=== PATIENT | male | born 1970 | race Caucasian/White ===

== ENCOUNTER 2019-12-15 16:52 | Emergency (ER) | payer OTHER, SELFPAY ==
[2019-12-15 17:01] VITALS: BP 178/90; PULSE 71; RESP 24; TEMP 37.2; O2SAT 98; BMI 37.7
--- NOTE | 2019-12-15 17:21 | ECG_ITS ---
Test Reason : CP Blood Pressure : / mmHG Vent. Rate : 069 BPM Atrial Rate : 069 BPM P-R Int : 162 ms QRS Dur : 088 ms QT Int : 430 ms P-R-T Axes : 040 -05 024 degrees QTc Int : 460 ms Normal sinus rhythm Nonspecific T wave abnormality Borderline ECG No previous ECGs available Referred By: Reyna Villa Electronically Signed By:ELSA ARCHER MD
--- NOTE | 2019-12-15 17:21 | XR_ITS ---
EXAMINATION: XR CHEST CLINICAL INFORMATION: Chest pain COMPARISON: None TECHNIQUE: Frontal portable view of the chest was obtained. 5:27 PM FINDINGS: Inspiratory effort is low. This causes crowding of the bronchovascular markings. Allowing for low inspiratory effort there is no significant pulmonary vascular congestion. There is no infiltrate or overt pulmonary edema. There is no pleural effusion. Heart size is normal. Cardiac and mediastinal contours are normal. IMPRESSION: Low inspiratory effort. No acute abnormality of the chest.
--- NOTE | 2019-12-15 17:22 | ED.CHESTPAIN ---
HPI - Chest Pain General Chief Complaint: Chest Pain Stated Complaint: CHEST PAIN Time Seen by Provider: 12/15/19 17:21 Source: patient Mode of arrival: ambulatory Limitations: no limitations History of Present Illness HPI narrative: 49-year-old male presents emergency department with several days of left-sided chest pain radiating to the left arm. Pain is random, started when he was resting, does not report any physical exertion or strenuous physical labor, does not describe diaphoresis or palpitations with this chest pain. He does have a history of bilateral lower extremity edema and peripheral vascular disease. Pain does not increase with inspiration, and does not change with physical exertion. He denies palpitations, shortness of breath, abdominal pain, abdominal distention, dysuria, hematuria, fevers and chills. He denies lightheadedness, dizziness, weakness, changes in vision, and headaches. He has had a resection for colorectal cancer, has a colostomy bag in place, and does have a history of DVT. MD complaint: chest pain Onset (ago): day(s) (Several days ago) Timing of current episode: episodic Prior episodes: Yes Onset: during rest and awoke with symptoms Pain location: left chest Pain radiation: left arm Severity: moderate Quality: tightness, aching and heaviness Relieving factors: nothing Exacerbating factors: nothing Context: history of DVT/PE Risk Factors Coronary artery disease risk factors: hypertension Thoracic aortic dissection risk factors: none Pulmonary embolism risk factors: history of deep vein thrombosis and malignancy Related Data Allergies Allergy/AdvReac Type Severity Reaction Status Date / Time No Known Allergies Allergy Verified 12/15/19 17:01 Review of Systems Review of Systems: Constitutional: No Weight loss, No Fever, No Chills, No Night Sweats, No Fatigue, No Malaise ENT/Mouth: No Hearing loss, No Ear Pain, No Nasal Congestion, No Sinus Pain, No Hoarseness, No sore throat, No Rhinorrhea, No Swallowing Difficulty Eyes: No Eye Pain, No Swelling, No Redness, No Foreign Body, No Discharge, No Vision Changes Cardiovascular: pos Chest Pain, bilateral lower extremity edema, no SOB, no Dyspnea on Exertion, No Orthopnea, No Palpitations Respiratory: No Cough, No Sputum, No Wheezing, No Smoke Exposure, No Dyspnea Gastrointestinal: Colostomy bag in place, no changes in bowel habits, No Nausea, No Vomiting, No Diarrhea, No abdominal Pain, No Hematochezia, No Melena Genitourinary: No irregular bleeding, No Dysuria, No Urinary Frequency, No Hematuria, No Urinary Incontinence, No Urgency, No Flank Pain, No Urinary Flow Changes, No Hesitancy Musculoskeletal: No joint pain, No Myalgias, No Joint Swelling Skin: No Skin Lesions, No rash Neuro: No Weakness, No Numbness, No Paresthesias, No Loss of Consciousness, No Dizziness, No Headache Psych: No Anxiety/Panic, No Depression, No SI/HI/AH/VH Heme/Lymph: No Bruising, No Bleeding,No Lymphadenopathy Endocrine: No Polyuria, No Polydipsia, No Temperature Intolerance [facility] Past Medical History Attestation statement: The following information was validated with the patient. Medical History Hypertension Rectal adenocarcinoma Rectal adenoma Social History Social History Alcohol intake: current Alcohol intake frequency: holidays/special occasions only Smoked in Last 30 Days: No Use of substances other than those prescribed or required for medical reasons: No Advance Directives: No Advance Directives Information Provided: Yes Physical Exam Vital Signs and I&O and Narrative: Vital Signs and I&O: Vital Signs Temp 98.7 F 12/15/19 21:04 Pulse 63 12/15/19 21:04 Resp 16 12/15/19 21:04 BP 163/100 H 12/15/19 21:04 Pulse Ox 99 12/15/19 21:04 Intake & Output 12/15/19 12/15/19 12/16/19 06:59 18:59 06:59 Weight 122.582 kg Body Mass Index 37.7 Appearance: Alert. Oriented X3. No acute distress. Eyes: Pupils equal, round and reactive to light. ENT: Pharynx normal. Neck: Normal inspection. Neck supple. CVS: Normal heart rate and rhythm. Pulses normal. No chest wall tenderness to palpation, no crepitus noted. Respiratory: No respiratory distress. Breath sounds normal. Abdomen: Soft and nontender. Colostomy and placed to the right lower quadrant Skin: Skin warm and dry. Normal skin color. Normal skin turgor. Extremities: Bilateral lower extremity edema to the midthigh. Neuro: Oriented X 3. No motor deficit. No sensory deficit. Course Course Course Narrative: 49-year-old male presents with chest pain. Does have a history of colon cancer with colon resection, and DVT. We will rule out ACS, and order D-dimer. Reevaluation(s) Reevaluation #1: EKG is normal sinus rhythm, troponin is 10.4, we'll repeat this in 2 hours. D-dimer is 207 age adjusted is considered negative. Second troponin is 10.4, no change, highly unlikely that this is ACS, or PE. BUN is elevated at 24, which is a marked improvement from 10/21/2019 at 34. Patient was advised to follow-up with his primary care physician for further workup, as he may need a stress test. This concern was discussed with him prior to his discharge. Patient verbalized understanding of and agrees to plan of care to discharge home. Time: 21:12 MDM - Chest Pain Differential Diagnosis Differential diagnosis: Likely fracture of rib, pneumothorax, stable angina, atypical chest pain, st elevation myocardial infarction, costochondritis, chest pain and biliary colic Medical Records Data Attestation: I reviewed the patient's medical records. Lab Data Attestation: I reviewed the patient's lab results. Result diagrams: 12/15/19 18:05 12/15/19 18:05 Labs: Lab Results 12/15/19 12/15/19 12/15/19 Range/Units 18:05 18:05 18:05 WBC (4.8-10.8) X10*3/uL RBC (4.60-5.80) X10*6/uL Hgb (14.0-18.0) g/dl Hct (42-52) % MCV (80-98) fL MCH (27.0-33.0) pg MCHC (31.0-36.0) g/dl RDW (11.0-16.0) % Plt Count (160-400) X10*3/uL MPV (9.4-12.4) fL Immature Gran % (Auto) (0.0-0.4) % Neut % (Auto) (45-73) % Lymph % (Auto) (20-40) % [place] % (Auto) (2-11) % Eos % (Auto) (0-4) % Baso % (Auto) (0-2) % Lymph # (Auto) (1.2-4.9) X10*3/uL [place] # (Auto) (0.1-1.2) X10*3/uL Eos # (Auto) (0.0-0.4) X10*3/uL Baso # (Auto) (0.0-0.2) X10*3/uL Abs Immat Gran (auto) (0.00-0.03) X10*3/uL Absolute Neuts (auto) (2.0-8.3) X10*3/uL Absolute Nucleated RBC (0.0-0.012) X10*3/uL Nucleated RBC % (auto) (0.0-0.2) /100WBC PT 12.5 (10.8-13.0) SEC INR 1.1 (0.9-1.1) APTT 32.0 (24.1-38.0) SEC D-Dimer NG/ML Sodium (135-145) mmol/L Potassium (3.3-5.1) mmol/l Chloride (96-108) mmol/L Carbon Dioxide (22-29) mmol/L Anion Gap (12-20) BUN (9-16) mg/dL Creatinine (0.5-1.4) mg/dL Estim Creat Clear Calc Estimated GFR Random Glucose (60-115) mg/dL Calcium (8.4-10.2) mg/dL Magnesium 2.2 (1.6-2.6) mg/dL Total Bilirubin 0.5 (0.0-1.0) mg/dL Direct Bilirubin 0.2 (0.0-0.5) mg/dL AST 18 (5-37) U/L ALT 22 (0-40) U/L Alkaline Phosphatase 77 (39-117) U/L Troponin I High Sens (<3.5-35.0) ng/L B-Natriuretic Peptide 51 (<100) pg/mL Total Protein 7.4 (6.5-8.0) g/dL Albumin 4.3 (3.5-5.0) g/dL Lipase 30 (8-78) U/L 12/15/19 12/15/19 12/15/19 Range/Units 18:05 18:05 18:05 WBC 7.2 (4.8-10.8) X10*3/uL RBC 5.12 (4.60-5.80) X10*6/uL Hgb 14.3 (14.0-18.0) g/dl Hct 42.3 (42-52) % MCV 82.6 (80-98) fL MCH 27.9 (27.0-33.0) pg MCHC 33.8 (31.0-36.0) g/dl RDW 12.9 (11.0-16.0) % Plt Count 207 (160-400) X10*3/uL MPV 9.6 (9.4-12.4) fL Immature Gran % (Auto) 0.8 H (0.0-0.4) % Neut % (Auto) 59.8 (45-73) % Lymph % (Auto) 24.9 (20-40) % [place] % (Auto) 8.3 (2-11) % Eos % (Auto) 5.8 H (0-4) % Baso % (Auto) 0.4 (0-2) % Lymph # (Auto) 1.8 (1.2-4.9) X10*3/uL [place] # (Auto) 0.6 (0.1-1.2) X10*3/uL Eos # (Auto) 0.4 (0.0-0.4) X10*3/uL Baso # (Auto) 0.0 (0.0-0.2) X10*3/uL Abs Immat Gran (auto) 0.06 H (0.00-0.03) X10*3/uL Absolute Neuts (auto) 4.3 (2.0-8.3) X10*3/uL Absolute Nucleated RBC 0.000 (0.0-0.012) X10*3/uL Nucleated RBC % (auto) 0.0 (0.0-0.2) /100WBC PT (10.8-13.0) SEC INR (0.9-1.1) APTT (24.1-38.0) SEC D-Dimer NG/ML Sodium 139 (135-145) mmol/L Potassium 3.3 (3.3-5.1) mmol/l Chloride 102 (96-108) mmol/L Carbon Dioxide 27 (22-29) mmol/L Anion Gap 13 (12-20) BUN 24 H (9-16) mg/dL Creatinine 0.90 (0.5-1.4) mg/dL Estim Creat Clear Calc 130.8 Estimated GFR > 60 Random Glucose 76 (60-115) mg/dL Calcium 9.1 (8.4-10.2) mg/dL Magnesium (1.6-2.6) mg/dL Total Bilirubin (0.0-1.0) mg/dL Direct Bilirubin (0.0-0.5) mg/dL AST (5-37) U/L ALT (0-40) U/L Alkaline Phosphatase (39-117) U/L Troponin I High Sens 10.4 (<3.5-35.0) ng/L B-Natriuretic Peptide (<100) pg/mL Total Protein (6.5-8.0) g/dL Albumin (3.5-5.0) g/dL Lipase (8-78) U/L 12/15/19 12/15/19 Range/Units 18:05 20:07 WBC (4.8-10.8) X10*3/uL RBC (4.60-5.80) X10*6/uL Hgb (14.0-18.0) g/dl Hct (42-52) % MCV (80-98) fL MCH (27.0-33.0) pg MCHC (31.0-36.0) g/dl RDW (11.0-16.0) % Plt Count (160-400) X10*3/uL MPV (9.4-12.4) fL Immature Gran % (Auto) (0.0-0.4) % Neut % (Auto) (45-73) % Lymph % (Auto) (20-40) % [place] % (Auto) (2-11) % Eos % (Auto) (0-4) % Baso % (Auto) (0-2) % Lymph # (Auto) (1.2-4.9) X10*3/uL [place] # (Auto) (0.1-1.2) X10*3/uL Eos # (Auto) (0.0-0.4) X10*3/uL Baso # (Auto) (0.0-0.2) X10*3/uL Abs Immat Gran (auto) (0.00-0.03) X10*3/uL Absolute Neuts (auto) (2.0-8.3) X10*3/uL Absolute Nucleated RBC (0.0-0.012) X10*3/uL Nucleated RBC % (auto) (0.0-0.2) /100WBC PT (10.8-13.0) SEC INR (0.9-1.1) APTT (24.1-38.0) SEC D-Dimer 207 NG/ML Sodium (135-145) mmol/L Potassium (3.3-5.1) mmol/l Chloride (96-108) mmol/L Carbon Dioxide (22-29) mmol/L Anion Gap (12-20) BUN (9-16) mg/dL Creatinine (0.5-1.4) mg/dL Estim Creat Clear Calc Estimated GFR Random Glucose (60-115) mg/dL Calcium (8.4-10.2) mg/dL Magnesium (1.6-2.6) mg/dL Total Bilirubin (0.0-1.0) mg/dL Direct Bilirubin (0.0-0.5) mg/dL AST (5-37) U/L ALT (0-40) U/L Alkaline Phosphatase (39-117) U/L Troponin I High Sens 10.4 (<3.5-35.0) ng/L B-Natriuretic Peptide (<100) pg/mL Total Protein (6.5-8.0) g/dL Albumin (3.5-5.0) g/dL Lipase (8-78) U/L Imaging Data Chest x-ray: Attestation: I personally reviewed and interpreted this imaging study as follows: Radiologist's impression: FINDINGS: Inspiratory effort is low. This causes crowding of the bronchovascular markings. Allowing for low inspiratory effort there is no significant pulmonary vascular congestion. There is no infiltrate or overt pulmonary edema. There is no pleural effusion. Heart size is normal. Cardiac and mediastinal contours are normal. IMPRESSION: Low inspiratory effort. No acute abnormality of the chest. ECG Data ECG #1: Attestation: I personally reviewed and interpreted this ECG as follows: ECG interpretation date: 12/15/19 ECG interpretation time: 16:54 Interpretation: EKGRate: 69 Rhythm: Normal sinus [place]: Normal Normal P waves. Normal EVA. Normal QRS complex. ST T wave : No indication of ST elevation or depression, no indication of ischemia qTC: 460 No prior EKG for comparison Discharge Plan Discharge Clinical Impression: Atypical chest pain, Chest pain Patient Disposition: Home, Self-Care Instructions: Chest Pain (ED) Additional Instructions: please follow-up with primary care physician in 3-5 days for chest pain follow-up. Your EKG was normal sinus rhythm with no indication of ST elevation or depression, your troponin was within normal limits. Your BUN was slightly elevated at 24, which is an improvement from October. Please continue to take all medications as prescribed previously. Thank you for choosing this emergency department for evaluation. Please follow-up with primary care physician as needed. Return to the emergency department for any new, concerning, or worsening symptoms. Interventions: ED Discharge Assessment Last Done: 12/15/19 21:59 Discharge Date/Time: 12/15/19 22:02
[2019-12-15 18:11] LABS: MANUAL DIFF FLAG NO
[2019-12-15 18:15] LABS: Basophils Percent Auto 0.4 % (0-2); Eosinophils Absolute Auto 0.4 X10*3/uL (0.0-0.4); Eosinophils Percent Auto 5.8 % (0-4); Hematocrit 42.3 % (42-52); Hemoglobin 14.3 g/dl (14.0-18.0); Imm Gran Abs Auto 0.06 X10*3/uL (0.00-0.03); Imm Gran Pct Auto 0.8 % (0.0-0.4); Lymphocytes Absolute Auto 1.8 X10*3/uL (1.2-4.9); Lymphocytes Percent Auto 24.9 % (20-40); Mean Corpuscular HGB Conc 33.8 g/dl (31.0-36.0); Mean Corpuscular Hemoglobin 27.9 pg (27.0-33.0); Mean Corpuscular Volume 82.6 fL (80-98); Mean Platelet Volume 9.6 fL (9.4-12.4); Monocytes Absolute Auto 0.6 X10*3/uL (0.1-1.2); Monocytes Percent Auto 8.3 % (2-11); Neutrophils Absolute Auto 4.3 X10*3/uL (2.0-8.3); Neutrophils Percent Auto 59.8 % (45-73); Platelet Count 207 X10*3/uL (160-400); Red Blood Count 5.12 X10*6/uL (4.60-5.80); Red Cell Distribution Width 12.9 % (11.0-16.0); White Blood Count 7.2 X10*3/uL (4.8-10.8)
[2019-12-15 18:31] LABS: INTERNATIONAL NORM RATIO 1.1 (0.9-1.1); Prothrombin Time 12.5 SEC (10.8-13.0)
[2019-12-15 18:49] LABS: Troponin-I High Sensitivity 10.4 ng/L (<3.5-35.0)
[2019-12-15 18:53] LABS: Albumin Level 4.3 g/dL (3.5-5.0); Bilirubin Direct 0.2 mg/dL (0.0-0.5); Bilirubin Total 0.5 mg/dL (0.0-1.0); Magnesium 2.2 mg/dL (1.6-2.6)
[2019-12-15 20:11] LABS: D Dimer 207 NG/ML
[2019-12-15 20:44] LABS: Anion Gap 13 (12-20); Blood Urea Nitrogen 24 mg/dL (9-16); Calcium 9.1 mg/dL (8.4-10.2); Carbon Dioxide 27 mmol/L (22-29); Chloride 102 mmol/L (96-108); Creatinine Clr Calc Pharmacy 130.8; Estimated Glomerular Filt Rate > 60; Glucose Random 76 mg/dL (60-115); Potassium 3.3 mmol/l (3.3-5.1); Sodium 139 mmol/L (135-145)
[2019-12-15 20:45] LABS: Alanine Aminotransferase 22 U/L (0-40); Alkaline Phosphatase 77 U/L (39-117)
[2019-12-15 20:51] LABS: Troponin-I High Sensitivity 10.4 ng/L (<3.5-35.0)
[2019-12-15 21:01] LABS: Aspartate Amino Transferase 18 U/L (5-37); Lipase 30 U/L (8-78); Total Protein 7.4 g/dL (6.5-8.0)
[2019-12-15 21:03] LABS: B Type Natriuretic Peptide 51 pg/mL (<100)
[2019-12-15 21:04] VITALS: BP 163/100; PULSE 63; RESP 16; TEMP 37.1; O2SAT 99
== END 2019-12-15 22:02 | disposition home or self-care (01) ==
PROVIDERS: Nurse Practitioner Family; Emergency Provider Emergency Medicine; PCP Internal Medicine
DX: R07.89 Other chest pain (principal); Z79.899 Other long term (current) drug therapy
CPT/HCPCS: 36415; 71045; 80048; 80076; 83690; 83735; 83880; 84484; 85025; 85379; 85610; 85730; 93005; 96374; 96375; 99285

== ENCOUNTER 2020-02-10 10:06 | Emergency (ER) | payer OTHER, SELFPAY ==
[2020-02-10 10:39] VITALS: BP 165/86; PULSE 70; RESP 16; TEMP 37.2; O2SAT 97; BMI 37.6
--- NOTE | 2020-02-10 12:14 | US_ITS ---
EXAMINATION: US VENOUS ULTRASOUND WITH DOPPLER LOWER EXTREMITY, BILATERAL CLINICAL INFORMATION: Bilateral lower extremity swelling. COMPARISON: Right lower extremity DVT study done on 02/07/2018. TECHNIQUE: Ultrasound of the deep veins is performed from the hip to the calf with compression sonography and color and pulse Doppler assessment. Spectral analysis with color-flow imaging is performed. FINDINGS: RIGHT: There is normal venous compression and respiratory variation and augmented flow. The visualized common femoral vein, superficial femoral vein, profunda femoral vein, popliteal vein, and the trifurcation region shows no evidence of deep venous thrombosis. There is no significant popliteal fossa cyst. Incidental note is made of right-sided varicose vein at mid calf seen arising from the perforators LEFT: There is normal venous compression and respiratory variation and augmented flow. The visualized common femoral vein, superficial femoral vein, profunda femoral vein, popliteal vein, and the trifurcation region shows no evidence of deep venous thrombosis. There is no significant popliteal fossa cyst. Incidental note is made of left mid thigh varicose vein containing thrombus. US/US venous duplex LE BI IMPRESSION: 1. No DVT demonstrated in the bilateral lower extremity. 2. Note is made of presence of right mid calf varicose vein without any thrombus. 3. Note is also made of left mid thigh varicose vein containing thrombus.
--- NOTE | 2020-02-10 12:17 | ED_ITS ---
HPI - General Adult General Chief complaint: General Medical Stated complaint: ?BLOOD CLOT Time Seen by Provider: 02/10/20 12:00 Source: patient History of Present Illness HPI narrative: 50-year-old male with a history of rectal CA status post surgery/chemotherapy 7 years prior, complicated by superficial thrombophlebitis who presents emergency department for evaluation of bilateral lower extremity swelling and pain. The patient has a history of lower extremity swelling and wears compression stockings. He states that this morning he noticed that both his legs were more swollen than usual. He also notes redness and pain on his left inner thigh which she states was similar to when he had superficial thrombophlebitis in the past. He denied fever, chills, chest pain, shortness of breath, dyspnea on exertion. He does have an ostomy states that there has been good output into the ostomy. The patient was concerned that he may have blood clots in his lower extremities therefore he came to the emergency department for evaluation. Related Data Allergies Allergy/AdvReac Type Severity Reaction Status Date / Time No Known Allergies Allergy Verified 12/15/19 17:01 Review of Systems Review of Systems: Yes all other systems are reviewed and are negative Constitutional: Constitutional: Reports as per HPI Eyes: Eyes: Reports as per HPI ENT: Reports as per HPI Cardiovascular: Cardiovascular: Reports as per HPI Respiratory: Respiratory: Reports as per HPI Gastrointestinal: Gastrointestinal: Reports as per HPI Genitourinary: Genitourinary: Reports as per HPI Musculoskeletal: Musculoskeletal: Reports as per HPI Integumentary/Breasts: Skin/Breast: Reports as per HPI Neurologic: Reports as per HPI and Reports Abnormal speech present Psychiatric: Psychiatric: Reports as per HPI Allergic/Immunologic: Allergic/Immunologic: Reports as per HPI PMFSH Past Medical History Medical History Hypertension Hypothyroid Rectal adenocarcinoma Rectal adenoma Surgical History History of creation of ostomy Social History Social History Alcohol intake: current Alcohol intake frequency: holidays/special occasions only Advance Directives: No Advance Directives Information Provided: No Physical Exam Vital Signs: Vital Signs: Last Vital Signs Temp 99.1 F 02/10/20 14:06 Pulse 73 02/10/20 14:06 Resp 16 02/10/20 14:06 BP 156/98 H 02/10/20 14:10 Pulse Ox 96 02/10/20 14:06 Body Mass Index 37.6 Const: General: cooperative, no acute distress, alert and awake Orientation/consciousness: oriented to person and oriented to place Limitations: no limitations HENMT: Head: Yes normal to inspection, Yes normocephalic and Yes atraumatic Ears: external ears normal General nose exam: Normal external nose present Face and sinus: Yes normal facial exam Mouth: Normal oral and palatal mucosa present Teeth and gingiva: dentition normal Throat: Yes posterior oropharynx normal Eyes: General: appearance normal, both eyes and all related structures P eriorbital: periorbital findings normal Eyelids: Yes eyelids normal Conjunctivae: conjunctivae normal Sclerae: sclerae normal Corneas: corneas normal Pupils: Equal, round and reactive pupils present Direct Ophthalm oscopy: normal light reflex Neck: Neck: Yes normal visual inspection and Yes supple Lymphatic: no lymphadenopathy noted Chest: Chest palpation & inspection: normal inspection of the chest and normal palpation of entire chest wall Resp: Effort & Inspection: normal respiratory effort, abnormal respiratory pattern, no audible wheezes and no respiratory distress Auscultation: clear to auscultation bilaterally, no crackles, no rales, no rhonchi and no wheezes Cardio: Rate: regular rate Rhythm: regular rhythm Heart sounds: S1 normal heart sound present, S2 normal heart sound present and no murmurs GI: Inspection: No distended Palpation (GI): Soft to palpation, nontender, no guarding and No hepatosplenomegaly present Auscultation: normal bowel sounds : General: Yes no CVA tenderness Back/Spine/Pelvis: Back: no CVA tenderness Skin: General skin exam: no rashes or lesions noted Lesions: no lesions Rashes: no rashes Wounds: no wounds Neuro: General: oriented to person and oriented to place Cranial nerves: Yes CN's II-XII intact bilaterally and Yes Equal, round and reactive pupils present Cognition (Neuro): normal cognition Speech: Abnormal speech present Motor exam (neuro): 5/5 motor strength present throughout Extrem: General: Yes full ROM, Yes no pedal edema, Yes no calf tenderness and Yes other (B/L LE trace pitting edema) Left lower extremity: hip/thigh (Erythema with tenderness and increased warmth left lateral thigh) Psych: Appearance: grossly normal Mental Status: mental status grossly normal Speech and movement: Clear speech present Affect: normal affect Thought process: Normal thought process present Course Course Course Narrative: 50-year-old male with a history rectal cancer 7 years prior status post chemotherapy and colon surgery with history of superficial thrombophlebitis who presents to the emergency department for evaluation of bilateral lower extremity swelling with increased warmth and tenderness to the left medial aspect of the thigh. Physical examination did reveal bilateral trace pitting edema to both lower extremities with increased warmth, erythema and fullness to the left lateral thigh. My impression is that the patient pr obably has superficial thrombophlebitis however given his history he needs to be ruled out for bilateral DVT. A Doppler ultrasound of the lower extremities were ordered to evaluate for possible DVT. 1452: The patient's Doppler ultrasound bilateral lower extremities revealed no DVT. The patient does have a varicose vein without thrombus on the right calf area and a varicose pain in the left inner thigh area with thrombosis. The patient's presentation is consistent with superficial thrombophlebitis and I did discuss this with the patient. He was advised to use a heating pad on low on the areas that are inflamed and to take ibuprofen 200 mg pills, 2 pills every 6 hours as needed for pain. Is advised 12 with his doctor in 2 days for re- evaluation and return to the emergency department if his symptoms get worse or if he develops any new symptoms that are concerning to him. Discharge Plan Discharge Clinical Impression: Superficial phlebitis and thrombophlebitis of left lower extremity Patient Disposition: Home, Self-Care Instructions: Superficial Thrombophlebitis (ED) Additional Instructions: The Doppler ultrasound of both of your lower legs revealed no deep venous thrombosis (blood clots that are deeper in your legs). This is very reassuring. The Doppler ultrasound did reveal a superficial thrombophlebitis (blood clot in the superficial veins) in your left upper thigh. Also you have a varicose vein in this area and a varicose vein in your right calf area that is also slightly swollen. The treatment for superficial thrombophlebitis is to apply heating pad on low for 15-20 minutes 4 to 6 times a day for the next 2-3 days. Also take ibuprofen 200 mg pills, 2 pills every 6 hours for the next 3-4 days to help reduce the pain and inflammation. Follow-up with your doctor in 2 days for re-evaluation Please return to the emergency department if her symptoms get worse or if you develop any symptoms that are concerning to you. Referrals: Didier Barron MD [Primary Care Provider] - 2 days
[2020-02-10 14:06] VITALS: BP 173/100; PULSE 73; RESP 16; TEMP 37.3; O2SAT 96
[2020-02-10 14:10] VITALS: BP 156/98
== END 2020-02-10 15:10 | disposition home or self-care (01) ==
PROVIDERS: Emergency Provider Emergency Medicine Emergency Medical Services; PCP Internal Medicine
DX: I80.02 Phlebitis and thrombophlebitis of superficial vessels of left lower extremity (principal); M79.662 Pain in left lower leg; M79.661 Pain in right lower leg; I10 Essential (primary) hypertension; Z85.048 Personal history of other malignant neoplasm of rectum, rectosigmoid junction, and anus
CPT/HCPCS: 93970; 99284

== ENCOUNTER 2020-06-27 03:39 | Day surgery (SDC) | payer OTHER, SELFPAY ==
[2020-06-27] VITALS (14 sets, daily range): BP systolic 130–192; BP diastolic 78–101; PULSE 66–102; RESP 16–20; TEMP 36.9–38.1; O2SAT 93–99; BMI 36.2
--- NOTE | 2020-06-27 03:42 | ED_ITS ---
HPI - General Adult General Chief complaint: General Medical Stated complaint: Urinary retention Time Seen by Provider: 06/27/20 03:42 Source: patient Mode of arrival: ambulatory Limitations: no limitations History of Present Illness HPI narrative: 50-year-old male who presents emergency department for evaluation of difficulty urinating. The patient states that he has a history of rectal cancer, he had surgery and radiation therapy and since then he has had difficulty urinating. He states these had to have Carrion catheters placed multiple times in the past. The patient states that he has noticed decreased ur ine output over the past several hours to the point where he feels like his bladder is distended and is painful. He states that has a constant, dull ache in the area of his bladder which is moderate in intensity. The patient denied fever, chills, chest pain, shortness of breath, nausea, vomiting. Related Data Allergies Allergy/AdvReac Type Severity Reaction Status Date / Time No Known Allergies Allergy Verified 12/15/19 17:01 Review of Systems Review of Systems: Yes all other systems are reviewed and are negative PMFSH Past Medical History Medical History Hypertension Hypothyroid Rectal adenocarcinoma Rectal adenoma Surgical History History of creation of ostomy Social History Social History Alcohol intake: current Alcohol intake frequency: holidays/special occasions only Alcohol type: hard liquor Smoking Status: Never smoker Use of substances other than those prescribed or required for medical reasons: No Advance Directives: No Advance Directives Information Provided: No Physical Exam Vital Signs: Vital Signs: Last Vital Signs Temp 98.5 F 06/27/20 05:32 Pulse 98 06/27/20 09:05 Resp 16 06/27/20 09:05 BP 131/90 H 06/27/20 09:05 Pulse Ox 99 06/27/20 09:05 Body Mass Index 36.2 Const: General: cooperative and healthy appearing Orientation/consciousness: oriented to person and oriented to place Limitations: no limitations HENMT: Head: Yes normal to inspection, Yes normocephalic and Yes atraumatic Ears: external ears normal General nose exam: Normal external nose present Face and sinus: Yes normal facial exam Mouth: Normal oral and palatal mucosa present Throat: Yes posterior oropharynx normal Eyes: Periorbital: periorbital findings normal Eyelids: Yes eyelids normal Conjunctivae: conjunctivae normal Sclerae: sclerae normal Corneas: corneas normal Pupils: Equal, round and reactive pupils present Direct Ophthalmoscopy: normal light reflex Neck: Neck: Yes full ROM, Yes no lymphadenopathy, Yes no meningeal signs, Yes trachea midline and Yes supple Chest: Chest palpation & inspection: normal inspection of the chest and normal palpation of entire chest wall Resp: Effort & Inspection: normal respiratory effort and able to speak in complete sentences Auscultation: clear to auscultation bilaterally Cardio: Rate: regular rate Rhythm: regular rhythm Heart sounds: S1 normal heart sound present, S2 normal heart sound present and no murmurs GI: Inspection: Yes normal to inspection Palpation (GI): Soft to palpation, Tenderness to palpation present (GI), no guarding, not rigid and No hepatospl enomegaly present : General: Yes no CVA tenderness Penis: normal penis and circumcised Meatus: meatus normal Scrotum: scrotum normal Testes: Testes normal Back/Spine/Pelvis: Back: no CVA tenderness Cervical Spine: normal cervical lordosis Thoracic/Lumbar Spine: thoracic and lumbar spine normal to inspec tion Skin: Lesions: no lesions Rashes: no rashes Wounds: no wounds Neuro: General: oriented to person, oriented to place and no meningeal signs Cranial nerves: Yes CN's II-XII intact bilaterally and Yes Equal, round and reactive pupils present Cognition (Neuro): normal cognition Motor exam (neuro): 5/5 motor strength present throughout Extrem: General: Yes normal to inspection and Yes full ROM Psych: Appearance: well kempt Mental Status: mental status grossly normal Speech and movement: Normal speech and movement present Affect: normal affect Attitude: cooperative Thought process: Normal thought process present Thought content: Normal thought content present Course Course Course Narrative: 50-year-old male who presents emergency department for evaluation of urinary bladder obstruction, he has had multiple similar episodes in the past. The patient did have suprapubic tenderness. Bladder scan revealed greater than 500 cc of urine in his bladder. The nurse attempted to place a Carrion catheter unsuccessfully. I then attempted to place an 18 Indian coude cath without success. I did discuss the patient's presentation with the covering urologist, Dr. Small. He came to the emergency department and evaluated the patient to evaluate the patient. 0844: The patient's CBC was normal. Coags were normal. The patient's comprehensive metabolic was normal. 0917: Dr. Small was not able to get a Carrion catheter in the patient therefore the patient will be taken to the operating room for catheter placement. The patient's care was turned over to my colleague, Dr. Shanta Ramirez. Medical Decision Making Lab Data Result diagrams: 06/27/20 05:00 06/27/20 05:00 Labs: Lab Results 06/27/20 06/27/20 06/27/20 Range/Units 05:00 05:00 05:33 WBC 6.5 (4.8-10.8) X10*3/uL RBC 5.25 (4.60-5.80) X10*6/uL Hgb 14.8 (14.0-18.0) g/dl Hct 44.1 (42-52) % MCV 84.0 (80-98) fL MCH 28.2 (27.0-33.0) pg MCHC 33.6 (31.0-36.0) g/dl RDW 13.3 (11.0-16.0) % Plt Count 169 (160-400) X10*3/uL MPV 9.5 (9.4-12.4) fL Immature Gran % (Auto) 1.2 H (0.0-0.4) % Neut % (Auto) 66.5 (45-73) % Lymph % (Auto) 18.5 L (20-40) % [place] % (Auto) 8.3 (2-11) % Eos % (Auto) 5.2 H (0-4) % Baso % (Auto) 0.3 (0-2) % Lymph # (Auto) 1.2 (1.2-4.9) X10*3/uL [place] # (Auto) 0.5 (0.1-1.2) X10*3/uL Eos # (Auto) 0.3 (0.0-0.4) X10*3/uL Baso # (Auto) 0.0 (0.0-0.2) X10*3/uL Abs Immat Gran (auto) 0.08 H (0.00-0.03) X10*3/uL Absolute Neuts (auto) 4.4 (2.0-8.3) X10*3/uL Absolute Nucleated RBC 0.000 (0.0-0.012) X10*3/uL Nucleated RBC % (auto) 0.0 (0.0-0.2) /100WBC Sodium 140 (135-145) mmol/L Potassium 3.8 (3.3-5.1) mmol/L Chloride 106 (96-108) mmol/L Carbon Dioxide 24 (22-29) mmol/L Anion Gap 14 (12-20) BUN 21 H (9-16) mg/dL Creatinine 0.81 (0.5-1.4) mg/dL Estim Creat Clear Calc 140.9 Estimated GFR > 60 Random Glucose 106 D (60-115) mg/dL Calcium 9.1 (8.4-10.2) mg/dL Total Bilirubin 0.7 (0.0-1.0) mg/dL AST 20 (5-37) U/L ALT 26 (0-40) U/L Alkaline Phosphatase 71 (39-117) U/L Total Protein 7.2 (6.5-8.0) g/dL Albumin 4.3 (3.5-5.0) g/dL Urine Color YELLOW Urine Appearance CLEAR Urine pH 6.0 (5.0-8.0) Ur Specific [place] 1.020 (1.005-1.025) Urine Protein NEG (NEG-TRACE) MG/DL Urine Glucose (UA) NEG (NEG) MG/DL Urine Ketones NEG (NEG) MG/DL Urine Blood 2+ H (NEG) Urine Nitrite NEG (NEG) Ur Leukocyte Esterase NEG (NEG) Urine RBC 30-49 H (0) /HPF Urine WBC 1-4 (0-4) /HPF Ur Squamous Epith Cells 1+ /LPF Urine Bacteria 1+ /LPF
--- NOTE | 2020-06-27 04:51 | PC.NURSE ---
Performed bladder scan. Scanner reading 526 ml.
[2020-06-27 05:04] LABS: MANUAL DIFF FLAG NO
[2020-06-27 05:05] LABS: Basophils Percent Auto 0.3 % (0-2); Eosinophils Absolute Auto 0.3 X10*3/uL (0.0-0.4); Eosinophils Percent Auto 5.2 % (0-4); Hematocrit 44.1 % (42-52); Hemoglobin 14.8 g/dl (14.0-18.0); Imm Gran Abs Auto 0.08 X10*3/uL (0.00-0.03); Imm Gran Pct Auto 1.2 % (0.0-0.4); Lymphocytes Absolute Auto 1.2 X10*3/uL (1.2-4.9); Lymphocytes Percent Auto 18.5 % (20-40); Mean Corpuscular HGB Conc 33.6 g/dl (31.0-36.0); Mean Corpuscular Hemoglobin 28.2 pg (27.0-33.0); Mean Platelet Volume 9.5 fL (9.4-12.4); Monocytes Absolute Auto 0.5 X10*3/uL (0.1-1.2); Monocytes Percent Auto 8.3 % (2-11); Neutrophils Absolute Auto 4.4 X10*3/uL (2.0-8.3); Neutrophils Percent Auto 66.5 % (45-73); Platelet Count 169 X10*3/uL (160-400); Red Blood Count 5.25 X10*6/uL (4.60-5.80); Red Cell Distribution Width 13.3 % (11.0-16.0); White Blood Count 6.5 X10*3/uL (4.8-10.8)
[2020-06-27 05:30] LABS: Alanine Aminotransferase 26 U/L (0-40); Albumin Level 4.3 g/dL (3.5-5.0); Alkaline Phosphatase 71 U/L (39-117); Anion Gap 14 (12-20); Aspartate Amino Transferase 20 U/L (5-37); Bilirubin Total 0.7 mg/dL (0.0-1.0); Blood Urea Nitrogen 21 mg/dL (9-16); Calcium 9.1 mg/dL (8.4-10.2); Carbon Dioxide 24 mmol/L (22-29); Chloride 106 mmol/L (96-108); Creatinine Clr Calc Pharmacy 140.9; Estimated Glomerular Filt Rate > 60; Glucose Random 106 mg/dL (60-115); Potassium 3.8 mmol/L (3.3-5.1); Sodium 140 mmol/L (135-145); Total Protein 7.2 g/dL (6.5-8.0)
[2020-06-27 05:40] LABS: Glucose Urine UA NEG (NEG); Leukocyte Esterase Urine NEG (NEG); Nitrite Urine NEG (NEG); Urine Blood 2+ (NEG); Urine Ketones NEG (NEG); Urine Protein NEG (NEG-TRACE)
[2020-06-27 05:42] LABS: Appearance Urine CLEAR; Color Urine YELLOW
[2020-06-27 05:44] LABS: Bacteria Urine 1+ /LPF; RBC Urine 30-49 /HPF (0); Squamous Epithelial Cell Urine 1+ /LPF
--- NOTE | 2020-06-27 09:07 | PC.NURSE ---
urology MD to bedside to perform Cystoscopy and attempt catheterization. Pt reports pain, also has bleeding from proceedure. MD states pt will be admitted surgically. Pt able to void small amounts of urine. He has been cleaned, given pads for bleeding. Will continue to monitor
[2020-06-27 10:25] LABS: INTERNATIONAL NORM RATIO 1.1 (0.9-1.1); Prothrombin Time 12.7 SEC (10.8-13.0)
[2020-06-27 10:28] LABS: Partial Thromboplastin Time 31.4 SEC (24.1-38.0)
[2020-06-27 10:40] LABS: COVID-19 Test Negative (Negative)
[2020-06-27] MEDS: Morphine Sulfate 4 MG/ML CARTRIDGE IVPUSH (11:25)
[2020-06-27] MEDS: ondansetron HCL 4 MG/2 ML VIAL IVPUSH (11:26)
--- NOTE | 2020-06-27 11:44 | PC.NURSE ---
pt to surgery via stretcher.
--- NOTE | 2020-06-27 11:45 | PC.NURSE ---
's number [phone] Yeny.
--- NOTE | 2020-06-27 12:06 | HO.ANESPROP2 ---
[facility] Active Problems Active Problems: All Active Problems (Updated 06/27/20 @ 09:29 by Shanta Ramirez DO) Acute urinary retention (Acute) Past Medical History Medical History Hypertension Hypothyroid Rectal adenocarcinoma Rectal adenoma Surgical History Surgical History History of creation of ostomy Social History Social History Alcohol intake: current Alcohol intake frequency: holidays/special occasions only Alcohol type: hard liquor Smoking Status: Never smoker Use of substances other than those prescribed or required for medical reasons: No Have you been hit, kicked, punched, or otherwise hurt by someone within the past year? If so, by whom?: No Advance Directives: No Advance Directives Information Provided: No Meds Allergies Allergy/AdvReac Type Severity Reaction Status Date / Time No Known Allergies Allergy Verified 12/15/19 17:01 Active Medications: Current Medications Generic Name Dose Route Start Last Admin Trade Name Freq PRN Reason Stop Dose Admin Pharmacy Consult 1 each 06/27/20 09:15 Consult Rx Perform Med Rec MISCELLANE ONCE PRN Consult order Home Medications Medication Instructions Recorded Confirmed Last Taken Type citalopram 1 tab PO QAM 06/27/20 06/27/20 06/26/20 History doxycycline hyclate 1 tab PO DAILY 06/27/20 06/27/20 06/26/20 History irbesartan 1 tab PO DAILY 06/27/20 06/27/20 06/26/20 History levothyroxine 1 tab PO DAILY 06/27/20 06/27/20 06/26/20 History spironolactone 1 tab PO DAILY 06/27/20 06/27/20 06/26/20 History verapamil 1 cap PO BEDTIME 06/27/20 06/27/20 06/26/20 History Exam Exam Date and Time: June 27, 2020 1206 Height,Weight and Vital Signs: Height 5 ft 11 in Weight 117.934 kg Last Vital Signs Temp 98.9 F 06/27/20 12:01 Pulse 81 06/27/20 12:01 Resp 20 06/27/20 12:01 BP 171/99 H 06/27/20 12:01 Pulse Ox 98 06/27/20 12:01 Pertinent Lab Results Pertinent Lab Results: Laboratory Tests 06/27/20 06/27/20 06/27/20 05:00 05:00 05:33 WBC 6.5 RBC 5.25 Hgb 14.8 Hct 44.1 MCV 84.0 MCH 28.2 MCHC 33.6 RDW 13.3 Plt Count 169 MPV 9.5 Immature Gran % (Auto) 1.2 H Neut % (Auto) 66.5 Lymph % (Auto) 18.5 L [place] % (Auto) 8.3 Eos % (Auto) 5.2 H Baso % (Auto) 0.3 Lymph # (Auto) 1.2 [place] # (Auto) 0.5 Eos # (Auto) 0.3 Baso # (Auto) 0.0 Abs Immat Gran (auto) 0.08 H Absolute Neuts (auto) 4.4 Absolute Nucleated RBC 0.000 Nucleated RBC % (auto) 0.0 PT INR APTT Sodium 140 Potassium 3.8 Chloride 106 Carbon Dioxide 24 Anion Gap 14 BUN 21 H Creatinine 0.81 Estim Creat Clear Calc 140.9 Estimated GFR > 60 Random Glucose 106 D Calcium 9.1 Total Bilirubin 0.7 AST 20 ALT 26 Alkaline Phosphatase 71 Total Protein 7.2 Albumin 4.3 Urine Color YELLOW Urine Appearance CLEAR Urine pH 6.0 Ur Specific [place] 1.020 Urine Protein NEG Urine Glucose (UA) NEG Urine Ketones NEG Urine Blood 2+ H Urine Nitrite NEG Ur Leukocyte Esterase NEG Urine RBC 30-49 H Urine WBC 1-4 Ur Squamous Epith Cells 1+ Urine Bacteria 1+ COVID-19 ([place]) COVID-19 Clin Com 06/27/20 06/27/20 10:04 10:04 WBC RBC Hgb Hct MCV MCH MCHC RDW Plt Count MPV Immature Gran % (Auto) Neut % (Auto) Lymph % (Auto) [place] % (Auto) Eos % (Auto) Baso % (Auto) Lymph # (Auto) [place] # (Auto) Eos # (Auto) Baso # (Auto) Abs Immat Gran (auto) Absolute Neuts (auto) Absolute Nucleated RBC Nucleated RBC % (auto) PT 12.7 INR 1.1 APTT 31.4 Sodium Potassium Chloride Carbon Dioxide Anion Gap BUN Creatinine Estim Creat Clear Calc Estimated GFR Random Glucose Calcium Total Bilirubin AST ALT Alkaline Phosphatase Total Protein Albumin Urine Color Urine Appearance Urine pH Ur Specific [place] Urine Protein Urine Glucose (UA) Urine Ketones Urine Blood Urine Nitrite Ur Leukocyte Esterase Urine RBC Urine WBC Ur Squamous Epith Cells Urine Bacteria COVID-19 ([place]) Negative COVID-19 Clin Com See Note Airway Mallampati Class: II TM Dist: >3cm Neck ROM: Full
[2020-06-27] MEDS: Lactated Ringers 1,000 ML 100 ML IVCONT (12:22)
--- NOTE | 2020-06-27 12:25 | PC.NURSE ---
PATIENT URINATED 150 DARK URINE AT THIS TIME.
--- NOTE | 2020-06-27 12:42 | P.CNUR_ITS ---
History of Present Illness Consult details Consult date: 06/27/20 Narrative: Carlos is a pleasant male. He came to the emergency room secondary to urinary retention Has had longstanding problems with bladder emptying This was secondary to radiation and surgery for rectal cancer Occasionally has to do self catheterization Has been unable to urinate Unable to advance Carrion catheter in emergency room. Flexible cystoscopy performed but unable to advance wire. There appears to be a false passage with other damage. Recommendation for placement of Carrion catheter in operating room with rigid cystoscopy This will be organized PMFSH Past Medical History Medical History Hypertension Hypothyroid Rectal adenocarcinoma Rectal adenoma Surgical History Surgical History History of creation of ostomy Social History Social History Alcohol intake: current Alcohol intake frequency: holidays/special occasions only Alcohol type: hard liquor Smoking Status: Never smoker Use of substances other than those prescribed or required for medical reasons: No Have you been hit, kicked, punched, or otherwise hurt by someone within the past year? If so, by whom?: No Advance Directives: No Advance Directives Information Provided: No Meds Allergies Allergy/AdvReac Type Severity Reaction Status Date / Time No Known Allergies Allergy Verified 12/15/19 17:01 Active Medications: Current Medications Generic Name Dose Route Start Last Admin Trade Name Freq PRN Reason Stop Dose Admin Fentanyl 50 mcg 06/27/20 12:07 Fentanyl Citrate/Pf 100 Mcg/2 Ml Vial IVPUSH Q5M PRN Pain, Severe (Pain Scale 7-10) Lactated Ringer's 1,000 mls @ 100 mls/hr 06/27/20 12:15 06/27/20 12:22 Lr IVCONT 100 mls/hr .Q10H LEANDRO Administration Levofloxacin 500 mg in 100 mls @ 100 mls/hr 06/27/20 12:40 Levaquin IV 06/27/20 13:39 PREOP ONE Ondansetron HCl 4 mg 06/27/20 12:07 Ondansetron Hcl 4 Mg/2 Ml Vial IVPUSH ONCE PRN Nausea and Vomiting Oxycodone HCl 10 mg 06/27/20 12:07 Oxycodone Hcl Immed Release 5 Mg Tablet PO ONCE PRN Pain, Severe (Pain Scale 7-10) Pharmacy Consult 1 each 06/27/20 09:15 Consult Rx Perform Med Rec MISCELLANE ONCE PRN Consult order Home Medications Medication Instructions Recorded Confirmed Last Taken Type citalopram 1 tab PO QAM 06/27/20 06/27/20 06/26/20 History doxycycline hyclate 1 tab PO DAILY 06/27/20 06/27/20 06/26/20 History irbesartan 1 tab PO DAILY 06/27/20 06/27/20 06/26/20 History levothyroxine 1 tab PO DAILY 06/27/20 06/27/20 06/26/20 History spironolactone 1 tab PO DAILY 06/27/20 06/27/20 06/26/20 History verapamil 1 cap PO BEDTIME 06/27/20 06/27/20 06/26/20 History Physical Exam Vital Signs: Vital Signs: Last Vital Signs Temp 98.9 F 06/27/20 12:01 Pulse 81 06/27/20 12:01 Resp 20 06/27/20 12:01 BP 171/99 H 06/27/20 12:01 Pulse Ox 98 06/27/20 12:01 Body Mass Index 36.2 Const: General: cooperative, healthy appearing, comfortable and no acute distress Nutritional Appearance: average body habitus Orientation/consciousness: oriented to person, oriented to place and oriented to time Eyes: General: appearance normal, both eyes and all related structures Chest: Chest palpation & inspection: normal inspection of the chest Resp: Effort & Inspection: normal respiratory effort Cardio: Rate: regular rate GI: Inspection: Yes normal to inspection Skin: Hair: normal Neuro: General: oriented to person, oriented to place and oriented to time Extrem: General: Yes normal to inspection Results Labs Result diagrams: 06/27/20 05:00 06/27/20 05:00 Labs: Abnormal lab results 06/27/20 06/27/20 06/27/20 Range/Units 05:00 05:00 05:33 Immature Gran % (Auto) 1.2 H (0.0-0.4) % Lymph % (Auto) 18.5 L (20-40) % Eos % (Auto) 5.2 H (0-4) % Abs Immat Gran (auto) 0.08 H (0.00-0.03) X10*3/uL BUN 21 H (9-16) mg/dL Urine Blood 2+ H (NEG) Urine RBC 30-49 H (0) /HPF Short CBC 06/27/20 Range/Units 05:00 WBC 6.5 (4.8-10.8) X10*3/uL Hgb 14.8 (14.0-18.0) g/dl Hct 44.1 (42-52) % Plt Count 169 (160-400) X10*3/uL BMP 06/27/20 05:00 Sodium 140 Potassium 3.8 Chloride 106 Carbon Dioxide 24 BUN 21 H Creatinine 0.81 Calcium 9.1 Liver Function 06/27/20 Range/Units 05:00 Total Bilirubin 0.7 (0.0-1.0) mg/dL AST 20 (5-37) U/L ALT 26 (0-40) U/L Alkaline Phosphatase 71 (39-117) U/L Albumin 4.3 (3.5-5.0) g/dL Urine 06/27/20 Range/Units 05:33 Urine Color YELLOW Urine Appearance CLEAR Urine pH 6.0 (5.0-8.0) Ur Specific [place] 1.020 (1.005-1.025) Urine Protein NEG (NEG-TRACE) MG/DL Urine Glucose (UA) NEG (NEG) MG/DL All other labs normal. Assessment and Plan (1) Urethral stricture: Status: Acute (2) Acute urinary retention: Status: Acute Plan for cystoscopy with Carrion catheter placement
--- NOTE | 2020-06-27 12:42 | MHC.SHP ---
Pre-Procedural Eval Section A The patient is an INPATIENT: No Changes since office visit: No Cold of Flu in the past 2 weeks, No New Medical Problems, No Changes in Medication and No Patient answered all questions The History & Physical has been completed within 30 days and I have reviewed it.: Yes Section B Chief Complaint: Urinary retention Allergies: Allergies Allergy/AdvReac Type Severity Reaction Status Date / Time No Known Allergies Allergy Verified 12/15/19 17:01 Plan Diagnosis/Plan: Unchanged (Cystoscopy with urethral dilatation and Carrion catheter placement) I have reviewed the history and physical and performed a pertinent physical examination on my patient. No changes have occurred unless specified.
[2020-06-27] MEDS: levoFLOXacin/D5W 500 MG/100 ML PIGGYBACK 100 MG IV (12:44)
--- NOTE | 2020-06-27 13:21 | PM.OP ---
Brief Operative Note Date of Service: 06/27/20 Pre-op diagnosis: urinary retention Post-op diagnosis: same Procedure: cysto, urethral dilation, howard placement Surgeon: Abhi Small MD Anesthesia: GLMA Estimated blood loss (mL): 0 Pathology: none sent Condition: stable Disposition: same day
--- NOTE | 2020-06-27 13:31 | P.OP_ITS ---
Operative Note Operative Note Date of Service: 06/27/20 Narrative: PreOperative Diagnosis: Urethral obstruction Post Operative Diagnosis: Urethral obstruction Procedure: Cystoscopy with urethral dilatation Surgeon: Dr Abhi Small Anesthesia: General Indications for procedure: Came in with urinary retention. Previous radiation for rectal cancer had unable to pass Carrion catheter per. On cystoscopy in ER had obstructed urethra unable to pass wire. Plan for passage in operating room Procedure: After informed consent was verified the patient was brought to the operating room and placed in a supine position. anesthesia was administered per protocol. Safety pause time-out. Antibiotics were confirmed. If 22 [place] cystoscope inserted per urethra. Clearly there was false passage from Carrion catheter. Using wire well-defined in anterior passage into the bladder. Cystoscope was removed urethra was dilated up to 18 [place] red 16 Fren ch Biggers tip was placed. Good efflux was seen of urine. Follow in 7 days Pathology: None Drains: Sixteen [place] Carrion catheter
[2020-06-27] MEDS: Acetaminophen 325 MG TABLET 975 MG PO (14:28)
--- NOTE | 2020-06-27 15:27 | PC.NURSE ---
Patient wearing wedding band on left hand and had cell phone in hand upon discharge in front of hospital.
== END 2020-06-27 15:28 | disposition home or self-care (01) ==
LOC: HO.ED 13:59 → HO.SSS 13:59
PROVIDERS: Emergency Medicine; Emergency Provider Emergency Medicine Emergency Medical Services; PCP Internal Medicine; Visit Provider Urology
PROC: 0TJB8ZZ Inspection of Bladder, Via Natural or Artificial Opening Endoscopic (ICD-10-PCS; CPT 52000; principal; 2020-06-27 12:30)
DX: N35.919 Unspecified urethral stricture, male, unspecified site (principal); R33.9 Retention of urine, unspecified; N36.8 Other specified disorders of urethra; I10 Essential (primary) hypertension; Z79.899 Other long term (current) drug therapy; Z85.048 Personal history of other malignant neoplasm of rectum, rectosigmoid junction, and anus; Z92.3 Personal history of irradiation; Z93.3 Colostomy status
CPT/HCPCS: 52281; 36415; 80053; 81001; 85025; 85610; 85730; 87635; 96361; 96365; 96375; 96376; 99285; J1100; J1956; J2250; J2270; J2405; J3010

== ENCOUNTER → 2020-07-03 08:37 | Outpatient (BNVA) | payer OTHER, SELFPAY | PROVIDERS: PCP Internal Medicine; Visit Provider Urology | DX: N30.40 Irradiation cystitis without hematuria (principal); R33.8 Other retention of urine | CPT/HCPCS: 51700 ==

== ENCOUNTER 2021-01-07 05:45 | Emergency (ER) | payer OTHER, SELFPAY ==
--- NOTE | ~2021-01-07 | XR_ITS ---
EXAMINATION: XR CHEST CLINICAL INFORMATION: Chest pain COMPARISON: 12/15/2019 TECHNIQUE: AP portable upright view of the chest FINDINGS: Lungs are clear. No consolidation, pneumothorax, or pleural effusion. Cardiac and mediastinal contours are normal. Pulmonary vasculature is unremarkable. 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 XR/XR chest 1V IMPRESSION: No acute cardiopulmonary findings
[2021-01-07 05:47] VITALS: BP 182/92; PULSE 66; RESP 18; TEMP 36.4; O2SAT 100; BMI 36.2
--- NOTE | 2021-01-07 05:55 | ECG_ITS ---
Test Reason : CP Blood Pressure : / mmHG Vent. Rate : 067 BPM Atrial Rate : 067 BPM P-R Int : 160 ms QRS Dur : 088 ms QT Int : 418 ms P-R-T Axes : 037 004 049 degrees QTc Int : 441 ms Normal sinus rhythm Nonspecific T wave abnormality Abnormal ECG When compared with ECG of 15-DEC-2019 16:54, No significant change was found Referred By: Generic ED Physician Electronically Signed By:ELSA ARCHER MD
[2021-01-07 06:06] LABS: Basophils Percent Auto 0.4 % (0-2); Eosinophils Absolute Auto 0.6 X10*3/uL (0.0-0.4); Eosinophils Percent Auto 6.9 % (0-4); Hematocrit 46.2 % (42.0-52.0); Hemoglobin 15.6 g/dl (14.0-18.0); Imm Gran Pct Auto 1.3 % (0.0-0.4); Lymphocytes Absolute Auto 1.8 X10*3/uL (1.2-4.9); Lymphocytes Percent Auto 22.4 % (20-40); Mean Corpuscular HGB Conc 33.8 g/dl (31.0-36.0); Mean Corpuscular Hemoglobin 28.3 pg (27.0-33.0); Mean Corpuscular Volume 83.8 fL (80.0-98.0); Mean Platelet Volume 9.1 fL (9.4-12.4); Monocytes Absolute Auto 0.6 X10*3/uL (0.1-1.2); Monocytes Percent Auto 7.9 % (2-11); Neutrophils Absolute Auto 4.85 x10*3/uL (2.0-8.3); Neutrophils Percent Auto 61.1 % (45-73); Platelet Count 175 X10*3/uL (160-400); Red Blood Count 5.51 X10*6/uL (4.60-5.80); Red Cell Distribution Width 12.7 % (11.0-16.0); White Blood Count 7.9 X10*3/uL (4.8-10.8)
[2021-01-07 06:07] LABS: MANUAL DIFF FLAG NO
[2021-01-07 06:27] LABS: Anion Gap 11 (12-20); Blood Urea Nitrogen 22 mg/dL (9-16); Calcium 8.9 mg/dL (8.4-10.2); Carbon Dioxide 26 mmol/L (22-29); Chloride 108 mmol/L (96-108); Creatinine Clr Calc Pharmacy 142.8; Estimated Glomerular Filt Rate > 60; Glucose Random 116 mg/dL (60-115); Potassium 3.6 mmol/L (3.3-5.1); Sodium 141 mmol/L (135-145); Troponin-I High Sensitivity 5.9 ng/L (<3.5-35.0)
[2021-01-07 06:31] VITALS: BP 180/92; PULSE 68; RESP 21; O2SAT 98
--- NOTE | 2021-01-07 06:47 | ED.CHESTPAIN ---
HPI - Chest Pain General Chief Complaint: Chest Pain Stated Complaint: Chest pain Time Seen by Provider: 01/07/21 06:47 Source: patient Mode of arrival: ambulatory Limitations: no limitations History of Present Illness HPI narrative: 51-year-old male who presents emergency department for evaluation of chest pain. Patient states he woke up at 4:00 a.m. and noted that he had a pressure-like sensation in his midsternal area. He states that the pressure was 8/10. The pain did not change with movement or with respiration. He states that it was worse if he lies down flat. The pain did not radiate to his neck, jaw, arms or back. He denied shortness of breath or dyspnea on exertion. He did feel mildly diaphoretic. The patient states that the pain persisted and the time of my evaluation he was still having pressure-like pain in his midsternal area which was 5/10. The patient states that he has chronic swelling in his lower extremities he does not believe that it is any worse. He has not gone on any long trips. The patient does have a history of rectal cancer treated 7 years prior at [facility] with surgery, with creation of an ostomy and chemotherapy. He states that he is followed up and is cancer free at this time. He did not take any medications for the pain prior to coming to the emergency department. Related Data Home Medications Medication Instructions Recorded Confirmed citalopram 10 mg tablet 1 tab PO QAM 06/27/20 06/27/20 doxycycline hyclate 100 mg tablet 1 tab PO DAILY 06/27/20 06/27/20 irbesartan 300 mg tablet 1 tab PO DAILY 06/27/20 06/27/20 levothyroxine 175 mcg tablet 1 tab PO DAILY 06/27/20 06/27/20 spironolactone 25 mg tablet 1 tab PO DAILY 06/27/20 06/27/20 verapamil 180 mg 24 hr 1 cap PO BEDTIME 06/27/20 06/27/20 capsule,extended release Previous Rx's Medication Instructions Recorded levofloxacin 500 mg tablet 500 mg PO DAILY 10 Days #10 tab 06/27/20 levofloxacin 500 mg tablet 500 mg PO DAILY 10 Days #10 tab 06/27/20 oxybutynin chloride 5 mg 5 mg PO DAILY 14 Days #14 tab 07/03/20 tablet,extended release 24 hr Allergies Allergy/AdvReac Type Severity Reaction Status Date / Time No Known Allergies Allergy Verified 07/03/20 08:39 Review of Systems Review of Systems: Yes all other systems are reviewed and are negative [facility] Past Medical History [facility] Narrative: Social history:. The patient denies tobacco use. He denies drug use. He states that he occasionally drinks alcohol. Medical History Hypertension Hypothyroid Rectal adenocarcinoma Rectal adenoma Surgical History History of creation of ostomy History of surgery Social History Social History Alcohol intake: current Alcohol intake frequency: holidays/special occasions only Alcohol type: hard liquor Advance Directives: No Advance Directives Information Provided: No Physical Exam Vital Signs: Vital Signs: Last Vital Signs Temp 97.6 F 01/07/21 05:47 Pulse 63 01/07/21 08:55 Resp 20 01/07/21 08:55 BP 166/95 H 01/07/21 08:55 Pulse Ox 98 01/07/21 08:55 Body Mass Index 36.2 Const: General: cooperative and no acute distress Orientation/consciousness: oriented to person and oriented to place Limitations: no limitations HENMT: Head: Yes normal to inspection, Yes normocephalic and Yes atraumatic Ears: external ears normal General nose exam: Normal external nose present Face and sinus: Yes normal facial exam Mouth: Normal oral and palatal mucosa present Throat: Yes posterior oropharynx normal Eyes: General: appearance normal, both eyes and all related structures Pupils: Equal, round and reactive pupils present Neck: Neck: Yes normal visual inspection, Yes no lymphadenopathy, Yes trachea midline and Yes supple Chest: Chest palpation & inspection: normal inspection of the chest and normal palpation of entire chest wall Resp: Effort & Inspection: normal respiratory effort and able to speak in complete sentences Auscultation: clear to auscultation bilaterally Cardio: Rate: regular rate Rhythm: regular rhythm Heart sounds: S1 normal heart sound present, S2 normal heart sound present and no murmurs GI: Inspection: Yes normal to inspection Palpation (GI): Soft to palpation, nontender, no guarding and Other GI palpation findings present (Left lower quadrant ostomy) Auscultation: normal bowel sounds : General: Yes no CVA tenderness Back/Spine/Pelvis: Back: no CVA tenderness Skin: General skin exam: no rashes or lesions noted Neuro: General: oriented to person and oriented to place Cranial nerves: Yes CN's II-XII intact bilaterally and Yes Equal, round and reactive pupils present Cognition (Neuro): normal cognition Motor exam (neuro): 5/5 motor strength present throughout Extrem: Other: Symmetric nonpitting edema both lower extremities, brawny skin changes to both lower extremities with no erythema or increased warmth Psych: Appearance: grossly normal Speech and movement: Normal speech and movement present Affect: normal affect Attitude: cooperative Thought process: Normal thought process present Thought content: Normal thought content present Course Course Course Narrative: 51-year-old male who presents emergency department for evaluation of midsternal chest pressure which he noted when he woke up at 4:00 a.m. this morning. Pressure was initially 8/10 and is currently 5/10 at the time of my evaluation. He had some slight diaphoresis associated with the chest pressure with no other associated symptoms. He stated that the pain was worse when he lied down flat. Patient's 12 EKG did reveal a Q-wave in lead 3 otherwise was unremarkable. The patient's laboratory evaluation included a CBC, comprehensive metabolic panel and high sensitivity troponin I. These tests were essentially unremarkable except for detectable high sensitivity troponin I of 5.9. Chest x-ray revealed no acute findings. Given his history of rectal cancer, pulmonary embolism needs to be considered therefore I ordered a D-dimer. Also, the patient will get a repeat high in 3 hours. Patient's pain was treated with Toradol 30 mg IV. Patient will be kept on a classroom monitor. 0955: Patient's D-dimer was normal, suggesting that he does not have a pulmonary embolism. Patient's repeat 3 hour troponin 7.0 was which was not significantly elevated suggesting that he does not have myocardial injury is the cause of his pain. The pain is most likely secondary to costochondritis, pericarditis also needs to be considered since the pain is worse with lying down flat. Patient was advised to take Tylenol and ibuprofen for his pain. He was discharged with verbal and printed instructions. He was given a note not return to work until 01/10/2021 MDM - Chest Pain Lab Data Result diagrams: 01/07/21 06:02 01/07/21 06:02 Labs: Lab Results 01/07/21 01/07/21 01/07/21 Range/Units 06:02 06:02 06:02 WBC 7.9 (4.8-10.8) X10*3/uL RBC 5.51 (4.60-5.80) X10*6/uL Hgb 15.6 (14.0-18.0) g/dl Hct 46.2 (42.0-52.0) % MCV 83.8 (80.0-98.0) fL MCH 28.3 (27.0-33.0) pg MCHC 33.8 (31.0-36.0) g/dl RDW 12.7 (11.0-16.0) % Plt Count 175 (160-400) X10*3/uL MPV 9.1 L (9.4-12.4) fL Immature Gran % (Auto) 1.3 H (0.0-0.4) % Neut % (Auto) 61.1 (45-73) % Lymph % (Auto) 22.4 (20-40) % [place] % (Auto) 7.9 (2-11) % Eos % (Auto) 6.9 H (0-4) % Baso % (Auto) 0.4 (0-2) % Lymph # (Auto) 1.8 (1.2-4.9) X10*3/uL [place] # (Auto) 0.6 (0.1-1.2) X10*3/uL Eos # (Auto) 0.6 H (0.0-0.4) X10*3/uL Baso # (Auto) 0.0 (0.0-0.2) X10*3/uL Abs Immat Gran (auto) 0.10 H (0.00-0.03) X10*3/uL Absolute Neuts (auto) 4.85 (2.0-8.3) x10*3/uL Absolute Nucleated RBC 0.000 (0.0-0.012) X10*3/uL Nucleated RBC % (auto) 0.0 (0.0-0.2) /100WBC PT (9.9-13.0) SEC INR (0.9-1.1) APTT (24.1-38.0) SEC D-Dimer NG/ML Sodium 141 (135-145) mmol/L Potassium 3.6 (3.3-5.1) mmol/L Chloride 108 (96-108) mmol/L Carbon Dioxide 26 (22-29) mmol/L Anion Gap 11 L (12-20) BUN 22 H (9-16) mg/dL Creatinine 0.79 (0.5-1.4) mg/dL Estim Creat Clear Calc 142.8 Estimated GFR > 60 Random Glucose 116 H (60-115) mg/dL Calcium 8.9 (8.4-10.2) mg/dL Troponin I High Sens 5.9 (<3.5-35.0) ng/L 01/07/21 01/07/21 01/07/21 Range/Units 07:27 07:27 07:27 WBC (4.8-10.8) X10*3/uL RBC (4.60-5.80) X10*6/uL Hgb (14.0-18.0) g/dl Hct (42.0-52.0) % MCV (80.0-98.0) fL MCH (27.0-33.0) pg MCHC (31.0-36.0) g/dl RDW (11.0-16.0) % Plt Count (160-400) X10*3/uL MPV (9.4-12.4) fL Immature Gran % (Auto) (0.0-0.4) % Neut % (Auto) (45-73) % Lymph % (Auto) (20-40) % [place] % (Auto) (2-11) % Eos % (Auto) (0-4) % Baso % (Auto) (0-2) % Lymph # (Auto) (1.2-4.9) X10*3/uL [place] # (Auto) (0.1-1.2) X10*3/uL Eos # (Auto) (0.0-0.4) X10*3/uL Baso # (Auto) (0.0-0.2) X10*3/uL Abs Immat Gran (auto) (0.00-0.03) X10*3/uL Absolute Neuts (auto) (2.0-8.3) x10*3/uL Absolute Nucleated RBC (0.0-0.012) X10*3/uL Nucleated RBC % (auto) (0.0-0.2) /100WBC PT 11.3 (9.9-13.0) SEC INR 1.0 (0.9-1.1) APTT 29.3 (24.1-38.0) SEC D-Dimer < 200 NG/ML Sodium (135-145) mmol/L Potassium (3.3-5.1) mmol/L Chloride (96-108) mmol/L Carbon Dioxide (22-29) mmol/L Anion Gap (12-20) BUN (9-16) mg/dL Creatinine (0.5-1.4) mg/dL Estim Creat Clear Calc Estimated GFR Random Glucose (60-115) mg/dL Calcium (8.4-10.2) mg/dL Troponin I High Sens 6.2 (<3.5-35.0) ng/L 01/07/21 Range/Units 09:01 WBC (4.8-10.8) X10*3/uL RBC (4.60-5.80) X10*6/uL Hgb (14.0-18.0) g/dl Hct (42.0-52.0) % MCV (80.0-98.0) fL MCH (27.0-33.0) pg MCHC (31.0-36.0) g/dl RDW (11.0-16.0) % Plt Count (160-400) X10*3/uL MPV (9.4-12.4) fL Immature Gran % (Auto) (0.0-0.4) % Neut % (Auto) (45-73) % Lymph % (Auto) (20-40) % [place] % (Auto) (2-11) % Eos % (Auto) (0-4) % Baso % (Auto) (0-2) % Lymph # (Auto) (1.2-4.9) X10*3/uL [place] # (Auto) (0.1-1.2) X10*3/uL Eos # (Auto) (0.0-0.4) X10*3/uL Baso # (Auto) (0.0-0.2) X10*3/uL Abs Immat Gran (auto) (0.00-0.03) X10*3/uL Absolute Neuts (auto) (2.0-8.3) x10*3/uL Absolute Nucleated RBC (0.0-0.012) X10*3/uL Nucleated RBC % (auto) (0.0-0.2) /100WBC PT (9.9-13.0) SEC INR (0.9-1.1) APTT (24.1-38.0) SEC D-Dimer NG/ML Sodium (135-145) mmol/L Potassium (3.3-5.1) mmol/L Chloride (96-108) mmol/L Carbon Dioxide (22-29) mmol/L Anion Gap (12-20) BUN (9-16) mg/dL Creatinine (0.5-1.4) mg/dL Estim Creat Clear Calc Estimated GFR Random Glucose (60-115) mg/dL Calcium (8.4-10.2) mg/dL Troponin I High Sens 7.0 (<3.5-35.0) ng/L ECG Data ECG #1: Interpretation: 0556: Normal sinus rhythm with a rate of 67, normal AR , QRS and QTC duration, Q-wave in lead 3, no ST segment elevation, no ST segment depression, no PACs, no PVCs, flattened T-waves throughout the limb the leads and V6. Discharge Plan Discharge Clinical Impression: Acute costochondritis Patient Disposition: Home, Self-Care Instructions: Costochondritis (ED), Acute Pericarditis (ED) Additional Instructions: Your 12 EKG was normal. Your high sensitivity troponin on was detectable at 5.9 but the 3 hour repeat high sensitivity troponin I was only 7.0. Less than 30 is normal. This suggests that your chest pain was not caused by heart injury/heart attack. Your chest x-ray was normal. Your D-dimer was not elevated, suggesting that your chest pain is not caused by a blood clot to your lungs. The most likely cause of your pain is inflammation of the joints of the chest (costochondritis). Pericarditis (inflammation of the lining of the heart) is also possible a but I think this is less likely given your normal EKG. The treatment for costochondritis and pericarditis is anti-inflammatory medications. Take ibuprofen 200 mg pills, 3 pills every 6 hours while awake for 4 days, then after 4 days every 6 hours as needed for pain Take Tylenol (acetaminophen) 500 mg pills, 2 pills every 4 to 6 hours as needed for pain. Follow-up with your doctor in 2 days. Please return to the emergency department if your symptoms get worse or if you develop any symptoms that are concerning to you. Prescriptions: No Action levofloxacin 500 mg tablet 500 mg PO DAILY 10 Days Qty: 10 RF: 0 levothyroxine 175 mcg tablet 1 tab PO DAILY RF: 0 citalopram 10 mg tablet 1 tab PO QAM RF: 0 spironolactone 25 mg tablet 1 tab PO DAILY RF: 0 verapamil 180 mg capsule,ext rel. pellets 24 hr 1 cap PO BEDTIME RF: 0 doxycycline hyclate 100 mg tablet 1 tab PO DAILY RF: 0 irbesartan 300 mg tablet 1 tab PO DAILY RF: 0 levofloxacin 500 mg tablet 500 mg PO DAILY 10 Days Qty: 10 RF: 0 oxybutynin chloride 5 mg tablet extended release 24hr 5 mg PO DAILY 14 Days Qty: 14 RF: 0
[2021-01-07] MEDS: Ketorolac Tromethamine 15 MG/ML VIAL 30 MG IVPUSH (07:27)
[2021-01-07 07:49] LABS: Prothrombin Time 11.3 SEC (9.9-13.0)
--- NOTE | 2021-01-07 07:49 | PC.NURSE ---
pt reports 5/10 chest pain, he describes the pain as sharp . pain med given as documented. pt denies sob/dizziness/headache, no n/v. pt's Troponin at 0602 was 5.9. Redraw schedule for 0900. pt alert and oriented, vss. pt resting quietly, no apparent distress noted. will continue to monitor.
[2021-01-07 07:52] LABS: Partial Thromboplastin Time 29.3 SEC (24.1-38.0)
[2021-01-07 07:57] LABS: Troponin-I High Sensitivity 6.2 ng/L (<3.5-35.0)
[2021-01-07 07:58] LABS: D Dimer < 200 NG/ML
[2021-01-07 08:55] VITALS: BP 166/95; PULSE 63; RESP 20; O2SAT 98
--- NOTE | 2021-01-07 09:25 | PC.NURSE ---
pt's repeat Troponin 7.0 Dr. Nielson aware. will continue to monitor.
[2021-01-07 10:09] VITALS: BP 164/97; PULSE 62; RESP 17; O2SAT 99
--- NOTE | 2021-01-07 10:16 | PC.NURSE ---
pt medically cleared for discharge, discharge summary given and explained, IV removed. pt denies pain, vss.
== END 2021-01-07 10:18 | disposition home or self-care (01) ==
PROVIDERS: Emergency Provider Emergency Medicine Emergency Medical Services
DX: M94.0 Chondrocostal junction syndrome [Tietze] (principal); R07.2 Precordial pain; Z79.899 Other long term (current) drug therapy
CPT/HCPCS: 36415; 71045; 80048; 84484; 85025; 85379; 85610; 85730; 93005; 96374; 99284; J1885

== ENCOUNTER 2021-01-23 03:58 | Inpatient (IN) | payer OTHER, SELFPAY ==
[2021-01-23] VITALS (18 sets, daily range): BP systolic 126–184; BP diastolic 72–98; PULSE 54–89; RESP 14–20; TEMP 36.5–37.9; O2SAT 93–98; BMI 29.4
--- NOTE | ~2021-01-23 | US_ITS ---
EXAMINATION: US ABDOMEN LIMITED CLINICAL INFORMATION: Right upper quadrant pain. COMPARISON: CT scan of January 23, 2021 TECHNIQUE: Real-time imaging of the right upper quadrant abdominal viscera. FINDINGS: PANCREAS: Normal. No abnormal mass or peripancreatic inflammatory change. LIVER: There is diffusely increased echogenicity consistent with fatty infiltration. The liver contour is normal. No focal hepatic lesion. There is no intrahepatic biliary duct dilatation seen. GALLBLADDER: Cholelithiasis is present as well as layering of dependent sludge. Gallbladder wall is thickened to approximately 7 mm in diameter with question of some fluid within the wall. There is tenderness to palpation overlying the gallbladder. COMMON BILE DUCT: Prominent at 8 mm in diameter. RIGHT KIDNEY: Normal. No hydronephrosis. No renal calculi or focal parenchymal lesions. The kidney measures 13.4 cm in maximum dimension. US/US abdomen limited IMPRESSION: Findings consistent with acute cholecystitis. Cholelithiasis. Fatty infiltration of the liver.
--- NOTE | ~2021-01-23 | CT_ITS ---
EXAMINATION: CT ABDOMEN AND PELVIS WITH CONTRAST CLINICAL INFORMATION: Epigastric pain, history of colon cancer with colostomy bag COMPARISON: 04/25/2015 report only TECHNIQUE: Multidetector volumetric images were obtained from the superior aspect of the liver through the pubic symphysis following administration 85 mL of Omnipaque 350 intravenous contrast. Sagittal and coronal reformatted images were obtained on the technologist's workstation. Oral contrast: No This CT examination was performed using dose optimization techniques as appropriate, variously including the following: *Automated exposure control *Adjustment of mA and/or kV according to patient size (this includes techniques or standardized protocols for targeted exams where dose is matched to indication/reason for exam; i.e. extremities or head) *Use of iterative reconstruction technique DLP: 866 mGy-cm FINDINGS: LUNG BASES: The visualized lung bases are unremarkable. LIVER, GALLBLADDER, AND BILIARY TREE: The liver is normal in size, shape, and attenuation. No focal hepatic lesion or biliary ductal dilatation is present. The gallbladder is distended. Multiple gallstones are present, including a stone in the region of the gallbladder neck. There is mild pericholecystic stranding raising suspicion for acute cholecystitis. PANCREAS: Unremarkable. SPLEEN: Unremarkable. ADRENAL GLANDS: Unremarkable. KIDNEYS AND URETERS: The kidneys are normal in size, shape, and attenuation. No hydronephrosis, hydroureter, or obstructing calculi seen. A few tiny renal hypodensities bilaterally are suspected to represent cysts. No perinephric stranding. BLADDER: Unremarkable. GASTROINTESTINAL TRACT: Status post colectomy with right lower quadrant ileostomy. There is mild nonspecific prominence of a proximal small bowel loop in the left upper quadrant, and remaining small bowel loops are nondilated. No free fluid or free air is seen. ABDOMINAL WALL: Status post ventral hernia repair. Small bilateral fat-containing inguinal hernias are noted. LYMPH NODES: Normal. VASCULAR: Unremarkable. PELVIC VISCERA: Unremarkable. There is soft tissue density in the presacral space which was also described on the report from 04/25/2015. OSSEOUS STRUCTURES: Endplate osteophytes are noted in the thoracolumbar spine. CT/CT abdomen pelvis w con IMPRESSION: Cholelithiasis including a gallstone in the region of the gallbladder neck. The gallbladder is distended, and there is mild surrounding stranding raising suspicion for acute cholecystitis. Correlation with right upper quadrant ultrasound would be helpful.
--- NOTE | 2021-01-23 04:19 | ECG_ITS ---
Test Reason : abd pain Blood Pressure : / mmHG Vent. Rate : 075 BPM Atrial Rate : 075 BPM P-R Int : 174 ms QRS Dur : 092 ms QT Int : 430 ms P-R-T Axes : 046 -19 024 degrees QTc Int : 480 ms Normal sinus rhythm Possible Left atrial enlargement Prolonged QT Abnormal ECG When compared with ECG of 07-JAN-2021 05:56, Nonspecific T wave abnormality, improved in Inferior leads Referred By: Heidy Mercer Electronically Signed By:ELSA ARCHER MD
--- NOTE | 2021-01-23 04:24 | ED.ABDPAIN ---
HPI - Abdominal Pain General Chief Complaint: Abdominal Pain Stated Complaint: stomach pain Time Seen by Provider: 01/23/21 04:10 Source: patient Mode of arrival: ambulatory Limitations: no limitations History of Present Illness HPI narrative: Patient comes emergency room complaining of epigastric pain for 10 hours now. Patient states that last night he had dinner, shortly after he started feeling epigastric pain, has been vomiting 4-5 times since then. Patient denies diarrhea. Patient has history of colon cancer and has a colostomy bag. Patient states that he has noticed that the output in his colostomy back is significantly decreased over the last 10 hours. Patient denies chest pain, no shortness of breath, no dysuria. No fever chills. Related Data Home Medications Medication Instructions Recorded Confirmed citalopram 10 mg tablet 1 tab PO QAM 06/27/20 06/27/20 doxycycline hyclate 100 mg tablet 1 tab PO DAILY 06/27/20 06/27/20 irbesartan 300 mg tablet 1 tab PO DAILY 06/27/20 06/27/20 levothyroxine 175 mcg tablet 1 tab PO DAILY 06/27/20 06/27/20 spironolactone 25 mg tablet 1 tab PO DAILY 06/27/20 06/27/20 verapamil 180 mg 24 hr 1 cap PO BEDTIME 06/27/20 06/27/20 capsule,extended release Previous Rx's Medication Instructions Recorded levofloxacin 500 mg tablet 500 mg PO DAILY 10 Days #10 tab 06/27/20 levofloxacin 500 mg tablet 500 mg PO DAILY 10 Days #10 tab 06/27/20 oxybutynin chloride 5 mg 5 mg PO DAILY 14 Days #14 tab 07/03/20 tablet,extended release 24 hr Allergies Allergy/AdvReac Type Severity Reaction Status Date / Time No Known Allergies Allergy Verified 07/03/20 08:39 Review of Systems Review of Systems Constitutional : No Weight loss, No Fever, No Chills, No Night Sweats, No Fatigue, No Malaise ENT/Mouth : No Hearing loss, No Ear Pain, No Nasal Congestion, No Sinus Pain, No Hoarseness, No sore throat, No Rhinorrhea, No Swallowing Difficulty Eyes: No Eye Pain, No Swelling, No Redness, No Foreign Body, No Discharge, No Vision Changes Cardiovascular : No Chest Pain, No SOB, No Dyspnea on Exertion, No Orthopnea, No Edema, No Palpitations Respiratory : No Cough, No Sputum, No Wheezing, No Smoke Exposure, No Dyspnea Gastrointestinal : Complaining of nausea vomiting, complaining of decreased colostomy output. No Diarrhea, No Constipation, complaining of constant nonradiating epigastric pain. No Hematochezia, No Melena Genitourinary : no irregular bleeding, No Dysuria, No Urinary Frequency, No Hematuria, No Urinary Incontinence, No Urgency, No Flank Pain, No Urinary Flow Changes, No Hesitancy Musculoskeletal : No joint pain, No Myalgias, No Joint Swelling Skin : No Skin Lesions, No rash Neuro : No Weakness, No Numbness, No Paresthesias, No Loss of Consciousness, No Dizziness, No Headache Psych : No Anxiety/Panic, No Depression, No SI/HI/AH/VH, No Social Issues, Heme/Lymph: No Bruising, No Bleeding,No Lymphadenopathy Endocrine : No Polyuria, No Polydipsia, No Temperature Intolerance Physical Exam Vital Signs: Vital Signs: Last Vital Signs Temp 98.6 F 01/23/21 04:05 Pulse 89 01/23/21 06:00 Resp 15 01/23/21 06:00 BP 184/96 H 01/23/21 06:00 Pulse Ox 98 01/23/21 06:00 Body Mass Index 29.4 Const: Other: Appearance: Alert. Oriented X3. Seems uncomfortable Eyes: Pupils equal, round and reactive to light. ENT: Pharynx normal. Neck: Normal inspection. Neck supple. No lymph nodes noted. No crepitus CVS: Normal heart rate and rhythm. Pulses normal. Normal S1 and S2 Respiratory: No respiratory distress. Breath sounds normal. No Wheezing. No rales Abdomen: Soft , mild tenderness to palpation in epigastric area. No rigidity. No distention. Skin: Skin warm and dry. Normal skin color. Normal skin turgor. Extremities: No lower extremity edema. No Lacerations. No Rash Neuro: Oriented X 3. No motor deficit. No sensory deficit. Moving all extermities. No slurred speech. Course Course Course Narrative: I discussed the labs and CT findings with Dr. Avila, ultrasound is pending. Patient already received IV fluids and Zosyn. Patient will be admitted to the surgery service. I discussed the above-mentioned with the patient, agrees with plan. At this time, patient states that he feels comfortable after receiving morphine, and states that he does not need any more pain medication at the moment. MDM - Abdominal Pain Lab Data Result diagrams: 01/23/21 04:37 01/23/21 04:37 Labs: Lab Results 01/23/21 01/23/21 01/23/21 Range/Units 04:37 04:37 04:37 WBC 12.8 H (4.8-10.8) X10*3/uL RBC 5.79 (4.60-5.80) X10*6/uL Hgb 16.2 (14.0-18.0) g/dl Hct 47.4 (42.0-52.0) % MCV 81.9 (80.0-98.0) fL MCH 28.0 (27.0-33.0) pg MCHC 34.2 (31.0-36.0) g/dl RDW 12.6 (11.0-16.0) % Plt Count 205 (160-400) X10*3/uL MPV 9.7 (9.4-12.4) fL Immature Gran % (Auto) 0.5 H (0.0-0.4) % Neut % (Auto) 85.9 H (45-73) % Lymph % (Auto) 7.8 L (20-40) % [place] % (Auto) 5.5 (2-11) % Eos % (Auto) 0.1 (0-4) % Baso % (Auto) 0.2 (0-2) % Lymph # (Auto) 1.0 L (1.2-4.9) X10*3/uL [place] # (Auto) 0.7 (0.1-1.2) X10*3/uL Eos # (Auto) 0.0 (0.0-0.4) X10*3/uL Baso # (Auto) 0.0 (0.0-0.2) X10*3/uL Abs Immat Gran (auto) 0.07 H (0.00-0.03) X10*3/uL Absolute Neuts (auto) 11.0 H (2.0-8.3) x10*3/uL Absolute Nucleated RBC 0.000 (0.0-0.012) X10*3/uL Nucleated RBC % (auto) 0.0 (0.0-0.2) /100WBC Sodium 135 (135-145) mmol/L Potassium 3.9 (3.3-5.1) mmol/L Chloride 101 (96-108) mmol/L Carbon Dioxide 24 (22-29) mmol/L Anion Gap 14 (12-20) BUN 17 H (9-16) mg/dL Creatinine 0.78 (0.5-1.4) mg/dL Estim Creat Clear Calc 130.7 Estimated GFR > 60 Random Glucose 124 H (60-115) mg/dL Lactic Acid 1.2 (0.5-2.0) mmol/L Calcium 9.0 (8.4-10.2) mg/dL Magnesium 2.1 (1.6-2.6) mg/dL Total Bilirubin 1.2 H (0.0-1.0) mg/dL Direct Bilirubin 0.5 (0.0-0.5) mg/dL AST 21 (5-37) U/L ALT 29 (0-40) U/L Alkaline Phosphatase 69 (39-117) U/L Troponin I High Sens (<3.5-35.0) ng/L Total Protein 7.6 (6.5-8.0) g/dL Albumin 4.4 (3.5-5.0) g/dL Lipase 9 (8-78) U/L Urine Color Urine Appearance Urine pH (5.0-8.0) Ur Specific [place] (1.005-1.025) Urine Protein (NEG-TRACE) MG/DL Urine Glucose (UA) (NEG) MG/DL Urine Ketones (NEG) MG/DL Urine Blood (NEG) Urine Nitrite (NEG) Ur Leukocyte Esterase (NEG) 01/23/21 01/23/21 Range/Units 04:37 06:09 WBC (4.8-10.8) X10*3/uL RBC (4.60-5.80) X10*6/uL Hgb (14.0-18.0) g/dl Hct (42.0-52.0) % MCV (80.0-98.0) fL MCH (27.0-33.0) pg MCHC (31.0-36.0) g/dl RDW (11.0-16.0) % Plt Count (160-400) X10*3/uL MPV (9.4-12.4) fL Immature Gran % (Auto) (0.0-0.4) % Neut % (Auto) (45-73) % Lymph % (Auto) (20-40) % [place] % (Auto) (2-11) % Eos % (Auto) (0-4) % Baso % (Auto) (0-2) % Lymph # (Auto) (1.2-4.9) X10*3/uL [place] # (Auto) (0.1-1.2) X10*3/uL Eos # (Auto) (0.0-0.4) X10*3/uL Baso # (Auto) (0.0-0.2) X10*3/uL Abs Immat Gran (auto) (0.00-0.03) X10*3/uL Absolute Neuts (auto) (2.0-8.3) x10*3/uL Absolute Nucleated RBC (0.0-0.012) X10*3/uL Nucleated RBC % (auto) (0.0-0.2) /100WBC Sodium (135-145) mmol/L Potassium (3.3-5.1) mmol/L Chloride (96-108) mmol/L Carbon Dioxide (22-29) mmol/L Anion Gap (12-20) BUN (9-16) mg/dL Creatinine (0.5-1.4) mg/dL Estim Creat Clear Calc Estimated GFR Random Glucose (60-115) mg/dL Lactic Acid (0.5-2.0) mmol/L Calcium (8.4-10.2) mg/dL Magnesium (1.6-2.6) mg/dL Total Bilirubin (0.0-1.0) mg/dL Direct Bilirubin (0.0-0.5) mg/dL AST (5-37) U/L ALT (0-40) U/L Alkaline Phosphatase (39-117) U/L Troponin I High Sens 10.5 (<3.5-35.0) ng/L Total Protein (6.5-8.0) g/dL Albumin (3.5-5.0) g/dL Lipase (8-78) U/L Urine Color YELLOW Urine Appearance CLEAR Urine pH 6.5 (5.0-8.0) Ur Specific [place] 1.010 (1.005-1.025) Urine Protein NEG (NEG-TRACE) MG/DL Urine Glucose (UA) NEG (NEG) MG/DL Urine Ketones NEG (NEG) MG/DL Urine Blood NEG (NEG) Urine Nitrite NEG (NEG) Ur Leukocyte Esterase NEG (NEG) Imaging Data CT scan - abdomen: Radiologist's impression: LUNG BASES: The visualized lung bases are unremarkable.? LIVER, GALLBLADDER, AND BILIARY TREE: The liver is normal in size, shape, and attenuation. No focal hepatic lesion or biliary ductal dilatation is present. The gallbladder is distended. Multiple gallstones are present, including a stone in the region of the gallbladder neck. There is mild pericholecystic stranding raising suspicion for acute cholecystitis.? PANCREAS: Unremarkable.? SPLEEN: Unremarkable.? ADRENAL GLANDS: Unremarkable.? KIDNEYS AND URETERS: The kidneys are normal in size, shape, and attenuation. No hydronephrosis, hydroureter, or obstructing calculi seen. A few tiny renal hypodensities bilaterally are suspected to represent cysts. No perinephric stranding. BLADDER: Unremarkable. GASTROINTESTINAL TRACT: Status post colectomy with right lower quadrant ileostomy. There is mild nonspecific prominence of a proximal small bowel loop in the left upper quadrant, and remaining small bowel loops are nondilated. No free fluid or free air is seen. ABDOMINAL WALL: Status post ventral hernia repair. Small bilateral fat-containing inguinal hernias are noted. LYMPH NODES: Normal. VASCULAR: Unremarkable. PELVIC VISCERA: Unremarkable. There is soft tissue density in the presacral space which was also described on the report from 04/25/2015. OSSEOUS STRUCTURES: Endplate osteophytes are noted in the thoracolumbar spine.? CT/CT abdomen pelvis w con IMPRESSION: Cholelithiasis including a gallstone in the region of the gallbladder neck. The gallbladder is distended, and there is mild surrounding stranding raising suspicion for acute cholecystitis. Correlation with right upper quadrant ultrasound would be helpful. Discharge Plan Discharge Clinical Impression: Acute cholecystitis Patient Disposition: Admitted As Inpatient Prescriptions: No Action levofloxacin 500 mg tablet 500 mg PO DAILY 10 Days Qty: 10 RF: 0 levothyroxine 175 mcg tablet 1 tab PO DAILY RF: 0 citalopram 10 mg tablet 1 tab PO QAM RF: 0 spironolactone 25 mg tablet 1 tab PO DAILY RF: 0 verapamil 180 mg capsule,ext rel. pellets 24 hr 1 cap PO BEDTIME RF: 0 doxycycline hyclate 100 mg tablet 1 tab PO DAILY RF: 0 irbesartan 300 mg tablet 1 tab PO DAILY RF: 0 levofloxacin 500 mg tablet 500 mg PO DAILY 10 Days Qty: 10 RF: 0 oxybutynin chloride 5 mg tablet extended release 24hr 5 mg PO DAILY 14 Days Qty: 14 RF: 0 PMFSH Past Medical History Medical History Hypertension Hypothyroid Rectal adenocarcinoma Rectal adenoma Surgical History History of creation of ostomy History of surgery Social History Social History Alcohol intake: current Alcohol intake frequency: does not drink Alcohol type: hard liquor Patient Tobacco Use Status: Never used Tobacco Use of substances other than those prescribed or required for medical reasons: No Advance Directives: No Advance Directives Information Provided: Yes
[2021-01-23 04:41] LABS: MANUAL DIFF FLAG NO
[2021-01-23 04:42] LABS: Basophils Percent Auto 0.2 % (0-2); Eosinophils Percent Auto 0.1 % (0-4); Hematocrit 47.4 % (42.0-52.0); Hemoglobin 16.2 g/dl (14.0-18.0); Imm Gran Abs Auto 0.07 X10*3/uL (0.00-0.03); Imm Gran Pct Auto 0.5 % (0.0-0.4); Lymphocytes Percent Auto 7.8 % (20-40); Mean Corpuscular HGB Conc 34.2 g/dl (31.0-36.0); Mean Corpuscular Volume 81.9 fL (80.0-98.0); Mean Platelet Volume 9.7 fL (9.4-12.4); Monocytes Absolute Auto 0.7 X10*3/uL (0.1-1.2); Monocytes Percent Auto 5.5 % (2-11); Neutrophils Percent Auto 85.9 % (45-73); Platelet Count 205 X10*3/uL (160-400); Red Blood Count 5.79 X10*6/uL (4.60-5.80); Red Cell Distribution Width 12.6 % (11.0-16.0); White Blood Count 12.8 X10*3/uL (4.8-10.8)
[2021-01-23] MEDS: Morphine Sulfate 4 MG/ML CARTRIDGE IVPUSH ×2 (04:44→07:24)
[2021-01-23] MEDS: 0.9 % Sodium Chloride 1,000 ML 999 ML IVCONT (04:44)
[2021-01-23] MEDS: ondansetron HCL 4 MG/2 ML VIAL IVPUSH (04:45)
[2021-01-23 04:57] LABS: Lactic Acid 1.2 mmol/L (0.5-2.0)
[2021-01-23 05:02] LABS: Alanine Aminotransferase 29 U/L (0-40); Albumin Level 4.4 g/dL (3.5-5.0); Alkaline Phosphatase 69 U/L (39-117); Anion Gap 14 (12-20); Aspartate Amino Transferase 21 U/L (5-37); Bilirubin Direct 0.5 mg/dL (0.0-0.5); Bilirubin Total 1.2 mg/dL (0.0-1.0); Blood Urea Nitrogen 17 mg/dL (9-16); Carbon Dioxide 24 mmol/L (22-29); Chloride 101 mmol/L (96-108); Creatinine Clr Calc Pharmacy 130.7; Estimated Glomerular Filt Rate > 60; Glucose Random 124 mg/dL (60-115); Lipase 9 U/L (8-78); Magnesium 2.1 mg/dL (1.6-2.6); Potassium 3.9 mmol/L (3.3-5.1); Sodium 135 mmol/L (135-145); Total Protein 7.6 g/dL (6.5-8.0)
[2021-01-23 05:05] LABS: Troponin-I High Sensitivity 10.5 ng/L (<3.5-35.0)
[2021-01-23] MEDS: iohexoL 350 MG/ML 100 ML INFUS..BTL 85 ML IV (05:17)
[2021-01-23 06:42] LABS: Appearance Urine CLEAR; Color Urine YELLOW; Glucose Urine UA NEG (NEG); Leukocyte Esterase Urine NEG (NEG); Nitrite Urine NEG (NEG); PH 6.5 (5.0-8.0); Urine Blood NEG (NEG); Urine Ketones NEG (NEG); Urine Protein NEG (NEG-TRACE)
[2021-01-23] MEDS: Piperacillin Sodium/Tazobactam 3.375 GM in 0.9 % Sodium Chloride 50 ML IV (07:24)
--- NOTE | 2021-01-23 07:40 | P.HPGS_ITS ---
History of Present Illness History of Present Illness Date of Service: 01/23/21 Chief complaint: stomach pain Narrative: Carlos Daniel is a 51 year old male presenting to the emergency department with approximately 10 hour history of abdominal pain in the epigastrium associated with nausea vomiting and decreased ostomy output. He has a prior history of a rectal resection/colectomy for rectal cancer with an ileostomy in the right lower quadrant. He reports the abdominal pain began last evening and denies a previous history of similar pain. He denies fever or chills. Upon presentation to the emergency department he was noted to be tender in the epigastrium and right upper quadrant. Laboratories revealed elevated WBC and bilirubin level. CT of the abdomen and pelvis revealed gallstones within the gallbladder with distended gallbladder and findings suggestive of acute cholecystitis. He is now waiting ultrasound of the abdomen. Review of Systems Constitutional: Constitutional: Denies chills, Denies fever(s), Denies headache(s) and Reports poor appetite ENT: Denies dizziness and Denies headache(s) Cardiovascular: Cardiovascular: Denies chest pain, Denies rapid heart rate, Denies palpitations and Denies slow heart rate Respiratory: Respiratory: Denies chest congestion, Denies cough, Denies pain on inspiration and Denies wheezing Gastrointestinal: Gastrointestinal: Reports abdominal pain, Denies bloating, Denies change in stool character, Reports constipation, Denies diarrhea, Reports nausea, Reports vomiting and Denies hematemesis Genitourinary: Genitourinary: Reports no additional male genitourinary complaints Musculoskeletal: Musculoskeletal: Denies back pain, Denies arthralgias, Denies joint swelling and Denies numbness Integumentary/Breasts: Skin/Breast: Denies change in pigmentation, Denies radha thema and Denies rash Neurologic: Denies dizziness, Denies headache(s) and Denies numbness Psychiatric: Psychiatric: Denies anxiety and Denies depression Endocrine: Endocrine: Denies palpitations Hematologic/Lymphatic: Hematologic/Lymphatic: Denies easy bleeding, Denies easy bruising and Denies lymphadenopathy Allergic/Immunologic: Allergic/Immunologic: Denies wheezing PMFSH Past Medical History Medical History Hypertension Hypothyroid Rectal adenocarcinoma Rectal adenoma Surgical History Surgical History History of creation of ostomy History of surgery Social History Social History Alcohol intake: current Alcohol intake frequency: does not drink Alcohol type: hard liquor Patient Tobacco Use Status: Never used Tobacco Use of substances other than those prescribed or required for medical reasons: No Advance Directives: No Advance Directives Information Provided: Yes Meds Allergies Allergy/AdvReac Type Severity Reaction Status Date / Time No Known Allergies Allergy Verified 07/03/20 08:39 Home Medications Medication Instructions Recorded Confirmed Last Taken Type citalopram 10 mg tablet 1 tab PO QAM 06/27/20 06/27/20 06/26/20 History doxycycline hyclate 100 mg tablet 1 tab PO DAILY 06/27/20 06/27/20 06/26/20 History irbesartan 300 mg tablet 1 tab PO DAILY 06/27/20 06/27/20 06/26/20 History levothyroxine 175 mcg tablet 1 tab PO DAILY 06/27/20 06/27/20 06/26/20 History spironolactone 25 mg tablet 1 tab PO DAILY 06/27/20 06/27/20 06/26/20 History verapamil 180 mg 24 hr 1 cap PO BEDTIME 06/27/20 06/27/20 06/26/20 History capsule,extended release Physical Exam Vital Signs: Vital Signs: Last Vital Signs Temp 98.6 F 01/23/21 04:05 Pulse 89 01/23/21 06:00 Resp 15 01/23/21 06:00 BP 184/96 H 01/23/21 06:00 Pulse Ox 98 01/23/21 06:00 Body Mass Index 29.4 Const: General: cooperative, no acute distress, well developed and ill appearing Nutritional Appearance: well nourished Orientation/consciousness: patient oriented x3 Limitations: no limitations HENMT: Head: Yes normocephalic and Yes atraumatic Ears: hearing grossly normal bilaterally Resp: Effort & Inspection: normal respiratory effort, no audible wheezes, no cough and no respiratory distress Auscultation: clear to auscultation bilaterally GI: Inspection: Yes normal to inspection Palpation (GI): Soft to palpation, Tenderness to palpation present (GI) in the RUQ and Carroll's sign positive, not rigid, hepatosplenomegaly present and No Rebound tenderness present Auscultation: normal bowel sounds Rectal Exam - Male: Yes deferred Skin: General skin exam: no rashes or lesions noted Neuro: General: patient oriented x3 Extrem: General: Yes no clubbing, cyanosis or edema Results Results Labs: Short CBC 01/23/21 Range/Units 04:37 WBC 12.8 H (4.8-10.8) X10*3/uL Hgb 16.2 (14.0-18.0) g/dl Hct 47.4 (42.0-52.0) % Plt Count 205 (160-400) X10*3/uL BMP 01/23/21 04:37 Sodium 135 Potassium 3.9 Chloride 101 Carbon Dioxide 24 BUN 17 H Creatinine 0.78 Calcium 9.0 Liver Function 01/23/21 Range/Units 04:37 Total Bilirubin 1.2 H (0.0-1.0) mg/dL Direct Bilirubin 0.5 (0.0-0.5) mg/dL AST 21 (5-37) U/L ALT 29 (0-40) U/L Alkaline Phosphatase 69 (39-117) U/L Albumin 4.4 (3.5-5.0) g/dL Urine 01/23/21 Range/Units 06:09 Urine Color YELLOW Urine Appearance CLEAR Urine pH 6.5 (5.0-8.0) Ur Specific [place] 1.010 (1.005-1.025) Urine Protein NEG (NEG-TRACE) MG/DL Urine Glucose (UA) NEG (NEG) MG/DL Assessment and Plan (1) Acute cholecystitis: Status: Acute 51-year-old male patient with prior history of rectal cancer now presenting with abdominal pain in the right upper quadrant associated with nausea and vomiting. Findings are suggestive of acute cholecystitis due to cholelithiasis. He is awaiting further evaluation with an ultrasound of the abdomen. If this confirms acute cholecystitis, arrangements will be made for laparoscopic or possible open cholecystectomy later today. This was reviewed with the patient he is agreeable. Quality Stroke Does the patient have a stroke diagnosis?: No VTE Prior VTE?: No VTE Risk Level:: Surgical - moderate VTE Device Contraindication: N/A - Device Ordered VTE Drug Contraindication: Treatment Not Indicated Procedures Date of Service Date of Service: 01/23/21
[2021-01-23] MEDS: Lactated Ringers 1,000 ML 125 ML IVCONT (08:06)
[2021-01-23 08:27] LABS: COVID-19 Test Negative (Negative)
--- NOTE | 2021-01-23 08:29 | PHA.MEDREC ---
Pharmacy Consult ? Medication Reconciliation Pharmacy has completed the medication reconciliation. There are no remarkable issues for provider's attention. Tanika Moreira, MarkoD
--- NOTE | 2021-01-23 09:01 | PC.NURSE ---
Report given to Jazmyn in [facility] surgery. Pt has been NPO since 6pm last night. Pt's pain is well managed at this time and has LR infusing
--- NOTE | 2021-01-23 09:26 | P.CONAN_ITS ---
[facility] Active Problems Active Problems: All Active Problems (Updated 01/23/21 @ 06:53 by Heidy fishman MD) Acute cholecystitis (Acute) Radiation cystitis (Acute) Urethral stricture (Acute) Acute urinary retention (Acute) Past Medical History Medical History Hypertension Hypothyroid Rectal adenocarcinoma Rectal adenoma Family History Family history of problems with anesthesia: No Surgical History Surgical History History of creation of ostomy History of surgery History of Problems with Anesthesia: No Social History Social History Alcohol intake: current Alcohol intake frequency: does not drink Alcohol type: hard liquor Patient Tobacco Use Status: Never used Tobacco Use of substances other than those prescribed or required for medical reasons: No Have you been hit, kicked, punched, or otherwise hurt by someone within the past year? If so, by whom?: No Are you DNR?: No Advance Directives: No Advance Directives Information Provided: Yes Meds Allergies Allergy/AdvReac Type Severity Reaction Status Date / Time No Known Allergies Allergy Verified 07/03/20 08:39 Active Medications: Current Medications Lactated Ringer's (Lr) 1,000 mls @ 125 mls/hr IVCONT .Q8H [facility] Last Admin: 01/23/21 08:06 Dose: 125 mls/hr Documented by: Piperacillin Sod/Tazobactam (Sod 3.375 gm/ Sodium Chloride) 50 mls @ 100 mls/hr IV Q6H LEANDRO Cefotetan Disodium 2 gm/ (Sodium Chloride) 50 mls @ 100 mls/hr IV PREOP ONE Stop: 01/23/21 09:30 Morphine Sulfate (Morphine Sulfate 4 Mg/Ml Cartridge) 4 mg IVPUSH Q3H PRN; Protocol PRN Reason: Pain, Severe (Pain Scale 7-10) Ondansetron HCl (Ondansetron Hcl 4 Mg/2 Ml Vial) 4 mg IVPUSH QID PRN PRN Reason: Nausea Pharmacy Consult (Consult Rx Perform Med Rec) 1 each MISCELLANE ONCE PRN PRN Reason: Consult order Sodium Chloride (0.9 % Sodium Chloride Flush 3 Ml Syringe) 3 ml IVFLUSH QSHIFT [facility] Last Admin: 01/23/21 07:53 Dose: Not Given Documented by: Zolpidem Tartrate (Zolpidem Tartrate 5 Mg Tablet) 5 mg PO BEDTIME PRN PRN Reason: Insomnia Home Medications Medication Instructions Recorded Confirmed Last Taken Type levothyroxine 175 mcg tablet 1 tab PO DAILY 06/27/20 01/23/21 01/22/21 History spironolactone 25 mg tablet 1 tab PO DAILY 06/27/20 01/23/21 01/22/21 History verapamil 180 mg 24 hr 1 cap PO BEDTIME 06/27/20 01/23/21 01/22/21 History capsule,extended release alprostadil 20 mcg intracavernosal 20 mcg INTRA-CAVERNOSAL DAILY PRN 01/23/21 01/23/21 01/22/21 History kit ([place] Impulse) fluticasone propionate 50 2 spray INTRANASAL DAILY PRN 01/23/21 01/23/21 1 History mcg/actuation nasal spray,suspension Exam Exam Date and Time: January 23, 2021 0926 Height,Weight and Vital Signs: Height 5 ft 11 in Weight 95.708 kg Last Vital Signs Temp 98.6 F 01/23/21 04:05 Pulse 68 01/23/21 08:11 Resp 18 01/23/21 08:11 BP 168/88 H 01/23/21 08:11 Pulse Ox 97 01/23/21 08:11 Pertinent Lab Results Pertinent Lab Results: Laboratory Tests 01/23/21 01/23/21 01/23/21 04:37 04:37 04:37 WBC 12.8 H RBC 5.79 Hgb 16.2 Hct 47.4 MCV 81.9 MCH 28.0 MCHC 34.2 RDW 12.6 Plt Count 205 MPV 9.7 Immature Gran % (Auto) 0.5 H Neut % (Auto) 85.9 H Lymph % (Auto) 7.8 L [place] % (Auto) 5.5 Eos % (Auto) 0.1 Baso % (Auto) 0.2 Lymph # (Auto) 1.0 L [place] # (Auto) 0.7 Eos # (Auto) 0.0 Baso # (Auto) 0.0 Abs Immat Gran (auto) 0.07 H Absolute Neuts (auto) 11.0 H Absolute Nucleated RBC 0.000 Nucleated RBC % (auto) 0.0 Sodium 135 Potassium 3.9 Chloride 101 Carbon Dioxide 24 Anion Gap 14 BUN 17 H Creatinine 0.78 Estim Creat Clear Calc 130.7 Estimated GFR > 60 Random Glucose 124 H Lactic Acid 1.2 Calcium 9.0 Magnesium 2.1 Total Bilirubin 1.2 H Direct Bilirubin 0.5 AST 21 ALT 29 Alkaline Phosphatase 69 Troponin I High Sens Total Protein 7.6 Albumin 4.4 Lipase 9 Urine Color Urine Appearance Urine pH Ur Specific [place] Urine Protein Urine Glucose (UA) Urine Ketones Urine Blood Urine Nitrite Ur Leukocyte Esterase COVID-19 ([place]) COVID-19 Clin Com 01/23/21 01/23/21 01/23/21 04:37 06:09 08:07 WBC RBC Hgb Hct MCV MCH MCHC RDW Plt Count MPV Immature Gran % (Auto) Neut % (Auto) Lymph % (Auto) [place] % (Auto) Eos % (Auto) Baso % (Auto) Lymph # (Auto) [place] # (Auto) Eos # (Auto) Baso # (Auto) Abs Immat Gran (auto) Absolute Neuts (auto) Absolute Nucleated RBC Nucleated RBC % (auto) Sodium Potassium Chloride Carbon Dioxide Anion Gap BUN Creatinine Estim Creat Clear Calc Estimated GFR Random Glucose Lactic Acid Calcium Magnesium Total Bilirubin Direct Bilirubin AST ALT Alkaline Phosphatase Troponin I High Sens 10.5 Total Protein Albumin Lipase Urine Color YELLOW Urine Appearance CLEAR Urine pH 6.5 Ur Specific [place] 1.010 Urine Protein NEG Urine Glucose (UA) NEG Urine Ketones NEG Urine Blood NEG Urine Nitrite NEG Ur Leukocyte Esterase NEG COVID-19 ([place]) Negative COVID-19 Clin Com See Note Airway Mallampati Class: II TM Dist: >3cm Neck ROM: Full Loose/Missing/Broken Teeth: No Heart: ok Lungs: ok Assessment and Plan Final Anesthetic Review Family History of Problems with Anesthesia: No History of Problems with Anesthesia: No NPO: Yes ASA Class: II Final Preanesthetic Review: No Changes in Pt Med Stat, Meds/Allgs Chart Reviewed, Consent Obtained/Reviewed and Anes Risks/Benef Reviewed Patient Risk: Intermediate Procedure Risk: Intermediate Anesthetic Plan Anesthetic Plan: GA and Agree w/ Assess. and Plan Disposition: Standard PACU
--- NOTE | 2021-01-23 09:29 | PC.NURSE ---
iv inserted by ed rn
--- NOTE | 2021-01-23 09:36 | MHC.CM.PN ---
Patient transferred to pre-op before he could be seen by case management. Will attempt to meet again. Continue to [facility] for d/c needs.
--- NOTE | 2021-01-23 11:31 | W.PM.OPN ---
Operative Note Operative Note Date of Service: 01/23/21 Narrative: Preoperative diagnosis:Acute cholecystitis, cholelithiasis Postoperative diagnosis:same Procedure: Laparoscopic converted to open cholecystectomy Surgeon: Sanjiv Avila MD Inspector Machine Cut Glass: Светлана Dover PA-C Anesthesia: general ET Indications for procedure:51 year old with abdominal pain in the right upper quadrant, found to have gallstones with thickened gallbladder wall and gallstones trapped at the neck of the gallbladder. Operative findings:acute cholecystitis with a markedly distended gallbladder and dense adhesions with acute inflammatory changes. Specimen:gallbladder Estimated blood loss:20 ml Complications:none Procedure details: Patient was brought to the OR placed in supine position. After administering general anesthesia the patient's abdomen was prepped with ChloraPrep and draped in a sterile fashion. A surgical time-out was called the consent confirmed. Patient received preoperative antibiotics and Venodyne boots were in place. Local anesthesia consisting of 0.5% Sensorcaine was infiltrated in the subxiphoid location. A 5 mm incision was then made with a scalpel carried down to fascia. Fascia was then opened the peritoneum entered. A 5 mm trocar was then inserted into the abdominal cavity and the abdomen insufflated to a pressure of 15 mm mmHg. The camera was then in the abdomen explored. Dense adhesions were noted from his prior abdominal surgery including total colectomy with ileostomy, and incisional hernia with large mesh placement. Visualization of the gallbladder was limited and limited window was noted for placement of additional trocars. Decision was then made to convert to an open procedure. Trocars removed and a right subcostal incision created with a scalpel. This carried out through subcutaneous tissue up to the external oblique aponeurosis. This was incised with electrocautery and the rectus muscle divided with electrocautery. Posterior sheath was then opened with electrocautery followed by the peritoneum. The abdominal cavity was then entered. A bowel for retractor was placed. Gallbladder is found to be tensely dilated with adherent omentum and transverse mesocolon. This was taken down using blunt and sharp dissection. The gallbladder was then drained in grasped with a Nuzhat clamp. In a retrograde fashion the gallbladder was dissected off the liver using electrocautery. This continued down towards the infundibulum. Hemostasis was assured all times using electrocautery. The cystic artery was identified and doubly clipped and divided. A 2nd branch was also identified doubly clipped and divided. The gallbladder is continued to be dissected down to the junction with the cystic duct. Stones were noted at the neck of the gallbladder and gently milked into the gallbladder. A right angle was then used to hold the stones within the gallbladder. A 2nd right angle was placed below this in the gallbladder divided above the right angle. The gallbladder is passed off the table and sent to pathology for further examination. Cystic duct was then ligated using a 0 Polysorb suture. This was also ligated with a hemoclip. The abdominal cavity was then irrigated with saline solution and suctioned dry. No bleeding could be identified from the liver edge. No bile leak was identified with the cystic duct. A 10. Matthew-Zuñiga drain was then obtained and placed in the gallbladder fossa. This was brought out through a separate stab wound in the right upper quadrant. The drain was secured to the skin using a 4-0 nylon suture. Peritoneum was then closed using a running 0 Polysorb suture. Posterior sheath was closed using a running 0 Polysorb suture. Anterior sheath was closed using a running 0 Polysorb suture. Myron's fascia and dermis were then reapproximated using interrupted 3-0 Polysorb sutures. Skin was closed using skin valorie. The trocar incision was closed in the fascia using a 0 Polysorb suture and skin closed with avlorie. Sterile dressings consisting of 4 x 4 gauze and paper tape were then applied. The patient tolerated the procedure well. Sponge, instrument, and needle counts reported as correct. The patient was transferred to PACU in stable condition.
[2021-01-23] MEDS: Dextrose 5 % and Lactated Ring 1,000 ML 125 ML IVCONT ×2 (14:25→22:16)
[2021-01-23] MEDS: VerapamiL HCL SR 180 MG TABLET.ER PO (20:40)
[2021-01-24 03:35] VITALS: BP 163/83; PULSE 62; RESP 16; TEMP 36.7; O2SAT 95
[2021-01-24] MEDS: Levothyroxine Sodium 175 MCG TABLET PO (05:49)
[2021-01-24] MEDS: Dextrose 5 % and Lactated Ring 1,000 ML 125 ML IVCONT (05:50)
[2021-01-24 08:00] VITALS: BP 180/109; PULSE 57; RESP 18; TEMP 36.6; O2SAT 96
--- NOTE | 2021-01-24 08:22 | P.PNGS_ITS ---
Subjective Subjective Date of Service: 01/24/21 <Светлана Dover PA-C - Last Filed: 01/24/21 08:26> 01/24/21 <Sanjiv Avila MD - Last Filed: 01/24/21 10:30> Interval history: Feels well. He is comfortable at rest and only has mild pain with movement. He has been OOB and ambulating halls. Tolerating solid diet. Wants to go home. <Светлана Dover PA-C - Last Filed: 01/24/21 08:26> Physical Exam 2 Vital Signs: Vital Signs: Last Vital Signs Temp 97.9 F 01/24/21 08:00 Pulse 57 01/24/21 08:00 Resp 18 01/24/21 08:00 BP 180/109 H 01/24/21 08:00 Pulse Ox 96 01/24/21 08:00 Body Mass Index 29.4 <Светлана Dover PA-C - Last Filed: 01/24/21 08:26> Const: General: healthy appearing, comfortable and no acute distress <Светлана Dover PA-C - Last Filed: 01/24/21 08:26> Orientation/consciousness: patient oriented x3 <HOPE Dobbs Last Filed: 01/24/21 08:26> Resp: Effort & Inspection: normal respiratory effort <Светлана Dover PA-C - Last Filed: 01/24/21 08:26> GI: Other: ostomy with flatus, stool FLAVIO with serosanguineous drainage <Светлана Dover PA-C - Last Filed: 01/24/21 08:26> Inspection: No distended and Yes incision (dressing c/d/i) <HOPE Dobbs Last Filed: 01/24/21 08:26> Palpation (GI): Soft to palpation, Tenderness to palpation present (GI) (mild, incisional), no guarding and not rigid <HOPE Dobbs Last Filed: 01/24/21 08:26> Percussion: Yes normal to percussion <HOPE Dobbs Last Filed: 01/24/21 08:26> Skin: General skin exam: no rashes or lesions noted <Светлана Dover PA-C - Last Filed: 01/24/21 08:26> Neuro: General: patient oriented x3 <Светлана Dover PA-C - Last Filed: 01/24/21 08:26> Extrem: General: Yes no clubbing, cyanosis or edema <Светлана Dover PA-C - Last Filed: 01/24/21 08:26> Objective Data Active Medications Acetaminophen (Ofirmev) 1,000 mg in 100 mls @ 400 mls/hr IV Q6H [facility] Stop: 01/26/21 07:43 Last Infusion: 01/24/21 02:07 Dose: 0 mls/hr Documented by: MICHEAL Dextrose/Lactated Ringer's (D5lr) 1,000 mls @ 125 mls/hr IVCONT .Q8H [facility] Last Admin: 01/24/21 05:50 Dose: 125 mls/hr Documented by: MICHEAL Levothyroxine Sodium (Levothyroxine Sodium 175 Mcg Tablet) 175 mcg PO DAILY@0600 [facility] Last Admin: 01/24/21 05:49 Dose: 175 mcg Documented by: MICHEAL Morphine Sulfate (Morphine Sulfate 4 Mg/Ml Cartridge) 4 mg IVPUSH Q3H PRN; Protocol PRN Reason: Pain, Severe (Pain Scale 7-10) Ondansetron HCl (Ondansetron Hcl 4 Mg/2 Ml Vial) 4 mg IVPUSH QID PRN PRN Reason: Nausea Pharmacy Consult (Consult Rx Perform Med Rec) 1 each MISCELLANE ONCE PRN PRN Reason: Consult order Sodium Chloride (0.9 % Sodium Chloride Flush 3 Ml Syringe) [address] [facility] Last Admin: 01/24/21 00:05 Dose: Not Given Documented by: MICHEAL Non-Admin Reason: IV Running Sodium Chloride (0.9 % Sodium Chloride Flush 3 Ml Syringe) 3 ml IVFLUSH [facility] Last Admin: 01/24/21 00:05 Dose: Not Given Documented by: MICHEAL Non-Admin Reason: IV Running Spironolactone (Spironolactone 25 Mg Tablet) 25 mg PO DAILY LEANDRO; Protocol Verapamil HCl (Verapamil Hcl Sr 180 Mg Tablet.Er) 180 mg PO BEDTIME LEANDRO; Protocol Last Admin: 01/23/21 20:40 Dose: 180 mg Documented by: MICHEAL Zolpidem Tartrate (Zolpidem Tartrate 5 Mg Tablet) 5 mg PO BEDTIME PRN PRN Reason: Insomnia <Светлана Dover PA-C - Last Filed: 01/24/21 08:26> Labs CBC & Chem 7: : 01/23/21 04:37 01/23/21 04:37 <Светлана Dover PA-C - Last Filed: 01/24/21 08:26> Labs: Laboratory Results - last 24 hr 01/23/21 08:07 COVID-19 ([facility]) Negative COVID-19 Clin Com See Note <Светлана Dover PA-C - Last Filed: 01/24/21 08:26> Procedures Date of Service Date of Service: 01/24/21 <Светлана Dover PA-C - Last Filed: 01/24/21 08:26> Progress Note: A&P Assessment and plan (1) Acute cholecystitis: Status: Acute <HOPE Dobbs Last Filed: 01/24/21 08:26> (2) S/P cholecystectomy: Status: Acute <Светлана Dover PA-C - Last Filed: 01/24/21 08:26> Assessment and Plan: 51 year old male admitted with acute cholecystitis now POD # 1 s/p lap attempted converted to open CCY due to dense RUQ adhesions. He is doing very well post operatively and tolerating a solid diet. He has minimal incisional pain. He has been OOB and ambulating. VSS. Abd exam benign - dressing c/d/i, approrpiate post op tenderness. FLAVIO with nonbilious output. He is stable for discharge to home today. Will remove drain prior. <Светлана Dover PA-C - Last Filed: 01/24/21 08:26> 51 year old male admitted with acute cholecystitis now POD # 1 s/p lap attempted converted to open CCY due to dense RUQ adhesions. He is doing very well post operatively and tolerating a solid diet. He has minimal incisional pain. He has been OOB and ambulating. VSS. Abd exam benign - dressing c/d/i, approrpiate post op tenderness. FLAVIO with nonbilious output. He is stable for discharge to home today. Will remove drain prior. Agree with the above assessment and plan; patient sore but feels much improved today. He is tolerating po without nausea or vomiting. Wounds are clean and intact. FLAVIO with small amout of serous fluid. Agree with discharge and follow up in office in one week. <Sanjiv Avila MD - Last Filed: 01/24/21 10:30> Fall Risk Details Current Medications: Current Medications Acetaminophen (Ofirmev) 1,000 mg in 100 mls @ 400 mls/hr IV Q6H [facility] Stop: 01/26/21 07:43 Last Infusion: 01/24/21 02:07 Dose: Infused Documented by: Dextrose/Lactated Ringer's (D5lr) 1,000 mls @ 125 mls/hr IVCONT .Q8H [facility] Last Admin: 01/24/21 05:50 Dose: 125 mls/hr Documented by: Levothyroxine Sodium (Levothyroxine Sodium 175 Mcg Tablet) 175 mcg PO DAILY@0600 [facility] Last Admin: 01/24/21 05:49 Dose: 175 mcg Documented by: Morphine Sulfate (Morphine Sulfate 4 Mg/Ml Cartridge) 4 mg IVPUSH Q3H PRN; Protocol PRN Reason: Pain, Severe (Pain Scale 7-10) Ondansetron HCl (Ondansetron Hcl 4 Mg/2 Ml Vial) 4 mg IVPUSH QID PRN PRN Reason: Nausea Pharmacy Consult (Consult Rx Perform Med Rec) 1 each MISCELLANE ONCE PRN PRN Reason: Consult order Sodium Chloride (0.9 % Sodium Chloride Flush 3 Ml Syringe) 3 ml IVFLUSH QSHIFT [facility] Last Admin: 01/24/21 00:05 Dose: Not Given Documented by: Sodium Chloride (0.9 % Sodium Chloride Flush 3 Ml Syringe) 3 ml IVFLUSH QSHIFT [facility] Last Admin: 01/24/21 00:05 Dose: Not Given Documented by: Spironolactone (Spironolactone 25 Mg Tablet) 25 mg PO DAILY [facility]; Protocol Verapamil HCl (Verapamil Hcl Sr 180 Mg Tablet.Er) 180 mg PO BEDTIME LEANDRO; Pr otocol Last Admin: 01/23/21 20:40 Dose: 180 mg Documented by: Zolpidem Tartrate (Zolpidem Tartrate 5 Mg Tablet) 5 mg PO BEDTIME PRN PRN Reason: Insomnia <HOPE Dobbs Last Filed: 01/24/21 08:26> Time Spent With Patient Time: Total time spent is greater than 50% in coordination of care (as documented) at patient's floor/unit and/or counseling patient: <Светлана Dover PA-C - Last Filed: 01/24/21 08:26> Time with patient: 15 - 24 minutes <HOPE Dobbs Last Filed: 01/24/21 08:26> Quality Stroke Does the patient have a stroke diagnosis?: No <Светлана Dover PA-C - Last Filed: 01/24/21 08:26> VTE Prior VTE?: No <HOPE Dobbs Last Filed: 01/24/21 08:26> VTE Risk Level:: Surgical - moderate <HOPE Dobbs Last Filed: 01/24/21 08:26> VTE Device Contraindication: N/A - Device Ordered <HOPE Dobbs Last Filed: 01/24/21 08:26> VTE Drug Contraindication: Treatment Not Indicated <HOPE Dobbs Last Filed: 01/24/21 08:26>
[2021-01-24] MEDS: Spironolactone 25 MG TABLET PO (09:30)
[2021-01-24] MEDS: 0.9 % Sodium Chloride Flush 3 ML SYRINGE IVFLUSH (09:31)
[2021-01-24] MEDS: VerapamiL HCL SR 180 MG TABLET.ER PO (11:15)
[2021-01-24 12:00] VITALS: BP 163/89; PULSE 82; RESP 16; TEMP 37.1; O2SAT 94
--- NOTE | 2021-01-24 12:54 | HO.POSTANES ---
Post Anesthesia Evaluation Post Anesthesia Evaluation Vital Signs: Vital Signs Temp Pulse Resp BP Pulse Ox 01/24/21 08:00 97.9 F 57 18 180/109 H 96 01/24/21 03:35 98.0 F 62 16 163/83 H 95 Anesthesia: General Endotracheal-GETA Mental Status: Awake Pain Control: Satisfactory Nausea/Vomiting: None Hydration: Adequate Anesthesia-Related Issues: No Anes. Related Issues
[2021-01-24] MEDS: ondansetron HCL 4 MG/2 ML VIAL IVPUSH (13:30)
--- NOTE | 2021-01-24 14:16 | MHC.CM.PN ---
EMR REVIEWED, PT ADMITTED S/P LAP AMILCAR CONVERTED TO OPEN, PT REPORTS HE LIVES W/ AND HER 3 CHILDREN, PT IS INDEPENDENT, NO DME AND NO HOME SERVICES, PT VERIFIES PCP RASHID KLINE W/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 D/C PLAN: HOME TODAY SELF-CARE W/PT'S FOR TRANSPORT.
--- NOTE | 2021-01-28 11:05 | P.DS_ITS ---
DS: Providers Provider Date of Service: 01/24/21 Date of admission: 01/23/21 07:35 Primary care physician: Unknown Physician Attending physician on admission: Sanjiv Avila DS: Diagnosis Discharge Diagnosis (1) Acute cholecystitis: Status: Acute (2) S/P cholecystectomy: Status: Acute DS: Summary Hospital Course Hospital Course: BRIEF HPI:?Carlos Daniel is a 51 year old male presenting to the emergency department with approximately 10 hour history of abdominal pain in the epigastrium associated with nausea vomiting and decreased ostomy output.? He has a prior history of a rectal resection/colectomy for rectal cancer with an ileostomy in the right lower quadrant.? He reports the abdominal pain began last evening and denies a previous history of similar pain.? He denies fever or chills.? Upon presentation to the emergency department he was noted to be tender in the epigastrium and right upper quadrant.? Laboratories revealed elevated WBC and bilirubin level.? CT of the abdomen and pelvis revealed gallstones within the gallbladder with distended gallbladder and findings suggestive of acute cholecystitis.? He is now waiting ultrasound of the abdomen. HOSPITAL COURSE: Ultrasound the abdomen confirmed a thickened gallbladder wall with gallstones within the gallbladder. Findings were consistent with acute cholecystitis. Patient was subsequently taken to the OR for laparoscopic or po ssible open cholecystectomy. Intraoperatively the patient was found to have an acutely inflamed gallbladder with dense adhesions and scar tissue from his previous abdominal surgeries. Was a villalobos of the gallbladder was very difficult given the presence of a large hernia mesh with adhesions of the small bowel. An open insertion of trocar in the epigastrium was placed however no other ports could be a placed due to these adhesions. Decision was made to convert to an open procedure. A subcostal incision was created and a open cholecystectomy performed. Operative findings were consistent with an acute obstructed gallbladder due to gallstones. The patient tolerated the procedure well and remained hemodynamically stable. He was started on a regular diet on the evening of postoperative day 0. Postoperative day 1, the patient felt much improved with decreased abdominal pain compared to prior to surgery. He was tolerating regular diet without nausea or vomiting. He felt comfortable enough to be discharged to home. He was subsequently discharged home on postop day 1. The Matthew-Zuñiga drain was removed prior to discharge. Discharge instructions were to avoid lifting greater than 10 lb for 1 month. He should remain on a low-fat diet for 1 month. I have asked him to return to the office in approximately 1 week for wound examination and staple removal. He should call sooner for nausea, vomiting, fever, chills, or other associated symptoms. Time Spent with Patient Time attestation: Total time spent providing and/or coordinating discharge services: Discharge coordination time: Greater than 30 minutes Quality: Stroke Does the patient have a stroke diagnosis?: No Physical Exam Vital Signs: Vital Signs: Last Vital Signs Temp 98.8 F 01/24/21 12:00 Pulse 82 01/24/21 12:00 Resp 16 01/24/21 12:00 BP 163/89 H 01/24/21 12:00 Pulse Ox 94 01/24/21 12:00 Body Mass Index 29.4 DS: Data Data Completed and Pending Completed studies during hospitalization [Text1]: 01/23/21 11:01 Surgical [PTH] Routine Gallbladder, cholecystectomy:? Acute gangrenous cholecystitis and cholelithiasis. Procedures Inspection of Gallbladder, Percutaneous Endoscopic Approach (01/23/21) Resection of Gallbladder, Open Approach (01/23/21) Discharge Plan Discharge Patient Disposition: Home, Self-Care Discharge Diagnosis: acute cholecystitis s/p cholecystectomy Referrals: Sanjiv Avila MD [Physician] - 1 Week PhysicianFilipe [Physician] - 1 Week Discharge Medications: New oxycodone-acetaminophen [Endocet] 5-325 mg tablet 1 tab PO Q6H PRN (Reason: pain (scale score 7-10)) Qty: 15 RF: 0 ondansetron HCl [Zofran] 4 mg tablet 4 mg PO Q8H PRN (Reason: nausea and vomiting) Qty: 20 RF: 0 Continued levothyroxine 175 mcg tablet 1 tab PO DAILY RF: 0 spironolactone 25 mg tablet 1 tab PO DAILY RF: 0 verapamil 180 mg capsule,ext rel. pellets 24 hr 1 cap PO BEDTIME RF: 0 Caverject Impulse 20 mcg kit 20 mcg INTRA-CAVERNOSAL DAILY PRN (Reason: Sexual Activity) RF: 0 fluticasone propionate 50 mcg/actuation spray,suspension 2 spray intranasal DAILY PRN (Reason: Allergy Symptoms) RF: 0 Discharge Orders: Discharge Order (Routine); Ordered 01/24/21 Ordered By: Chinmay Mazzucco Diet: low fat, low cholesterol Activity on Discharge: No heavy lifting Stand Alone Forms: Patient Portal Discharge page, Work/School Release Activity Restrictions/Additional Instructions: If the incision area is tender, you may apply an ice pack for short intervals (No more than 20 minutes on, followed by at least 20 minutes off). Do not apply heat. Do not use creams, lotions, or topical antibiotics unless instructed to do so by your surgeon. These can cause infection or allergic reaction. Ok to shower. You have valorie closing your incision and these will be removed approximately 10-14 days after surgery. NO HEAVY LIFTING (>10lbs). Follow up in office. ([phone]) Call Your Doctor If: -Your temperature exceeds 101.5? F -You experience excessive pain or swelling -You have an unexpected reaction to medication -You have excessive bleeding -You experience continued vomiting/nausea -Your incision begins to separate -Your incision shows signs of infection such as increased redness, swelling, excessive pain, drainage (light blood or clear fluid is normal) or heat Care Plan Goals: Return to baseline health and gradual return to activity following recovery period. Health Concerns: acute cholecystitis s/p cholecystectomy Plan of Treatment: s/p cholecystectomy, discharge to home, f/u in office Assessment: Doing well post op Discharge Date/Time: 01/24/21 14:42
--- NOTE | 2021-01-28 12:38 | PM.DS ---
DS: Providers Provider Date of Service: 01/24/21 Date of admission: 01/23/21 07:35 Date of discharge: 01/24/21 Primary care physician: Didier Barron MD Admitting clinician: Sanjiv Avila Discharging clinician: Sanjiv Avila DS: Diagnosis Discharge Diagnosis (1) Acute cholecystitis: Status: Acute (2) S/P cholecystectomy: Status: Acute DS: Summary Hospital Course Hospital Course: BRIEF HPI:?Carlos Daniel is a 51 year old male presenting to the emergency department with approximately 10 hour history of abdominal pain in the epigastrium associated with nausea vomiting and decreased ostomy output.? He has a prior history of a rectal resection/colectomy for rectal cancer with an ileostomy in the right lower quadrant.? He reports the abdominal pain began last evening and denies a previous history of similar pain.? He denies fever or chills.? Upon presentation to the emergency department he was noted to be tender in the epigastrium and right upper quadrant.? Laboratories revealed elevated WBC and bilirubin level.? CT of the abdomen and pelvis revealed gallstones within the gallbladder with distended gallbladder and findings suggestive of acute cholecystitis.? He is now waiting ultrasound of the abdomen. HOSPITAL COURSE: Ultrasound the abdomen confirmed a thickened gallbladder wall with gallstones within the gallbladder. Findings were consistent with acute cholecystitis. Patient was subsequently taken to the OR for laparoscopic or possible open cholecystectomy. Intraoperatively the patient was found to have an acutely inflamed gallbladder with dense adhesions and scar tissue from his previous abdominal surgeries. Was a villalobos of the gallbladder was very difficult given the presence of a large hernia mesh with adhesions of the small bowel. An open insertion of trocar in the epigastrium was placed however no other ports could be a placed due to these adhesions. Decision was made to convert to an open procedure. A subcostal incision was created and a open cholecystectomy performed. Operative findings were consistent with an acute obstructed gallbladder due to gallstones. The patient tolerated the procedure well and remained hemodynamically stable. He was started on a regular diet on the evening of postoperative day 0. Postoperative day 1, the patient felt much improved with decreased abdominal pain compared to prior to surgery. He was tolerating regular diet without nausea or vomiting. He felt comfortable enough to be discharged to home. He was subsequently discharged home on postop day 1. The Matthew-Zuñiga drain was removed prior to discharge. Discharge instructions were to avoid lifting greater than 10 lb for 1 month. He should remain on a low-fat diet for 1 month. I have asked him to return to the office in approximately 1 week for wound examination and staple removal. He should call sooner for nausea, vomiting, fever, chills, or other associated symptoms. Time spent discussing smoking cessation with patient: 3 to 10 minutes Status at Discharge Functional status at discharge: independent ambulation Overall status at discharge: patient is back to baseline Time Spent with Patient Time attestation: Total time spent providing and/or coordinating discharge services: Discharge coordination time: Less than 30 minutes Quality: Stroke Does the patient have a stroke diagnosis?: No Physical Exam Vital Signs: Vital Signs: Last Vital Signs Temp 98.8 F 01/24/21 12:00 Pulse 82 01/24/21 12:00 Resp 16 01/24/21 12:00 BP 163/89 H 01/24/21 12:00 Pulse Ox 94 01/24/21 12:00 Body Mass Index 29.4 Const: General: cooperative, no acute distress and well developed Nutritional Appearance: well nourished Orientation/consciousness: patient oriented x3 Limitations: no limitations Eyes: Sclerae: sclerae normal EOM: EOMs intact bilaterally GI: Other: Right upper quadrant incisions clean, dry, and intact without redness or discharge. Matthew-Zuñiga drain was removed. This contained serous fluid. Percussion: Yes normal to percussion Auscultation: normal bowel sounds Neuro: General: patient oriented x3 Extrem: General: No edema DS: Data Data Completed and Pending Completed studies during hospitalization [Text1]: Pending at discharge 01/23/21 11:01 Surgical [PTH] Routine Procedures Inspection of Gallbladder, Percutaneous Endoscopic Approach (01/23/21) Resection of Gallbladder, Open Approach (01/23/21) Discharge Plan Discharge Patient Disposition: Home, Self-Care Discharge Diagnosis: acute cholecystitis s/p cholecystectomy Referrals: Sanjiv Avila MD [Physician] - 1 Week Physician,Filipe Ortiz [Physician] - 1 Week Discharge Medications: New oxycodone-acetaminophen [Endocet] 5-325 mg tablet 1 tab PO Q6H PRN (Reason: pain (scale score 7-10)) Qty: 15 RF: 0 ondansetron HCl [Zofran] 4 mg tablet 4 mg PO Q8H PRN (Reason: nausea and vomiting) Qty: 20 RF: 0 Continued levothyroxine 175 mcg tablet 1 tab PO DAILY RF: 0 spironolactone 25 mg tablet 1 tab PO DAILY RF: 0 verapamil 180 mg capsule,ext rel. pellets 24 hr 1 cap PO BEDTIME RF: 0 Caverject Impulse 20 mcg kit 20 mcg INTRA-CAVERNOSAL DAILY PRN (Reason: Sexual Activity) RF: 0 fluticasone propionate 50 mcg/actuation spray,suspension 2 spray intranasal DAILY PRN (Reason: Allergy Symptoms) RF: 0 Discharge Orders: Discharge Order (Routine); Ordered 01/24/21 Ordered By: Sanjiv Avila Diet: low fat, low cholesterol Activity on Discharge: No heavy lifting Stand Alone Forms: Patient Portal Discharge page, Work/School Release Activity Restrictions/Additional Instructions: If the incision area is tender, you may apply an ice pack for short intervals (No more than 20 minutes on, followed by at least 20 minutes off). Do not apply heat. Do not use creams, lotions, or topical antibiotics unless instructed to do so by your surgeon. These can cause infection or allergic reaction. Ok to shower. You have valorie closing your incision and these will be removed approximately 10-14 days after surgery. NO HEAVY LIFTING (>10lbs). Follow up in office. ([phone]) Call Your Doctor If: -Your temperature exceeds 101.5? F -You experience excessive pain or swelling -You have an unexpected reaction to medication -You have excessive bleeding -You experience continued vomiting/nausea -Your incision begins to separate -Your incision shows signs of infection such as increased redness, swelling, excessive pain, drainage (light blood or clear fluid is normal) or heat Care Plan Goals: Return to baseline health and gradual return to activity following recovery period. Health Concerns: acute cholecystitis s/p cholecystectomy Plan of Treatment: s/p cholecystectomy, discharge to home, f/u in office Assessment: Doing well post op Discharge Date/Time: 01/24/21 14:42
== END 2021-01-24 14:42 | disposition home or self-care (01) | DRG 263 ==
LOC: HO.ED 07:09 → HO.EDOVER 07:52 → HO.S3 12:35
PROVIDERS: Admitting Provider Surgery; Emergency Provider Emergency Medicine; PCP Internal Medicine; Visit Provider Surgery
PROC: 0FT44ZZ Resection of Gallbladder, Percutaneous Endoscopic Approach (ICD-10-PCS; CPT 47562; principal; 2021-01-23 09:40)
DX: K80.00 Calculus of gallbladder with acute cholecystitis without obstruction (principal); E03.9 Hypothyroidism, unspecified; K66.0 Peritoneal adhesions (postprocedural) (postinfection); Z20.822 Contact with and (suspected) exposure to COVID-19; Z79.51 Long term (current) use of inhaled steroids; Z79.890 Hormone replacement therapy; Z79.899 Other long term (current) drug therapy
CPT/HCPCS: 36415; 74177; 76705; 80048; 80076; 81003; 83605; 83690; 83735; 84484; 85025; 87635; 88304; 93005; 96361; 96365; 96375; 96376; 99024; 99285; J0131; J1100; J1170; J1885; J2250; J2270; J2405; J2543; J3010; Q9967

== ENCOUNTER → 2021-02-06 13:45 | Outpatient (BNVA) | payer OTHER, SELFPAY | PROVIDERS: PCP Internal Medicine; Visit Provider Surgery ==

== ENCOUNTER 2021-02-08 12:39 | Emergency (ER) | payer OTHER, SELFPAY ==
--- NOTE | ~2021-02-08 | US_ITS ---
EXAMINATION: US VENOUS WITH DOPPLER UPPER EXTREMITY, LEFT CLINICAL INFORMATION: Pain and swelling to the left upper extremity. History of left lower extremity DVT. COMPARISON: None TECHNIQUE: Ultrasound of the upper extremity is performed using compression sonography and color and pulse Doppler flow with assessment of augmentation of flow. There is also imaging and Doppler assessment of the jugular and subclavian veins. Spectral analysis with color-flow imaging is performed. FINDINGS: Respiratory variation, normal compression, and augmented flow are noted throughout the upper extremity including the axillary, brachial, cubital, and radial and ulnar veins. There is normal flow in the internal jugular and subclavian veins. There is no visible deep thrombophlebitis. There is a superficial occlusive thrombus in the left cephalic vein distally. US/US venous duplex UE LT IMPRESSION: Superficial thrombus in the left cephalic vein in its distal portion. No evidence for deep venous thrombosis.
[2021-02-08 13:43] VITALS: BP 199/94; PULSE 80; RESP 18; TEMP 36.8; O2SAT 97; BMI 36.2
--- NOTE | 2021-02-08 15:58 | ED.EXTPRO ---
HPI - Extremity Problem General Chief complaint: Extremity Problem Stated complaint: Blood Clot in Left Arm Time Seen by Provider: 02/08/21 13:53 Source: patient Mode of arrival: ambulatory Limitations: no limitations History of Present Illness HPI Narrative: 51-year-old male with a past medical history of rectal cancer status post surgery/chemo therapy 7 years prior, complicated by superficial thrombophlebitis who presents to emergency department with complaints of left upper arm pain/swelling /redness that he noticed when he woke up today. He reports that he is not on any blood thinners. He does not have any known blood disorder that he is aware of. He denies any fevers, chills, dizziness, change in vision, nausea/vomiting, jaw pain, chest pain or shortness of breath, dyspnea on exertion, orthopnea, palpitations, paresthesias, abdominal pain/ distension, back pain, dysuria, hematuria, rashes, recent travel, recent immobilization, recent surgery, recent surgical procedure, recent falls or trauma or injury that he is aware of, recent illness, history of gout, history of PVD, or any other symptoms complaints or concerns at this time. MD Complaint: extremity pain and extremity swelling Onset (ago): day(s) ( He woke up with it today) Pain Consistency: constant Location: left and upper extremity Quality: aching and constant Radiation: none Relieving factors: nothing Exacerbating factors: palpation Associated symptoms: denies other symptoms Related Data Home Medications Medication Instructions Recorded Confirmed levothyroxine 175 mcg tablet 1 tab PO DAILY 06/27/20 01/23/21 spironolactone 25 mg tablet 1 tab PO DAILY 06/27/20 01/23/21 verapamil 180 mg 24 hr 1 cap PO BEDTIME 06/27/20 01/23/21 capsule,extended release alprostadil 20 mcg intracavernosal 20 mcg INTRA-CAVERNOSAL DAILY PRN 01/23/21 01/23/21 kit (Caverject Impulse) fluticasone propionate 50 2 spray INTRANASAL DAILY PRN 01/23/21 01/23/21 mcg/actuation nasal spray,suspension Previous Rx's Medication Instructions Recorded ondansetron HCl 4 mg tablet 4 mg PO Q8H PRN #20 tab 01/24/21 (Zofran) apixaban 5 mg (74 tabs) tablets in 5 mg PO BID #74 ea 02/08/21 a dose pack (Eliquis DVT-PE Treat 30D Start) Allergies Allergy/AdvReac Type Severity Reaction Status Date / Time cefotetan Allergy Hives Verified 02/08/21 13:42 Review of Systems Review of Systems: Constitutional : No Weight loss, No Fever, No Chills, No Night Sweats, No Fatigue, No Malaise ENT/Mouth : No Hearing loss, No Ear Pain, No Nasal Congestion, No Sinus Pain, No Hoarseness, No sore throat, No Rhinorrhea, No Swallowing Difficulty Eyes: No Eye Pain, No Swelling, No Redness, No Foreign Body, No Discharge, No Vision Changes Cardiovascular : No Chest Pain, No SOB, No Dyspnea on Exertion, No Orthopnea, No Edema, No Palpitations Respiratory : No Cough, No Sputum, No Wheezing, No Smoke Exposure, No Dyspnea Gastrointestinal : No Nausea, No Vomiting, No Diarrhea, No Constipation, No abdominal Pain, No Hematochezia, No Melena Genitourinary : no irregular bleeding, No Dysuria, No Urinary Frequency, No Hematuria, No Urinary Incontinence, No Urgency, No Flank Pain, No Urinary Flow Changes, No Hesitancy Musculoskeletal : + left upper extremity pain/ swelling / surrounding redness, No joint pain, No Myalgias, No Joint Swelling Skin : No Skin Lesions, No rash Neuro : No Weakness, No Numbness, No Paresthesias, No Loss of Consciousness, No Dizziness, No Headache Psych : No Anxiety/Panic, No Depression, No SI/HI/AH/VH, No Social Issues, Heme/Lymph: No Bruising, No Bleeding,No Lymphadenopathy Endocrine : No Polyuria, No Polydipsia, No Temperature Intolerance Yes all other systems are reviewed and are negative [facility] Past Medical History Attestation statement: The following information was validated with the patient. Medical History Hypertension Hypothyroid Rectal adenocarcinoma Rectal adenoma Surgical History History of creation of ostomy History of laparoscopic cholecystectomy (~2020) History of surgery Social History Social History Alcohol intake: current Alcohol intake frequency: does not drink Alcohol type: hard liquor Patient Tobacco Use Status: Never used Tobacco Advance Directives: Yes Advance Directives on File: Yes Advance Directives Date on File: 01/27/21 service: No Current occupational status: employed Physical Exam Vital Signs: Vital Signs: Last Vital Signs Temp 98.2 F 02/08/21 17:11 Pulse 67 02/08/21 17:11 Resp 14 02/08/21 17:11 BP 149/90 H 02/08/21 17:11 Pulse Ox 97 02/08/21 17:11 BMI result Body Mass Index 36.2 vital signs have been reviewed as normal and appeared to be correct. Blood pressure 199/94. Heart rate normal. Respiration rate normal. Temperature normal. Oxygen saturation normal. Appearance: Alert. Oriented X3. No acute distress. Head: Normal external exam. Normocephalic. Atraumatic. Eyes: PERRLA. EOMI. Conjunctiva and sclera normal. Eyelids normal. ENT: Pharynx normal. Uvula midline. Moist mucous membranes. Neck: Normal inspection. Neck supple. FROM. No adenopathy. No meningeal signs. CVS: Normal heart rate and rhythm. Heart sound normal. Pulses normal throughout. No murmurs/rales/gallops. Respiratory: No respiratory distress. Painless inspiration. Breath sounds normal. No wheezes/rales/rhonchi noted. Chest nontender. No accessory muscle usage noted or decreased air movement noted. Back: Full range of motion noted. No rashes/lesion/induration/fluctuance or signs of infection noted. Skin: Skin warm and dry. Normal skin color. Normal skin turgor. No rashes/lesions/lacerations noted. Extremities: Patient with mild tenderness/soft tissue swelling/erythema to left upper arm right below the shoulder with calor. Otherwise no streaking/induration/ Fluctuance ? cellulitis vs DVT. No lower extremity edema. no calf tenderness noted. otherwise all other Extremities exhibit normal range of motion and nontender. Neuro: Oriented X 3. No motor deficit. No sensory deficit. Reflexes normal. Normal steady gait. No focal neuro deficits noted. Vascular: + radial pulses/+ 2 distal pedal pulses/+2 dorsalis pedis b/l. Normal cap refill. No cyanosis noted to upper extremity nails and lower extremity toes nails. Course Course Course Narrative: 14:40pm - 51-year-old male with a past medical history of rectal cancer status post surgery/chemo therapy 7 years prior, complicated by superficial thrombophlebitis who presents to emergency department with complaints of left upper arm pain/swelling /redness that he noticed when he woke up today. He reports that he is not on any blood thinners. patient most likely has cellulitis versus DVT. Not consistent with arterial occlusion. Plan: US of LUE Then re-evaluate patient is declining any pain meds at this time Reevaluation(s) Reevaluation #1: - ultrasound of left upper extremity reveals superficial thrombus in the left cephalic vein and its distal portion. I reviewed the patient's labs and it appears that he had full workup done on 01/23/2021 and his labs were within normal limits including his kidney function. Dr. Grimm confirmed that we do not need repeat labs at this time due to he has labs 2 weeks ago. Therefore at this time will start the patient on Eliquis. Will DC home with referral to Dr. Garcia and Dr. Blanco the vascular surgeon and the icing coater/ oncologist. I printed out the results and given to the patient. Started him on his 1st dose of Eliquis at this time. Will DC home with Eliquis and instructions to follow up with Dr. Radha Blanco and to return if he has any new or worsening symptoms such as chest pain or shortness of breath and he understands this. Time: 17:48 MDM - Extremity (Nontraumatic) Medical Records Attestation: I reviewed the patient's medical records. Lab Data Attestation: I reviewed the patient's lab results. Imaging Data Venous duplex ultrasound of left upper extremity: Attestation: I personally reviewed and interpreted this imaging study as follows: Radiologist's impression: FINDINGS: Respiratory variation, normal compression, and augmented flow are noted throughout the upper extremity including the axillary, brachial, cubital, and radial and ulnar veins. There is normal flow in the internal jugular and subclavian veins. There is no visible deep thrombophlebitis. There is a superficial occlusive thrombus in the left cephalic vein distally. US/US venous duplex UE LT IMPRESSION: Superficial thrombus in the left cephalic vein in its distal portion. ? No evidence for deep venous thrombosis. Critical Care Time Critical Care Time Critical Care Time: Yes Total Critical Care Time: 60 Attestation: I personally attest to this time spent taking care of the patient Discharge Plan Discharge Clinical Impression: Acute cephalic vein thrombosis Patient Disposition: Home, Self-Care Instructions: Deep Vein Thrombosis (ED) Prescriptions: Vipul Mathews DVT-PE Treat 30D Start 5 mg (74 tabs) tablets,dose pack 5 mg PO BID Qty: 74 RF: 0 No Action levothyroxine 175 mcg tablet 1 tab PO DAILY RF: 0 spironolactone 25 mg tablet 1 tab PO DAILY RF: 0 verapamil 180 mg capsule,ext rel. pellets 24 hr 1 cap PO BEDTIME RF: 0 Caverject Impulse 20 mcg kit 20 mcg INTRA-CAVERNOSAL DAILY PRN (Reason: Sexual Activity) RF: 0 fluticasone propionate 50 mcg/actuation spray,suspension 2 spray intranasal DAILY PRN (Reason: Allergy Symptoms) RF: 0 ondansetron HCl [Zofran] 4 mg tablet 4 mg PO Q8H PRN (Reason: nausea and vomiting) Qty: 20 RF: 0 Referrals: Didier Barron MD [Primary Care Provider] - 2 days Jackson Garcia MD [Physician] - 2 days John Blanco MD [Physician] - 2 days Stand Alone Forms: Work/School Release Print Language: Indonesian
[2021-02-08 17:11] VITALS: BP 149/90; PULSE 67; RESP 14; TEMP 36.8; O2SAT 97
[2021-02-08] MEDS: Apixaban 5 MG TABLET 10 MG PO (18:15)
== END 2021-02-08 18:23 | disposition home or self-care (01) ==
PROVIDERS: Emergency Provider Emergency Medicine; PCP Internal Medicine
DX: I82.612 Acute embolism and thrombosis of superficial veins of left upper extremity (principal); M79.622 Pain in left upper arm; M79.89 Other specified soft tissue disorders; Z85.048 Personal history of other malignant neoplasm of rectum, rectosigmoid junction, and anus; Z90.49 Acquired absence of other specified parts of digestive tract
CPT/HCPCS: 93971; 99284; 99291

== ENCOUNTER → 2021-06-06 09:03 | Outpatient (BNVA) | payer OTHER, SELFPAY | PROVIDERS: PCP Physician Assistant Medical; Visit Provider Urology | DX: N30.40 Irradiation cystitis without hematuria (principal); N35.919 Unspecified urethral stricture, male, unspecified site; N31.9 Neuromuscular dysfunction of bladder, unspecified | CPT/HCPCS: 51798 ==

== ENCOUNTER 2021-06-09 10:35 | Day surgery (SDC) | payer OTHER, SELFPAY ==
--- NOTE | ~2021-06-09 | XR_ITS ---
EXAMINATION: XR HAND, RIGHT CLINICAL INFORMATION: Open fracture of the third digit COMPARISON: None TECHNIQUE: PA, lateral, and oblique views of the right hand. FINDINGS: Soft tissue injury of the distal aspect of the third digit. Multiple absent soft tissue with exposure of the tuft of the third digit distal phalanx. There is a small contour abnormality of the tuft which could represent a fracture with no bone fragments remaining. No additional fractures. No radiopaque foreign body. Mild degenerative change at the interphalangeal joints with small osteophytes present. XR/XR hand RT 2V IMPRESSION: Soft tissue injury at the distal aspect of the third digit with possible small fracture at the tip of the tuft of the distal phalanx. No bone fragments remain.
[2021-06-09 10:53] VITALS: BP 118/57; PULSE 72; RESP 18; TEMP 36.6; O2SAT 96; BMI 32.8
--- NOTE | 2021-06-09 11:06 | ED.EXTPRO ---
HPI - Extremity Problem General Chief complaint: Extremity Injury, Upper Stated complaint: Finger lac-work inj Time Seen by Provider: 06/09/21 10:55 Source: patient Mode of arrival: ambulatory Limitations: no limitations History of Present Illness HPI Narrative: 51-year-old male left-hand dominant here with reports of injury to the right hand the 3rd digit which occurred while working today. 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 He had a glove on and when he removed it he noticed part of his finger was missing. Last tetanus status unknown. Patient has a past medical history of colon cancer status post resection with colostomy in remission, hypertension and hypothyroidism Last p.o. intake was 10:00 Related Data Home Medications Medication Instructions Recorded Confirmed levothyroxine 175 mcg tablet 1 tab PO DAILY 06/27/20 01/23/21 spironolactone 25 mg tablet 1 tab PO DAILY 06/27/20 01/23/21 verapamil 180 mg 24 hr 1 cap PO BEDTIME 06/27/20 01/23/21 capsule,extended release alprostadil 20 mcg intracavernosal 20 mcg INTRA-CAVERNOSAL DAILY PRN 01/23/21 01/23/21 kit (Caverject Impulse) fluticasone propionate 50 2 spray INTRANASAL DAILY PRN 01/23/21 01/23/21 mcg/actuation nasal spray,suspension Previous Rx's Medication Instructions Recorded ondansetron HCl 4 mg tablet 4 mg PO Q8H PRN #20 tab 01/24/21 (Zofran) apixaban 5 mg (74 tabs) tablets in 5 mg PO BID #74 ea 02/08/21 a dose pack (Eliquis DVT-PE Treat 30D Start) amoxicillin 500 mg-potassium 1 tab PO Q8H #21 tab 06/09/21 clavulanate 125 mg tablet (Augmentin) hydrocodone 5 mg-acetaminophen 325 1 - 2 tab PO Q6H PRN #20 tab 06/09/21 mg tablet Allergies Allergy/AdvReac Type Severity Reaction Status Date / Time cefotetan Allergy Hives Verified 06/06/21 09:29 Review of Systems Neurologic: Denies Abnormal speech present PMFSH Past Medical History Attestation statement: The following information was validated with the patient. Source: old records reviewed and nursing notes reviewed Medical History Hypertension Hypothyroid Rectal adenocarcinoma Rectal adenoma Surgical History History of creation of ostomy History of laparoscopic cholecystectomy (~2020) History of surgery Social History Social History Alcohol intake: current Alcohol intake frequency: does not drink Alcohol type: hard liquor Patient Tobacco Use Status: Never used Tobacco Advance Directives: Yes Advance Directives on File: Yes Advance Directives Date on File: 01/27/21 service: No Current occupational status: employed Physical Exam Vital Signs: Vital Signs: Last Vital Signs Temp 97.8 F 06/09/21 10:53 Pulse 72 06/09/21 10:53 Resp 18 06/09/21 10:53 BP 118/57 L 06/09/21 10:53 Pulse Ox 96 06/09/21 10:53 BMI result Body Mass Index 32.8 Const: General: alert and other (in pain ) Orientation/consciousness: patient oriented x3 Limitations: no limitations HEENT: Head: Yes normal to inspection Ears: hearing grossly normal bilaterally General nose exam: Normal external nose present Face and sinus: Yes normal facial exam Mouth: Normal oral and palatal mucosa present Throat: Yes posterior oropharynx normal Eyes: General: appearance normal, both eyes and all related structures Pupils: Equal, round and reactive pupils present Neck: Neck: Yes normal visual inspection Chest: Chest palpation & inspection: normal inspection of the chest Resp: Effort & Inspection: normal respiratory effort Auscultation: clear to auscultation bilaterally Cardio: Rate: regular rate Rhythm: regular rhythm Peripheral pulses: Peripheral pulses 2+ throughout GI: Inspection: Yes normal to inspection Palpation (GI): Soft to palpation and nontender Auscultation: normal bowel sounds Back/Spine/Pelvis: Thoracic/Lumbar Spine: thoracic and lumbar spine normal to inspection Skin: General skin exam: no rashes or lesions noted Neuro: General: patient oriented x3, no focal motor deficits and normal sensation to monofilament Cranial nerves: Yes Equal, round and reactive pupils present Cognition (Neuro): normal cognition Speech: No Abnormal speech present Gait exam (Neuro): Normal gait present Motor exam (neuro): 5/5 motor strength present throughout Extrem: Other: Full range of motion. Flexion and extension is intact. Sensation is intact. General: Yes normal to inspection Course Course Course Narrative: Patient arrived with his glove with the tip inside the glove. It was cleansed with saline, wrapped in a saline gauze and placed on ice. Allergy listed to cefotetan. Patient has no memory of this. Can take penicillin with no issue. 1100-spoke to on-call orthopedics. Recommended reaching out hand surgery 1115-spoke to on-call hand Dr. Brambila. Recommended IV antibiotics. Anticipate OR Reevaluation(s) Reevaluation #1: Patient went to OR for procedure with Dr. Brambila. They will discharge from PACU Time: 12:15 MDM - Extremity (Nontraumatic) MDM Narrative Medical decision making narrative: 51-year-old male left-handed here with avulsion to the right hand over the distal 3rd digit. Patient immediately given IV antibiotics, tetanus updated, analgesia. Will need x-rays. Anticipate hand surgery involvement Imaging Data hand xray: Attestation: I personally reviewed and interpreted this imaging study as follows: Radiologist's impression: [place] [id number] XRay Report Signed Patient: Carlos Daniel MR#: [id number] : 1970 Acct:[id number] Age/Sex: 51 / M ADM Date: 06/09/21 Loc: .ED Attending Dr: Ordering Physician: Ruth Nagel NP Date of Service: 06/09/21 Procedure(s): XR hand RT 2V Accession Number(s): [id number] cc: Ruth Nagel NP~ EXAMINATION: XR HAND, RIGHT CLINICAL INFORMATION: Open fracture of the third digit? COMPARISON: None? TECHNIQUE: PA, lateral, and oblique views of the right hand. FINDINGS: Soft tissue injury of the distal aspect of the third digit. Multiple absent soft tissue with exposure of the tuft of the third digit distal phalanx. There is a small contour abnormality of the tuft which could represent a fracture with no bone fragments remaining. No additional fractures. No radiopaque foreign body. Mild degenerative change at the interphalangeal joints with small osteophytes present.? XR/XR hand RT 2V IMPRESSION: Soft tissue injury at the distal aspect of the third digit with possible small fracture at the tip of the tuft of the distal phalanx. No bone fragments remain. Discharge Plan Discharge Clinical Impression: Amputation finger Patient Disposition: Xfer Other Transfer Details: Short stay surgery
[2021-06-09] MEDS: Morphine Sulfate 4 MG/ML CARTRIDGE IVPUSH (11:13)
[2021-06-09] MEDS: Diphth,Pertus(ACell),Tet Adult 0.5 ML SYRINGE IM (11:18)
[2021-06-09] MEDS: Ampicillin Sodium/Sulbactam Na 1.5 GM in 0.9 % Sodium Chloride 100 ML IV (11:20)
--- NOTE | 2021-06-09 11:22 | PC.NURSE ---
iv inserted, pt medicated for pain and with abx, pt to xray
--- NOTE | 2021-06-09 12:32 | MHC.SHP ---
Pre-Procedural Eval Section A Date of Service: 06/09/21 The patient is an INPATIENT: No Changes since office visit: No Cold of Flu in the past 2 weeks, No New Medical Problems, No Changes in Medication and No Patient answered all questions The History & Physical has been completed within 30 days and I have reviewed it.: Yes Section B Chief Complaint: Finger lac-work inj Allergies: Allergies Allergy/AdvReac Type Severity Reaction Status Date / Time cefotetan Allergy Hives Verified 06/06/21 09:29 Plan I have reviewed the history and physical and performed a pertinent physical examination on my patient. No changes have occurred unless specified.
--- NOTE | 2021-06-09 12:32 | W.PM.OPN ---
Operative Note Operative Note Date of Service: 06/09/21 Narrative: Operative Note Preop diagnosis: 1. Right middle finger tip Avulsion/ partial amputation Postop diagnosis: same Procedure: 1. Right middle finger revision amputation 2. Excision of finger nail germinal and sterile matrices Surgeon: Meghan Brambila MD Anesthesia: digital block using 1% lidocaine with epinephrine Findings: right middle finger tip avulsion through the nail apparatus and involving the distal half of the pad EBL: Less than 5 mL Tourniquet time: None Specimens: Right middle fingertip Complications: None Disposition: Brought to recovery room in stable condition Plan: Follow-up for 5-7 days for wound check. Anticipate suture removal not sooner than 3 weeks IV antibiotics given in the emergency department. 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 The risks and benefits of operative treatment including but not limited to risk of damage to blood vessels, nerves, tendons, infection, persistent pain, persistent symptoms, recurrence or possible need for additional surgery were discussed with the patient and the patient wishes to proceed with surgery. Procedure: Once consent was obtained a digital block was performed in the preop area using a combination of 1% lidocaine with epinephrine. The patient was then brought back to the operating suite and placed on the operative table in supine position. A tourniquet was applied to the proximal aspect of the right upper extremity and the limb was prepped and draped in a standard surgical fashion. Once assured that we had a good block, I excised the nail germinal matrix and sterile matrix using a 15. Blade and tenotomy scissors. I then used a bone cutter to remove approximately the distal half of the distal phalanx to allow for soft tissue coverage. The rongeur was then used to round the bone edges. Her performed neurectomies excising the most distal aspect of the digital nerves in the flap of volar soft tissue that was exposed. The wound was then copiously irrigated with normal saline. I used tenotomy scissors to freshen up the edge of the eponychial fold to allow for skin healing. 4-0 Prolene suture was then used to reapproximate the skin and soft tissue edges at the tip of the finger. We had good coverage with skin dorsally and at the tip of the finger. An approximately 1 cm diameter area of soft tissue on the volar aspect of the tip of the finger was without skin coverage but was with adequate soft tissue coverage. This will be allowed to granulate in. The patient appears to have tolerated the procedure well and with no complications. All digits were well vascularized at the conclusion of the case. A small amount of antibiotic ointment, and asoft tissue dressing was applied.
--- NOTE | 2021-06-09 13:21 | P.CONOP_ITS ---
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 Earlier today his gloved right hand got drawn into the [employer] press and he sustained an avulsion/tip amputation of the right middle finger. He complains of pain and an open wound to the tip of the right middle finger. He has a history of colon cancer and I am told that he has a colostomy that he cares for. He had been on Eliquis for blood clot, but is no longer on Eliquis. He denies having diabetes. [facility] Past Medical History Medical History Hypertension Hypothyroid Rectal adenocarcinoma Rectal adenoma Surgical History Surgical History History of creation of ostomy History of laparoscopic cholecystectomy (~2020) History of surgery Social History Social History Alcohol intake: current Alcohol intake frequency: does not drink Alcohol type: hard liquor Patient Tobacco Use Status: Never used Tobacco Advance Directives: Yes Advance Directives on File: Yes Advance Directives Date on File: 01/27/21 service: No Current occupational status: employed Meds Allergies Allergy/AdvReac Type Severity Reaction Status Date / Time cefotetan Allergy Hives Verified 06/06/21 09:29 Home Medications Medication Instructions Recorded Confirmed Last Taken Type levothyroxine 175 mcg tablet 1 tab PO DAILY 06/27/20 01/23/21 01/22/21 History spironolactone 25 mg tablet 1 tab PO DAILY 06/27/20 01/23/21 01/22/21 History verapamil 180 mg 24 hr 1 cap PO BEDTIME 06/27/20 01/23/21 01/22/21 History capsule,extended release alprostadil 20 mcg intracavernosal 20 mcg INTRA-CAVERNOSAL DAILY PRN 01/23/21 01/23/21 01/22/21 History kit (Caverject Impulse) fluticasone propionate 50 2 spray INTRANASAL DAILY PRN 01/23/21 01/23/21 01/22/21 History mcg/actuation nasal spray,suspension Physical Exam Vital Signs: Vital Signs: Last Vital Signs Temp 97.8 F 06/09/21 10:53 Pulse 72 06/09/21 10:53 Resp 18 06/09/21 10:53 BP 118/57 L 06/09/21 10:53 Pulse Ox 96 06/09/21 10:53 BMI result Body Mass Index 32.8 Const: General: cooperative, healthy appearing and no acute distress Orientation/consciousness: oriented to person and oriented to place HEENT: Head: Yes normocephalic and Yes atraumatic Eyes: EOM: EOMs intact bilaterally Resp: Effort & Inspection: normal respiratory effort and able to speak in complete sentences Cardio: Jugular venous distension: no JVD Skin: General skin exam: turgor normal Rashes: no rashes Neuro: General: oriented to person and oriented to place Extrem: Other: Evaluation of right Upper Extremity: Neuro: Median, ulnar, radial nerves motor and sensory intact. Vascular: Cap refill brisk. He has an avulsion of the tip of the right middle finger involving the nail bed and approximately the distal half of the pad of the finger. The tip, including the nail, was present and found to be dysvascular. They had pulled it from the inside of his glove. The adjacent digits appear to be on injured and with good cap refill. He has active flexion and extension of the PIP and MCP joints, with some discomfort at the tip of the finger. The amputation site is grossly clean and without evidence of debris. Radiographs: Three views of the right hand were reviewed by me today. They suggest a possible nondisplaced fracture at the base of the tuft of the distal phalanx. Psych: Appearance: grossly normal Affect: normal affect Attitude: cooperative Results Labs Labs: All other labs normal. Assessment and Plan (1) Amputation finger: Status: Acute Plan Assessment and plan: 1. Right middle finger avulsion and tip amputation involving the nail bed I educated the patient about this condition I explained that the tip cannot be replanted. The risks and benefits of surgery, to perform a revision amputation were discussed with the patient and he wished to proceed with surgery. The risks and benefits of operative treatment were discussed with the patient and the patient wishes to proceed with surgery. These risks include, but are not limited to risk of damage to blood vessels, nerves, tendons, infection, recurrence, incomplete relief of preoperative symptoms, persistent pain, possible need for further surgery and the risks associated with regional blocks and anesthesia. The plan is to take the patient to the operating room today for the following procedures: 1. Right middle finger revision amputation under local 2. [ ] All of the preoperative paperwork including the consent was filled out today. All the patient's questions were answered. The patient understands that they will be contacted by our targeting acquisition officer soon to schedule this procedure He also received some IV antibiotics in the emergency department. I am sending him home with 7 days of Augmentin. He will follow-up in 5-7 days for wound check. Procedures Date of Service Date of Service: 06/09/21
[2021-06-09 14:26] VITALS: BP 149/77; PULSE 66; RESP 16; TEMP 37.2; O2SAT 97
== END 2021-06-09 14:40 | disposition home or self-care (01) ==
LOC: HO.ED 12:39 → HO.SSS 13:32
PROVIDERS: Emergency Provider Emergency Medicine; PCP Physician Assistant Medical; Visit Provider Orthopaedic Surgery
PROC: (CPT 26236; principal; 2021-06-09 12:50)
DX: S68.622A Partial traumatic transphalangeal amputation of right middle finger, initial encounter (principal); W31.89XA Contact with other specified machinery, initial encounter; Y93.89 Activity, other specified; Y92.69 Other specified industrial and construction area as the place of occurrence of the external cause; Y99.0 Civilian activity done for income or pay; I10 Essential (primary) hypertension; E03.9 Hypothyroidism, unspecified; Z85.038 Personal history of other malignant neoplasm of large intestine; Z93.3 Colostomy status; Z90.49 Acquired absence of other specified parts of digestive tract; Z79.51 Long term (current) use of inhaled steroids; Z79.899 Other long term (current) drug therapy; Z88.8 Allergy status to other drugs, medicaments and biological substances
CPT/HCPCS: 26236; 73120; 88304; 88311; 90471; 90715; 96365; 96375; 99283; 99285; J0295; J2270

== ENCOUNTER 2021-06-16 | Emergency (ER) | payer OTHER, SELFPAY ==
--- NOTE | ~2021-06-16 | XR_ITS ---
EXAMINATION: XR CHEST CLINICAL INFORMATION: Chest pressure COMPARISON: 01/07/2021 TECHNIQUE: Frontal view of the chest was obtained. FINDINGS: The lungs are clear with no focal consolidation. No evidence of pneumothorax, pulmonary edema, or pleural effusions. The cardiomediastinal silhouette is unremarkable. No acute osseous findings. XR/XR chest 1V IMPRESSION: No acute cardiopulmonary findings.
--- NOTE | 2021-06-16 00:24 | ECG_ITS ---
Test Reason : chest pressure Blood Pressure : / mmHG Vent. Rate : 068 BPM Atrial Rate : 068 BPM P-R Int : 178 ms QRS Dur : 088 ms QT Int : 430 ms P-R-T Axes : 036 -23 021 degrees QTc Int : 457 ms Normal sinus rhythm Normal ECG When compared with ECG of 23-JAN-2021 04:28, No significant change was found Referred By: Generic ED Physician Electronically Signed By:Mendoza Chairez
[2021-06-16 00:30] VITALS: BP 172/99; PULSE 69; RESP 16; TEMP 37.2; O2SAT 98; BMI 32.8
[2021-06-16 00:41] LABS: MANUAL DIFF FLAG NO
[2021-06-16 00:42] LABS: Basophils Percent Auto 0.2 % (0-2); Eosinophils Absolute Auto 0.6 X10*3/uL (0.0-0.4); Eosinophils Percent Auto 6.6 % (0-4); Hematocrit 47.2 % (42.0-52.0); Hemoglobin 15.9 g/dl (14.0-18.0); Imm Gran Abs Auto 0.06 X10*3/uL (0.00-0.03); Imm Gran Pct Auto 0.7 % (0.0-0.4); Lymphocytes Absolute Auto 1.8 X10*3/uL (1.2-4.9); Lymphocytes Percent Auto 20.3 % (20-40); Mean Corpuscular HGB Conc 33.7 g/dl (31.0-36.0); Mean Corpuscular Hemoglobin 27.9 pg (27.0-33.0); Mean Platelet Volume 9.5 fL (9.4-12.4); Monocytes Absolute Auto 0.6 X10*3/uL (0.1-1.2); Monocytes Percent Auto 7.3 % (2-11); Neutrophils Absolute Auto 5.7 x10*3/uL (2.0-8.3); Neutrophils Percent Auto 64.9 % (45-73); Platelet Count 196 X10*3/uL (160-400); Red Blood Count 5.69 X10*6/uL (4.60-5.80); Red Cell Distribution Width 13.1 % (11.0-16.0); White Blood Count 8.7 X10*3/uL (4.8-10.8)
[2021-06-16 00:52] VITALS: BP 185/98; PULSE 66; RESP 22; TEMP 36.9; O2SAT 97
[2021-06-16 00:57] LABS: Anion Gap 13 (12-20); Blood Urea Nitrogen 25 mg/dL (9-16); Calcium 9.2 mg/dL (8.4-10.2); Carbon Dioxide 22 mmol/L (22-29); Chloride 106 mmol/L (96-108); Creatinine Clr Calc Pharmacy 132.5; Estimated Glomerular Filt Rate > 60; Glucose Random 101 mg/dL (60-115); Potassium 3.8 mmol/L (3.3-5.1); Sodium 137 mmol/L (135-145)
--- NOTE | 2021-06-16 01:01 | ED_ITS ---
HPI - Chest Pain General Chief Complaint: Chest Pain Stated Complaint: chest pressure Time Seen by Provider: 06/16/21 01:01 Source: patient Mode of arrival: ambulatory Limitations: no limitations History of Present Illness HPI narrative: 51 years old male came in for evaluation of chest pain. Chest pain started 2 days ago as intermittent mid chest dull aching pain feeling like pressure on the chest, no radiation, last for about an hour, pain is not exertional, no relieving factor, no aggravating factor, no difficulty breathing, no chest injury, no coughing, no fever, no chills, no recent travel, no lower ex tremity swelling or tenderness, no prolonged immobilization. Patient was seen in the emergency department for similar pain with negative workup. History of hypertension and compliant with his medication a home. No family history of heart attack at young ages. Related Data Home Medications Medication Instructions Recorded Confirmed levothyroxine 175 mcg tablet 1 tab PO DAILY 06/27/20 01/23/21 spironolactone 25 mg tablet 1 tab PO DAILY 06/27/20 01/23/21 verapamil 180 mg 24 hr 1 cap PO BEDTIME 06/27/20 01/23/21 capsule,extended release alprostadil 20 mcg intracavernosal 20 mcg INTRA-CAVERNOSAL DAILY PRN 01/23/21 01/23/21 kit (Caverject Impulse) fluticasone propionate 50 2 spray INTRANASAL DAILY PRN 01/23/21 01/23/21 mcg/actuation nasal spray,suspension Previous Rx's Medication Instructions Recorded ondansetron HCl 4 mg tablet 4 mg PO Q8H PRN #20 tab 01/24/21 (Zofran) apixaban 5 mg (74 tabs) tablets in 5 mg PO BID #74 ea 02/08/21 a dose pack (Eliquis DVT-PE Treat 30D Start) amoxicillin 500 mg-potassium 1 tab PO Q8H #21 tab 06/09/21 clavulanate 125 mg tablet (Augmentin) hydrocodone 5 mg-acetaminophen 325 1 - 2 tab PO Q6H PRN #20 tab 06/09/21 mg tablet Allergies Allergy/AdvReac Type Severity Reaction Status Date / Time cefotetan Allergy Hives Verified 06/06/21 09:29 Review of Systems Review of Systems: All other systems are reviewed and are negative Constitutional: Reports as per HPI and Reports no additional constitutional complaints Eyes: Reports as per HPI and Reports no additional eye complaints Reports system reviewed and no additional complaints, except as documented Cardiovascular: Reports as per HPI and Reports no additional cardiovascular complaints Respiratory: Reports as per HPI and Reports no additional respiratory complaints Gastrointestinal: Reports as per HPI and Reports no additional gastrointestinal complaints Genitourinary: Reports no additional female genitourinary complaints Musculoskeletal: Reports no additional musculoskeletal complaints Skin/Breast: Reports system reviewed and no additional complaints, except as docu Psychiatric: Reports no additional psychiatric complaints Endocrine: Reports no additional endocrine complaints Hematologic/Lymphatic: Reports no additional hematologic/lymphatic complaints Allergic/Immunologic: Reports no additional allergic/immunologic complaints Reports system reviewed and no additional complaints, except as documented and Reports Abnormal speech present [facility] Past Medical History Medical History Hypertension Hypothyroid Rectal adenocarcinoma Rectal adenoma Surgical History History of creation of ostomy History of laparoscopic cholecystectomy (~2020) History of surgery Social History Social History Alcohol intake: current Alcohol intake frequency: does not drink Alcohol type: hard liquor Patient Tobacco Use Status: Never used Tobacco Advance Directives: Yes Advance Directives on File: Yes Advance Directives Date on File: 01/27/21 service: No Current occupational status: employed Physical Exam Vital Signs: Vital Signs: Last Vital Signs Temp 98.5 F 06/16/21 00:52 Pulse 66 06/16/21 01:53 Resp 22 H 06/16/21 01:44 BP 174/96 H 06/16/21 01:53 Pulse Ox 97 06/16/21 01:44 BMI result Body Mass Index 32.8 Vital signs have been reviewed as appeared to be correct. Blood pressure norm al. Heart rate normal. Respiration rate normal. Temperature normal. Oxygen saturation normal. Appearance: Alert. Oriented X3. No acute distress. Head: Normal external exam. Normocephalic. Atraumatic. No Baldwin signs noted. No raccoon eyes noted Eyes: PERRLA. EOMI. Conjunctiva and sclera normal. Eyelids normal. ENT: TM's Normal. Pharynx normal. Uvula midline. Moist mucous membranes. No trismus noted. No drooling noted. No muffled voice noted. Neck: Normal inspection. Neck supple. FROM. No adenopathy. Thyroid Normal. No meningeal signs. No neck mass noted. CVS: Normal heart rate and rhythm. Heart sound normal. No murmurs noted. Pulses normal throughout. Respiratory: No respiratory distress. Painless inspiration. Breath sounds normal. No wheezes/rales/rhonchi noted. Chest nontender. No accessory muscle usage noted or decreased air movement noted. Abdomen: Soft and nontender. Bowel sounds normal in all 4 quadrants. No distention noted. No organomegaly noted. No visible injury noted. Back: No CVA tenderness. Full range of motion noted. Skin: Skin warm and dry. Normal skin color. Normal skin turgor. No rashes/lesions/lacerations noted. Extremities: No lower extremity edema. Extremities exhibit normal range of motion. Extremities nontender. Neuro: Oriented X 3. Cranial nerve exam: II-XII are grossly intact No motor deficit. No sensory deficit. Reflexes normal. Course Course Course Narrative: Assessment and plan. 51-year-old male came in for evaluation of chest pain for the last 2 days, patient has HEART score of 2, no risk factor for PE or DVT, patient be safe to be discharged home and follow-up with PCP/Cardiology as an outpatient. MDM - Chest Pain Lab Data Attestation: I reviewed the patient's lab results. Result diagrams: 06/16/21 00:35 06/16/21 00:35 Labs: Lab Results 06/16/21 06/16/21 06/16/21 Range/Units 00:35 00:35 00:35 WBC 8.7 (4.8-10.8) X10*3/uL RBC 5.69 (4.60-5.80) X10*6/uL Hgb 15.9 (14.0-18.0) g/dl Hct 47.2 (42.0-52.0) % MCV 83.0 (80.0-98.0) fL MCH 27.9 (27.0-33.0) pg MCHC 33.7 (31.0-36.0) g/dl RDW 13.1 (11.0-16.0) % Plt Count 196 (160-400) X10*3/uL MPV 9.5 (9.4-12.4) fL Immature Gran % (Auto) 0.7 H (0.0-0.4) % Neut % (Auto) 64.9 (45-73) % Lymph % (Auto) 20.3 (20-40) % Hodgeman % (Auto) 7.3 (2-11) % Eos % (Auto) 6.6 H (0-4) % Baso % (Auto) 0.2 (0-2) % Lymph # (Auto) 1.8 (1.2-4.9) X10*3/uL Hodgeman # (Auto) 0.6 (0.1-1.2) X10*3/uL Eos # (Auto) 0.6 H (0.0-0.4) X10*3/uL Baso # (Auto) 0.0 (0.0-0.2) X10*3/uL Abs Immat Gran (auto) 0.06 H (0.00-0.03) X10*3/uL Absolute Neuts (auto) 5.7 (2.0-8.3) x10*3/uL Absolute Nucleated RBC 0.000 (0.0-0.012) X10*3/uL Nucleated RBC % (auto) 0.0 (0.0-0.2) /100WBC Sodium 137 (135-145) mmol/L Potassium 3.8 (3.3-5.1) mmol/L Chloride 106 (96-108) mmol/L Carbon Dioxide 22 (22-29) mmol/L Anion Gap 13 (12-20) BUN 25 H (9-16) mg/dL Creatinine 0.81 (0.5-1.4) mg/dL Estim Creat Clear Calc 132.5 Estimated GFR > 60 Random Glucose 101 (60-115) mg/dL Calcium 9.2 (8.4-10.2) mg/dL Troponin I High Sens 7.7 (<3.5-35.0) ng/L Imaging Data Chest x-ray: Attestation: I personally reviewed and interpreted this imaging study as follows: Radiologist's impression: No acute cardiopulmonary findings. ECG Data ECG #1: Attestation: I personally reviewed and interpreted this ECG as follows: Interpretation: Normal sinus rhythm at 68 beats per minutes, left axis deviation, normal intervals, nonspecific ST/T abnormalities. Discharge Plan Discharge Clinical Impression: Chest pain Patient Disposition: Home, Self-Care Instructions: Chest Pain (ED) Prescriptions: No Action levothyroxine 175 mcg tablet 1 tab PO DAILY 0RF spironolactone 25 mg tablet 1 tab PO DAILY 0RF verapamil 180 mg capsule,ext rel. pellets 24 hr 1 cap PO BEDTIME 0RF Caverject Impulse 20 mcg kit 20 mcg INTRA-CAVERNOSAL DAILY PRN (Reason: Sexual Activity) 0RF fluticasone propionate 50 mcg/actuation spray,suspension 2 spray intranasal DAILY PRN (Reason: Allergy Symptoms) 0RF ondansetron HCl [Zofran] 4 mg tablet 4 mg PO Q8H PRN (Reason: nausea and vomiting) Qty: 20 0RF Eliquis DVT-PE Treat 30D Start 5 mg (74 tabs) tablets,dose pack 5 mg PO BID Qty: 74 0RF Rx Instructions: please prescribe 10 mg p.o. b.i.d. x7 days then the patient should take 5 mg b.i.d. dispense quantity sufficient please for at least 30 days for DVT in left upper extremity amoxicillin-pot clavulanate [Augmentin] 500-125 mg tablet 1 tab PO Q8H Qty: 21 0RF hydrocodone-acetaminophen 5-325 mg tablet 1 - 2 tab PO Q6H PRN (Reason: pain) Qty: 20 0RF Referrals: Ander Irby PA [Primary Care Provider] - Bonilla Ram MD [Physician] -
[2021-06-16 01:06] LABS: Troponin-I High Sensitivity 7.7 ng/L (<3.5-35.0)
[2021-06-16 01:44] VITALS: BP 178/98; PULSE 62; RESP 22; O2SAT 97
[2021-06-16 01:53] VITALS: BP 174/96; PULSE 66
[2021-06-16 02:21] VITALS: BP 177/101; PULSE 61; RESP 20; TEMP 36.7; O2SAT 97
== END 2021-06-16 02:31 | disposition home or self-care (01) ==
PROVIDERS: Emergency Provider Emergency Medicine; PCP Physician Assistant Medical
DX: R07.9 Chest pain, unspecified (principal); I10 Essential (primary) hypertension; Z79.899 Other long term (current) drug therapy
CPT/HCPCS: 36415; 71045; 80048; 84484; 85025; 93005; 99283; 99284

== ENCOUNTER → 2021-06-17 14:31 | Outpatient (BNVA) | payer OTHER, SELFPAY | PROVIDERS: PCP Physician Assistant Medical; Visit Provider Orthopaedic Surgery | DX: Z13.89 Encounter for screening for other disorder (principal) ==

== ENCOUNTER 2021-06-23 07:57 | Outpatient (RCR) | payer OTHER, SELFPAY | END 2021-07-15 14:21 | disposition home or self-care (01) | LOC: HO.WCC 07:57 | PROVIDERS: PCP Physician Assistant Medical; Visit Provider Physician Assistant | DX: S61.312D Laceration without foreign body of right middle finger with damage to nail, subsequent encounter (principal); S62.632D Displaced fracture of distal phalanx of right middle finger, subsequent encounter for fracture with routine healing; R60.9 Edema, unspecified; I10 Essential (primary) hypertension; E03.9 Hypothyroidism, unspecified; W31.82XA Contact with other commercial machinery, initial encounter; Y99.0 Civilian activity done for income or pay; Z92.3 Personal history of irradiation; Z92.21 Personal history of antineoplastic chemotherapy | CPT/HCPCS: 99204; 99212; 99214 ==

== ENCOUNTER → 2021-07-08 08:42 | Outpatient (BNVA) | payer OTHER, SELFPAY | PROVIDERS: PCP Physician Assistant Medical; Visit Provider Orthopaedic Surgery | DX: Z47.81 Encounter for orthopedic aftercare following surgical amputation (principal); S68.622D Partial traumatic transphalangeal amputation of right middle finger, subsequent encounter | CPT/HCPCS: 99212 ==

== ENCOUNTER 2021-07-28 16:31 | Emergency (ER) | payer OTHER, SELFPAY ==
[2021-07-28 16:54] VITALS: BP 188/92; PULSE 63; RESP 18; TEMP 36.9; O2SAT 99; BMI 32.1
--- NOTE | 2021-07-28 16:59 | ECG_ITS ---
Test Reason : CHEST PRESSURE Blood Pressure : / mmHG Vent. Rate : 064 BPM Atrial Rate : 064 BPM P-R Int : 170 ms QRS Dur : 088 ms QT Int : 448 ms P-R-T Axes : 042 -28 009 degrees QTc Int : 462 ms Normal sinus rhythm Possible Anterior infarct , age undetermined Abnormal ECG When compared with ECG of 16-JUN-2021 00:22, No significant change was found Referred By: Generic ED Physician Electronically Signed By:Mendoza Chairez
[2021-07-28 17:15] LABS: MANUAL DIFF FLAG NO
[2021-07-28 17:16] LABS: Basophils Percent Auto 0.2 % (0-2); Eosinophils Absolute Auto 0.2 X10*3/uL (0.0-0.4); Eosinophils Percent Auto 2.6 % (0-4); Hematocrit 44.1 % (42.0-52.0); Hemoglobin 14.7 g/dl (14.0-18.0); Imm Gran Abs Auto 0.04 X10*3/uL (0.00-0.03); Imm Gran Pct Auto 0.5 % (0.0-0.4); Lymphocytes Absolute Auto 0.8 X10*3/uL (1.2-4.9); Lymphocytes Percent Auto 9.5 % (20-40); Mean Corpuscular HGB Conc 33.3 g/dl (31.0-36.0); Mean Corpuscular Hemoglobin 28.2 pg (27.0-33.0); Mean Corpuscular Volume 84.5 fL (80.0-98.0); Mean Platelet Volume 9.7 fL (9.4-12.4); Monocytes Absolute Auto 0.5 X10*3/uL (0.1-1.2); Monocytes Percent Auto 6.5 % (2-11); Neutrophils Absolute Auto 6.7 x10*3/uL (2.0-8.3); Neutrophils Percent Auto 80.7 % (45-73); Platelet Count 189 X10*3/uL (160-400); Red Blood Count 5.22 X10*6/uL (4.60-5.80); White Blood Count 8.3 X10*3/uL (4.8-10.8)
[2021-07-28 17:17] LABS: Appearance Urine CLEAR; Color Urine YELLOW; Glucose Urine UA NEG (NEG); Leukocyte Esterase Urine NEG (NEG); Nitrite Urine NEG (NEG); Specific Gravity - Urine >= 1.030 (1.005-1.025); Urine Blood NEG (NEG); Urine Ketones 15 MG/DL (NEG); Urine Protein NEG (NEG-TRACE)
[2021-07-28 17:30] LABS: Anion Gap 14 (12-20); Blood Urea Nitrogen 20 mg/dL (9-16); Calcium 8.7 mg/dL (8.4-10.2); Carbon Dioxide 20 mmol/L (22-29); Chloride 107 mmol/L (96-108); Creatinine Clr Calc Pharmacy 129.5; Estimated Glomerular Filt Rate > 60; Glucose Random 96 mg/dL (60-115); Potassium 4.2 mmol/L (3.3-5.1); Sodium 137 mmol/L (135-145)
== END 2021-07-28 22:18 | disposition left against medical advice (07) ==
PROVIDERS: Emergency Provider Emergency Medicine; PCP Physician Assistant Medical
DX: R10.9 Unspecified abdominal pain (principal); Z93.2 Ileostomy status
CPT/HCPCS: 36415; 80048; 81003; 85025; 93005; 99282; 99283

== ENCOUNTER 2021-07-29 06:11 | Inpatient (IN) | payer OTHER, SELFPAY ==
[2021-07-29] VITALS (7 sets, daily range): BP systolic 143–180; BP diastolic 79–96; PULSE 54–71; RESP 12–24; TEMP 36.5–37.2; O2SAT 94–99; BMI 32.1
--- NOTE | ~2021-07-29 | MR_ITS ---
EXAMINATION: MR ABDOMEN WITHOUT AND WITH CONTRAST CLINICAL INFORMATION: Evaluate biliary obstruction COMPARISON: CT abdomen pelvis 07/29/2021 TECHNIQUE: MRI of the abdomen without contrast was obtained using routine sequences. Heavily T2 weighted MRCP sequences were also obtained. FINDINGS: LUNG BASES: The visualized lung bases are unremarkable. KIDNEYS AND URETERS: Unremarkable. GALLBLADDER: Status post cholecystectomy. LIVER AND BILIARY TREE: The liver is normal in signal and morphology. No suspicious liver lesion. No intra or extrahepatic biliary duct dilatation. A gallstone is noted within the remnant cystic duct. A 2 mm stone is also noted within the distal common bile duct. No proximal dilatation with the common bile duct measuring 5 mm. PANCREAS: Unremarkable SPLEEN: Unremarkable ADRENAL GLANDS: Unremarkable GASTROINTESTINAL TRACT: Unremarkable. LYMPH NODES: No lymphadenopathy. VASCULAR: Unremarkable ABDOMINAL WALL: Right inguinal hernia containing fat and a loop of small bowel. No dilation of bowel to suggest bowel obstruction. OSSEOUS STRUCTURES: Unremarkable. MR/MR MRCP IMPRESSION: Choledocholithiasis with a stone noted in a remnant cystic duct and a 2 mm stone in the distal common bile duct. No proximal intra or extrahepatic biliary duct dilatation. Right inguinal hernia containing fat and a loop of small bowel. No dilation of bowel to suggest bowel obstruction.
--- NOTE | ~2021-07-29 | XR_ITS ---
EXAMINATION: XR CHEST CLINICAL INFORMATION: Chest pain COMPARISON: 01/07/2021 and 06/16/2021 TECHNIQUE: Frontal view of the chest was obtained. FINDINGS: Cardiac leads overlie the chest. The lungs are well expanded. There is no focal consolidation, edema, or effusion. No pneumothorax. The cardiomediastinal silhouette is within normal limits. No acute osseous abnormality. XR/XR chest 1V IMPRESSION: Clear lungs.
--- NOTE | ~2021-07-29 | CT_ITS ---
EXAMINATION: CT ABDOMEN AND PELVIS WITH CONTRAST CLINICAL INFORMATION: Rectal cancer. Abdominal pain. Rule out obstruction. COMPARISON: Previous abdominal ultrasound and CT of the abdomen and pelvis January 2021 TECHNIQUE: Multidetector volumetric images were obtained from the superior aspect of the liver through the pubic symphysis following administration 100 mL of Omnipaque 350 intravenous contrast. Sagittal and coronal reformatted images were obtained on the technologist's workstation. Oral contrast: Yes This CT examination was performed using dose optimization techniques as appropriate, variously including the following: *Automated exposure control *Adjustment of mA and/or kV according to patient size (this includes techniques or standardized protocols for targeted exams where dose is matched to indication/reason for exam; i.e. extremities or head) *Use of iterative reconstruction technique DLP: 705 mGy-cm FINDINGS: LUNG BASES: The visualized lung bases are unremarkable. LIVER, GALLBLADDER, AND BILIARY TREE: The liver is normal in size, shape, and attenuation. No focal hepatic lesion or biliary ductal dilatation is present. The gallbladder has been removed. There are calcifications in the gallbladder fossa and small cystic area or fluid collection. This measures approximately 1.3 x 4 cm. This probably represents gallstones in a dilated cystic duct remnant. There appears to be low insertion of the cystic duct into the common bile duct. There is a distal stone in this region measuring 5 mm questionable for a distal cystic duct versus the common bile duct stone. The common bile duct is slightly dilated measuring 8 to 9 mm. There is no intrahepatic biliary duct dilatation. PANCREAS: Unremarkable. SPLEEN: Upper normal in size measuring 13 cm. ADRENAL GLANDS: Unremarkable. KIDNEYS AND URETERS: The kidneys are normal in size, shape, and attenuation. No hydronephrosis, hydroureter, or calculi seen. No perinephric stranding. BLADDER: Unremarkable. GASTROINTESTINAL TRACT: There is increased soft tissue seen in the region of the rectum in the presacral space. This area measures approximately 4 x 4.5 cm. This is difficult to separate from the prostate gland. The patient appears post colectomy. There is a right lower quadrant ostomy and small parastomal hernia containing fat. There is a small bowel feces sign seen in the right lower quadrant and there are some distended fluid-filled loops of distal small bowel probably representing an ileus or small bowel stasis. There is no evidence of obstruction. ABDOMINAL WALL: There is evidence of previous ventral hernia repair with mesh. Parastomal hernia containing fat surrounding the right lower quadrant ostomy. LYMPH NODES: Normal. VASCULAR: Unremarkable. PELVIC VISCERA: There is abnormal soft tissue in the presacral space in the region of the rectum that is difficult to separate from the prostate gland. OSSEOUS STRUCTURES: There are degenerative changes. No fracture or bone lesion. CT/CT abdomen pelvis w con IMPRESSION: Probable gallstones in the cystic duct remnant. Question distal cystic duct versus common bile duct stone. The common bile duct measures 8 to 9 mm. No intrahepatic biliary duct dilatation. Postop colectomy. Abnormal soft tissue in the presacral space that is difficult to separate from the prostate gland. Right lower quadrant ileostomy. Small parastomal hernia containing fat. Probable stasis or ileus of the distal small bowel. No evidence of obstruction. Post ventral hernia with mesh. Fleischner guidelines were followed.
--- NOTE | ~2021-07-29 | CT_ITS ---
EXAMINATION: CT ANGIOGRAM OF THE CHEST WITH AND WITHOUT CONTRAST (CT PULMONARY ANGIOGRAM FOR PE) CLINICAL INFORMATION: Chest pain, radiates to back, SOB, SCALES, rule out PE. COMPARISON: Previous chest x-ray from earlier the same day. TECHNIQUE: Prior to contrast administration, noncontrast localization images were obtained. Subsequently, multidetector volumetric imaging was performed from the thoracic inlet to below the diaphragms following the administration of 100 mL Omnipaque 350 intravenous contrast. No contrast reaction reported Sagittal, coronal, and MIP oblique sagittal reformatted images were obtained on the CT workstation, uploaded to PACS, and reviewed. This CT examination was performed using dose optimization techniques as appropriate, variously including the following: *Automated exposure control *Adjustment of mA and/or kV according to patient size (this includes techniques or standardized protocols for targeted exams where dose is matched to indication/reason for exam; i.e. extremities or head) *Use of iterative reconstruction technique Total exam dose-length product 359 mGy-cm FINDINGS: QUALITY OF STUDY/CONTRAST BOLUS: Satisfactory. PULMONARY ARTERIES: No central or segmental pulmonary emboli. THORACIC AORTA: The ascending thoracic aorta is slightly enlarged. The ascending thoracic aorta measures 4.5 x 4.6 cm. The aortic arch and descending thoracic aorta are normal in caliber. No dissection. Bovine arch. LUNG: No focal consolidation, nodules or masses. PLEURA: No pleural effusion or pneumothorax. MEDIASTINUM: Normal heart size. No pericardial effusion. No hilar or mediastinal lymphadenopathy. No evidence of septal bowing or right heart strain. CHEST WALL/AXILLA: No axillary or internal mammary lymphadenopathy. OSSEOUS STRUCTURES: No acute or suspicious osseous abnormality. There are degenerative changes of the spine. UPPER ABDOMEN: Surgical clips suggestive of previous cholecystectomy. Adjacent small calcifications in a 1.7 x 3.2 cm cystic area or fluid collection. Appearance is questionable for gallstones in a cystic duct remnant versus dropped gallstones and small reactive fluid collection. The spleen may be enlarged. No reflux of contrast into the hepatic veins to suggest elevated right heart pressures. CT/CT angio chest PE protocol IMPRESSION: No evidence of pulmonary embolism. Dilated ascending thoracic aorta measuring 4.5 x 4.6 cm. VTE: Negative.
--- NOTE | ~2021-07-29 | FL_ITS ---
EXAMINATION: XR FLUOROSCOPY WITH IMAGES CLINICAL INFORMATION: ERCP COMPARISON: None. TECHNIQUE: Fluoroscopy performed by Olivia Ruggiero. Fluoroscopy time: 3.8 minutes Dose: 84.6 mGycm2 Images: 8 FINDINGS: (6 images were obtained revealing endoscopy in the mid duodenum with marker catheter extending into the common bile duct.. No contrast is seen. FL/FL guidance in OR IMPRESSION: Fluoroscopy guidance was provided to Dr. Baker during ERCP.
--- NOTE | 2021-07-29 06:29 | ECG_ITS ---
Test Reason : CHEST PAIN Blood Pressure : / mmHG Vent. Rate : 071 BPM Atrial Rate : 071 BPM P-R Int : 176 ms QRS Dur : 094 ms QT Int : 450 ms P-R-T Axes : 056 -11 029 degrees QTc Int : 489 ms Normal sinus rhythm Possible Left atrial enlargement Prolonged QT Abnormal ECG When compared with ECG of 28-JUL-2021 17:00, No significant change was found Referred By: Generic ED Physician Electronically Signed By:Mendoza Chairez
[2021-07-29 06:41] LABS: Basophils Percent Auto 0.2 % (0-2); Eosinophils Absolute Auto 0.1 X10*3/uL (0.0-0.4); Eosinophils Percent Auto 0.7 % (0-4); Hemoglobin 16.5 g/dl (14.0-18.0); Imm Gran Abs Auto 0.09 X10*3/uL (0.00-0.03); Imm Gran Pct Auto 0.9 % (0.0-0.4); Lymphocytes Absolute Auto 1.1 X10*3/uL (1.2-4.9); Lymphocytes Percent Auto 11.2 % (20-40); MANUAL DIFF FLAG NO; Mean Corpuscular HGB Conc 34.4 g/dl (31.0-36.0); Mean Corpuscular Hemoglobin 28.6 pg (27.0-33.0); Mean Corpuscular Volume 83.2 fL (80.0-98.0); Mean Platelet Volume 9.9 fL (9.4-12.4); Monocytes Absolute Auto 0.9 X10*3/uL (0.1-1.2); Monocytes Percent Auto 9.3 % (2-11); Neutrophils Absolute Auto 7.7 x10*3/uL (2.0-8.3); Neutrophils Percent Auto 77.7 % (45-73); Platelet Count 219 X10*3/uL (160-400); Red Blood Count 5.77 X10*6/uL (4.60-5.80); Red Cell Distribution Width 13.2 % (11.0-16.0); White Blood Count 9.9 X10*3/uL (4.8-10.8)
--- NOTE | 2021-07-29 06:48 | ED_ITS ---
HPI - Chest Pain General Chief Complaint: Chest Pain Stated Complaint: Chest pain/Back pain/Dark urine Time Seen by Provider: 07/29/21 06:27 Source: patient Mode of arrival: ambulatory Limitations: no limitations History of Present Illness HPI narrative: 51-year-old male who presents emergency department for evaluation abdominal pain, chest pain shortness of breath and dyspnea on exertion. The patient states that yesterday at approximately 14:00 hours she developed abdominal pain. He describes the pain is a pressure-like sensation around his ileostomy (patient had rectal CA with total colectomy, radiation therapy and chemotherapy 7 years prior, cholecystectomy 02/06/2021). He states that the pain was constant and was 9/10 at its worst. He came to the emergency department at around 16:30 hours and stated until 22:00 hours, he vomited once in the emergency department, felt better and could not wait any longer and went home. He states that he had decreased output from his ileostomy and the output was clear which was unusual. States the prior to leaving the emergency department he did fill his colostomy bag twice. He states that he has had no food to eat over the last 24 hours. He also states that around 14:00 he developed chest pressure. He points to his anterior chest when asked to localize the chest pain. 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 States that the pain is 7/10 at its worst. The pain does radiate to his back. He also complains of shortness of breath and dyspnea on exertion which is new for him. He denied fever, chills, rhinorrhea, sore throat or cough. He states that he is feeling short of breath and having dyspnea on exertion. He had nausea and vomited and vomited twice yesterday. He has noted urinary frequency he states that the color of his urine is now orange which is unusual for him. He states that again he is having decreased output from his colostomy bag. complaint: chest pain Onset (ago): hour(s) (17) Timing of current episode: episodic Prior episodes: No Onset: during rest Pain location: other (Anterior chest) Pain radiation: back Severity: severe Pain scale (0-10): 7 Quality: other (Impression) Relieving factors: nothing Exacerbating factors: nothing Associated symptoms: nausea, vomiting and other (Abdominal) Treatment prior to arrival: none Risk Factors Pulmonary embolism risk factors: malignancy (Rectal cancer 7 years prior) Related Data Home Medications Medication Instructions Recorded Confirmed levothyroxine 175 mcg tablet 1 tab PO DAILY 06/27/20 07/29/21 spironolactone 25 mg tablet 1 tab PO DAILY 06/27/20 07/29/21 verapamil 180 mg 24 hr 1 cap PO BEDTIME 06/27/20 07/29/21 capsule,extended release Previous Rx's Medication Instructions Recorded ondansetron HCl 4 mg tablet 4 mg PO Q8H PRN #20 tab 01/24/21 (Zofran) Allergies Allergy/AdvReac Type Severity Reaction Status Date / Time cefotetan Allergy Hives Verified 07/08/21 08:55 Review of Systems Review of Systems: Yes all other systems are reviewed and are negative [facility] Past Medical History [facility] Narrative: Social history: He denies tobacco, alcohol and drug use. Medical History Hypertension Hypothyroid Rectal adenocarcinoma Rectal adenoma Surgical History History of creation of ostomy History of laparoscopic cholecystectomy (~2020) History of surgery Social History Social History Alcohol intake: current Alcohol intake frequency: holidays/special occasions only Alcohol type: hard liquor Patient Tobacco Use Status: Never used Tobacco Use of substances other than those prescribed or required for medical reasons: No Advance Directives: Yes Advance Directives on File: Yes Advance Directives Date on File: 01/27/21 service: No Current occupational status: employed Physical Exam Vital Signs: Vital Signs: Last Vital Signs Temp 98.7 F 07/29/21 10:33 Pulse 61 07/29/21 10:33 Resp 12 07/29/21 10:33 BP 155/95 H 07/29/21 10:33 Pulse Ox 98 07/29/21 10:33 BMI result Body Mass Index 32.1 Const: General: cooperative and no acute distress Orientation/consciousne ss: oriented to person and oriented to place Limitations: no limitations HEENT: Head: Yes normal to inspection, Yes normocephalic and Yes atraumatic Ears: external ears normal General nose exam: Normal external nose present Face and sinus: Yes normal facial exam Mouth: Normal oral and palatal mucosa present Throat: Yes posterior oropharynx normal Eyes: Periorbital: periorbital findings normal Eyelids: Yes eyelids normal Conjunctivae: conjunctivae normal Sclerae: scleral abnormal (Icteric) Pupils: Equal, round and reactive pupils present Neck: Neck: Yes normal visual inspection, Yes no lymphadenopathy, Yes trachea midline and Yes supple Chest: Chest palpation & inspection: normal inspection of the chest and normal palpation of entire chest wall Resp: Effort & Inspection: normal respiratory effort and able to speak in complete sentences Auscultation: clear to auscultation bilaterally Cardio: Rate: regular rate Rhythm: regular rhythm Heart sounds: S1 normal heart sound present, S2 normal heart sound present and no murmurs GI: Other: Right lower quadrant colostomy bag Inspection: Yes normal to inspection Palpation (GI): Soft to palpation, nontender and no guarding Auscultation: normal bowel sounds : General: Yes no CVA tenderness Back/Spine/Pelvis: Back: no CVA tenderness Skin: General skin exam: no rashes or lesions noted Neuro: General: oriented to person and oriented to place Cranial nerves: Yes CN's II-XII intact bilaterally and Yes Equal, round and reactive pupils present Cognition (Neuro): normal cognition Motor exam (neuro): 5/5 motor strength present throughout Extrem: General: Yes normal to inspection Psych: Appearance: grossly normal Speech and movement: Normal speech and movement present Affect: normal affect Attitude: cooperative Thought process: Normal thought process present Thought content: Normal thought content present Course Course Course Narrative: 51-year-old male who presents emergency department for evaluation of chest pressure radiating to his back and abdominal pain, symptoms began yesterday at 14:00 hours, his abdominal pain is been constant and his chest pain has been intermittent. Patient does have a history of rectal cancer treated 7 years prior with total colectomy, radiation therapy and chemotherapy and cholecystectomy 02/06/2021 . He did notice a decreased output from his colostomy bag, he had associated nausea and 2 episodes of vomiting. He also not iced a dark color urine. Differential includes but is not limited to viral syndrome, pneumonia, pulmonary embolism, myocardial infarction, 1119: Laboratory evaluation: CBC normal. AST, ALT and alk-phos elevated 307, 252 and 187. Total bili elevated at 11.9. Direct bili elevated 8.0. COVID-19 was negative. High sensitive troponin I was detectable but not elevated at 9.3. D-dimer was elevated 448. CT abdomen and pelvis with IV contrast: Radiology impression Probable gallstones in the cystic duct remnant. Question distal cystic duct versus common bile duct stone. The common bile duct measures 8 to 9 mm. No intrahepatic biliary duct dilatation.Postop colectomy. Abnormal soft tissue in the presacral space that is difficult to separate from the prostate gland. Right lower quadrant ileostomy. Small parastomal hernia containing fat. Probable stasis or ileus of the distal small bowel. No evidence of obstruction. Post ventral hernia with mesh. CT pulmonary angiogram PE protocol: Radiology impression No evidence of pulmonary embolism. Dilated ascending thoracic aorta measuring 4.5 x 4.6 cm. VTE: Negative. I will consult surgery and GI discuss these findings. The patient feels significantly better after the above treatment. 1155: I did discuss the patient over tiger text with the covering laborer golf course, Dr. Baker. He recommended that the patient be kept NPO, treated with IV fluids and IV antibiotics and that the patient will require an ERCP tomorrow. I did order Zosyn 4.5 g IV and lactated Ringer's 1 L IV. I did discuss the patient over tiger text with the covering surgeon, Dr. Harper and he agreed with the GI recommendations. He states that he will follow-up on the patient as well. I did discuss the patient with the covering hospitalist, Dr. Arndt the patient will be admitted to the hospital service. I did inform the patient of the dilated ascending thoracic aorta measuring 4.5 x 4.6 cm and the need for him to follow-up with the thoracic surgeon for follow-up and discussed further management of this finding. MDM - Chest Pain Lab Data Result diagrams: 07/29/21 06:34 07/29/21 06:34 Labs: Lab Results 07/29/21 07/29/21 07/29/21 Range/Units 06:34 06:34 06:34 WBC 9.9 (4.8-10.8) X10*3/uL RBC 5.77 (4.60-5.80) X10*6/uL Hgb 16.5 (14.0-18.0) g/dl Hct 48.0 (42.0-52.0) % MCV 83.2 (80.0-98.0) fL MCH 28.6 (27.0-33.0) pg MCHC 34.4 (31.0-36.0) g/dl RDW 13.2 (11.0-16.0) % Plt Count 219 (160-400) X10*3/uL MPV 9.9 (9.4-12.4) fL Immature Gran % (Auto) 0.9 H (0.0-0.4) % Neut % (Auto) 77.7 H (45-73) % Lymph % (Auto) 11.2 L (20-40) % Mccormick % (Auto) 9.3 (2-11) % Eos % (Auto) 0.7 (0-4) % Baso % (Auto) 0.2 (0-2) % Lymph # (Auto) 1.1 L (1.2-4.9) X10*3/uL Mccormick # (Auto) 0.9 (0.1-1.2) X10*3/uL Eos # (Auto) 0.1 (0.0-0.4) X10*3/uL Baso # (Auto) 0.0 (0.0-0.2) X10*3/uL Abs Immat Gran (auto) 0.09 H (0.00-0.03) X10*3/uL Absolute Neuts (auto) 7.7 (2.0-8.3) x10*3/uL Absolute Nucleated RBC 0.000 (0.0-0.012) X10*3/uL Nucleated RBC % (auto) 0.0 (0.0-0.2) /100WBC PT (9.9-13.0) SEC INR (0.9-1.1) APTT (24.1-38.0) SEC D-Dimer High Sensitivty NG/ML Sodium 138 (135-145) mmol/L Potassium 3.8 (3.3-5.1) mmol/L Chloride 106 (96-108) mmol/L Carbon Dioxide 19 L (22-29) mmol/L Anion Gap 17 (12-20) BUN 12 (9-16) mg/dL Creatinine 0.78 (0.5-1.4) mg/dL Estim Creat Clear Calc 136.1 Estimated GFR > 60 Random Glucose 106 (60-115) mg/dL Lactic Acid (0.5-2.0) mmol/L Calcium 9.1 (8.4-10.2) mg/dL Total Bilirubin 11.9 H (0.0-1.0) mg/dL Direct Bilirubin 8.0 H (0.0-0.5) mg/dL AST 307 H (5-37) U/L ALT 528 H (0-40) U/L Alkaline Phosphatase 186 H D (39-117) U/L Troponin I High Sens 9.3 (<3.5-35.0) ng/L Total Protein 7.4 (6.5-8.0) g/dL Albumin 4.4 (3.5-5.0) g/dL Lipase 20 (8-78) U/L COVID-19 ([facility]) (Negative) COVID-19 Clin Com 07/29/21 07/29/21 07/29/21 Range/Units 06:41 06:41 10:24 WBC (4.8-10.8) X10*3/uL RBC (4.60-5.80) X10*6/uL Hgb (14.0-18.0) g/dl Hct (42.0-52.0) % MCV (80.0-98.0) fL MCH (27.0-33.0) pg MCHC (31.0-36.0) g/dl RDW (11.0-16.0) % Plt Count (160-400) X10*3/uL MPV (9.4-12.4) fL Immature Gran % (Auto) (0.0-0.4) % Neut % (Auto) (45-73) % Lymph % (Auto) (20-40) % Mccormick % (Auto) (2-11) % Eos % (Auto) (0-4) % Baso % (Auto) (0-2) % Lymph # (Auto) (1.2-4.9) X10*3/uL Mccormick # (Auto) (0.1-1.2) X10*3/uL Eos # (Auto) (0.0-0.4) X10*3/uL Baso # (Auto) (0.0-0.2) X10*3/uL Abs Immat Gran (auto) (0.00-0.03) X10*3/uL Absolute Neuts (auto) (2.0-8.3) x10*3/uL Absolute Nucleated RBC (0.0-0.012) X10*3/uL Nucleated RBC % (auto) (0.0-0.2) /100WBC PT 13.3 H (9.9-13.0) SEC INR 1.2 H (0.9-1.1) APTT 31.1 (24.1-38.0) SEC D-Dimer High Sensitivty 448 NG/ML Sodium (135-145) mmol/L Potassium (3.3-5.1) mmol/L Chloride (96-108) mmol/L Carbon Dioxide (22-29) mmol/L Anion Gap (12-20) BUN (9-16) mg/dL Creatinine (0.5-1.4) mg/dL Estim Creat Clear Calc Estimated GFR Random Glucose (60-115) mg/dL Lactic Acid 0.7 (0.5-2.0) mmol/L Calcium (8.4-10.2) mg/dL Total Bilirubin (0.0-1.0) mg/dL Direct Bilirubin (0.0-0.5) mg/dL AST (5-37) U/L ALT (0-40) U/L Alkaline Phosphatase (39-117) U/L Troponin I High Sens (<3.5-35.0) ng/L Total Protein (6.5-8.0) g/dL Albumin (3.5-5.0) g/dL Lipase (8-78) U/L COVID-19 ([facility]) Negative (Negative) COVID-19 Clin Com See Note 07/29/21 Range/Units 10:24 WBC (4.8-10.8) X10*3/uL RBC (4.60-5.80) X10*6/uL Hgb (14.0-18.0) g/dl Hct (42.0-52.0) % MCV (80.0-98.0) fL MCH (27.0-33.0) pg MCHC (31.0-36.0) g/dl RDW (11.0-16.0) % Plt Count (160-400) X10*3/uL MPV (9.4-12.4) fL Immature Gran % (Auto) (0.0-0.4) % Neut % (Auto) (45-73) % Lymph % (Auto) (20-40) % Mccormick % (Auto) (2-11) % Eos % (Auto) (0-4) % Baso % (Auto) (0-2) % Lymph # (Auto) (1.2-4.9) X10*3/uL Mccormick # (Auto) (0.1-1.2) X10*3/uL Eos # (Auto) (0.0-0.4) X10*3/uL Baso # (Auto) (0.0-0.2) X10*3/uL Abs Immat Gran (auto) (0.00-0.03) X10*3/uL Absolute Neuts (auto) (2.0-8.3) x10*3/uL Absolute Nucleated RBC (0.0-0.012) X10*3/uL Nucleated RBC % (auto) (0.0-0.2) /100WBC PT (9.9-13.0) SEC INR (0.9-1.1) APTT (24.1-38.0) SEC D-Dimer High Sensitivty NG/ML Sodium (135-145) mmol/L Potassium (3.3-5.1) mmol/L Chloride (96-108) mmol/L Carbon Dioxide (22-29) mmol/L Anion Gap (12-20) BUN (9-16) mg/dL Creatinine (0.5-1.4) mg/dL Estim Creat Clear Calc Estimated GFR Random Glucose (60-115) mg/dL Lactic Acid (0.5-2.0) mmol/L Calcium (8.4-10.2) mg/dL Total Bilirubin (0.0-1.0) mg/dL Direct Bilirubin (0.0-0.5) mg/dL AST (5-37) U/L ALT (0-40) U/L Alkaline Phosphatase (39-117) U/L Troponin I High Sens 7.9 (<3.5-35.0) ng/L Total Protein (6.5-8.0) g/dL Albumin (3.5-5.0) g/dL Lipase (8-78) U/L COVID-19 ([facility]) (Negative) COVID-19 Clin Com ECG Data ECG #1: Attestation: I personally reviewed and interpreted this ECG as follows: Interpretation: 0613: Normal sinus rhythm with a rate of 71, normal [place] interval, QRS duration , prolonged QTC interval of 489 milliseconds, Q-wave with inverted T-wave in lead 3, no ST segment elevation, no ST segment depression, no PACs, no PVCs. Critical Care Time Critical Care Time Critical Care Time: Yes Total Critical Care Time: 45 Attestation: Critical Care: The patient was critically ill with a high probability of imminent or life threatening deterioration. I spent greater than 30 minutes of discontinuous time evaluating the patient,delivering critical care at the bedside, discussing and evaluating pertinent data with consultants. Critical care time does not include time spent performing separately billable procedures or teaching. Total time spent performing critical care was 45 minutes. Discharge Plan Discharge Patient Disposition: Admitted As Inpatient Prescriptions: No Action levothyroxine 175 mcg tablet 1 tab PO DAILY 0RF spironolactone 25 mg tablet 1 tab PO DAILY 0RF verapamil 180 mg capsule,ext rel. pellets 24 hr 1 cap PO BEDTIME 0RF ondansetron HCl [Zofran] 4 mg tablet 4 mg PO Q8H PRN (Reason: nausea and vomiting) Qty: 20 0RF
[2021-07-29 06:56] LABS: INTERNATIONAL NORM RATIO 1.2 (0.9-1.1); Prothrombin Time 13.3 SEC (9.9-13.0)
[2021-07-29 06:57] LABS: Anion Gap 17 (12-20); Blood Urea Nitrogen 12 mg/dL (9-16); Calcium 9.1 mg/dL (8.4-10.2); Carbon Dioxide 19 mmol/L (22-29); Chloride 106 mmol/L (96-108); Creatinine Clr Calc Pharmacy 136.1; Estimated Glomerular Filt Rate > 60; Glucose Random 106 mg/dL (60-115); Potassium 3.8 mmol/L (3.3-5.1); Sodium 138 mmol/L (135-145)
[2021-07-29 06:58] LABS: D Dimer High Sensitivity 448 NG/ML
[2021-07-29] MEDS: ondansetron HCL 4 MG/2 ML VIAL IVPUSH (07:00)
[2021-07-29] MEDS: Morphine Sulfate 4 MG/ML CARTRIDGE IVPUSH (07:00)
[2021-07-29 07:01] LABS: Troponin-I High Sensitivity 9.3 ng/L (<3.5-35.0)
[2021-07-29] MEDS: 0.9 % Sodium Chloride 1,000 ML 999 ML IV (07:01)
[2021-07-29 07:03] LABS: COVID-19 Test Negative (Negative)
[2021-07-29 07:06] LABS: Alanine Aminotransferase 528 U/L (0-40); Albumin Level 4.4 g/dL (3.5-5.0); Alkaline Phosphatase 186 U/L (39-117); Aspartate Amino Transferase 307 U/L (5-37); Bilirubin Total 11.9 mg/dL (0.0-1.0); Lipase 20 U/L (8-78); Total Protein 7.4 g/dL (6.5-8.0)
--- NOTE | 2021-07-29 07:08 | PC.NURSE ---
report taken from elias rn, pt here for cp, had similar episode and was here yesterday. blood obtained and sent for eval, medicated for pain just prior to this rn arrival. pt appears comfortable in stretcher, rr even/unlabored. sts some relief from pain att. wctm for dc needs.
[2021-07-29] MEDS: iohexoL 350 MG/ML 100 ML INFUS..BTL IV (08:34)
[2021-07-29 08:58] LABS: Partial Thromboplastin Time 31.1 SEC (24.1-38.0)
[2021-07-29 10:55] LABS: Lactic Acid 0.7 mmol/L (0.5-2.0)
[2021-07-29 11:01] LABS: Troponin-I High Sensitivity 7.9 ng/L (<3.5-35.0)
--- NOTE | 2021-07-29 11:40 | PM.GICN ---
History of Present Illness Data of Consult Service Date: 07/29/21 Requesting physician: Masood Nielson Primary Care Provider: Unknown Physician HPI Reason for consult: choledocholithiasis 51-year-old male w/ history of rectal cancer and UC s/p? total colectomy, radiation therapy and chemotherapy 7 years prior, cholecystectomy 02/06/2021, and radiation cystitis who I am asked to see for assessment for abodminal pain and choledocholithiasis. He has had RUQ and peristomal pain without radiation for 3 days, 9/10 in severity, crampy in nature. No relieving or exacerbating factors. Associated with nausea and non bloody emesis. Denies fevers, chills, diarrhea or constioation. he dd notice urine was darker, no itching. no weight loss, appetite is good right now. No bloody stools or blood in urine. Denie melena. CT of abdomen show?Probable gallstones in the cystic duct remnant. Question distal cystic duct versus common bile duct stone. The common bile duct measures 8 to 9 mm. No intrahepatic biliary duct dilatation. CTA is negative for PE.? LFT show total bilirubin of 11.9, direct bili 8, AST 307, ALT 528, alk-phos is 186. ? Review of Systems Review of Systems: Constitutional : No Weight loss, No Fever, No Chills ENT/Mouth : No sore throat, No Rhinorrhea Eyes: No Swelling, No Redness Cardiovascular : No Chest Pain, No SOB, No Edema Respiratory : No Cough, No Sputum, No Wheezing Gastrointestinal : see HPI Genitourinary : NO Dysuria, No Urinary Frequency, No Hematuria, No Urgency Musculoskeletal : No joint pain, No Myalgias, No Joint Swelling Skin : No Skin Lesions, No rash Neuro : No Weakness, No Numbness, No Dizziness, No Headache Psych : No Anxiety/Panic, No Depression Heme/Lymph: No Bruising, No Lymphadenopathy Endocrine : No Polyuria, No Polydipsia All other systems reviewed and are negative. Yes all other systems are reviewed and are negative Gastrointestinal: Gastrointestinal: Reports change in stool character Psychiatric: Psychiatric: Reports homicidal ideation PMFSH Past Medical History Medical History Hypertension Hypothyroid Rectal adenocarcinoma Rectal adenoma Family History Pertinent family history: mother had gallbladder removed Surgical History Surgical History History of creation of ostomy History of laparoscopic cholecystectomy (~2020) History of surgery Social History Social History Alcohol intake: current Alcohol intake frequency: holidays/special occasions only Alcohol type: hard liquor Patient Tobacco Use Status: Never used Tobacco Use of substances other than those prescribed or required for medical reasons: No Advance Directives: Yes Advance Directives on File: Yes Advance Directives Date on File: 01/27/21 service: No Current occupational status: employed Meds Allergies Allergy/AdvReac Type Severity Reaction Status Date / Time cefotetan Allergy Hives Verified 07/08/21 08:55 Home Medications Medication Instructions Recorded Confirmed Last Taken Type levothyroxine 175 mcg tablet 1 tab PO DAILY 06/27/20 07/29/21 01/22/21 History spironolactone 25 mg tablet 1 tab PO DAILY 06/27/20 07/29/21 01/22/21 History verapamil 180 mg 24 hr 1 cap PO BEDTIME 06/27/20 07/29/21 01/22/21 History capsule,extended release Physical Exam Vital Signs: Vital Signs: Last Vital Signs Temp 98.7 F 07/29/21 10:33 Pulse 61 07/29/21 10:33 Resp 12 07/29/21 10:33 BP 155/95 H 07/29/21 10:33 Pulse Ox 98 07/29/21 10:33 BMI result Body Mass Index 32.1 Const: General: cooperative and no acute distress Orientation/consciousness: oriented to person and oriented to place Limitations: no limitations HEENT: Head: Yes normal to inspection, Yes normocephalic and Yes atraumatic Ears: external ears normal General nose exam: Normal external nose present Face and sinus: Yes normal facial exam Mouth: Normal oral and palatal mucosa present Throat: Yes posterior oropharynx normal Eyes: General: appearance normal, both eyes and all related structures Periorbital: periorbital findings normal Eyelids: Yes eyelids normal Conjunctivae: conjunctivae normal Sclerae: scleral abnormal (Icteric) Pupils: Equal, round and reactive pupils present Neck: Neck: Yes normal visual inspection, Yes no lymphadenopathy, Yes trachea midline and Yes supple Chest: Chest palpation & inspection: normal inspection of the chest and normal palpation of entire chest wall Resp: Effort & Inspection: normal respiratory effort and able to speak in complete sentences Auscultation: clear to auscultation bilaterally Cardio: Rate: regular rate Rhythm: regular rhythm Heart sounds: S1 normal heart sound present, S2 normal heart sound present and no murmurs GI: Other: stoma noted Inspection: Yes normal to inspection Palpation (GI): Soft to palpation, Tenderness to palpation present (GI) in the RUQ and no guarding Auscultation: normal bowel sounds : General: Yes no CVA tenderness Back/Spine/Pelvis: Back: no CVA tenderness Skin: General skin exam: no rashes or lesions noted Neuro: General: oriented to person and oriented to place Cranial nerves: Yes CN's II-XII intact bilaterally and Yes Equal, round and reactive pupils present Cognition (Neuro): normal cognition Motor exam (neuro): 5/5 motor strength present throughout Extrem: General: Yes normal to inspection Psych: Appearance: grossly normal Speech and movement: Normal speech and movement present Affect: normal affect Attitude: cooperative Thought process: Normal thought process present Thought content: Normal thought content present Results Labs CBC & Chem 7: 07/29/21 06:34 07/29/21 06:34 Labs: Short CBC 07/29/21 Range/Units 06:34 WBC 9.9 (4.8-10.8) X10*3/uL Hgb 16.5 (14.0-18.0) g/dl Hct 48.0 (42.0-52.0) % Plt Count 219 (160-400) X10*3/uL BMP 07/29/21 06:34 Sodium 138 Potassium 3.8 Chloride 106 Carbon Dioxide 19 L BUN 12 Creatinine 0.78 Calcium 9.1 Liver Function 07/29/21 Range/Units 06:34 Total Bilirubin 11.9 H (0.0-1.0) mg/dL Direct Bilirubin 8.0 H (0.0-0.5) mg/dL AST 307 H (5-37) U/L ALT 528 H (0-40) U/L Alkaline Phosphatase 186 H D (39-117) U/L Albumin 4.4 (3.5-5.0) g/dL Imaging CT scan - abdomen: Attestation: I personally reviewed and interpreted this imaging study as follows: (hyper intense densities in CBD and cystic stump suspciious for gallstones, also more linear densities probably clips ) Assessment and Plan (1) Common bile duct calculus: Status: Acute (2) Choledocholithiasis: Status: Acute (3) Biliary disease with obstruction: Status: Acute Plan 1/ Choledocholithiasis with elevated LFT, mostly direct bili consistent with CBD obstruction, no cholangitis clinically at this time, unlikely to be PSC which can occur in UC PLAN: 1/ ERCP tomorrow with spy glass, stone removal, may need stent placement 2/Antibiotic coverage in the interim to reduce risk of cholangitis. 3/ risks of ERCP discussed including pancreatitis, perforation, infection, bleeding, operative failure vs risks of cholangitis without treatment 4/ please keep him on LR and will give him rectal indomethacin prior to ERCP to reduce pancreatitis risk Procedures Date of Service Date of Service: 07/29/21
[2021-07-29] MEDS: Piperacillin Sodium/Tazobactam 4.5 GM in 0.9 % Sodium Chloride 100 ML IV (12:11)
[2021-07-29] MEDS: Lactated Ringers 1,000 ML 999 ML IV (12:11)
--- NOTE | 2021-07-29 13:17 | PM.IMHP ---
History of Present Illness Date of Service: 07/29/21 Chief Complaint: Abdominal pain 51-year-old male history of rectal s/p total colectomy, radiation therapy and chemotherapy 7 years prior, cholecystectomy 02/06/[address] Avila who presented to the ED with chest pain shortness of breath and dyspnea on exertion symptoms started Wednesday 3 days ago and fell worse yesterday and actually came to the ED and vomitted and felt better and because of waiting time he left and returns today. He has been having abdominal pain centered around ieostomy bag of 11/15.? His ileostomy output has gone down, he is not aware of his sclera icteris. CT of abdomen show Probable gallstones in the cystic duct remnant. Question distal cystic duct versus common bile duct stone. The common bile duct measures 8 to 9 mm. No intrahepatic biliary duct dilatation. Because of chest pain and shortness a CTA was done and is negative for PE. LFT show total bilirubin of 11.9, direct bili 8, AST 307, ALT 528, alk-phos is 186. Troponin I was normal EKG showed no acute ischemic changes. ? Review of Systems Review of Systems: Gen: no fever Resp: no sob, no cough CV: no chest, no SCALES, no leg edema GI: n/v, + abd pain Neuro: No confusion Yes all other systems are reviewed and are negative [facility] Medical History Hypertension Hypothyroid Rectal adenocarcinoma Rectal adenoma Pertinent family history: he reports no family hisotyr of GI desorders Surgical History History of creation of ostomy History of laparoscopic cholecystectomy (~2020) History of surgery Social History Alcohol intake: current Alcohol intake frequency: holidays/special occasions only Alcohol type: hard liquor Patient Tobacco Use Status: Never used Tobacco Use of substances other than those prescribed or required for medical reasons: No Advance Directives: Yes Advance Directives on File: Yes Advance Directives Date on File: 01/27/21 service: No Current occupational status: employed Meds Allergies Allergy/AdvReac Type Severity Reaction Status Date / Time cefotetan Allergy Hives Verified 07/08/21 08:55 Home Medications Medication Instructions Recorded Confirmed Last Taken Type levothyroxine 175 mcg tablet 1 tab PO DAILY 06/27/20 07/29/21 01/22/21 History spironolactone 25 mg tablet 1 tab PO DAILY 06/27/20 07/29/21 01/22/21 History verapamil 180 mg 24 hr 1 cap PO BEDTIME 06/27/20 07/29/21 01/22/21 History capsule,extended release Physical Exam Vital Signs and Narrative: Vital Signs: Last Vital Signs Temp 98.7 F 07/29/21 10:33 Pulse 61 07/29/21 10:33 Resp 12 07/29/21 10:33 BP 155/95 H 07/29/21 10:33 Pulse Ox 98 07/29/21 10:33 BMI result Body Mass Index 32.1 Results Labs CBC and Chem 7: 07/29/21 06:34 07/29/21 06:34 Labs: Laboratory Results - last 24 hr 07/29/21 07/29/21 07/29/21 06:34 06:34 06:34 MCV 83.2 MCH 28.6 MCHC 34.4 RDW 13.2 Plt Count 219 MPV 9.9 Immature Gran % (Auto) 0.9 H Neut % (Auto) 77.7 H Lymph % (Auto) 11.2 L [place] % (Auto) 9.3 Eos % (Auto) 0.7 Baso % (Auto) 0.2 Lymph # (Auto) 1.1 L [place] # (Auto) 0.9 Eos # (Auto) 0.1 Baso # (Auto) 0.0 Abs Immat Gran (auto) 0.09 H Absolute Neuts (auto) 7.7 Absolute Nucleated RBC 0.000 Nucleated RBC % (auto) 0.0 PT INR APTT D-Dimer High Sensitivty Anion Gap 17 Estim Creat Clear Calc 136.1 Estimated GFR > 60 Random Glucose 106 Lactic Acid Calcium 9.1 Total Bilirubin 11.9 H Direct Bilirubin 8.0 H AST 307 H ALT 528 H Alkaline Phosphatase 186 H D Troponin I High Sens 9.3 Total Protein 7.4 Albumin 4.4 Lipase 20 COVID-19 ([facility]) COVID-19 Clin Com 07/29/21 07/29/21 07/29/21 06:41 06:41 10:24 MCV MCH MCHC RDW Plt Count MPV Immature Gran % (Auto) Neut % (Auto) Lymph % (Auto) [place] % (Auto) Eos % (Auto) Baso % (Auto) Lymph # (Auto) [place] # (Auto) Eos # (Auto) Baso # (Auto) Abs Immat Gran (auto) Absolute Neuts (auto) Absolute Nucleated RBC Nucleated RBC % (auto) PT 13.3 H INR 1.2 H APTT 31.1 D-Dimer High Sensitivty 448 Anion Gap Estim Creat Clear Calc Estimated GFR Random Glucose Lactic Acid 0.7 Calcium Total Bilirubin Direct Bilirubin AST ALT Alkaline Phosphatase Troponin I High Sens Total Protein Albumin Lipase COVID-19 ([facility]) Negative COVID-19 Clin Com See Note 07/29/21 10:24 MCV MCH MCHC RDW Plt Count MPV Immature Gran % (Auto) Neut % (Auto) Lymph % (Auto) [place] % (Auto) Eos % (Auto) Baso % (Auto) Lymph # (Auto) [place] # (Auto) Eos # (Auto) Baso # (Auto) Abs Immat Gran (auto) Absolute Neuts (auto) Absolute Nucleated RBC Nucleated RBC % (auto) PT INR APTT D-Dimer High Sensitivty Anion Gap Estim Creat Clear Calc Estimated GFR Random Glucose Lactic Acid Calcium Total Bilirubin Direct Bilirubin AST ALT Alkaline Phosphatase Troponin I High Sens 7.9 Total Protein Albumin Lipase COVID-19 ([facility]) COVID-19 Clin Com Imaging Radiologist's Impressions: Impressions Chest X-Ray 07/29/21 07:18 IMPRESSION: Clear lungs. Abdomen/Pelvis CT 07/29/21 08:49 IMPRESSION: Probable gallstones in the cystic duct remnant. Question distal cystic duct versus common bile duct stone. The common bile duct measures 8 to 9 mm. No intrahepatic biliary duct dilatation. Postop colectomy. Abnormal soft tissue in the presacral space that is difficult to separate from the prostate gland. Right lower quadrant ileostomy. Small parastomal hernia containing fat. Probable stasis or ileus of the distal small bowel. No evidence of obstruction. Post ventral hernia with mesh. Fleischner guidelines were followed. Chest CTA 07/29/21 08:49 IMPRESSION: No evidence of pulmonary embolism. Dilated ascending thoracic aorta measuring 4.5 x 4.6 cm. VTE: Negative. Assessment and Plan (1) Biliary disease with obstruction: Status: Acute (2) Common bile duct calculus: Status: Acute (3) Chest pain: Status: Acute (4) Choledocholithiasis: Status: Acute Plan 51-year-old male history of rectal s/p total colectomy, radiation therapy and chemotherapy 7 years prior, cholecystectomy 02/06/[address] Avila here with abdominal painand found to have choledocholithiasis. #Choledocholithiasis. No evidence of cholangitis at this time. -GI recommends empiric antibiotics (Zosyn) until ERCP tomorrow. -Clear liquid diet. NPO overnight. - IV fluid. - Dilaudid for pain control. - Repeat LFTs tomorrow #Hypertension: Continue Aldactone, verapamil. #Hypothyroidism continue levothyroxine. #Chest pain--likely related to choledocholithiasis..ECG unremarkable, and trop negative and pain is gone #QTc of 489--avoid drugs that can make it worse Full code DVT prophylaxis: low risk, ambulate Admission will span at least 2 midnights for management of choledocholithiasis with a risk of cholangitis and need close monitoring and procedure for stone removal and LFT monitoring Quality Stroke Does the patient have a stroke diagnosis?: No VTE Prior VTE?: No VTE Risk Level:: Medical - low VTE Device Contraindication: Treatment Not Indicated VTE Drug Contraindication: Treatment Not Indicated
--- NOTE | 2021-07-29 13:56 | PM.CNGS ---
History of Present Illness Consult details Consult date: 07/29/21 <SOHA Morgan - Last Filed: 07/29/21 14:28> Reason for consult: abdominal pain <SOHA Morgan - Last Filed: 07/29/21 14:28> Narrative: Mr. Daniel is a 51 year old male who previously underwent open cholecystectomy by Dr. Avila in January 2021. He recovered well from that procedure. Pt now presents to the ED with abdominal pain which started 2 days ago and got worse yesterday. He initially came to the ED yesterday, but after vomiting, felt a little better and decided to leave due to the long wait. He returned today when his pain got worse. He describes it as upper abdominal pain with chest pressure. Reports dark urine appearing orange in color. Has a right sided ostomy after total colectomy and proctectomy for rectal CA about 7 years ago, which has decreased output. Denies fever, chest pain, SOB. Currently comfortable as morphine has provided pain relief. <SOHA Morgan - Last Filed: 07/29/21 14:28> Review of Systems Constitutional: Constitutional: Reports as per HPI and Reports no additional constitutional complaints <SOHA Morgan - Last Filed: 07/29/21 14:28> [facility] Past Medical History Medical History: Medical History Hypertension Hypothyroid Rectal adenocarcinoma Rectal adenoma <SOHA Morgan - Last Filed: 07/29/21 14:28> Family History Family history: reviewed and not pertinent <SOHA Morgan - Last Filed: 07/29/21 14:28> Surgical History Surgical History: Surgical History History of creation of ostomy History of laparoscopic cholecystectomy (~2020) History of surgery <SOHA Morgan - Last Filed: 07/29/21 14:28> Social History Social History: Social History Alcohol intake: current Alcohol intake frequency: holidays/special occasions only Alcohol type: hard liquor Patient Tobacco Use Status: Never used Tobacco Use of substances other than those prescribed or required for medical reasons: No Advance Directives: Yes Advance Directives on File: Yes Advance Directives Date on File: 01/27/21 service: No Current occupational status: employed <SOHA Morgan - Last Filed: 07/29/21 14:28> Meds Allergies/Adverse reactions: Allergies Allergy/AdvReac Type Severity Reaction Status Date / Time cefotetan Allergy Hives Verified 07/08/21 08:55 <SOHA Morgan - Last Filed: 07/29/21 14:28> Active Medications: Current Medications Hydromorphone HCl (Hydromorphone Hcl 1 Mg/Ml Syringe) 1 mg IVPUSH Q4H PRN; Protocol PRN Reason: Pain, Severe (Pain Scale 7-10) Dextrose/Sodium Chloride (D51/2ns) 1,000 mls @ 100 mls/hr IVCONT .Q10H LEANDRO Piperacillin Sod/Tazobactam (Sod 3.375 gm/ Sodium Chloride) 50 mls @ 100 mls/hr IV Q8H LEANDRO Magnesium Hydroxide (Milk Of Magnesia 30 Ml Oral.Susp) 30 ml PO DAILY PRN PRN Reason: Constipation Melatonin (Melatonin 3 Mg Tablet) 6 mg PO BEDTIME PRN PRN Reason: Insomnia Ondansetron HCl (Ondansetron Hcl 4 Mg/2 Ml Vial) 4 mg IVPUSH Q8H PRN PRN Reason: Nausea and Vomiting Sodium Chloride (0.9 % Sodium Chloride Flush 3 Ml Syringe) 3 ml IVFLUSH QSHIFT LEANDRO <SOHA Morgan - Last Filed: 07/29/21 14:28> Home medications: Home Medications Medication Instructions Recorded Confirmed Last Taken Type levothyroxine 175 mcg tablet 1 tab PO DAILY 06/27/20 07/29/21 01/22/21 History spironolactone 25 mg tablet 1 tab PO DAILY 06/27/20 07/29/21 01/22/21 History verapamil 180 mg 24 hr 1 cap PO BEDTIME 06/27/20 07/29/21 01/22/21 History capsule,extended release <SOHA Morgan - Last Filed: 07/29/21 14:28> Physical Exam Vital Signs: Vital Signs: Last Vital Signs Temp 98.7 F 07/29/21 10:33 Pulse 61 07/29/21 10:33 Resp 12 07/29/21 10:33 BP 155/95 H 07/29/21 10:33 Pulse Ox 98 07/29/21 10:33 BMI result Body Mass Index 32.1 <SOHA Morgan - Last Filed: 07/29/21 14:28> Const: General: cooperative, comfortable and no acute distress <SOHA Morgan - Last Filed: 07/29/21 14:28> Orientation/consciousness: patient oriented x3 <SOHA Morgan - Last Filed: 07/29/21 14:28> Resp: Effort & Inspection: normal respiratory effort <SOHA Morgan - Last Filed: 07/29/21 14:28> GI: Palpation (GI): Soft to palpation, nontender, no guarding, not rigid, no masses and No Rebound tenderness present <SOHA Morgan - Last Filed: 07/29/21 14:28> Neuro: General: patient oriented x3 <SOHA Morgan - Last Filed: 07/29/21 14:28> Results Labs Result diagrams: : 07/29/21 06:34 07/29/21 06:34 <SOHA Morgan - Last Filed: 07/29/21 14:28> Labs: Abnormal lab results 07/29/21 07/29/21 07/29/21 Range/Units 06:34 06:34 06:41 Immature Gran % (Auto) 0.9 H (0.0-0.4) % Neut % (Auto) 77.7 H (45-73) % Lymph % (Auto) 11.2 L (20-40) % Lymph # (Auto) 1.1 L (1.2-4.9) X10*3/uL Abs Immat Gran (auto) 0.09 H (0.00-0.03) X10*3/uL PT 13.3 H (9.9-13.0) SEC INR 1.2 H (0.9-1.1) Carbon Dioxide 19 L (22-29) mmol/L Total Bilirubin 11.9 H (0.0-1.0) mg/dL Direct Bilirubin 8.0 H (0.0-0.5) mg/dL AST 307 H (5-37) U/L ALT 528 H (0-40) U/L Alkaline Phosphatase 186 H D (39-117) U/L Short CBC 07/29/21 Range/Units 06:34 WBC 9.9 (4.8-10.8) X10*3/uL Hgb 16.5 (14.0-18.0) g/dl Hct 48.0 (42.0-52.0) % Plt Count 219 (160-400) X10*3/uL BMP 07/29/21 06:34 Sodium 138 Potassium 3.8 Chloride 106 Carbon Dioxide 19 L BUN 12 Creatinine 0.78 Calcium 9.1 Liver Function 07/29/21 Range/Units 06:34 Total Bilirubin 11.9 H (0.0-1.0) mg/dL Direct Bilirubin 8.0 H (0.0-0.5) mg/dL AST 307 H (5-37) U/L ALT 528 H (0-40) U/L Alkaline Phosphatase 186 H D (39-117) U/L Albumin 4.4 (3.5-5.0) g/dL All other labs normal. <SOHA Morgan - Last Filed: 07/29/21 14:28> Imaging Abdomen CT scan report/results: report reviewed <SOHA Morgan - Last Filed: 07/29/21 14:28> Additional studies: CT Scan Report Signed Patient: Carlos Daniel MR#: [id number] : 1970 Acct:[id number] Age/Sex: 51 / M ADM Date: 07/29/21 Loc: HO.ED Ordering Physician: Masood Nielson MD Date of Service: 07/29/21 Procedure(s): CT abdomen pelvis w con Accession Number(s): [id number] cc: Masood Nielson MD~ EXAMINATION: CT ABDOMEN AND PELVIS WITH CONTRAST? CLINICAL INFORMATION: Rectal cancer. Abdominal pain. Rule out obstruction.? COMPARISON: Previous abdominal ultrasound and CT of the abdomen and pelvis January 2021? TECHNIQUE: Multidetector volumetric images were obtained from the superior aspect of the liver through the pubic symphysis following administration 100 mL of Omnipaque 350 intravenous contrast. Sagittal and coronal reformatted images were obtained on the technologist's workstation.? Oral contrast: Yes This CT examination was performed using dose optimization techniques as appropriate, variously including the following: *Automated exposure control *Adjustment of mA and/or kV according to patient size (this includes techniques or standardized protocols for targeted exams where dose is matched to indication/reason for exam; i.e. extremities or head) *Use of iterative reconstruction technique DLP: 705 mGy-cm FINDINGS: LUNG BASES: The visualized lung bases are unremarkable.? LIVER, GALLBLADDER, AND BILIARY TREE: The liver is normal in size, shape, and attenuation. No focal hepatic lesion or biliary ductal dilatation is present. The gallbladder has been removed. There are calcifications in the gallbladder fossa and small cystic area or fluid collection. This measures approximately 1.3 x 4 cm. This probably represents gallstones in a dilated cystic duct remnant. There appears to be low insertion of the cystic duct into the common bile duct. There is a distal stone in this region measuring 5 mm questionable for a distal cystic duct versus the common bile duct stone. The common bile duct is slightly dilated measuring 8 to 9 mm. There is no intrahepatic biliary duct dilatation. PANCREAS: Unremarkable.? SPLEEN: Upper normal in size measuring 13 cm. ADRENAL GLANDS: Unremarkable.? KIDNEYS AND URETERS: The kidneys are normal in size, shape, and attenuation. No hydronephrosis, hydroureter, or calculi seen. No perinephric stranding. ? BLADDER: Unremarkable.? GASTROINTESTINAL TRACT: There is increased soft tissue seen in the region of the rectum in the presacral space. This area measures approximately 4 x 4.5 cm. This is difficult to separate from the prostate gland. The patient appears post colectomy. There is a right lower quadrant ostomy and small parastomal hernia containing fat. There is a small bowel feces sign seen in the right lower quadrant and there are some distended fluid-filled loops of distal small bowel probably representing an ileus or small bowel stasis. There is no evidence of obstruction. ABDOMINAL WALL: There is evidence of previous ventral hernia repair with mesh. Parastomal hernia containing fat surrounding the right lower quadrant ostomy. LYMPH NODES: Normal. VASCULAR: Unremarkable. PELVIC VISCERA: There is abnormal soft tissue in the presacral space in the region of the rectum that is difficult to separate from the prostate gland.? OSSEOUS STRUCTURES: There are degenerative changes. No fracture or bone lesion. CT/CT abdomen pelvis w con IMPRESSION: Probable gallstones in the cystic duct remnant. Question distal cystic duct versus common bile duct stone. The common bile duct measures 8 to 9 mm. No intrahepatic biliary duct dilatation. ? Postop colectomy. Abnormal soft tissue in the presacral space that is difficult to separate from the prostate gland. Right lower quadrant ileostomy. Small parastomal hernia containing fat. Probable stasis or ileus of the distal small bowel. No evidence of obstruction. Post ventral hernia with mesh. ? Fleischner guidelines were followed. <SOHA Morgan - Last Filed: 07/29/21 14:28> Assessment and Plan (1) Common bile duct calculus: Status: Acute <SOHA Morgan - Last Filed: 07/29/21 14:28> the patient came to the ED today because of what he describes as upper abdominal pain, chest pain and yellowing of his for urine past 2 days his bilirubin is markedly elevated his CAT scan suggestive of a CBD stone he had undergone open cholecystectomy Dr. Avila last January, and this was uneventful GI consult for ERCP follow LFTs IV fluids his exam is otherwise benign - abdomen soft, minimally tender, no guarding rebound, not distended the surgical service will follow seen and examined independently - agree with SOHA Ding <Schuyler Cuenca MD - Last Filed: 07/29/21 15:33> (2) S/P cholecystectomy: Status: Acute <SOHA Morgan - Last Filed: 07/29/21 14:28> Plan 51 year old male with a history of open cholecysteomy for acute cholecystitis, presenting with abdominal pain, elevation of bilirubin and LFTs, and CT evidence of a retained stone in CBD/distal cystic duct stump with dilated CBD. Would recommend keeping pt NPO, IVF hydration. Continue antibiotics. Plan for ERCP tomorrow by GI. Will continue to trend LFTs. Surgery will follow. Pt seen and examined with Dr. Cuenca. <SOHA Morgan - Last Filed: 07/29/21 14:28> Procedures Date of Service Date of Service: 07/29/21 <SOHA Morgan - Last Filed: 07/29/21 14:28>
--- NOTE | 2021-07-29 14:04 | PHA.MEDREC ---
Pharmacy Consult ? Medication Reconciliation Pharmacy has completed the medication reconciliation.
[2021-07-29] MEDS: Dextrose 5 % and 0.45 % NaCl 1,000 ML 100 ML IVCONT ×2 (14:27→23:13)
[2021-07-29] MEDS: HYDROmorphone HCl 1 MG/ML SYRINGE IVPUSH (15:09)
--- NOTE | 2021-07-29 18:24 | MHC.CM.PN ---
CM met with admitted patient with bed assignment 360, HCP on file. HCP/ Yeny Daniel ([phone]). PCP Dr. Andre Irby @ [place].Fully vax/boosted/[employer]. Lives with /family. Employed. Uses CPAP. No services. D/C plan is home w/o services. Family to transport. CM to follow for d/c needs.
[2021-07-29] MEDS: Piperacillin Sodium/Tazobactam 3.375 GM in 0.9 % Sodium Chloride 50 ML IV (23:10)
[2021-07-30] VITALS (13 sets, daily range): BP systolic 153–185; BP diastolic 72–99; PULSE 59–86; RESP 16–20; TEMP 36.2–37.8; O2SAT 96–100
[2021-07-30] MEDS: Piperacillin Sodium/Tazobactam 3.375 GM in 0.9 % Sodium Chloride 50 ML IV ×2 (05:53→11:58)
[2021-07-30] MEDS: ondansetron HCL 4 MG/2 ML VIAL IVPUSH (05:58)
[2021-07-30 06:48] LABS: Cholesterol 129 mg/dL; HDL Cholesterol 31 mg/dL; LDL Cholesterol Calculated 80 mg/dl; Triglycerides 90 mg/dL
--- NOTE | 2021-07-30 08:02 | P.PNGS_ITS ---
Subjective Subjective Date of Service: 07/30/21 Interval history: Says he is tired Denies significant abdominal pain no nausea or vomiting Physical Exam Vital Signs: Vital Signs: Last Vital Signs Temp 97.1 F 07/30/21 07:22 Pulse 66 07/30/21 07:22 Resp 18 07/30/21 07:22 BP 155/93 H 07/30/21 07:22 Pulse Ox 97 07/30/21 07:22 BMI result Body Mass Index 32.1 Const: General: comfortable and no acute distress Resp: Effort & Inspection: normal respiratory effort Cardio: Rate: regular rate GI: Inspection: No distended Palpation (GI): Soft to palpation, not firm, nontender and no guarding Objective Data Active Medications Hydromorphone HCl (Hydromorphone Hcl 1 Mg/Ml Syringe) 1 mg IVPUSH Q4H PRN; Protocol PRN Reason: Pain, Severe (Pain Scale 7-10) Last Admin: 07/29/21 15:09 Dose: 1 mg Documented by: CM Dextrose/Sodium Chloride (D51/2ns) 1,000 mls @ 100 mls/hr IVCONT .Q10H [facility] Last Admin: 07/29/21 23:13 Dose: 100 mls/hr Documented by: SANDY Piperacillin Sod/Tazobactam (Sod 3.375 gm/ Sodium Chloride) 50 mls @ 100 mls/hr IV Q6H [facility] Last Infusion: 07/30/21 06:35 Dose: 0 mls/hr Documented by: SANDY Magnesium Hydroxide (Milk Of Magnesia 30 Ml Oral.Susp) 30 ml PO DAILY PRN PRN Reason: Constipation Melatonin (Melatonin 3 Mg Tablet) 6 mg PO BEDTIME PRN PRN Reason: Insomnia Ondansetron HCl (Ondansetron Hcl 4 Mg/2 Ml Vial) 4 mg IVPUSH Q8H PRN PRN Reason: Nausea and Vomiting Last Admin: 07/30/21 05:58 Dose: 4 mg Documented by: SANDY Sodium Chloride (0.9 % Sodium Chloride Flush 3 Ml Syringe) 3 ml IVFLUSH QSHIFT [facility] Last Admin: 07/30/21 07:12 Dose: Not Given Documented by: LOIS Non-Admin Reason: IV Running Labs CBC & Chem 7: 07/29/21 06:34 07/29/21 06:34 Labs: Laboratory Results - last 24 hr 07/29/21 07/29/21 07/29/21 06:41 10:24 10:24 APTT 31.1 Lactic Acid 0.7 Troponin I High Sens 7.9 Triglycerides Cholesterol LDL Cholesterol, Calc HDL Cholesterol 07/30/21 05:42 APTT Lactic Acid Troponin I High Sens Triglycerides 90 Cholesterol 129 LDL Cholesterol, Calc 80 HDL Cholesterol 31 Procedures Date of Service Date of Service: 07/30/21 Progress Note: A&P Assessment and plan (1) Choledocholithiasis: Status: Acute Assessment and Plan: elevated LFTs CT scan suggestive of retained CBD stone GI consult for ERCP follow LFTs exam benign otherwise Time Spent With Patient Time: Total time spent is greater than 50% in coordination of care (as documented) at patient's floor/unit and/or counseling patient: Quality Stroke Does the patient have a stroke diagnosis?: No VTE Prior VTE?: No VTE Risk Level:: Medical - low VTE Device Contraindication: Treatment Not Indicated VTE Drug Contraindication: Treatment Not Indicated
[2021-07-30] MEDS: Spironolactone 25 MG TABLET PO (08:42)
[2021-07-30] MEDS: Levothyroxine Sodium 175 MCG TABLET PO (08:42)
[2021-07-30] MEDS: Dextrose 5 % and 0.45 % NaCl 1,000 ML 100 ML IVCONT ×2 (08:43→21:48)
[2021-07-30 08:56] LABS: Alanine Aminotransferase 339 U/L (0-40); Albumin Level 3.5 g/dL (3.5-5.0); Alkaline Phosphatase 161 U/L (39-117); Anion Gap 12 (12-20); Aspartate Amino Transferase 129 U/L (5-37); Bilirubin Direct 5.6 mg/dL (0.0-0.5); Bilirubin Total 8.1 mg/dL (0.0-1.0); Blood Urea Nitrogen 10 mg/dL (9-16); Calcium 8.4 mg/dL (8.4-10.2); Carbon Dioxide 25 mmol/L (22-29); Chloride 105 mmol/L (96-108); Creatinine Clr Calc Pharmacy 147.5; Estimated Glomerular Filt Rate > 60; Glucose Random 113 mg/dL (60-115); Potassium 3.7 mmol/L (3.3-5.1); Sodium 138 mmol/L (135-145)
[2021-07-30] MEDS: Lactated Ringers 1,000 ML 100 ML IVCONT (14:00)
--- NOTE | 2021-07-30 14:08 | P.PNIM_ITS ---
Subjective Subjective Date of Service: 07/30/21 Interval History: cc: abd pain interval history:unchanged Cardiovascular Cardiovascular: Reports no additional cardiovascular complaints Respiratory Respiratory: Reports no additional respiratory complaints Physical Exam Vital Signs: Vital Signs: Last Vital Signs Temp 98.0 F 07/30/21 11:07 Pulse 59 07/30/21 11:07 Resp 18 07/30/21 11:07 BP 153/90 H 07/30/21 11:07 Pulse Ox 98 07/30/21 11:07 BMI result Body Mass Index 32.1 General: AO X 3, no acute distress Resp: CTA bilateral, no accessory muscles used CVS: S1,S2,RRR GI: soft, tender, non distended Neuro: motor grossly intact, alert Psych: appropriate affect, appropriate insight Objective Data Active Medications Hydromorphone HCl (Hydromorphone Hcl 1 Mg/Ml Syringe) 1 mg IVPUSH Q4H PRN; Protocol PRN Reason: Pain, Severe (Pain Scale 7-10) Last Admin: 07/29/21 15:09 Dose: 1 mg Documented by: CM Dextrose/Sodium Chloride (D51/2ns) 1,000 mls @ 100 mls/hr IVCONT .Q10H [facility] Last Infusion: 07/30/21 11:58 Dose: 0 mls/hr Documented by: LOIS Piperacillin Sod/Tazobactam (Sod 3.375 gm/ Sodium Chloride) 50 mls @ 100 mls/hr IV Q6H [facility] Last Infusion: 07/30/21 12:59 Dose: 0 mls/hr Documented by: LOIS Levothyroxine Sodium (Levothyroxine Sodium 175 Mcg Tablet) 175 mcg PO DAILY@0600 [facility] Last Admin: 07/30/21 08:42 Dose: 175 mcg Documented by: LOIS Magnesium Hydroxide (Milk Of Magnesia 30 Ml Oral.Susp) 30 ml PO DAILY PRN PRN Reason: Constipation Melatonin (Melatonin 3 Mg Tablet) 6 mg PO BEDTIME PRN PRN Reason: Insomnia Ondansetron HCl (Ondansetron Hcl 4 Mg/2 Ml Vial) 4 mg IVPUSH Q8H PRN PRN Reason: Nausea and Vomiting Last Admin: 07/30/21 05:58 Dose: 4 mg Documented by: SANDY Sodium Chloride (0.9 % Sodium Chloride Flush 3 Ml Syringe) 3 ml IVFLUSH QSHIFT [facility] Last Admin: 07/30/21 07:12 Dose: Not Given Documented by: LOIS Non-Admin Reason: IV Running Spironolactone (Spironolactone 25 Mg Tablet) 25 mg PO DAILY [facility]; Protocol Last Admin: 07/30/21 08:42 Dose: 25 mg Documented by: LOIS Verapamil HCl (Verapamil Hcl Sr 180 Mg Tablet.Er) 180 mg PO BEDTIME [facility]; Protocol Labs CBC & Chem 7: 07/29/21 06:34 07/30/21 05:42 Labs: Laboratory Results - last 24 hr 07/30/21 05:42 Anion Gap 12 Estim Creat Clear Calc 147.5 Estimated GFR > 60 Random Glucose 113 Calcium 8.4 D Total Bilirubin 8.1 H Direct Bilirubin 5.6 H AST 129 H ALT 339 H Alkaline Phosphatase 161 H Total Protein 6.0 L Albumin 3.5 D Triglycerides 90 Cholesterol 129 LDL Cholesterol, Calc 80 HDL Cholesterol 31 Microbiology Microbiology Results: Microbiology 07/29/21 10:35 Blood Culture - Preliminary Blood - Venous No growth after 24 hours. 07/29/21 10:25 Blood Culture - Preliminary Blood - Venous No growth after 24 hours. Assessment and Plan (1) Choledocholithiasis: Status: Acute Plan 51-year-old male presented with abdominal pain Choledocholithiasis with obstruction No obvious cholangitis Continue empiric antibiotics Plan for ERCP today Monitor LFTs Hypertension Continue Aldactone, verapamil Hypothyroid Synthroid Low risk for DVT, encourage ambulation Full code reason for continued hospitalization: plan for ercp today, will then need monitoring overnight for reoslution of obstruciton Quality Stroke Does the patient have a stroke diagnosis?: No VTE Prior VTE?: No VTE Risk Level:: Medical - low VTE Device Contraindication: Treatment Not Indicated VTE Drug Contraindication: Treatment Not Indicated
--- NOTE | 2021-07-30 15:23 | MHC.SHP ---
Pre-Procedural Eval Section A Date of Service: 07/30/21 The patient is an INPATIENT: Yes The History & Physical has been completed within 30 days and I have reviewed it.: Yes Section B Chief Complaint: Choledocholithiasis Allergies: Allergies Allergy/AdvReac Type Severity Reaction Status Date / Time cefotetan Allergy Hives Verified 07/08/21 08:55 Plan I have reviewed the history and physical and performed a pertinent physical examination on my patient. No changes have occurred unless specified. ERCP
--- NOTE | 2021-07-30 16:45 | P.CONAN_ITS ---
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) Amputation finger (Acute) S/P cholecystectomy (Acute) Radiation cystitis (Acute) Urethral stricture (Acute) Acute urinary retention (Acute) Past Medical History Medical History Hypertension Hypothyroid Rectal adenocarcinoma Rectal adenoma Family History Family history of problems with anesthesia: No Surgical History Surgical History History of creation of ostomy History of laparoscopic cholecystectomy (~2020) History of surgery History of Problems with Anesthesia: No Social History Social History Household Members: Spouse and Children Housing: House Unable to assess alcohol history related to: Unknown Alcohol intake: current Alcohol intake frequency: holidays/special occasions only Alcohol type: hard liquor Patient Tobacco Use Status: Never used Tobacco Advance Directives Date on File: 01/27/21 service: No Current occupational status: employed Meds Allergies Allergy/AdvReac Type Severity Reaction Status Date / Time cefotetan Allergy Hives Verified 07/08/21 08:55 Active Medications: Current Medications Hydromorphone HCl (Hydromorphone Hcl 1 Mg/Ml Syringe) 1 mg IVPUSH Q4H PRN; Protocol PRN Reason: Pain, Severe (Pain Scale 7-10) Last Admin: 07/29/21 15:09 Dose: 1 mg Documented by: Dextrose/Sodium Chloride (D51/2ns) 1,000 mls @ 100 mls/hr IVCONT .Q10H [facility] Last Infusion: 07/30/21 11:58 Dose: 0 mls/hr Documented by: Piperacillin Sod/Tazobactam (Sod 3.375 gm/ Sodium Chloride) 50 mls @ 100 mls/hr IV Q6H [facility] Last Infusion: 07/30/21 12:59 Dose: Infused Documented by: Levothyroxine Sodium (Levothyroxine Sodium 175 Mcg Tablet) 175 mcg PO DAILY@0600 [facility] Last Admin: 07/30/21 08:42 Dose: 175 mcg Documented by: Magnesium Hydroxide (Milk Of Magnesia 30 Ml Oral.Susp) 30 ml PO DAILY PRN PRN Reason: Constipation Melatonin (Melatonin 3 Mg Tablet) 6 mg PO BEDTIME PRN PRN Reason: Insomnia Ondansetron HCl (Ondansetron Hcl 4 Mg/2 Ml Vial) 4 mg IVPUSH Q8H PRN PRN Reason: Nausea and Vomiting Last Admin: 07/30/21 05:58 Dose: 4 mg Documented by: Sodium Chloride (0.9 % Sodium Chloride Flush 3 Ml Syringe) 3 ml IVFLUSH QSHIFT [facility] Last Admin: 07/30/21 16:39 Dose: Not Given Documented by: Spironolactone (Spironolactone 25 Mg Tablet) 25 mg PO DAILY [facility]; Protocol Last Admin: 07/30/21 08:42 Dose: 25 mg Documented by: Verapamil HCl (Verapamil Hcl Sr 180 Mg Tablet.Er) 180 mg PO BEDTIME [facility]; Protocol Home Medications Medication Instructions Recorded Confirmed Last Taken Type levothyroxine 175 mcg tablet 1 tab PO DAILY 06/27/20 07/29/21 01/22/21 History spironolactone 25 mg tablet 1 tab PO DAILY 06/27/20 07/29/21 01/22/21 History verapamil 180 mg 24 hr 1 cap PO BEDTIME 06/27/20 07/29/21 01/22/21 History capsule,extended release Exam Exam Date and Time: July 30, 2021 1645 Height,Weight and Vital Signs: Height 5 ft 11 in Weight 104.326 kg Last Vital Signs Temp 98.6 F 07/30/21 15:59 Pulse 62 07/30/21 15:59 Resp 18 07/30/21 15:59 BP 185/90 H 07/30/21 15:59 Pulse Ox 97 07/30/21 15:59 Pertinent Lab Results Pertinent Lab Results: Laboratory Tests 07/29/21 07/29/21 07/29/21 06:34 06:34 06:34 WBC 9.9 RBC 5.77 Hgb 16.5 Hct 48.0 MCV 83.2 MCH 28.6 MCHC 34.4 RDW 13.2 Plt Count 219 MPV 9.9 Immature Gran % (Auto) 0.9 H Neut % (Auto) 77.7 H Lymph % (Auto) 11.2 L [place] % (Auto) 9.3 Eos % (Auto) 0.7 Baso % (Auto) 0.2 Lymph # (Auto) 1.1 L [place] # (Auto) 0.9 Eos # (Auto) 0.1 Baso # (Auto) 0.0 Abs Immat Gran (auto) 0.09 H Absolute Neuts (auto) 7.7 Absolute Nucleated RBC 0.000 Nucleated RBC % (auto) 0.0 PT INR APTT D-Dimer High Sensitivty Sodium 138 Potassium 3.8 Chloride 106 Carbon Dioxide 19 L Anion Gap 17 BUN 12 Creatinine 0.78 Estim Creat Clear Calc 136.1 Estimated GFR > 60 Random Glucose 106 Lactic Acid Calcium 9.1 Total Bilirubin 11.9 H Direct Bilirubin 8.0 H AST 307 H ALT 528 H Alkaline Phosphatase 186 H D Troponin I High Sens 9.3 Total Protein 7.4 Albumin 4.4 Triglycerides Cholesterol LDL Cholesterol, Calc HDL Cholesterol Lipase 20 COVID-19 ([facility]) COVID-[employer] 07/29/21 07/29/21 07/29/21 06:41 06:41 10:24 WBC RBC Hgb Hct MCV MCH MCHC RDW Plt Count MPV Immature Gran % (Auto) Neut % (Auto) Lymph % (Auto) [place] % (Auto) Eos % (Auto) Baso % (Auto) Lymph # (Auto) [place] # (Auto) Eos # (Auto) Baso # (Auto) Abs Immat Gran (auto) Absolute Neuts (auto) Absolute Nucleated RBC Nucleated RBC % (auto) PT 13.3 H INR 1.2 H APTT 31.1 D-Dimer High Sensitivty 448 Sodium Potassium Chloride Carbon Dioxide Anion Gap BUN Creatinine Estim Creat Clear Calc Estimated GFR Random Glucose Lactic Acid 0.7 Calcium Total Bilirubin Direct Bilirubin AST ALT Alkaline Phosphatase Troponin I High Sens Total Protein Albumin Triglycerides Cholesterol LDL Cholesterol, Calc HDL Cholesterol Lipase COVID-19 ([facility]) Negative COVID-[employer] See Note 07/29/21 07/30/21 10:24 05:42 WBC RBC Hgb Hct MCV MCH MCHC RDW Plt Count MPV Immature Gran % (Auto) Neut % (Auto) Lymph % (Auto) [place] % (Auto) Eos % (Auto) Baso % (Auto) Lymph # (Auto) [place] # (Auto) Eos # (Auto) Baso # (Auto) Abs Immat Gran (auto) Absolute Neuts (auto) Absolute Nucleated RBC Nucleated RBC % (auto) PT INR APTT D-Dimer High Sensitivty Sodium 138 Potassium 3.7 Chloride 105 Carbon Dioxide 25 Anion Gap 12 BUN 10 Creatinine 0.72 Estim Creat Clear Calc 147.5 Estimated GFR > 60 Random Glucose 113 Lactic Acid Calcium 8.4 D Total Bilirubin 8.1 H Direct Bilirubin 5.6 H AST 129 H ALT 339 H Alkaline Phosphatase 161 H Troponin I High Sens 7.9 Total Protein 6.0 L Albumin 3.5 D Triglycerides 90 Cholesterol 129 LDL Cholesterol, Calc 80 HDL Cholesterol 31 Lipase COVID-19 ([facility]) COVID-19 Clin Com Airway Mallampati Class: II TM Dist: >3cm Neck ROM: Full Loose/Missing/Broken Teeth: No Heart: RRR Lungs: CTA Assessment and Plan Assessment Anesthesia Assessment: Anesthesia Plan Discussed and Chart Reviewed Final Anesthetic Review Family History of Problems with Anesthesia: No History of Problems with Anesthesia: No NPO: Yes ASA Class: II and Emergency Final Preanesthetic Review: No Changes in Pt Med Stat, Meds/Allgs Chart Reviewed, Consent Obtained/Reviewed and Anes Risks/Benef Reviewed Patient Risk: Intermediate Procedure Risk: Low Anesthetic Plan Anesthetic Plan: GA Disposition: Standard PACU
--- NOTE | 2021-07-30 19:36 | P.BOP_ITS ---
Brief Operative Note Date of Service: 07/30/21 Pre-op diagnosis: choledocholithiasis Post-op diagnosis: same Procedure: see op note Surgeon: Bahman Baker MD Anesthesia: GETA Was an Production Or Plant Engineer used for this Procedure?: No Estimated blood loss (mL): 0 Condition: stable Disposition: PACU
--- NOTE | 2021-07-30 19:37 | P.OP_ITS ---
Operative Note Operative Note Date of Service: 07/30/21 Narrative: Description: Endoscopic retrograde cholangiopancreatography (ERCP) with precut sphincterotomy PROCEDURE: Endoscopic retrograde cholangiopancreatography INDICATION FOR THE PROCEDURE: Patient with a history of abdominal pain and imaging revealing CBD stone MEDICATIONS: General anesthesia, The risks of the procedure were made aware to the patient and consisted of medication reaction, bleeding, perforation, aspiration, operative failure and post ERCP pancreatitis. DESCRIPTION OF PROCEDURE: After informed consent and appropriate sedation, the duodenoscope was inserted into the oropharynx, down the esophagus, and into the stomach. The scope was then advanced through the pylorus to the ampulla. The ampulla had a normal appearance. The tome was angled and the PD was entered on several occasions. A heraclio precut was performed and inspite of angling and bowing of the tome the bile dcut could not be entered. After the precut there was much more vigorous flow of bile. An attempt was made to place a PD stent but the wire access was lost on several occasions so this was abandoned. After prolonged attempts at entering the bile duct the procedure was stopped. There was some minor oozing which had ceased by the end of the procedure. The stomach was then decompressed and the endoscope was withdrawn. There was erosive duodenitis incidentally noted on entry and withdrawal from duodenal bulb. FINDINGS: 1. ERCP with pancreatogram, unsuccessful biliary cannulation RECOMMENDATIONS: 1. NPO except ice chips for next 4-6 hrs then clears as tolerated, 2. Recommend transfer to [facility] for further attempt at ERCP, alternatively if LFt normalize can bring him back as an outpatient in a week and try again. Above information conveyed to Dr Anand covering for hospitalist team.
[2021-07-30] MEDS: VerapamiL HCL SR 180 MG TABLET.ER PO (21:54)
[2021-07-31] MEDS: Piperacillin Sodium/Tazobactam 3.375 GM in 0.9 % Sodium Chloride 50 ML IV ×5 (01:15→22:55)
[2021-07-31 02:22] VITALS: BP 157/82; PULSE 55; RESP 17; TEMP 37.4; O2SAT 94
[2021-07-31 06:19] LABS: Hematocrit 45.1 % (42.0-52.0); Hemoglobin 15.2 g/dl (14.0-18.0); Mean Corpuscular HGB Conc 33.7 g/dl (31.0-36.0); Mean Corpuscular Hemoglobin 28.5 pg (27.0-33.0); Mean Corpuscular Volume 84.5 fL (80.0-98.0); Platelet Count 210 X10*3/uL (160-400); Red Blood Count 5.34 X10*6/uL (4.60-5.80); Red Cell Distribution Width 13.2 % (11.0-16.0); White Blood Count 8.2 X10*3/uL (4.8-10.8)
[2021-07-31 06:34] LABS: Alanine Aminotransferase 281 U/L (0-40); Albumin Level 3.6 g/dL (3.5-5.0); Alkaline Phosphatase 166 U/L (39-117); Anion Gap 14 (12-20); Aspartate Amino Transferase 94 U/L (5-37); Bilirubin Direct 2.3 mg/dL (0.0-0.5); Bilirubin Total 3.7 mg/dL (0.0-1.0); Blood Urea Nitrogen 11 mg/dL (9-16); Calcium 8.8 mg/dL (8.4-10.2); Carbon Dioxide 25 mmol/L (22-29); Chloride 105 mmol/L (96-108); Creatinine Clr Calc Pharmacy 141.6; Estimated Glomerular Filt Rate > 60; Glucose Fasting 106 mg/dL (60-99); Sodium 140 mmol/L (135-145); Total Protein 6.4 g/dL (6.5-8.0)
[2021-07-31] MEDS: Levothyroxine Sodium 175 MCG TABLET PO (06:38)
[2021-07-31 06:39] LABS: Alanine Aminotransferase 281 U/L (0-40); Albumin Level 3.6 g/dL (3.5-5.0); Alkaline Phosphatase 165 U/L (39-117); Anion Gap 13 (12-20); Aspartate Amino Transferase 94 U/L (5-37); Bilirubin Total 3.7 mg/dL (0.0-1.0); Blood Urea Nitrogen 11 mg/dL (9-16); Calcium 8.9 mg/dL (8.4-10.2); Carbon Dioxide 26 mmol/L (22-29); Chloride 105 mmol/L (96-108); Creatinine Clr Calc Pharmacy 141.6; Estimated Glomerular Filt Rate > 60; Glucose Random 107 mg/dL (60-115); Potassium 4.1 mmol/L (3.3-5.1); Sodium 140 mmol/L (135-145); Total Protein 6.4 g/dL (6.5-8.0)
[2021-07-31 07:25] VITALS: BP 180/96; PULSE 58; RESP 18; TEMP 37.1; O2SAT 97
--- NOTE | 2021-07-31 08:18 | PM.PNGS ---
Subjective Subjective Date of Service: 07/31/21 Interval history: attempt at ERCP unsuccessful yesterday he continues to feel well however denies abdominal pain asking about food Physical Exam Vital Signs: Vital Signs: Last Vital Signs Temp 98.8 F 07/31/21 07:25 Pulse 58 07/31/21 07:25 Resp 18 07/31/21 07:25 BP 180/96 H 07/31/21 07:25 Pulse Ox 97 07/31/21 07:25 BMI result Body Mass Index 32.1 Const: General: comfortable and no acute distress Resp: Effort & Inspection: normal respiratory effort Cardio: Rate: regular rate GI: Palpation (GI): Soft to palpation and nontender Objective Data Active Medications Acetaminophen (Acetaminophen 325 Mg Tablet) 650 mg PO ONCE PRN PRN Reason: Pain, Mild (Pain Scale 1-3) Fentanyl (Fentanyl Citrate/Pf 100 Mcg/2 Ml Vial) 50 mcg IVPUSH Q5M PRN; Protocol PRN Reason: Pain, Severe (Pain Scale 7-10) Hydromorphone HCl (Hydromorphone Hcl 1 Mg/Ml Syringe) 1 mg IVPUSH Q4H PRN; Protocol PRN Reason: Pain, Severe (Pain Scale 7-10) Last Admin: 07/29/21 15:09 Dose: 1 mg Documented by: CM Hydromorphone HCl (Hydromorphone Hcl 0.5 Mg/0.5 Ml Syringe) 0.5 mg IVPUSH Q5M PRN; Protocol PRN Reason: Pain, Severe (Pain Scale 7-10) Dextrose/Sodium Chloride (D51/2ns) 1,000 mls @ 100 mls/hr IVCONT .Q10H [facility] Last Infusion: 07/31/21 05:27 Dose: 0 mls/hr Documented by: SANDY Piperacillin Sod/Tazobactam (Sod 3.375 gm/ Sodium Chloride) 50 mls @ 100 mls/hr IV Q6H [facility] Last Infusion: 07/31/21 07:39 Dose: 0 mls/hr Documented by: MARGARITO Promethazine HCl 12.5 mg/ (Sodium Chloride) 50.5 mls @ 202 mls/hr IV ONCE PRN PRN Reason: Nausea and Vomiting Lactated Ringer's (Lr) 1,000 mls @ 100 mls/hr IVCONT .Q10H [facility] Last Infusion: 07/31/21 00:53 Dose: 0 mls/hr Documented by: SANDY Levothyroxine Sodium (Levothyroxine Sodium 175 Mcg Tablet) 175 mcg PO DAILY@0600 [facility] Last Admin: 07/31/21 06:38 Dose: 175 mcg Documented by: SANDY Magnesium Hydroxide (Milk Of Magnesia 30 Ml Oral.Susp) 30 ml PO DAILY PRN PRN Reason: Constipation Melatonin (Melatonin 3 Mg Tablet) 6 mg PO BEDTIME PRN PRN Reason: Insomnia Ondansetron HCl (Ondansetron Hcl 4 Mg/2 Ml Vial) 4 mg IVPUSH Q8H PRN PRN Reason: Nausea and Vomiting Last Admin: 07/30/21 05:58 Dose: 4 mg Documented by: SANDY Sodium Chloride (0.9 % Sodium Chloride Flush 3 Ml Syringe) 3 ml IVFLUSH QSHIFT [facility] Last Admin: 07/31/21 01:16 Dose: Not Given Documented by: SANDY Non-Admin Reason: IV Running Spironolactone (Spironolactone 25 Mg Tablet) 25 mg PO DAILY [facility]; Protocol Last Admin: 07/30/21 08:42 Dose: 25 mg Documented by: LOIS Verapamil HCl (Verapamil Hcl Sr 180 Mg Tablet.Er) 180 mg PO BEDTIME [facility]; Protocol Last Admin: 07/30/21 21:54 Dose: 180 mg Documented by: SANDY Labs CBC & Chem 7: 07/31/21 05:51 07/31/21 05:51 Labs: Laboratory Results - last 24 hr 07/30/21 07/31/21 07/31/21 05:42 05:51 05:51 MCV 84.5 MCH 28.5 MCHC 33.7 RDW 13.2 Plt Count 210 MPV 10.0 Absolute Nucleated RBC 0.000 Nucleated RBC % (auto) 0.0 Anion Gap 12 14 Estim Creat Clear Calc 147.5 141.6 Estimated GFR > 60 > 60 Random Glucose 113 Fasting Glucose 106 H Calcium 8.4 D 8.8 Total Bilirubin 8.1 H 3.7 H Direct Bilirubin 5.6 H 2.3 H AST 129 H 94 H ALT 339 H 281 H Alkaline Phosphatase 161 H 166 H Total Protein 6.0 L 6.4 L Albumin 3.5 D 3.6 07/31/21 05:51 MCV MCH MCHC RDW Plt Count MPV Absolute Nucleated RBC Nucleated RBC % (auto) Anion Gap 13 Estim Creat Clear Calc 141.6 Estimated GFR > 60 Random Glucose 107 Fasting Glucose Calcium 8.9 Total Bilirubin 3.7 H Direct Bilirubin AST 94 H ALT 281 H Alkaline Phosphatase 165 H Total Protein 6.4 L Albumin 3.6 Microbiology Microbiology Results: Microbiology 07/29/21 10:35 Blood Culture - Preliminary Blood - Venous No growth after 24 hours. 07/29/21 10:25 Blood Culture - Preliminary Blood - Venous No growth after 24 hours. Procedures Date of Service Date of Service: 07/31/21 Progress Note: A&P Assessment and plan (1) Choledocholithiasis: Status: Acute Assessment and Plan: denies abdominal pain ERCP unsuccessful bilirubin has trended down significantly may have passed stone follow LFTs if bilirubin continues to trend down, repeat ERCP may be done as outpatient he looks well otherwise Time Spent With Patient Time: Total time spent is greater than 50% in coordination of care (as documented) at patient's floor/unit and/or counseling patient: Quality Stroke Does the patient have a stroke diagnosis?: No VTE Prior VTE?: No VTE Risk Level:: Medical - low VTE Device Contraindication: Treatment Not Indicated VTE Drug Contraindication: Treatment Not Indicated
[2021-07-31] MEDS: Spironolactone 25 MG TABLET PO (08:39)
[2021-07-31] MEDS: 0.9 % Sodium Chloride Flush 3 ML SYRINGE IVFLUSH ×2 (08:39→20:27)
[2021-07-31] MEDS: Lactated Ringers 1,000 ML 100 ML IVCONT ×2 (10:21→20:28)
--- NOTE | 2021-07-31 13:08 | HO.PM.IMPN ---
Subjective Subjective Date of Service: 07/31/21 Interval History: cc: abd pain interval history:improved Cardiovascular Cardiovascular: Reports no additional cardiovascular complaints Respiratory Respiratory: Reports no additional respiratory complaints Physical Exam Vital Signs: Vital Signs: Last Vital Signs Temp 98.8 F 07/31/21 07:25 Pulse 58 07/31/21 07:25 Resp 18 07/31/21 07:25 BP 180/96 H 07/31/21 07:25 Pulse Ox 97 07/31/21 07:25 BMI result Body Mass Index 32.1 General: AO X 3, no acute distress Resp: CTA bilateral, no accessory muscles used CVS: S1,S2,RRR GI: soft, non tender, non distended Neuro: motor grossly intact, alert Psych: appropriate affect, appropriate insight Objective Data Active Medications Acetaminophen (Acetaminophen 325 Mg Tablet) 650 mg PO ONCE PRN PRN Reason: Pain, Mild (Pain Scale 1-3) Fentanyl (Fentanyl Citrate/Pf 100 Mcg/2 Ml Vial) 50 mcg IVPUSH Q5M PRN; Protocol PRN Reason: Pain, Severe (Pain Scale 7-10) Hydromorphone HCl (Hydromorphone Hcl 1 Mg/Ml Syringe) 1 mg IVPUSH Q4H PRN; Protocol PRN Reason: Pain, Severe (Pain Scale 7-10) Last Admin: 07/29/21 15:09 Dose: 1 mg Documented by: CM Hydromorphone HCl (Hydromorphone Hcl 0.5 Mg/0.5 Ml Syringe) 0.5 mg IVPUSH Q5M PRN; Protocol PRN Reason: Pain, Severe (Pain Scale 7-10) Piperacillin Sod/Tazobactam (Sod 3.375 gm/ Sodium Chloride) 50 mls @ 100 mls/hr IV Q6H [facility] Last Infusion: 07/31/21 07:39 Dose: 0 mls/hr Documented by: MARGARITO Promethazine HCl 12.5 mg/ (Sodium Chloride) 50.5 mls @ 202 mls/hr IV ONCE PRN PRN Reason: Nausea and Vomiting Lactated Ringer's (Lr) 1,000 mls @ 100 mls/hr IVCONT .Q10H [facility] Last Admin: 07/31/21 10:21 Dose: 100 mls/hr Documented by: MARGARITO Levothyroxine Sodium (Levothyroxine Sodium 175 Mcg Tablet) 175 mcg PO DAILY@0600 [facility] Last Admin: 07/31/21 06:38 Dose: 175 mcg Documented by: SANDY Magnesium Hydroxide (Milk Of Magnesia 30 Ml Oral.Susp) 30 ml PO DAILY PRN PRN Reason: Constipation Melatonin (Melatonin 3 Mg Tablet) 6 mg PO BEDTIME PRN PRN Reason: Insomnia Ondansetron HCl (Ondansetron Hcl 4 Mg/2 Ml Vial) 4 mg IVPUSH Q8H PRN PRN Reason: Nausea and Vomiting Last Admin: 07/30/21 05:58 Dose: 4 mg Documented by: SANDY Sodium Chloride (0.9 % Sodium Chloride Flush 3 Ml Syringe) 3 ml IVFLUSH QSHIFT [facility] Last Admin: 07/31/21 08:39 Dose: 3 ml Documented by: MARGARITO Spironolactone (Spironolactone 25 Mg Tablet) 25 mg PO DAILY [facility]; Protocol Last Admin: 07/31/21 08:39 Dose: 25 mg Documented by: MARGARITO Verapamil HCl (Verapamil Hcl Sr 180 Mg Tablet.Er) 180 mg PO BEDTIME [facility]; Protocol Last Admin: 07/30/21 21:54 Dose: 180 mg Documented by: SANDY Labs CBC & Chem 7: 07/31/21 05:51 07/31/21 05:51 Labs: Laboratory Results - last 24 hr 07/31/21 07/31/21 07/31/21 05:51 05:51 05:51 MCV 84.5 MCH 28.5 MCHC 33.7 RDW 13.2 Plt Count 210 MPV 10.0 Absolute Nucleated RBC 0.000 Nucleated RBC % (auto) 0.0 Anion Gap 14 13 Estim Creat Clear Calc 141.6 141.6 Estimated GFR > 60 > 60 Random Glucose 107 Fasting Glucose 106 H Calcium 8.8 8.9 Total Bilirubin 3.7 H 3.7 H Direct Bilirubin 2.3 H AST 94 H 94 H ALT 281 H 281 H Alkaline Phosphatase 166 H 165 H Total Protein 6.4 L 6.4 L Albumin 3.6 3.6 Microbiology Microbiology Results: Microbiology 07/29/21 10:35 Blood Culture - Preliminary Blood - Venous No growth after 48 hours. 07/29/21 10:25 Blood Culture - Preliminary Blood - Venous No growth after 48 hours. Assessment and Plan (1) Choledocholithiasis: Status: Acute Plan 51-year-old male presented with abdominal pain Choledocholithiasis with obstruction No obvious cholangitis Continue empiric antibiotics CBD cannulation not achieved on ERCP MRCP with ?continued filling defect will continue to monitor lfts, if improved likely dc tomorrow with plan for elective reattempt for ercp Hypertension Continue Aldactone, verapamil Hypothyroid Synthroid Low risk for DVT, encourage ambulation Full code reason for continued hospitalization: monitoring overnight for reoslution of obstruciton Quality Stroke Does the patient have a stroke diagnosis?: No VTE Prior VTE?: No VTE Risk Level:: Medical - low VTE Device Contraindication: Treatment Not Indicated VTE Drug Contraindication: Treatment Not Indicated
[2021-07-31 13:27] LABS: Alanine Aminotransferase 286 U/L (0-40); Albumin Level 3.8 g/dL (3.5-5.0); Alkaline Phosphatase 167 U/L (39-117); Aspartate Amino Transferase 97 U/L (5-37); Bilirubin Direct 2.3 mg/dL (0.0-0.5); Bilirubin Total 3.6 mg/dL (0.0-1.0); Total Protein 6.6 g/dL (6.5-8.0)
[2021-07-31 15:00] VITALS: BP 170/92; PULSE 57; RESP 18; TEMP 36.6; O2SAT 95
--- NOTE | 2021-07-31 15:17 | MHC.CM.PN ---
nurse manager green not electronic medical record reviewed along with case discussed with staff eugenie and becca , met, with patient he [id number] he will be going for a test today per hospitlaist a mrcp depenedning on what this shows he may be discharged home later today discharge plan home no vna , no dme servies pcp dr jake romo patient instructed to calal for o-post hospitla dischagre debra koch up transportation family patient will need a return to work note upon fdischarge
[2021-07-31 19:00] VITALS: BP 157/82; PULSE 64; RESP 18; TEMP 36.4; O2SAT 96
--- NOTE | 2021-07-31 19:34 | HO.POSTANES ---
Post Anesthesia Evaluation Post Anesthesia Evaluation Vital Signs: Vital Signs Temp Pulse Resp BP Pulse Ox 07/31/21 19:00 97.6 F 64 18 157/82 H 96 07/31/21 15:00 97.8 F 57 18 170/92 H 95 Anesthesia: General Endotracheal-GETA Mental Status: Awake Pain Control: Satisfactory Nausea/Vomiting: None Hydration: Adequate Anesthesia-Related Issues: No Anes. Related Issues
[2021-07-31] MEDS: VerapamiL HCL SR 180 MG TABLET.ER PO (20:27)
[2021-08-01 03:46] VITALS: BP 153/94; PULSE 65; RESP 16; TEMP 36.3; O2SAT 96
[2021-08-01] MEDS: ondansetron HCL 4 MG/2 ML VIAL IVPUSH (06:09)
[2021-08-01] MEDS: Lactated Ringers 1,000 ML 100 ML IVCONT (06:10)
[2021-08-01] MEDS: Piperacillin Sodium/Tazobactam 3.375 GM in 0.9 % Sodium Chloride 50 ML IV (06:11)
[2021-08-01] MEDS: Levothyroxine Sodium 175 MCG TABLET PO (06:11)
[2021-08-01 06:14] LABS: Alanine Aminotransferase 273 U/L (0-40); Albumin Level 3.5 g/dL (3.5-5.0); Alkaline Phosphatase 145 U/L (39-117); Anion Gap 10 (12-20); Aspartate Amino Transferase 100 U/L (5-37); Bilirubin Direct 1.6 mg/dL (0.0-0.5); Bilirubin Total 2.4 mg/dL (0.0-1.0); Blood Urea Nitrogen 19 mg/dL (9-16); Calcium 8.4 mg/dL (8.4-10.2); Carbon Dioxide 26 mmol/L (22-29); Chloride 106 mmol/L (96-108); Creatinine Clr Calc Pharmacy 143.5; Estimated Glomerular Filt Rate > 60; Glucose Fasting 97 mg/dL (60-99); Potassium 3.6 mmol/L (3.3-5.1); Sodium 138 mmol/L (135-145)
[2021-08-01 07:41] VITALS: BP 164/92; PULSE 65; RESP 17; TEMP 36.1; O2SAT 97
[2021-08-01] MEDS: Spironolactone 25 MG TABLET PO (09:14)
--- NOTE | 2021-08-01 10:48 | PM.DS ---
DS: Providers Provider Date of Service: 08/01/21 Date of admission: 07/29/21 13:35 Primary care physician: Unknown Physician Consults: 07/29/21 15:49 Consult to General Surgery Routine Consulting Provider: Schuyler Cuenca Reason for consultation: cholechodocholithiasis Has provider been notified: Yes DS: Diagnosis Discharge Diagnosis (1) Choledocholithiasis: Status: Acute DS: Summary Hospital Course Hospital Course: from initial hpi: Chief Complaint: Abdominal pain 51-year-old male history of rectal s/p? total colectomy, radiation therapy and chemotherapy 7 years prior, cholecystectomy 02/06/[address] Avila? who presented to the ED with chest pain shortness of breath and dyspnea on exertion symptoms started Wednesday 3 days ago and fell worse yesterday and actually came to the ED and vomitted and felt better and because of waiting time he left and returns today. He has been having abdominal pain centered around ieostomy bag of 11/15.? His ileostomy output has gone down, he is not aware of his sclera icteris.? CT of abdomen show?Probable gallstones in the cystic duct remnant. Question distal cystic duct versus common bile duct stone. The common bile duct measures 8 to 9 mm. No intrahepatic biliary duct dilatation. Because of chest pain and shortness a CTA was done and is negative for PE.? LFT show total bilirubin of 11.9, direct bili 8, AST 307, ALT 528, alk-phos is 186.? Troponin I was normal EKG showed no acute ischemic changes.? hospital course: Patient was admitted for abdominal pain due to choledocholithiasis with obstruction with no obvious signs of cholangitis. He was given empiric antibiotics and pain medications. He underwent ERCP, however, common bile duct was not able to be cannulated. However, postprocedure patient's pain significantly improved, his bilirubin decreased from 11-2.6 at time of discharge. Repeat MRCP did show stone in retained cystic duct and in CBD without obstruction. Patient tolerated solid diet. Plan is for discharge home with follow-up for elective ERCP as outpatient. For his hypertension he will continue on Aldactone and verapamil, for hypothyroidism will continue on Synthroid. Time Spent with Patient Time attestation: Total time spent providing and/or coordinating discharge services: Discharge coordination time: Greater than 30 minutes Quality: Safe Use of Opioids Does Pt have an Active Cancer Diagnosis on the Problem List?: No Quality: Stroke Does the patient have a stroke diagnosis?: No Physical Exam Vital Signs: Vital Signs: Last Vital Signs Temp 97 F 08/01/21 07:41 Pulse 65 08/01/21 07:41 Resp 17 08/01/21 07:41 BP 164/92 H 08/01/21 07:41 Pulse Ox 97 08/01/21 07:41 BMI result Body Mass Index 32.1 General: AO X 3, no acute distress Resp: CTA bilateral, no accessory muscles used CVS: S1,S2,RRR GI: soft, non tender, non distended Neuro: motor grossly intact, alert Psych: appropriate affect, appropriate insight DS: Data Data Completed and Pending Completed studies during hospitalization [Text1]: Procedures Inspection of Gallbladder, Percutaneous Endoscopic Approach (01/23/21) Resection of Gallbladder, Open Approach (01/23/21) Labs on day of discharge: Laboratory Results - last 24 hr 07/31/21 08/01/21 13:01 05:45 Sodium 138 Potassium 3.6 Chloride 106 Carbon Dioxide 26 Anion Gap 10 L BUN 19 H D Creatinine 0.74 Estim Creat Clear Calc 143.5 Estimated GFR > 60 Fasting Glucose 97 Calcium 8.4 Total Bilirubin 3.6 H 2.4 H Direct Bilirubin 2.3 H 1.6 H AST 97 H 100 H ALT 286 H 273 H Alkaline Phosphatase 167 H 145 H Total Protein 6.6 6.0 L Albumin 3.8 3.5 Preliminary micro results at discharge 07/29/21 10:35 Blood Culture - Preliminary Blood - Venous No growth after 48 hours. 07/29/21 10:25 Blood Culture - Preliminary Blood - Venous No growth after 48 hours. Discharge Plan Discharge Patient Disposition: Home, Self-Care Discharge Diagnosis: choledocolithiasis Referrals: Bahman Baker MD [Physician] - 1 Week Physician,Filipe J [Primary Care Provider] - 1 Week Discharge Medications: Continued levothyroxine 175 mcg tablet 1 tab PO DAILY 0RF spironolactone 25 mg tablet 1 tab PO DAILY 0RF verapamil 180 mg capsule,ext rel. pellets 24 hr 1 cap PO BEDTIME 0RF Discharge Orders: Discharge Order (Routine); Ordered 08/01/21 Ordered By: Yossi Pineda Diet: advance to usual diet Activity on Discharge: As tolerated Stand Alone Forms: Patient Portal Discharge page Care Plan Goals: manage cbd stones Health Concerns: cbd stones Plan of Treatment: follow up with GI for elective ERCP Assessment: see above
--- NOTE | 2021-08-01 12:25 | MHC.CM.PN ---
nurse medical case manager note electronic medical record reviewed along with case diascussed with staff nurse and hospitalsit met with patient he is aware that he will be disvharged home today , discharge plan home no services transportation family pcp hafsa ruiz tinstructed to [facility] for appointment requested from physician return back to work note
== END 2021-08-01 13:37 | disposition home or self-care (01) ==
LOC: HO.ED 12:02 → HO.EDOVER 13:41 → HO.S3 16:56
PROVIDERS: Internal Medicine Gastroenterology; Admitting Provider Internal Medicine; Emergency Provider Emergency Medicine Emergency Medical Services; PCP Physician Assistant Medical; Visit Provider Internal Medicine
PROC: 0FJB8ZZ Inspection of Hepatobiliary Duct, Via Natural or Artificial Opening Endoscopic (ICD-10-PCS; CPT 43260; principal; 2021-07-30 16:00)
DX: K80.51 Calculus of bile duct without cholangitis or cholecystitis with obstruction (principal); E03.9 Hypothyroidism, unspecified; I10 Essential (primary) hypertension; K29.80 Duodenitis without bleeding; Z93.2 Ileostomy status; Z20.822 Contact with and (suspected) exposure to COVID-19; Z92.3 Personal history of irradiation; Z92.21 Personal history of antineoplastic chemotherapy; Z85.048 Personal history of other malignant neoplasm of rectum, rectosigmoid junction, and anus; Z88.8 Allergy status to other drugs, medicaments and biological substances; Z79.890 Hormone replacement therapy; Z79.899 Other long term (current) drug therapy
CPT/HCPCS: 36415; 71045; 71275; 74177; 74181; 80048; 80053; 80061; 80076; 83605; 83690; 84484; 85025; 85027; 85379; 85610; 85730; 87040; 87635; 93005; 96361; 96365; 96375; 99222; 99285; 99291; C1769; C1887; C2617; J1100; J1170; J1610; J2270; J2405; J2543; J3010; Q9967

== ENCOUNTER → 2021-08-05 08:43 | Outpatient (BNVA) | payer OTHER, SELFPAY | PROVIDERS: Visit Provider Orthopaedic Surgery | DX: Z13.89 Encounter for screening for other disorder (principal) ==

== ENCOUNTER 2021-08-06 14:15 | Outpatient (REF) | payer OTHER, SELFPAY ==
[2021-08-06 14:23] LABS: MANUAL DIFF FLAG NO
[2021-08-06 14:44] LABS: Basophils Percent Auto 0.1 % (0-2); Eosinophils Absolute Auto 0.5 X10*3/uL (0.0-0.4); Eosinophils Percent Auto 6.3 % (0-4); Hematocrit 43.5 % (42.0-52.0); Imm Gran Abs Auto 0.08 X10*3/uL (0.00-0.03); Lymphocytes Absolute Auto 1.6 X10*3/uL (1.2-4.9); Lymphocytes Percent Auto 19.5 % (20-40); Mean Corpuscular HGB Conc 32.2 g/dl (31.0-36.0); Mean Corpuscular Hemoglobin 27.7 pg (27.0-33.0); Mean Platelet Volume 10.3 fL (9.4-12.4); Monocytes Absolute Auto 0.7 X10*3/uL (0.1-1.2); Monocytes Percent Auto 7.9 % (2-11); Neutrophils Absolute Auto 5.4 x10*3/uL (2.0-8.3); Neutrophils Percent Auto 65.2 % (45-73); Platelet Count 238 X10*3/uL (160-400); Red Blood Count 5.06 X10*6/uL (4.60-5.80); Red Cell Distribution Width 13.2 % (11.0-16.0); White Blood Count 8.3 X10*3/uL (4.8-10.8)
[2021-08-06 15:11] LABS: Alanine Aminotransferase 144 U/L (0-40); Alkaline Phosphatase 108 U/L (39-117); Anion Gap 12 (12-20); Aspartate Amino Transferase 40 U/L (5-37); Bilirubin Total 1.4 mg/dL (0.0-1.0); Blood Urea Nitrogen 25 mg/dL (9-16); Calcium 9.2 mg/dL (8.4-10.2); Carbon Dioxide 23 mmol/L (22-29); Chloride 108 mmol/L (96-108); Estimated Glomerular Filt Rate > 60; Glucose Random 108 mg/dL (60-115); Potassium 4.2 mmol/L (3.3-5.1); Sodium 139 mmol/L (135-145); Total Protein 6.8 g/dL (6.5-8.0)
== END 2021-08-06 14:16 | disposition home or self-care (01) ==
LOC: HO.LAB 14:15
PROVIDERS: PCP Physician Assistant Medical; Visit Provider Internal Medicine Gastroenterology
DX: K75.81 Nonalcoholic steatohepatitis (NASH) (principal); K80.50 Calculus of bile duct without cholangitis or cholecystitis without obstruction
CPT/HCPCS: 36415; 80053; 85025

== ENCOUNTER 2021-08-11 06:42 | Day surgery (SDC) | payer OTHER, SELFPAY ==
--- NOTE | 2021-08-08 08:58 | HO.ANESPROP2 ---
Documented by User: Noa Patterson NP 08/08/21 09:03 HPI - Anesthesia Eval Consult details Narrative: 51yo M for ERCP with poss spyglass s/p ERCP 07/30/21 with GA-ETT 7.5 (incomplete, Dr Baker recommend waiting for LFTs to improve before repeating) Rectal cancer s/p total colectomy. Ileostomy in place. 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 (Acute) Amputation finger (Acute) S/P cholecystectomy (Acute) Radiation cystitis (Acute) Urethral stricture (Acute) Acute urinary retention (Acute) Past Medical History Medical History Hypertension Hypothyroid Rectal adenocarcinoma Rectal adenoma Family History Family history of problems with anesthesia: No Surgical History Surgical History History of creation of ostomy History of laparoscopic cholecystectomy (~2020) History of surgery History of Problems with Anesthesia: No Social History Social History Household Members: Spouse and Children Housing: House Unable to assess alcohol history related to: Unknown Alcohol intake: current Alcohol intake frequency: holidays/special occasions only Alcohol type: hard liquor Patient Tobacco Use Status: Never used Tobacco Use of substances other than those prescribed or required for medical reasons: No Are you DNR?: No Advance Directives: No Advance Directives Information Provided: Yes Advance Directives Date on File: 01/27/21 service: No Current occupational status: employed Meds Allergies Allergy/AdvReac Type Severity Reaction Status Date / Time No Known Allergies Allergy Verified 08/11/21 07:06 Home Medications Medication Instructions Recorded Confirmed Last Taken Type levothyroxine 175 mcg tablet 1 tab PO DAILY 06/27/20 07/29/21 01/22/21 History spironolactone 25 mg tablet 1 tab PO DAILY 06/27/20 07/29/21 01/22/21 History verapamil 180 mg 24 hr 1 cap PO DAILY 04/07/29/21 01/22/21 History capsule,extended release Exam Exam Date and Time: August 08, 2021 0858 Pertinent Lab Results Pertinent Lab Results: Laboratory Tests 08/06/21 08/06/21 14:21 14:21 WBC 8.3 Hgb 14.0 Hct 43.5 Plt Count 238 Sodium 139 Potassium 4.2 Chloride 108 Carbon Dioxide 23 BUN 25 H Creatinine 0.85 Laboratory Tests 08/06/21 14:21 Calcium 9.2 D Total Bilirubin 1.4 H AST 40 H D ALT 144 H Alkaline Phosphatase 108 D Total Protein 6.8 Albumin 4.0 Narrative Narrative: EKG 07/29/21 Vent. Rate : 071 BPM ? ? Atrial Rate : 071 BPM ?? P-R Int : 176 ms? QRS Dur : 094 ms ? ? QT Int : 450 ms ? ? ? P-R-T Axes : 056 -11 029 degrees ?? QTc Int : 489 ms ? Normal sinus rhythm Possible Left atrial enlargement Prolonged QT Abnormal ECG When compared with ECG of 28-JUL-2021 17:00, No significant change was found ? Assessment and Plan Assessment Anesthesia Assessment: Chart Reviewed Final Anesthetic Review Family History of Problems with Anesthesia: No History of Problems with Anesthesia: No Documented by User: Martha Daley MD 08/11/21 09:21 [facility] Past Medical History Medical History Hypertension Hypothyroid Rectal adenocarcinoma Rectal adenoma Surgical History Surgical History History of creation of ostomy History of laparoscopic cholecystectomy (~2020) History of surgery Social History Social History Household Members: Spouse and Children Housing: House Unable to assess alcohol history related to: Unknown Alcohol intake: current Alcohol intake frequency: holidays/special occasions only Alcohol type: hard liquor Patient Tobacco Use Status: Never used Tobacco Use of substances other than those prescribed or required for medical reasons: No Are you DNR?: No Advance Directives: No Advance Directives Information Provided: Yes Advance Directives Date on File: 01/27/21 service: No Current occupational status: employed Meds Allergies Allergy/AdvReac Type Severity Reaction Status Date / Time No Known Allergies Allergy Verified 08/11/21 07:06 Home Medications Medication Instructions Recorded Confirmed Last Taken Type levothyroxine 175 mcg tablet 1 tab PO DAILY 06/27/20 07/29/21 01/22/21 History spironolactone 25 mg tablet 1 tab PO DAILY 06/27/20 07/29/21 01/22/21 History verapamil 180 mg 24 hr 1 cap PO DAILY 06/27/20 07/29/21 01/22/21 History capsule,extended release Exam Airway Mallampati Class: III TM Dist: >3cm Neck ROM: Full Loose/Missing/Broken Teeth: No Heart: RRR Lungs: CTA Assessment and Plan Assessment Anesthesia Assessment: Anesthesia Plan Discussed Final Anesthetic Review NPO: Yes ASA Class: II Final Preanesthetic Review: Meds/Allgs Chart Reviewed, Consent Obtained/Reviewed and Anes Risks/Benef Reviewed Patient Risk: Low Procedure Risk: Low Anesthetic Plan Anesthetic Plan: GA Disposition: Standard PACU
[2021-08-11] VITALS (11 sets, daily range): BP systolic 117–144; BP diastolic 73–84; PULSE 53–67; RESP 18–22; TEMP 36.3–36.8; O2SAT 95–100; BMI 32.1
--- NOTE | ~2021-08-11 | FL_ITS ---
EXAMINATION: XR FLUOROSCOPY WITH IMAGES CLINICAL INFORMATION: ERCP COMPARISON: MRCP of July 31, 2021 TECHNIQUE: Fluoroscopy performed by Dr. Baker. Fluoroscopy time: 4.3 minutes DAP: 25.8 mGycm2 Images: 14 FINDINGS: Multiple images were performed during ERCP. There is noted to be a filling defect within the common bile duct consistent with calculus. At the end of procedure a common bile duct stent has been placed. FL/FL guidance in OR IMPRESSION: Fluoroscopy provided in the operating room for ERCP.
[2021-08-11] MEDS: Lactated Ringers 1,000 ML 100 ML IVCONT (08:24)
--- NOTE | 2021-08-11 08:29 | MHC.SHP ---
Pre-Procedural Eval Section A Date of Service: 08/11/21 Section B Chief Complaint: chest pain,obstruction bile duct,calculus bile chase Details of Present Illness: second attempt ERCP, able to do precut sphincterotomy last time, but not gain definitve entry to duct Relevant Family History (Specify if Yes): No Relevant Social History: None Present Medications: see Short Stay Collaborative assessment Medical History: Significant History (Hypertension Hypothyroid Rectal adenocarcinoma Rectal adenoma) History of Previous Operations: Relevant previous surgery/procedure and date(s) (History of creation of ostomy History of laparoscopic cholecystectomy (~2020) History of surgery) Allergies: Allergies Allergy/AdvReac Type Severity Reaction Status Date / Time No Known Allergies Allergy Verified 08/11/21 07:06 Review of Systems Sugical H&P ROS: Negative: Constitution, Cardiovascular, Respiratory, Neurological, Psychiatric, Hem-Onc, Allergic/Immunologic, Gastrointestinal, Genitourinary, Musculoskeletal, Integumentary, Endocrine and Eyes/Ears/Nose/Throat Exam Surgical H&P Exam: Normal: HEENT, Normal: Heart, Normal: Lungs, Normal: Extremities, Normal: Skin and Normal: Neurological and Significant Findings: Abdomen (stoma noted) Plan Diagnosis/Plan: Unchanged I have reviewed the history and physical and performed a pertinent physical examination on my patient. No changes have occurred unless specified.
--- NOTE | 2021-08-11 10:52 | P.BOP_ITS ---
Brief Operative Note Date of Service: 08/11/21 Pre-op diagnosis: * CBD stones Post-op diagnosis: same Procedure: see op note Surgeon: Bahman Baker MD Anesthesia: GETA Was an Frame Aligner used for this Procedure?: No Estimated blood loss (mL): 5 Condition: stable Disposition: PACU
--- NOTE | 2021-08-11 10:52 | PM.OP ---
Brief Operative Note Date of Service: 08/11/21 Pre-op diagnosis: CBD stones Post-op diagnosis: same Procedure: see op note Surgeon: Bahman Baker MD Anesthesia: GETA Was an Annual Campaign Manager used for this Procedure?: No Estimated blood loss (mL): 5 Condition: stable Disposition: PACU
--- NOTE | 2021-08-11 10:54 | W.PM.OPN ---
Operative Note Operative Note Date of Service: 08/11/21 Narrative: Description: Endoscopic retrograde cholangiopancreatography (ERCP). PROCEDURE: Endoscopic retrograde cholangiopancreatography with sphincterotomy, sphincteroplasty, balloon extraction, spyglass, EHL and stent placement INDICATION FOR THE PROCEDURE: Patient with a history of abdominal pain and imaging revealing CBD stones, repeat ERCP MEDICATIONS: General anesthesia, cefotetan 1 g IV The risks of the procedure were made aware to the patient and consisted of medication reaction, bleeding, perforation, aspiration, and post ERCP pancreatitis. DESCRIPTION OF PROCEDURE: After informed consent and appropriate sedation, the duodenoscope was inserted into the oropharynx, down the esophagus, and into the stomach. The scope was then advanced through the pylorus to the ampulla. The ampulla was noted. The PD was entered with the wire and a Ani precut was done. The tome was then angled adn entered the CBD which confirmed entry into the CBD with a filling defect seen in the distal CBD. A sphincterotomy was performed with purulent bilious material coming out. A sphinteroplasty was also done to open the ampulla more. A balloon extraction was performed with only small amount of debris coming out. A basket was then placed and mechanical lithotripsy done with more stone fragments noted. spyglass was performend and confirmed a stone still in the distal CBD. using EHL the stone broke into smaller fragments. The spyglass probe was then advanced to the cystic duct stump with further noted made of 10-12 mm impacted stone, EHL was again performed and this broke into smaller fragments. The fragments could not be retrieved thru the spyglass. A 10 Fr, 9 cm biliary stent was then advanced but mis deployed so this was removed. A 9 cm x 7 Fr stent was then placed successfully with bile flowing freely. There was some minor oozing which had ceased by the end of the procedure. The stomach was then decompressed and the endoscope was withdrawn. FINDINGS: 1. choledocholithiasis and stone remnants in the cystic duct stump RECOMMENDATIONS: 1. NPO except ice chips for next 4-6 hrs then clears as tolerated, can advance diet tomorrow if feels well 2. return for stent removal in about 3 months, possible repeat spyglass.
[2021-08-11] MEDS: fentaNYL citrate/PF 100 MCG/2 ML VIAL 25 MCG IVPUSH ×3 (11:30→11:45)
== END 2021-08-11 12:45 | disposition home or self-care (01) ==
PROVIDERS: PCP Physician Assistant Medical; Visit Provider Internal Medicine Gastroenterology
PROC: (CPT 43260; principal; 2021-08-11 08:30)
DX: K80.50 Calculus of bile duct without cholangitis or cholecystitis without obstruction (principal); I10 Essential (primary) hypertension; Z85.048 Personal history of other malignant neoplasm of rectum, rectosigmoid junction, and anus; Z90.49 Acquired absence of other specified parts of digestive tract; R07.9 Chest pain, unspecified; E03.9 Hypothyroidism, unspecified; Z79.899 Other long term (current) drug therapy
CPT/HCPCS: 43274; 43273; 43265; C1769; C1887; C2617; J0690; J1100; J1610; J2250; J2405; J3010; Q9967

== ENCOUNTER 2021-08-12 14:30 | Outpatient (RCR) | payer OTHER, SELFPAY ==
--- NOTE | 2021-07-25 09:55 | MHC.OT.OEV ---
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 Occassional heavy lifting, use of hand tools, turning knobs, levers etc Enjoys playing with grand children, fishing and making jerky Living Situation, Family and/or Social Support: . 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 light use of right Avoiding heavy activity..Doing laundry , dishes, cooking Sleep: WNL Driving: WNL Vision: Balance: Pain Assessment Pain Score: 2 Pain Scale Used: Numeric (0 - 10) Pain Location and Description: 2 right MF tip . If bumped 10 brief. Aggravating Factors: Bumping, lifting something too heavy ie heavy grocery bags Alleviating Factors: Skin and Soft Tissue Assessment Skin and Soft Tissue: Swelling Comments: R MF tip amputation distal to DIPj . [place] thin scar. Round tip shape. mild edema Nerve assessment Ulnar Nerve: Median Nerve: Radial Nerve: Comments: Sensory Assessment Temperature: Light Touch: WFL Proprioception: Vibration: Comments: Hypersensitive at digit tip with mod rough texture Edema Assessment Upper Extremity: Right Impaired Lower Extremity: Comments: MF MP R 7.5 cm L 7 cm Dexterity Assessment Dexterity: WNL Comments: Functional Dexterity Test.. 9 Hole Peg Test.. Pt avoiding use of short MF Special Tests Comments: AROM(PROM) Strength Cervical Cervical Flexion: Cervical Extension: Cervical Lateral Flexion: Cervical Rotation: Comments: Shoulder Flexion: Extension: Abduction: Internal Rotation: External Rotation: Comments: Flexion: Extension: Abduction: Internal Rotation: External Rotation: Comments: Elbow Flexion: Extension: Pronation: Supination: Comments: Flexion: Extension: Pronation: Supination: Comments: Wrist Flexion: Extension: Ulnar Deviation: Radial Deviation: Comments: Flexion: Extension: Ulnar Deviation: Radial Deviation: Comments: Thumb Thumb CMC Flexion: Thumb MCP Flexion: Thumb IP Flexion: Radial Abduction: Palmar Abduction: [place] (Kapandji 0-10): Comments: Digits Index MCP: PIP: DIP: Long MCP: PIP: Right 100 deg DIP: Right 50 deg Ring MCP: PIP: DIP: Small MCP: PIP: DIP: Comments: Gross Grasp: Lateral Pinch: Two-Point Pinch: Three-Jaw Jeffrey: Comments: Deferred Patient Education Primary Language: Albanian Seals Engraver Required: No Current Knowledge: Teaching Method: Demonstration Verbal Education Needs Identified on Evaluation: Exercise How did patient/family demonstrate learning? Patient demonstrates Patient verbalizes Barriers to Learning: None Readiness for Learning: Accepting Who was educated? 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 The digit stump is with a thin pink scar , pink skin and nicely shaped. It is sensitive to rough texture and pressure. Pt has been protecting the digit stump with a bandage and reports full use of his hand at home and on modified duty with the exception of avoiding heavy lifting and gripping. He expects to be able to return to regular duty on his next MD follow up appt. Pt will benefit from a short course of OT for desensitization and progressing use of his right non dominant hand STG Duration: 3 wks Short Term Goals: Demo indep with HEP for digit desensitization Tolerate moderate tapping with right middle finger Report mild to no difficulty with opening tight jars, carrying groceries and able to prepare jerky Return to regular duty with mild difficulty Quick DASH score to < 10 pts LTG Duration: 3 wks Marketing Performance Analyst Goals: Same as above Frequency and Duration: The patient will be seen 1x wk x 3 wks Treatment Plan: Therapeutic Exercise Therapeutic Activity Home Exercise Program Patient Education Desensitization/Sensory Re-ed Electronically Signed By: Jennifer Mcgill OT CHT CLT Reviewed/agree with student documentation: N/A Therapist: Please sign and return to therapist, Thank you for your referral.
--- NOTE | 2021-08-12 15:13 | MHC.OT.DC ---
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 He is indep with his HEP and should cont to improve with self management. Electronically Signed By: Jennifer Mcgill OT CHT CLT Reviewed/agree with student documentation: N/A Therapist: Please Sign and return to therapist, thank you for your referral.
== END 2021-08-12 15:14 | disposition home or self-care (01) ==
LOC: HO.OT 14:30
PROVIDERS: Visit Provider Orthopaedic Surgery
DX: S68.622D Partial traumatic transphalangeal amputation of right middle finger, subsequent encounter (principal)
CPT/HCPCS: 97110; 97165; 97530

== ENCOUNTER 2021-08-12 15:54 | Outpatient (REF) | payer OTHER, SELFPAY ==
[2021-08-12 16:07] LABS: MANUAL DIFF FLAG NO
[2021-08-12 16:23] LABS: Basophils Percent Auto 0.2 % (0-2); Eosinophils Absolute Auto 0.3 X10*3/uL (0.0-0.4); Eosinophils Percent Auto 2.2 % (0-4); Hematocrit 41.9 % (42.0-52.0); Imm Gran Abs Auto 0.08 X10*3/uL (0.00-0.03); Imm Gran Pct Auto 0.7 % (0.0-0.4); Lymphocytes Percent Auto 16.9 % (20-40); Mean Corpuscular HGB Conc 33.4 g/dl (31.0-36.0); Mean Corpuscular Hemoglobin 28.7 pg (27.0-33.0); Mean Corpuscular Volume 85.9 fL (80.0-98.0); Monocytes Percent Auto 8.5 % (2-11); Neutrophils Absolute Auto 8.6 x10*3/uL (2.0-8.3); Neutrophils Percent Auto 71.5 % (45-73); Platelet Count 243 X10*3/uL (160-400); Red Blood Count 4.88 X10*6/uL (4.60-5.80); Red Cell Distribution Width 12.7 % (11.0-16.0); White Blood Count 12.1 X10*3/uL (4.8-10.8)
[2021-08-12 16:40] LABS: Alanine Aminotransferase 63 U/L (0-40); Alkaline Phosphatase 98 U/L (39-117); Anion Gap 12 (12-20); Aspartate Amino Transferase 27 U/L (5-37); Bilirubin Total 0.9 mg/dL (0.0-1.0); Blood Urea Nitrogen 31 mg/dL (9-16); Calcium 8.8 mg/dL (8.4-10.2); Carbon Dioxide 26 mmol/L (22-29); Chloride 106 mmol/L (96-108); Estimated Glomerular Filt Rate > 60; Glucose Random 98 mg/dL (60-115); Lipase 26 U/L (8-78); Potassium 4.1 mmol/L (3.3-5.1); Sodium 140 mmol/L (135-145); Total Protein 6.6 g/dL (6.5-8.0)
== END 2021-08-12 15:55 | disposition home or self-care (01) ==
LOC: HO.LAB 15:54
PROVIDERS: PCP Physician Assistant Medical; Visit Provider Internal Medicine Gastroenterology
DX: K80.50 Calculus of bile duct without cholangitis or cholecystitis without obstruction (principal); K75.81 Nonalcoholic steatohepatitis (NASH)
CPT/HCPCS: 36415; 80053; 83690; 85025

== ENCOUNTER 2021-08-13 02:03 | Emergency (ER) | payer OTHER, SELFPAY ==
[2021-08-13] VITALS (7 sets, daily range): BP systolic 148–175; BP diastolic 87–96; PULSE 58–67; RESP 14–18; TEMP 36.6–36.8; O2SAT 94–98; BMI 32.1
--- NOTE | ~2021-08-13 | XR_ITS ---
EXAMINATION: XR CHEST CLINICAL INFORMATION: Chest pain COMPARISON: 07/29/2021 TECHNIQUE: Frontal view of the chest was obtained. FINDINGS: Normal symmetric lung volumes. No parenchymal consolidation. No pleural effusion. No pneumothorax. Cardiomediastinal silhouette and pulmonary vascularity are within normal limits. No acute osseous abnormalities. XR/XR chest 1V IMPRESSION: No focal consolidation.
--- NOTE | 2021-08-13 02:07 | ECG_ITS ---
Test Reason : CHEST PAIN Blood Pressure : / mmHG Vent. Rate : 064 BPM Atrial Rate : 064 BPM P-R Int : 182 ms QRS Dur : 088 ms QT Int : 442 ms P-R-T Axes : 025 -10 005 degrees QTc Int : 455 ms Normal sinus rhythm Normal ECG When compared with ECG of 13-AUG-2021 02:02, No significant change was found Referred By: Generic ED Physician Electronically Signed By:SINDY DIAS
--- NOTE | 2021-08-13 02:15 | ED_ITS ---
HPI - Chest Pain General Chief Complaint: Chest Pain Stated Complaint: chest pain Time Seen by Provider: 08/13/21 02:15 Source: patient Mode of arrival: ambulatory Limitations: no limitations History of Present Illness MD complaint: chest pain Onset (ago): day(s) (yesterday ) Timing of current episode: constant Prior episodes: Yes Onset: during rest and during exertion Pain location: substernal, left chest and right chest Pain radiation: none Severity: moderate Quality: other (pressure) Relieving factors: nothing Exacerbating factors: movement Context: other (has had similar in the past but no workup) Associated symptoms: nausea Treatment prior to arrival: none Related Data Home Medications Medication Instructions Recorded Confirmed levothyroxine 175 mcg tablet 1 tab PO DAILY 06/27/20 07/29/21 spironolactone 25 mg tablet 1 tab PO DAILY 06/27/20 07/29/21 verapamil 180 mg 24 hr 1 cap PO DAILY 06/27/20 07/29/21 capsule,extended release Allergies Allergy/AdvReac Type Severity Reaction Status Date / Time No Known Allergies Allergy Verified 08/11/21 07:06 Review of Systems Review of Systems: Constitutional : No Weight loss, No Fever, No Chills ENT/Mouth : No sore throat, No Rhinorrhea Eyes: No Eye Pain, No Swelling Cardiovascular : pos Chest Pain, no SOB, no Dyspnea on Exertion, No Orthopnea, No Edema, No Palpitations Respiratory : No Cough, No Sputum Gastrointestinal : pos Nausea, No Vomiting, No Diarrhea, No abdominal Pain, No Hematochezia, No Melena Genitourinary : No Dysuria, No Urinary Frequency Musculoskeletal : No joint pain, No Myalgias, No Joint Swelling Skin : No Skin Lesions, No rash Neuro : No Weakness, No Numbness, No Dizziness, No Headache Psych : No Anxiety/Panic, No Depression Heme/Lymph: No Bruising, No Lymphadenopathy Endocrine : No Polyuria, No Polydipsia All other systems reviewed and are negative PMFSH Past Medical History Attestation statement: The following information was validated with the patient. Medical History Hypertension Hypothyroid Rectal adenocarcinoma Rectal adenoma Surgical History History of creation of ostomy History of laparoscopic cholecystectomy (~2021) History of surgery Social History Social History Household Members: Spouse and Children Housing: House Unable to assess alcohol history related to: Unknown Alcohol intake: current Alcohol intake frequency: holidays/special occasions only Alcohol type: hard liquor Patient Tobacco Use Status: Never used Tobacco Advance Directives: Yes Advance Directives on File: Yes Advance Directives Date on File: 01/27/21 service: No Current occupational status: employed Physical Exam Vital Signs: Vital Signs: Last Vital Signs Temp 98.0 F 08/13/21 06:56 Pulse 58 08/13/21 06:56 Resp 14 08/13/21 06:56 BP 170/94 H 08/13/21 06:56 Pulse Ox 97 08/13/21 06:56 O2 Del Method 08/13/21 06:56 BMI result Body Mass Index 32.1 Appearance: Alert. Oriented X3. No acute distress. Eyes: Pupils equal, round and reactive to light. ENT: Pharynx normal. Neck: Normal inspection. Neck supple. CVS: Normal heart rate and rhythm. Pulses normal. Respiratory: No respiratory distress. Breath sounds normal. Abdomen: Soft and non-tender. Skin: Skin warm and dry. Normal skin color. Normal skin turgor. Extremities: non-pitting bilateral lower extremity edema. No calf ttp Neuro: Oriented X 3. No motor deficit. No sensory deficit. Course Course Course Narrative: no relief with nitro IV morphine ordered initial troponin under ischemic range signed out pending labs and repeat troponin, if negative would suspect outpatient stress test MDM - Chest Pain MDM Narrative Medical decision making narrative: 51 yo male with hx of HTN, prior rectal cancer s/p chemo and resection, cholecystectomy here with c/o chest pressure since yesterday with some nausea. At this time will obtain troponin x 2, EKG, CXR, give aspirin and nitro. He is not a smoker, his dad did have CAD and AK at age 62. He himself has never had a stress test or workup in the past. If two troponins negative will send home with cardiology referral for outpatient stress test. Patient has no hypoxia, signs of DVT, tachycardia and it is not pleuritic to suggest PE. Lab Data Result diagrams: 08/13/21 02:41 08/13/21 06:40 Labs: Lab Results 08/13/21 08/13/21 08/13/21 Range/Units 02:41 02:41 02:41 WBC 9.0 (4.8-10.8) X10*3/uL RBC 4.84 (4.60-5.80) X10*6/uL Hgb 13.6 L (14.0-18.0) g/dl Hct 40.7 L (42.0-52.0) % MCV 84.1 (80.0-98.0) fL MCH 28.1 (27.0-33.0) pg MCHC 33.4 (31.0-36.0) g/dl RDW 12.8 (11.0-16.0) % Plt Count 198 (160-400) X10*3/uL MPV 10.0 (9.4-12.4) fL Immature Gran % (Auto) 0.6 H (0.0-0.4) % Neut % (Auto) 65.8 (45-73) % Lymph % (Auto) 19.5 L (20-40) % [place] % (Auto) 9.8 (2-11) % Eos % (Auto) 4.1 H (0-4) % Baso % (Auto) 0.2 (0-2) % Lymph # (Auto) 1.8 (1.2-4.9) X10*3/uL [place] # (Auto) 0.9 (0.1-1.2) X10*3/uL Eos # (Auto) 0.4 (0.0-0.4) X10*3/uL Baso # (Auto) 0.0 (0.0-0.2) X10*3/uL Abs Immat Gran (auto) 0.05 H (0.00-0.03) X10*3/uL Absolute Neuts (auto) 5.9 (2.0-8.3) x10*3/uL Absolute Nucleated RBC 0.000 (0.0-0.012) X10*3/uL Nucleated RBC % (auto) 0.0 (0.0-0.2) /100WBC PT 12.1 (9.9-13.0) SEC INR 1.1 (0.9-1.1) Sodium (135-145) mmol/L Potassium (3.3-5.1) mmol/L Chloride (96-108) mmol/L Carbon Dioxide (22-29) mmol/L Anion Gap (12-20) BUN (9-16) mg/dL Creatinine (0.5-1.4) mg/dL Estim Creat Clear Calc Estimated GFR Random Glucose (60-115) mg/dL Calcium (8.4-10.2) mg/dL Magnesium (1.6-2.6) mg/dL Total Bilirubin (0.0-1.0) mg/dL Direct Bilirubin (0.0-0.5) mg/dL AST (5-37) U/L ALT (0-40) U/L Alkaline Phosphatase (39-117) U/L Troponin I High Sens (<3.5-35.0) ng/L B-Natriuretic Peptide (<100) pg/mL Total Protein (6.5-8.0) g/dL Albumin (3.5-5.0) g/dL Lipase (8-78) U/L COVID-19 ([facility]) Negative (Negative) COVID-19 Clin Com See Note 08/13/21 08/13/21 08/13/21 Range/Units 02:41 02:41 06:40 WBC (4.8-10.8) X10*3/uL RBC (4.60-5.80) X10*6/uL Hgb (14.0-18.0) g/dl Hct (42.0-52.0) % MCV (80.0-98.0) fL MCH (27.0-33.0) pg MCHC (31.0-36.0) g/dl RDW (11.0-16.0) % Plt Count (160-400) X10*3/uL MPV (9.4-12.4) fL Immature Gran % (Auto) (0.0-0.4) % Neut % (Auto) (45-73) % Lymph % (Auto) (20-40) % [place] % (Auto) (2-11) % Eos % (Auto) (0-4) % Baso % (Auto) (0-2) % Lymph # (Auto) (1.2-4.9) X10*3/uL [place] # (Auto) (0.1-1.2) X10*3/uL Eos # (Auto) (0.0-0.4) X10*3/uL Baso # (Auto) (0.0-0.2) X10*3/uL Abs Immat Gran (auto) (0.00-0.03) X10*3/uL Absolute Neuts (auto) (2.0-8.3) x10*3/uL Absolute Nucleated RBC (0.0-0.012) X10*3/uL Nucleated RBC % (auto) (0.0-0.2) /100WBC PT (9.9-13.0) SEC INR (0.9-1.1) Sodium 139 (135-145) mmol/L Potassium 3.9 (3.3-5.1) mmol/L Chloride 107 (96-108) mmol/L Carbon Dioxide 25 (22-29) mmol/L Anion Gap 11 L (12-20) BUN 26 H (9-16) mg/dL Creatinine 0.72 (0.5-1.4) mg/dL Estim Creat Clear Calc 147.5 Estimated GFR > 60 Random Glucose 92 (60-115) mg/dL Calcium 8.3 L (8.4-10.2) mg/dL Magnesium 2.1 (1.6-2.6) mg/dL Total Bilirubin 1.3 H (0.0-1.0) mg/dL Direct Bilirubin 0.8 H (0.0-0.5) mg/dL AST 22 (5-37) U/L ALT 54 H (0-40) U/L Alkaline Phosphatase 90 (39-117) U/L Troponin I High Sens 7.0 (<3.5-35.0) ng/L B-Natriuretic Peptide 52 (<100) pg/mL Total Protein 6.3 L (6.5-8.0) g/dL Albumin 3.8 (3.5-5.0) g/dL Lipase 44 (8-78) U/L COVID-19 ([facility]) (Negative) COVID-19 Clin Com ECG Data ECG #1: Attestation: I personally reviewed and interpreted this ECG as follows: ECG interpretation date: 08/13/21 ECG interpretation time: 02:27 Interpretation: Rate: 66 Rhythm: NSR [place]: left Normal P waves. Normal EVA. Normal QRS complex. ST T wave : normal no SURAJ qTC: normal prior studies: no acute ischemia The study has been interpreted contemporaneously by me. Scores Heart Score History: -1- moderately suspicious ECG: -0- normal Age: -1- >45 - <65 Risk factory: -1- 1 or 2 risk factors Troponin: -0- < or = normal limit Score: 3 Risk: 1.7% Discharge Plan Discharge Clinical Impression: Chest pain Patient Disposition: Still a Patient Instructions: Chest Pain (ED) Additional Instructions: return to ED for any worsening symptoms or concerns chest xray and EKG at baseline, repeat tests of the heart were normal you need to see a information scientist and your doctor for an outpatient stress test - call for soon appointment Prescriptions: No Action levothyroxine 175 mcg tablet 1 tab PO DAILY spironolactone 25 mg tablet 1 tab PO DAILY verapamil 180 mg capsule,ext rel. pellets 24 hr 1 cap PO DAILY Referrals: Suzanne Murillo, [employer] [Nurse Practitioner] - 1 week Stand Alone Forms: Work/School Release
--- NOTE | 2021-08-13 02:42 | ECG_ITS ---
Test Reason : chest pain Blood Pressure : / mmHG Vent. Rate : 066 BPM Atrial Rate : 066 BPM P-R Int : 152 ms QRS Dur : 084 ms QT Int : 426 ms P-R-T Axes : -16 -32 024 degrees QTc Int : 446 ms Normal sinus rhythm Left axis deviation Abnormal ECG When compared with ECG of 29-JUL-2021 06:13, No significant change was found Referred By: Hollis Roberto Electronically Signed By:SINDY DIAS
[2021-08-13 02:46] LABS: MANUAL DIFF FLAG NO
[2021-08-13] MEDS: Acetaminophen 325 MG TABLET 650 MG PO (02:47)
[2021-08-13] MEDS: Nitroglycerin 0.4 MG TAB.SUBL SUBLINGUAL (02:48)
[2021-08-13] MEDS: Aspirin 81 MG TAB.CHEW 324 MG PO (02:48)
[2021-08-13 02:52] LABS: Basophils Percent Auto 0.2 % (0-2); Eosinophils Absolute Auto 0.4 X10*3/uL (0.0-0.4); Eosinophils Percent Auto 4.1 % (0-4); Hematocrit 40.7 % (42.0-52.0); Hemoglobin 13.6 g/dl (14.0-18.0); Imm Gran Abs Auto 0.05 X10*3/uL (0.00-0.03); Imm Gran Pct Auto 0.6 % (0.0-0.4); Lymphocytes Absolute Auto 1.8 X10*3/uL (1.2-4.9); Lymphocytes Percent Auto 19.5 % (20-40); Mean Corpuscular HGB Conc 33.4 g/dl (31.0-36.0); Mean Corpuscular Hemoglobin 28.1 pg (27.0-33.0); Mean Corpuscular Volume 84.1 fL (80.0-98.0); Monocytes Absolute Auto 0.9 X10*3/uL (0.1-1.2); Monocytes Percent Auto 9.8 % (2-11); Neutrophils Absolute Auto 5.9 x10*3/uL (2.0-8.3); Neutrophils Percent Auto 65.8 % (45-73); Platelet Count 198 X10*3/uL (160-400); Red Blood Count 4.84 X10*6/uL (4.60-5.80); Red Cell Distribution Width 12.8 % (11.0-16.0)
[2021-08-13 02:57] LABS: INTERNATIONAL NORM RATIO 1.1 (0.9-1.1); Prothrombin Time 12.1 SEC (9.9-13.0)
[2021-08-13 03:07] LABS: B Type Natriuretic Peptide 52 pg/mL (<100)
[2021-08-13 03:12] LABS: COVID-19 Test Negative (Negative)
[2021-08-13] MEDS: Morphine Sulfate 2 MG/ML CARTRIDGE IVPUSH (06:48)
[2021-08-13 07:05] LABS: Alanine Aminotransferase 54 U/L (0-40); Albumin Level 3.8 g/dL (3.5-5.0); Alkaline Phosphatase 90 U/L (39-117); Anion Gap 11 (12-20); Aspartate Amino Transferase 22 U/L (5-37); Bilirubin Direct 0.8 mg/dL (0.0-0.5); Bilirubin Total 1.3 mg/dL (0.0-1.0); Blood Urea Nitrogen 26 mg/dL (9-16); Calcium 8.3 mg/dL (8.4-10.2); Carbon Dioxide 25 mmol/L (22-29); Chloride 107 mmol/L (96-108); Creatinine Clr Calc Pharmacy 147.5; Estimated Glomerular Filt Rate > 60; Glucose Random 92 mg/dL (60-115); Lipase 44 U/L (8-78); Magnesium 2.1 mg/dL (1.6-2.6); Potassium 3.9 mmol/L (3.3-5.1); Sodium 139 mmol/L (135-145); Total Protein 6.3 g/dL (6.5-8.0)
[2021-08-13 07:11] LABS: Troponin-I High Sensitivity 7.3 ng/L (<3.5-35.0)
--- NOTE | 2021-08-13 07:38 | ED_ITS ---
HPI - Chest Pain General Chief Complaint: Chest Pain Stated Complaint: chest pain Time Seen by Provider: 08/13/21 02:15 Source: patient Mode of arrival: ambulatory Limitations: no limitations History of Present Illness Pain location: substernal, left chest and right chest Quality: other (pressure) Relieving factors: nothing Exacerbating factors: movement Context: other (has had similar in the past but no workup) Associated symptoms: nausea Related Data Home Medications Medication Instructions Recorded Confirmed levothyroxine 175 mcg tablet 1 tab PO DAILY 06/27/20 07/29/21 spironolactone 25 mg tablet 1 tab PO DAILY 06/27/20 07/29/21 verapamil 180 mg 24 hr 1 cap PO DAILY 06/27/20 07/29/21 capsule,extended release Allergies Allergy/AdvReac Type Severity Reaction Status Date / Time No Known Allergies Allergy Verified 08/11/21 07:06 [facility] Past Medical History Medical History Hypertension Hypothyroid Rectal adenocarcinoma Rectal adenoma Surgical History History of creation of ostomy History of laparoscopic cholecystectomy (~2020) History of surgery Social History Social History Household Members: Spouse and Children Housing: House Unable to assess alcohol history related to: Unknown Alcohol intake: current Alcohol intake frequency: holidays/special occasions only Alcohol type: hard liquor Patient Tobacco Use Status: Never used Tobacco Advance Directives: Yes Advance Directives on File: Yes Advance Directives Date on File: 01/27/21 service: No Current occupational status: employed Physical Exam Vital Signs: Vital Signs: Last Vital Signs Temp 98.0 F 08/13/21 06:56 Pulse 58 08/13/21 06:56 Resp 14 08/13/21 06:56 BP 170/94 H 08/13/21 06:56 Pulse Ox 97 08/13/21 06:56 O2 Del Method 08/13/21 06:56 BMI result Body Mass Index 32.1 Course Course Course Narrative: taken on sign-out pending troponin level. Troponin level is normal. Patient is stable for discharge home to follow-up with cardiology. MDM - Chest Pain Lab Data Result diagrams: 08/13/21 02:41 08/13/21 06:40 Labs: Lab Results 08/13/21 08/13/21 08/13/21 Range/Units 02:41 02:41 02:41 WBC 9.0 (4.8-10.8) X10*3/uL RBC 4.84 (4.60-5.80) X10*6/uL Hgb 13.6 L (14.0-18.0) g/dl Hct 40.7 L (42.0-52.0) % MCV 84.1 (80.0-98.0) fL MCH 28.1 (27.0-33.0) pg MCHC 33.4 (31.0-36.0) g/dl RDW 12.8 (11.0-16.0) % Plt Count 198 (160-400) X10*3/uL MPV 10.0 (9.4-12.4) fL Immature Gran % (Auto) 0.6 H (0.0-0.4) % Neut % (Auto) 65.8 (45-73) % Lymph % (Auto) 19.5 L (20-40) % [place] % (Auto) 9.8 (2-11) % Eos % (Auto) 4.1 H (0-4) % Baso % (Auto) 0.2 (0-2) % Lymph # (Auto) 1.8 (1.2-4.9) X10*3/uL [place] # (Auto) 0.9 (0.1-1.2) X10*3/uL Eos # (Auto) 0.4 (0.0-0.4) X10*3/uL Baso # (Auto) 0.0 (0.0-0.2) X10*3/uL Abs Immat Gran (auto) 0.05 H (0.00-0.03) X10*3/uL Absolute Neuts (auto) 5.9 (2.0-8.3) x10*3/uL Absolute Nucleated RBC 0.000 (0.0-0.012) X10*3/uL Nucleated RBC % (auto) 0.0 (0.0-0.2) /100WBC PT 12.1 (9.9-13.0) SEC INR 1.1 (0.9-1.1) Sodium (135-145) mmol/L Potassium (3.3-5.1) mmol/L Chloride (96-108) mmol/L Carbon Dioxide (22-29) mmol/L Anion Gap (12-20) BUN (9-16) mg/dL Creatinine (0.5-1.4) mg/dL Estim Creat Clear Calc Estimated GFR Random Glucose (60-115) mg/dL Calcium (8.4-10.2) mg/dL Magnesium (1.6-2.6) mg/dL Total Bilirubin (0.0-1.0) mg/dL Direct Bilirubin (0.0-0.5) mg/dL AST (5-37) U/L ALT (0-40) U/L Alkaline Phosphatase (39-117) U/L Troponin I High Sens (<3.5-35.0) ng/L B-Natriuretic Peptide (<100) pg/mL Total Protein (6.5-8.0) g/dL Albumin (3.5-5.0) g/dL Lipase (8-78) U/L COVID-19 ([facility]) Negative (Negative) COVID-19 Clin Com See Note 08/13/21 08/13/21 08/13/21 Range/Units 02:41 02:41 06:40 WBC (4.8-10.8) X10*3/uL RBC (4.60-5.80) X10*6/uL Hgb (14.0-18.0) g/dl Hct (42.0-52.0) % MCV (80.0-98.0) fL MCH (27.0-33.0) pg MCHC (31.0-36.0) g/dl RDW (11.0-16.0) % Plt Count (160-400) X10*3/uL MPV (9.4-12.4) fL Immature Gran % (Auto) (0.0-0.4) % Neut % (Auto) (45-73) % Lymph % (Auto) (20-40) % [place] % (Auto) (2-11) % Eos % (Auto) (0-4) % Baso % (Auto) (0-2) % Lymph # (Auto) (1.2-4.9) X10*3/uL [place] # (Auto) (0.1-1.2) X10*3/uL Eos # (Auto) (0.0-0.4) X10*3/uL Baso # (Auto) (0.0-0.2) X10*3/uL Abs Immat Gran (auto) (0.00-0.03) X10*3/uL Absolute Neuts (auto) (2.0-8.3) x10*3/uL Absolute Nucleated RBC (0.0-0.012) X10*3/uL Nucleated RBC % (auto) (0.0-0.2) /100WBC PT (9.9-13.0) SEC INR (0.9-1.1) Sodium 139 (135-145) mmol/L Potassium 3.9 (3.3-5.1) mmol/L Chloride 107 (96-108) mmol/L Carbon Dioxide 25 (22-29) mmol/L Anion Gap 11 L (12-20) BUN 26 H (9-16) mg/dL Creatinine 0.72 (0.5-1.4) mg/dL Estim Creat Clear Calc 147.5 Estimated GFR > 60 Random Glucose 92 (60-115) mg/dL Calcium 8.3 L (8.4-10.2) mg/dL Magnesium 2.1 (1.6-2.6) mg/dL Total Bilirubin 1.3 H (0.0-1.0) mg/dL Direct Bilirubin 0.8 H (0.0-0.5) mg/dL AST 22 (5-37) U/L ALT 54 H (0-40) U/L Alkaline Phosphatase 90 (39-117) U/L Troponin I High Sens 7.0 (<3.5-35.0) ng/L B-Natriuretic Peptide 52 (<100) pg/mL Total Protein 6.3 L (6.5-8.0) g/dL Albumin 3.8 (3.5-5.0) g/dL Lipase 44 (8-78) U/L COVID-19 ([facility]) (Negative) COVID-19 Clin Com 08/13/21 Range/Units 06:40 WBC (4.8-10.8) X10*3/uL RBC (4.60-5.80) X10*6/uL Hgb (14.0-18.0) g/dl Hct (42.0-52.0) % MCV (80.0-98.0) fL MCH (27.0-33.0) pg MCHC (31.0-36.0) g/dl RDW (11.0-16.0) % Plt Count (160-400) X10*3/uL MPV (9.4-12.4) fL Immature Gran % (Auto) (0.0-0.4) % Neut % (Auto) (45-73) % Lymph % (Auto) (20-40) % [place] % (Auto) (2-11) % Eos % (Auto) (0-4) % Baso % (Auto) (0-2) % Lymph # (Auto) (1.2-4.9) X10*3/uL [place] # (Auto) (0.1-1.2) X10*3/uL Eos # (Auto) (0.0-0.4) X10*3/uL Baso # (Auto) (0.0-0.2) X10*3/uL Abs Immat Gran (auto) (0.00-0.03) X10*3/uL Absolute Neuts (auto) (2.0-8.3) x10*3/uL Absolute Nucleated RBC (0.0-0.012) X10*3/uL Nucleated RBC % (auto) (0.0-0.2) /100WBC PT (9.9-13.0) SEC INR (0.9-1.1) Sodium (135-145) mmol/L Potassium (3.3-5.1) mmol/L Chloride (96-108) mmol/L Carbon Dioxide (22-29) mmol/L Anion Gap (12-20) BUN (9-16) mg/dL Creatinine (0.5-1.4) mg/dL Estim Creat Clear Calc Estimated GFR Random Glucose (60-115) mg/dL Calcium (8.4-10.2) mg/dL Magnesium (1.6-2.6) mg/dL Total Bilirubin (0.0-1.0) mg/dL Direct Bilirubin (0.0-0.5) mg/dL AST (5-37) U/L ALT (0-40) U/L Alkaline Phosphatase (39-117) U/L Troponin I High Sens 7.3 (<3.5-35.0) ng/L B-Natriuretic Peptide (<100) pg/mL Total Protein (6.5-8.0) g/dL Albumin (3.5-5.0) g/dL Lipase (8-78) U/L COVID-19 ([facility]) (Negative) COVID-19 Clin Com Discharge Plan Discharge Clinical Impression: Chest pain Qualifiers: Chest pain type: precordial pain Qualified Code(s): R07.2 - Precordial pain Patient Disposition: Home, Self-Care Instructions: Chest Pain (ED) Additional Instructions: return to ED for any worsening symptoms or concerns chest xray and EKG at baseline, repeat tests of the heart were normal you need to see a after school caregiver and your doctor for an outpatient stress test - call for soon appointment Prescriptions: No Action levothyroxine 175 mcg tablet 1 tab PO DAILY spironolactone 25 mg tablet 1 tab PO DAILY verapamil 180 mg capsule,ext rel. pellets 24 hr 1 cap PO DAILY Referrals: Suzanne Murillo, [employer] [Nurse Practitioner] - 1 week Stand Alone Forms: Work/School Release
== END 2021-08-13 08:03 | disposition home or self-care (01) ==
PROVIDERS: Emergency Medicine; Emergency Provider Emergency Medicine
DX: R07.2 Precordial pain (principal); Z20.822 Contact with and (suspected) exposure to COVID-19; I10 Essential (primary) hypertension
CPT/HCPCS: 36415; 71045; 80048; 80076; 83690; 83735; 83880; 84484; 85025; 85610; 87635; 93005; 99283; 99284; 99285; J2270

== ENCOUNTER 2021-08-19 12:46 | Outpatient (REF) | payer OTHER, SELFPAY ==
[2021-08-19 12:57] LABS: MANUAL DIFF FLAG NO
[2021-08-19 13:49] LABS: Basophils Percent Auto 0.3 % (0-2); Eosinophils Absolute Auto 0.6 X10*3/uL (0.0-0.4); Eosinophils Percent Auto 6.3 % (0-4); Imm Gran Pct Auto 1.1 % (0.0-0.4); Lymphocytes Absolute Auto 1.8 X10*3/uL (1.2-4.9); Lymphocytes Percent Auto 20.1 % (20-40); Mean Corpuscular HGB Conc 32.6 g/dl (31.0-36.0); Mean Corpuscular Hemoglobin 28.1 pg (27.0-33.0); Mean Corpuscular Volume 86.2 fL (80.0-98.0); Mean Platelet Volume 10.4 fL (9.4-12.4); Monocytes Absolute Auto 0.8 X10*3/uL (0.1-1.2); Monocytes Percent Auto 8.6 % (2-11); Neutrophils Absolute Auto 5.5 x10*3/uL (2.0-8.3); Neutrophils Percent Auto 63.6 % (45-73); Platelet Count 242 X10*3/uL (160-400); Red Blood Count 4.99 X10*6/uL (4.60-5.80); Red Cell Distribution Width 12.8 % (11.0-16.0); White Blood Count 8.7 X10*3/uL (4.8-10.8)
[2021-08-19 14:15] LABS: Appearance Urine HAZY; Color Urine DK YELLOW; Glucose Urine UA NEG (NEG); Leukocyte Esterase Urine NEG (NEG); Nitrite Urine NEG (NEG); PH 5.5 (5.0-8.0); Specific Gravity - Urine >= 1.030 (1.005-1.025); Urine Blood NEG (NEG); Urine Ketones NEG (NEG); Urine Protein TRACE MG/DL (NEG-TRACE)
[2021-08-19 14:26] LABS: Alanine Aminotransferase 264 U/L (0-40); Albumin Level 4.1 g/dL (3.5-5.0); Alkaline Phosphatase 230 U/L (39-117); Anion Gap 11 (12-20); Aspartate Amino Transferase 118 U/L (5-37); Bilirubin Total 1.3 mg/dL (0.0-1.0); Blood Urea Nitrogen 30 mg/dL (9-16); Calcium 9.2 mg/dL (8.4-10.2); Carbon Dioxide 28 mmol/L (22-29); Chloride 107 mmol/L (96-108); Estimated Glomerular Filt Rate > 60; Glucose Random 83 mg/dL (60-115); Potassium 4.5 mmol/L (3.3-5.1); Sodium 141 mmol/L (135-145); Total Protein 6.9 g/dL (6.5-8.0)
== END 2021-08-19 12:47 | disposition home or self-care (01) ==
LOC: HO.LAB 12:46
PROVIDERS: PCP Physician Assistant Medical; Visit Provider Internal Medicine Gastroenterology
DX: K80.50 Calculus of bile duct without cholangitis or cholecystitis without obstruction (principal)
CPT/HCPCS: 36415; 80053; 81003; 85025

== ENCOUNTER 2021-08-21 12:53 | Day surgery (SDC) | payer OTHER, SELFPAY ==
[2021-08-21] VITALS (7 sets, daily range): BP systolic 127–156; BP diastolic 84–96; PULSE 59–96; RESP 16–20; TEMP 36.3–36.4; O2SAT 96–100; BMI 32.1
--- NOTE | ~2021-08-21 | FL_ITS ---
EXAMINATION: XR FLUOROSCOPY WITH IMAGES CLINICAL INFORMATION: ERCP COMPARISON: Fluoroscopic spot views 08/11/2021, MRCP 07/31/2021 TECHNIQUE: Fluoroscopy performed by Dr. Baker. Fluoroscopy time: 3.88 minutes Cumulative dose: 89.18 mGy Images: 9 FINDINGS: There are surgical clips right upper quadrant from prior cholecystectomy. Some of the images show contrast in the biliary tree. No extravasation. Biliary stent is in position. FL/FL guidance in OR IMPRESSION: Fluoroscopy for GI procedure.
--- NOTE | 2021-08-21 12:42 | HO.ANESPROP2 ---
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 (Acute) Amputation finger (Acute) S/P cholecystectomy (Acute) Radiation cystitis (Acute) Urethral stricture (Acute) Acute urinary retention (Acute) Past Medical History Medical History Hypertension Hypothyroid Rectal adenocarcinoma Rectal adenoma Functional capacity: independent ambulation Family History Family history of problems with anesthesia: No Surgical History Surgical History History of creation of ostomy History of laparoscopic cholecystectomy (~2020) History of surgery History of Problems with Anesthesia: No Social History Social History Household Members: Spouse and Children Housing: House Unable to assess alcohol history related to: Unknown Alcohol intake: current Alcohol intake frequency: holidays/special occasions only Alcohol type: hard liquor Patient Tobacco Use Status: Never used Tobacco Use of substances other than those prescribed or required for medical reasons: No Are you DNR?: No Advance Directives: Yes Advance Directives on File: Yes Advance Directives Date on File: 01/27/21 Recently lost weight without trying: No Eating poorly because of decreased appetite: No Nutrition Risks: No Nutritional Risk service: No Current occupational status: employed Meds Allergies Allergy/AdvReac Type Severity Reaction Status Date / Time No Known Allergies Allergy Verified 08/11/21 07:06 Home Medications Medication Instructions Recorded Confirmed Last Taken Type levothyroxine 175 mcg tablet 1 tab PO DAILY 06/27/20 07/29/21 01/22/21 History spironolactone 25 mg tablet 1 tab PO DAILY 06/27/20 07/29/21 01/22/21 History verapamil 180 mg 24 hr 1 cap PO DAILY 06/27/20 07/29/21 01/22/21 History capsule,extended release Exam Exam Date and Time: August 21, 2021 1242 Airway Mallampati Class: II TM Dist: >3cm Heart: RRR Lungs: CTA Assessment and Plan Final Anesthetic Review Family History of Problems with Anesthesia: No History of Problems with Anesthesia: No ASA Class: III Final Preanesthetic Review: No Changes in Pt Med Stat, Meds/Allgs Chart Reviewed, Consent Obtained/Reviewed and Anes Risks/Benef Reviewed Patient Risk: Intermediate Procedure Risk: Low Anesthetic Plan Anesthetic Plan: GA Disposition: Standard PACU
--- NOTE | 2021-08-21 13:03 | MHC.SHP ---
Pre-Procedural Eval Section A Date of Service: 08/21/21 Section B Chief Complaint: Personal history of retained foreign body fully re Details of Present Illness: concern for occluded stent, rising LFT. Note hx of chest pain with neg trops and no acute changes on multiple ECG. Relevant Family History (Specify if Yes): No Relevant Social History: None Present Medications: see Short Stay Collaborative assessment Medical History: Significant History (Hypertension Hypothyroid Rectal adenocarcinoma Rectal adenoma) History of Previous Operations: Relevant previous surgery/procedure and date(s) (History of creation of ostomy History of laparoscopic cholecystectomy (~2020) History of surgery) Allergies: Allergies Allergy/AdvReac Type Severity Reaction Status Date / Time No Known Allergies Allergy Verified 08/11/21 07:06 Review of Systems Sugical H&P ROS: Negative: Constitution, Cardiovascular, Respiratory, Neurological, Psychiatric, Hem-Onc, Allergic/Immunologic, Gastrointestinal, Genitourinary, Musculoskeletal, Integumentary, Endocrine and Eyes/Ears/Nose/Throat Exam Surgical H&P Exam: Normal: HEENT, Normal: Heart, Normal: Lungs, Normal: Extremities, Normal: Abdomen, Normal: Skin and Normal: Neurological Plan Diagnosis/Plan: Unchanged I have reviewed the history and physical and performed a pertinent physical examination on my patient. No changes have occurred unless specified.
[2021-08-21] MEDS: Lactated Ringers 1,000 ML 100 ML IVCONT (13:32)
--- NOTE | 2021-08-21 13:35 | P.CONAN_ITS ---
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 (Acute) Amputation finger (Acute) S/P cholecystectomy (Acute) Radiation cystitis (Acute) Urethral stricture (Acute) Acute urinary retention (Acute) Past Medical History Medical History Hypertension Hypothyroid Rectal adenocarcinoma Rectal adenoma Functional capacity: independent ambulation Family History Family history of problems with anesthesia: No Surgical History Surgical History History of creation of ostomy History of laparoscopic cholecystectomy (~2020) History of surgery History of Problems with Anesthesia: No Social History Social History Household Members: Spouse and Children Housing: House Unable to assess alcohol history related to: Unknown Alcohol intake: current Alcohol intake frequency: holidays/special occasions only Alcohol type: hard liquor Patient Tobacco Use Status: Never used Tobacco Use of substances other than those prescribed or required for medical reasons: No Are you DNR?: No Advance Directives: Yes Advance Directives on File: Yes Advance Directives Date on File: 01/27/21 Recently lost weight without trying: No Eating poorly because of decreased appetite: No Nutrition Risks: No Nutritional Risk service: No Current occupational status: employed Meds Allergies Allergy/AdvReac Type Severity Reaction Status Date / Time No Known Allergies Allergy Verified 08/11/21 07:06 Active Medications: Current Medications Lactated Ringer's (Lr) 1,000 mls @ 100 mls/hr IVCONT .Q10H LEANDRO Last Admin: 08/21/21 13:32 Dose: 100 mls/hr Home Medications Medication Instructions Recorded Confirmed Last Taken Type levothyroxine 175 mcg tablet 1 tab PO DAILY 06/27/20 07/29/21 01/22/21 History spironolactone 25 mg tablet 1 tab PO DAILY 06/27/20 07/29/21 01/22/21 History verapamil 180 mg 24 hr 1 cap PO DAILY 06/27/20 07/29/21 01/22/21 History capsule,extended release Exam Exam Date and Time: August 21, 2021 1335 Height,Weight and Vital Signs: Height 5 ft 11 in Weight 104.326 kg Last Vital Signs Temp 97.5 F 08/21/21 13:04 Pulse 96 08/21/21 13:04 Resp 18 08/21/21 13:04 BP 156/96 H 08/21/21 13:04 Pulse Ox 96 08/21/21 13:04 O2 Del Method 08/21/21 13:04 Airway Mallampati Class: II TM Dist: >3cm Neck ROM: Full Loose/Missing/Broken Teeth: No (Rrr) Lungs: clear Assessment and Plan Final Anesthetic Review Family History of Problems with Anesthesia: No History of Problems with Anesthesia: No NPO: Yes ASA Class: II Final Preanesthetic Review: No Changes in Pt Med Stat Patient Risk: Low Procedure Risk: Low Anesthetic Plan Anesthetic Plan: GA Disposition: Standard PACU
--- NOTE | 2021-08-21 15:45 | P.BOP_ITS ---
Brief Operative Note Date of Service: 08/21/21 Pre-op diagnosis: abn LFT, concern for occluded stent Post-op diagnosis: same Surgeon: Bahman Baker MD Anesthesia: GETA Was an Shoulder Pad Molder used for this Procedure?: No Estimated blood loss (mL): 5
--- NOTE | 2021-08-21 15:47 | W.PM.OPN ---
Operative Note Operative Note Date of Service: 08/21/21 Narrative: Description: Endoscopic retrograde cholangiopancreatography (ERCP) with stent removal, balloon and basket extraction, sphincteroplasty and spyglass PROCEDURE: Endoscopic retrograde cholangiopancreatography as above INDICATION FOR THE PROCEDURE: Patient with a history of recent stent placement now having abn LFT and abdominal pain MEDICATIONS: General anesthesia, cefotetan 1 g IV The risks of the procedure were made aware to the patient and consisted of medication reaction, bleeding, perforation, aspiration, and post ERCP pancreatitis. DESCRIPTION OF PROCEDURE: After informed consent and appropriate sedation, the duodenoscope was inserted into the oropharynx, down the esophagus, and into the stomach. The scope was then advanced through the pylorus to the ampulla. The ampulla was noted to have a stent protruding. This was removed with snare and noted to have debris in it. A balloon was placed into the CBD and wire placed. The duct was sweeped and some purulent material was removed with some stone debris. A cholangiogram was then performed and no obvious filling defect noted. A hurricaine ballon was used to dilate the sphincter and mid duct to 10 mm. A basket was then used with some clot and further debris removed. The duct was irrigated with saline, no debris noted. Spyglass was then attached and the cystic duct stump, CBD, CHD and intra hepatic ducts were well visualized without any stone material noted. There was some minor oozing which had ceased by the end of the procedure. The stomach was then decompressed and the endoscope was withdrawn. FINDINGS: 1. occluded stent 2. CBd debris and stone material removed 3. Biliary duct clearance with spyglass. RECOMMENDATIONS: 1. NPO except ice chips for next 4-6 hrs then clears as tolerated, can advance diet tomorrow if feels well 2. If any worsening abdominal pain, jaundice, fever needs to come to ED [facility]
== END 2021-08-21 16:45 | disposition home or self-care (01) ==
PROVIDERS: PCP Physician Assistant Medical; Visit Provider Internal Medicine Gastroenterology
PROC: (CPT 43260; principal; 2021-08-21 14:00)
DX: R10.9 Unspecified abdominal pain (principal); R79.89 Other specified abnormal findings of blood chemistry; K83.1 Obstruction of bile duct; Z87.821 Personal history of retained foreign body fully removed; Z90.49 Acquired absence of other specified parts of digestive tract
CPT/HCPCS: 43264; 43273; C1726; C1769; C1887; J0330; J0690; J1100; J1610; J2250; J2405; J3010; Q9966

== ENCOUNTER 2021-09-18 09:01 | Inpatient (IN) | payer OTHER, SELFPAY ==
[2021-09-18] VITALS (8 sets, daily range): BP systolic 162–203; BP diastolic 83–105; PULSE 62–70; RESP 18–23; TEMP 36.8–37; O2SAT 98–100; BMI 32.1; BMI 33.7
--- NOTE | ~2021-09-18 | MR_ITS ---
EXAMINATION: MR ABDOMEN WITHOUT CONTRAST CLINICAL INFORMATION: Abdominal pain. CBD obstruction COMPARISON: ERCP 09/19/2021. Ultrasound 09/18/2021 TECHNIQUE: MR abdomen is performed without gadolinium contrast. FINDINGS: LUNG BASES: The visualized lung bases are unremarkable. LIVER, GALLBLADDER, AND BILIARY TREE: The liver is normal in size, smooth in contour, and normal in signal. No focal hepatic lesion or biliary ductal dilatation is present. Status post cholecystectomy. No residual fluid collection in the gallbladder fossa. The heavily T2-weighted thin section 3-D MRCP images are somewhat motion degraded as to be nearly nondiagnostic. No biliary ductal dilatation seen on the standard T2 weighted signal sequences. The common bile duct is certainly not dilated. PANCREAS: Noncontrast evaluation of the pancreas is normal. SPLEEN: Normal size. No gross splenic lesion seen. ADRENAL GLANDS: No adrenal mass. KIDNEYS AND URETERS: The kidneys are normal in size and shape. No hydronephrosis. No perinephric stranding. GASTROINTESTINAL TRACT: Stomach and small bowel are nondilated. Visualized colon is unremarkable. ABDOMINAL WALL: There is susceptibility artifact from prior anterior abdominal wall hernia mesh. End healed prior laparotomy changes. LYMPH NODES: No lymphadenopathy. VASCULAR: Normal caliber aorta. OSSEOUS STRUCTURES: Marrow signal normal. MR/MR MRCP IMPRESSION: No biliary ductal dilatation. Limited evaluation of the common bile duct for choledocholithiasis but it is normal in caliber and there is no intrahepatic biliary ductal dilatation.
--- NOTE | ~2021-09-18 | FL_ITS ---
EXAMINATION: XR FLUOROSCOPY WITH IMAGES CLINICAL INFORMATION: ERCP COMPARISON: None. TECHNIQUE: Fluoroscopy performed by Olivia. Fluoroscopy time: 4 minutes DAP: 24.7 Gycm2 Images: 9 FINDINGS: Fluoroscopic imaging guidance was made available for a procedure. 9 images are saved and available for review. These images demonstrate an endoscope overlying the right upper quadrant, wire passage and contrast injection of the bile ducts. FL/FL guidance in OR IMPRESSION: Imaging guidance for a procedure. For further detail regarding procedure and findings please refer to the procedure report.
--- NOTE | ~2021-09-18 | CT_ITS ---
EXAMINATION: CT ABDOMEN AND PELVIS WITH CONTRAST CLINICAL INFORMATION: Recurrent right upper quadrant pain status post recent ERCP COMPARISON: CT abdomen and pelvis 07/29/2021 TECHNIQUE: Multidetector volumetric images were obtained from the superior aspect of the liver through the pubic symphysis following administration 85 mL of Omnipaque 350 intravenous contrast. Sagittal and coronal reformatted images were obtained on the technologist's workstation. Oral contrast: Yes This CT examination was performed using dose optimization techniques as appropriate, variously including the following: *Automated exposure control *Adjustment of mA and/or kV according to patient size (this includes techniques or standardized protocols for targeted exams where dose is matched to indication/reason for exam; i.e. extremities or head) *Use of iterative reconstruction technique DLP: 799 mGy-cm FINDINGS: LUNG BASES: Minimal bibasilar atelectasis. LIVER, GALLBLADDER, AND BILIARY TREE: Normal hepatic attenuation. No liver lesion is identified. Hepatic and portal veins are patent. Status post cholecystectomy with surgical clips in the gallbladder fossa. There is a relative high density material within the distal CBD in the common hepatic duct and mural enhancement of the distended cystic duct. Mild periportal fat stranding. The common hepatic duct measures up to 1.2 cm proximally. Slight intrahepatic biliary ductal dilation. PANCREAS: Unremarkable. SPLEEN: Unremarkable. ADRENAL GLANDS: Unremarkable. KIDNEYS AND URETERS: Symmetric nephrograms. No hydronephrosis. Couple small subcentimeter hypodense cortical lesions bilaterally are likely represent tiny cysts, too small to characterize, and unchanged. Tiny 1-2 mm nonobstructing right lower pole renal calculus. Mild symmetric perirenal fascial stranding. BLADDER: Posterior bladder wall appears slightly thickened and contiguous with the thickened presacral soft tissue as on prior. Bladder is otherwise grossly unremarkable. GASTROINTESTINAL TRACT: Status post total colectomy with right lower quadrant and ostomy. No dilated bowel loops. No bowel wall thickening. No pneumoperitoneum or retroperitoneal gas. No ascites. ABDOMINAL WALL: Prior mesh ventral abdominal wall hernia repair. Small fat-containing inguinal hernias. LYMPH NODES: No lymphadenopathy. VASCULAR: Unremarkable. PELVIC VISCERA: Grossly unremarkable. The prostate gland and seminal vesicles appear contiguous with thickened presacral soft tissue as on prior. OSSEOUS STRUCTURES: No fracture or suspicious osseous lesion. Mild multilevel degenerative disc disease. CT/CT abdomen pelvis w con IMPRESSION: 1. Status post cholecystectomy. No calcified CBD stones are identified. There is some high density material within the common hepatic duct and distal common bile duct, which is nonspecific and could represent hemorrhage, sludge, or dilute contrast from a recent ERCP procedure. Correlate with procedural timing. There is enhancement of the prominent caliber cystic duct wall and mild periportal fat stranding. Correlate clinically with signs or symptoms of ascending cholangitis. 2. Small volume pneumobilia and mild prominence of intrahepatic bile ducts. The extrahepatic bile duct is borderline to mildly dilated measuring up to 1.2 cm. 3. No other acute intra-abdominal process identified. 4. Status post colectomy with right lower quadrant ostomy. 5. Additional unchanged ancillary findings, as above.
--- NOTE | ~2021-09-18 | CT_ITS ---
EXAMINATION: CT ANGIOGRAM OF THE CHEST WITH AND WITHOUT CONTRAST (CT PULMONARY ANGIOGRAM FOR PE) CLINICAL INFORMATION: Reason for Exam chest pain, elevated DDIMER COMPARISON: Chest radiograph 08/13/2021, CTA chest 07/29/2021. Ultrasound abdomen 09/18/2021, MRCP 07/31/2021. TECHNIQUE: Prior to contrast administration, noncontrast localization images were obtained. Subsequently, multidetector volumetric imaging was performed from the thoracic inlet to below the diaphragms following the administration of 71 mL Omnipaque 350 intravenous contrast. Sagittal, coronal, and MIP oblique sagittal reformatted images were obtained on the CT workstation, uploaded to PACS, and reviewed. This CT examination was performed using dose optimization techniques as appropriate, variously including the following: *Automated exposure control *Adjustment of mA and/or kV according to patient size (this includes techniques or standardized protocols for targeted exams where dose is matched to indication/reason for exam; i.e. extremities or head) *Use of iterative reconstruction technique Total exam dose-length product 321 mGy-cm FINDINGS: QUALITY OF STUDY/CONTRAST BOLUS: Satisfactory. PULMONARY ARTERIES: There are acute subsegmental emboli right lower lobe involving the superior segment, posterior and lateral basal segments. No central or left pulmonary embolism. Findings are new from prior CT 07/29/2021. THORACIC AORTA: Mild fullness ascending aorta 4.5 cm, stable. No dissection. 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 LUNG: No lobar or segmental airspace consolidation. Central airways are clear. No significant round glass opacity. No mass. PLEURA: No pleural effusion or pneumothorax. MEDIASTINUM: Normal heart size. No pericardial effusion. No hilar or mediastinal lymphadenopathy. No evidence of septal bowing or right heart strain. CHEST WALL/AXILLA: No axillary or internal mammary lymphadenopathy. OSSEOUS STRUCTURES: No acute or suspicious osseous abnormality. UPPER ABDOMEN: Prior cholecystectomy. No intrahepatic ductal dilatation. Adrenal glands unremarkable. No reflux of contrast into the hepatic veins to suggest elevated right heart pressures. Results called to emergency department (Kathy Henson PA-C) at approximately [address]/CT angio chest PE protocol IMPRESSION: -Positive for acute pulmonary embolism right lower lobe subsegmental branches. -No right ventricular strain. No reflux of contrast into the liver. -No pneumothorax, airspace consolidation or effusion. -Mild enlargement ascending aorta, 4.5 cm stable from prior CT 07/29/2021. VTE: positive
--- NOTE | ~2021-09-18 | FL_ITS ---
EXAMINATION: XR FLUOROSCOPY WITH IMAGES CLINICAL INFORMATION: ERCP. COMPARISON: Previous CT of the abdomen and pelvis 09/20/2021 and ERCP 09/19/2021 TECHNIQUE: Fluoroscopy performed by Dr. Fabrice Isaac. Fluoroscopy time: 1.7 minutes Cumulative dose: 41 mGy Images: 5 saved fluoroscopic images FINDINGS: Initial image demonstrates wire and cannulation of the distal common bile duct. No biliary duct dilatation or definite filling defect is appreciated. Later images demonstrate placement of a plastic stent. FL/FL guidance in OR IMPRESSION: Fluoroscopy guidance for ERCP.
--- NOTE | ~2021-09-18 | US_ITS ---
EXAMINATION: US ABDOMEN LIMITED CLINICAL INFORMATION: Elevated LFTs. COMPARISON: MRCP 07/31/2021, CT abdomen pelvis 07/29/2021 TECHNIQUE: Real-time imaging of the right upper quadrant abdominal viscera. FINDINGS: PANCREAS: Visualized portions of the pancreas are unremarkable. The pancreatic tail is obscured by bowel gas. LIVER: Normal. The liver is normal in size. The liver contour is normal. Parenchymal echogenicity is normal. No focal hepatic lesion. There is no intrahepatic biliary duct dilatation seen. GALLBLADDER: Surgically absent. COMMON BILE DUCT: Normal in caliber measuring 0.8 cm in diameter. Previously seen common bile and cystic duct stones are not appreciated sonographically. RIGHT KIDNEY: Normal. No hydronephrosis. No renal calculi or focal parenchymal lesions. The kidney measures 11.8 cm in maximum dimension. FREE FLUID: None. US/US abdomen limited IMPRESSION: Status post cholecystectomy. Common bile duct measures 8 mm in diameter which is within expected limits for the postcholecystectomy state with no intrahepatic biliary duct dilatation. Previously seen common bile and cystic duct stones are not appreciated sonographically.
--- NOTE | ~2021-09-18 | US_ITS ---
EXAMINATION: US VENOUS ULTRASOUND WITH DOPPLER LOWER EXTREMITY, BILATERAL CLINICAL INFORMATION: Swelling. Positive pulmonary embolism. COMPARISON: Venous duplex ultrasound exam 02/10/2020 TECHNIQUE: Ultrasound of the deep veins is performed from the hip to the calf with compression sonography and color and pulse Doppler assessment. Spectral analysis with color-flow imaging is performed. FINDINGS: RIGHT: There is normal venous compression and respiratory variation and augmented flow. The visualized common femoral vein, superficial femoral vein, profunda femoral vein, popliteal vein, and the trifurcation region shows no evidence of deep venous thrombosis. There is no significant popliteal fossa cyst. There are patent varicose veins at the posterior calf. LEFT: There is normal venous compression and respiratory variation and augmented flow. The visualized common femoral vein, superficial femoral vein, profunda femoral vein, popliteal vein, and the trifurcation region shows no evidence of deep venous thrombosis. There is no significant popliteal fossa cyst. There are patent varicose veins in the left thigh.. If the patient's symptoms persist, followup ultrasound in 5 days 7 days might be of value to exclude proximal propagation from a non-visualized calf vein. US/US venous duplex LE BI IMPRESSION: No DVT demonstrated in the bilateral lower extremity.
--- NOTE | 2021-09-18 09:25 | ECG_ITS ---
Test Reason : chest pressure Blood Pressure : / mmHG Vent. Rate : 067 BPM Atrial Rate : 067 BPM P-R Int : 178 ms QRS Dur : 088 ms QT Int : 434 ms P-R-T Axes : 060 -20 037 degrees QTc Int : 458 ms Normal sinus rhythm Normal ECG When compared with ECG of 13-AUG-2021 02:17, No significant change was found Referred By: Kathy Henson Electronically Signed By:LARISA MCKINLEY MD
--- NOTE | 2021-09-18 09:28 | ED_ITS ---
HPI - Chest Pain General Chief Complaint: Chest Pain Stated Complaint: chest pressure Time Seen by Provider: 09/18/21 09:20 Source: patient, RN notes reviewed and old records reviewed Mode of arrival: ambulatory Limitations: no limitations History of Present Illness HPI narrative: This is a 51-year-old male, the with a past medical history of rectal cancer status post total colectomy, radiation therapy and chemotherapy 7 years prior, cholecystectomy on 02/06/[address] Avila, ERCP by performed by Dr. Baker 08/21/2021 with retained stones requiring stent placement, who presents to the emergency department with complaints of chest pain. Patient reports that the chest pain feels like a pressure in and middle on his stress reports that he has had these symptoms for the last couple days but reports that the pain is worse today. He also feels as though his heart is racing. He denies any palpitations, shortness of breath. he denies any fevers, chills, abdominal pain, nausea, vomiting, or diarrhea. He denies taking any medications prior to his arrival to treat his symptoms. He denies any other complaints or concerns at this time. Patient has been seen 3 times in the emergency department since June with complaints of chest pain with negative cardiac workup. Last seen 08/13/2021 with complaints of chest pain with negative workup was advised to follow up with the cabin outfitter to obtain a stress test. Father had CAD and MT at age 62. MD complaint: chest pain Onset (ago): day(s) (4) Timing of current episode: constant Prior episodes: Yes Onset: during rest Pain location: substernal Pain radiation: none Severity: moderate Quality: tightness and aching Relieving factors: nothing Exacerbating factors: nothing Context: recent surgery and recent immobilization Treatment prior to arrival: none Risk Factors Coronary artery disease risk factors: hypertension Thoracic aortic dissection risk factors: none Pulmonary embolism risk factors: recent surgery Related Data Home Medications Medication Instructions Recorded Confirmed levothyroxine 175 mcg tablet 1 tab PO DAILY@0600 06/27/20 09/18/21 spironolactone 25 mg tablet 1 tab PO DAILY 06/27/20 09/18/21 verapamil 180 mg 24 hr 1 cap PO DAILY 06/27/20 09/18/21 capsule,extended release Allergies Allergy/AdvReac Type Severity Reaction Status Date / Time No Known Allergies Allergy Verified 08/11/21 07:06 Review of Systems Review of Systems: Constitutional: No Fever, No Chills ENT/Mouth: No sore throat, No Rhinorrhea, No Swallowing Difficulty Eyes: No Eye Pain, No Swelling, No Redness Cardiovascular: +Chest Pain, No SOB, No Orthopnea, No Edema Respiratory: No Cough, No Sputum, No Wheezing, No dyspnea Gastrointestinal: No Nausea, No Vomiting, No Diarrhea, No abdominal Pain, No Hematochezia, No Melena Genitourinary: No Dysuria, No Urinary Frequency, No Hematuria Musculoskeletal: No joint pain, No Myalgias Skin: No Skin Lesions, No rash Neuro: No Weakness, No Numbness, No Dizziness, No Headache Psych: + Anxiety/Panic, No Depression Heme/Lymph: No Bruising, No Lymphadenopathy Endocrine: No Polyuria, No Polydipsia [facility] Past Medical History Medical History Hypertension Hypothyroid Rectal adenocarcinoma Rectal adenoma Surgical History History of creation of ostomy History of laparoscopic cholecystectomy (~2020) History of surgery Social History Social History Household Members: Spouse and Children Housing: House Unable to assess alcohol history related to: Unknown Alcohol intake: never Patient Tobacco Use Status: Never used Tobacco Smoked in Last 30 Days: No Use of substances other than those prescribed or required for medical reasons: No Advance Directives: Yes Advance Directives on File: Yes Advance Directives Date on File: 01/27/21 service: No Current occupational status: employed Physical Exam Vital Signs: Vital Signs: Last Vital Signs Temp 98.6 F 09/18/21 13:51 Pulse 62 09/18/21 16:52 Resp 20 09/18/21 16:52 BP 176/94 H 09/18/21 16:52 Pulse Ox 98 09/18/21 16:52 O2 Del Method 09/18/21 16:52 BMI result Body Mass Index 32.1 Appearance: Alert. Oriented X3. No acute distress. Eyes: Pupils equal, round and reactive to light. ENT: Pharynx normal. Neck: Normal inspection. Neck supple. CVS: Normal heart rate and rhythm. Pulses normal. Respiratory: Lungs clear to auscultation bilaterally, no wheezes, rales, or rhonchi.No respiratory distress. Breath sounds normal. Abdomen: Soft and nontender. +BS x4 Skin: Skin warm and dry. Normal skin color. Normal skin turgor. No rashes. Extremities: No lower extremity edema. Neuro: Oriented X 3. No motor deficit. No sensory deficit. Course Course Course Narrative: This is a 51-year-old male, the with a past medical history of rectal cancer status post total colectomy, radiation therapy and chemotherapy 7 years prior, cholecystectomy on 02/06/[address] Avila, ERCP with retained stones requiring stent by performed by Dr. Baker 08/21/2021, who presents to the emergency department with complaints of chest pain. P Plan: patient is yet hypertensive at 203/105. He took his blood pressure medications this morning. He is in pain. All other vital signs are within normal limits. Labs and EKG ordered. Patient seen in waiting room at this time as the emergency department is completely full and does not have a treatment room for patient at this time. Reevaluation(s) Reevaluation #1: - A D-dimer was obtained due to recent hospitalization and surgery in August 2021. D-dimer found to be elevated at 625. Will obtain CTA once patient is back into a room - LE edema noted and recent procedure put him at increaed risk of DVT/PE. - AST/ALT found to be elevated at 323 and 357 respectively. - Total bilirubin elevated at 3.9, direct bili 2.6. Elevated alk phos 156. Patient has history of choledocholithiasis status post cholecystectomy, and recent ear C performed in August 2021. Will obtain abdominal ultrasound for further evaluation. Time: 13:08 Reevaluation #2: Right upper quadrant ultrasound return with no evidence of retained stones. Has son came to the emergency department to evaluate the patient. He would like the patient to be admitted, with plan for ERCP tomorrow. Plan for NPO after midnight. With oral pain control, patient gets blood pressure has improved to 170 systolic. Will continue his oral antihypertensives. Reevaluation #3: Received critical results from Radiology regarding patient's CT angio, patient has new subsegmental pulmonary emboli x3 on the right lung. Results of the scan were discussed with Dr. Baker and hospitalist - will plan to start heparin infusion for anticoagulation, plan to hold the infusion for the procedure tomorrow, Dr. Baker would like to proceed with ERCP. Patient updated on the results of the scan, plan for admission and plan of care. He still reporting chest pain, will order low-dose IV Dilaudid and reassess. Will plan to admit to the hospital for further management. Consultations Consultation #1: GI-Dr. Baker MDM - Chest Pain Medical Records Data Attestation: I reviewed the patient's medical records. Lab Data Attestation: I reviewed the patient's lab results. Result diagrams: 09/18/21 09:34 09/18/21 09:34 Labs: Lab Results 09/18/21 09/18/21 09/18/21 Range/Units 09:34 09:34 09:34 WBC 6.8 (4.8-10.8) X10*3/uL RBC 5.37 (4.60-5.80) X10*6/uL Hgb 15.1 (14.0-18.0) g/dl Hct 44.7 (42.0-52.0) % MCV 83.2 (80.0-98.0) fL MCH 28.1 (27.0-33.0) pg MCHC 33.8 (31.0-36.0) g/dl RDW 13.2 (11.0-16.0) % Plt Count 175 D (160-400) X10*3/uL MPV 9.5 (9.4-12.4) fL Immature Gran % (Auto) 1.3 H (0.0-0.4) % Neut % (Auto) 68.5 (45-73) % Lymph % (Auto) 15.5 L (20-40) % Iron % (Auto) 9.7 (2-11) % Eos % (Auto) 4.7 H (0-4) % Baso % (Auto) 0.3 (0-2) % Lymph # (Auto) 1.1 L (1.2-4.9) X10*3/uL Iron # (Auto) 0.7 (0.1-1.2) X10*3/uL Eos # (Auto) 0.3 (0.0-0.4) X10*3/uL Baso # (Auto) 0.0 (0.0-0.2) X10*3/uL Abs Immat Gran (auto) 0.09 H (0.00-0.03) X10*3/uL Absolute Neuts (auto) 4.7 (2.0-8.3) x10*3/uL Absolute Nucleated RBC 0.000 (0.0-0.012) X10*3/uL Nucleated RBC % (auto) 0.0 (0.0-0.2) /100WBC D-Dimer High Sensitivty NG/ML Sodium 138 (135-145) mmol/L Potassium 4.0 (3.3-5.1) mmol/L Chloride 104 (96-108) mmol/L Carbon Dioxide 27 (22-29) mmol/L Anion Gap 11 L (12-20) BUN 18 H (9-16) mg/dL Creatinine 0.82 (0.5-1.4) mg/dL Estim Creat Clear Calc 129.5 Estimated GFR > 60 Random Glucose 95 (60-115) mg/dL Calcium 8.6 D (8.4-10.2) mg/dL Total Bilirubin 3.9 H (0.0-1.0) mg/dL Direct Bilirubin 2.6 H (0.0-0.5) mg/dL AST 323 H (5-37) U/L ALT 357 H (0-40) U/L Alkaline Phosphatase 156 H D (39-117) U/L Troponin I High Sens 7.1 (<3.5-35.0) ng/L Total Protein 7.1 (6.5-8.0) g/dL Albumin 4.3 (3.5-5.0) g/dL Lipase 41 (8-78) U/L COVID-19 ([facility]) (Negative) COVID-19 Clin Com 09/18/21 09/18/21 09/18/21 Range/Units 12:39 12:39 13:46 WBC (4.8-10.8) X10*3/uL RBC (4.60-5.80) X10*6/uL Hgb (14.0-18.0) g/dl Hct (42.0-52.0) % MCV (80.0-98.0) fL MCH (27.0-33.0) pg MCHC (31.0-36.0) g/dl RDW (11.0-16.0) % Plt Count (160-400) X10*3/uL MPV (9.4-12.4) fL Immature Gran % (Auto) (0.0-0.4) % Neut % (Auto) (45-73) % Lymph % (Auto) (20-40) % Iron % (Auto) (2-11) % Eos % (Auto) (0-4) % Baso % (Auto) (0-2) % Lymph # (Auto) (1.2-4.9) X10*3/uL Iron # (Auto) (0.1-1.2) X10*3/uL Eos # (Auto) (0.0-0.4) X10*3/uL Baso # (Auto) (0.0-0.2) X10*3/uL Abs Immat Gran (auto) (0.00-0.03) X10*3/uL Absolute Neuts (auto) (2.0-8.3) x10*3/uL Absolute Nucleated RBC (0.0-0.012) X10*3/uL Nucleated RBC % (auto) (0.0-0.2) /100WBC D-Dimer High Sensitivty 625 NG/ML Sodium (135-145) mmol/L Potassium (3.3-5.1) mmol/L Chloride (96-108) mmol/L Carbon Dioxide (22-29) mmol/L Anion Gap (12-20) BUN (9-16) mg/dL Creatinine (0.5-1.4) mg/dL Estim Creat Clear Calc Estimated GFR Random Glucose (60-115) mg/dL Calcium (8.4-10.2) mg/dL Total Bilirubin (0.0-1.0) mg/dL Direct Bilirubin (0.0-0.5) mg/dL AST (5-37) U/L ALT (0-40) U/L Alkaline Phosphatase (39-117) U/L Troponin I High Sens 7.3 (<3.5-35.0) ng/L Total Protein (6.5-8.0) g/dL Albumin (3.5-5.0) g/dL Lipase (8-78) U/L COVID-19 ([facility]) Negative (Negative) COVID-19 Clin Com See Note Imaging Data US - Abdomen : Attestation: I personally reviewed and interpreted this imaging study as follows: Radiologist's impression: EXAMINATION: US ABDOMEN LIMITED CLINICAL INFORMATION: Elevated LFTs. COMPARISON: MRCP 07/31/2021, CT abdomen pelvis 07/29/2021 TECHNIQUE: Real-time imaging of the right upper quadrant abdominal viscera. FINDINGS: PANCREAS: Visualized portions of the pancreas are unremarkable. The pancreatic tail is obscured by bowel gas. LIVER: Normal. The liver is normal in size. The liver contour is normal. Parenchymal echogenicity is normal. No focal hepatic lesion. There is no intrahepatic biliary duct dilatation seen. GALLBLADDER: Surgically absent. COMMON BILE DUCT: Normal in caliber measuring 0.8 cm in diameter. Previously seen common bile and cystic duct stones are not appreciated sonographically. RIGHT KIDNEY: Normal. No hydronephrosis. No renal calculi or focal parenchymal lesions. The kidney measures 11.8 cm in maximum dimension. FREE FLUID: None. US/US abdomen limited IMPRESSION: ? Status post cholecystectomy. Common bile duct measures 8 mm in diameter which is within expected limits for the postcholecystectomy state with no intrahepatic biliary duct dilatation. Previously seen common bile and cystic duct stones are not appreciated sonographically. Dictated By: Jaclyn Cornejo MD Critical Care Time Critical Care Time Critical Care Time: Yes Total Critical Care Time: 36 Attestation: I have personally provided critical care time exclusive of time spent on separately billable procedures. Time includes review of lab data, radiology results, discussion with consultants, and monitoring for potential decompensation. Intervention performed as documented. Discharge Plan Discharge Clinical Impression: Elevated liver enzymes, Poorly-controlled hypertension, Pulmonary emboli Patient Disposition: Admitted As Inpatient
[2021-09-18 09:38] LABS: MANUAL DIFF FLAG NO
[2021-09-18 09:43] LABS: Basophils Percent Auto 0.3 % (0-2); Eosinophils Absolute Auto 0.3 X10*3/uL (0.0-0.4); Eosinophils Percent Auto 4.7 % (0-4); Hematocrit 44.7 % (42.0-52.0); Hemoglobin 15.1 g/dl (14.0-18.0); Imm Gran Abs Auto 0.09 X10*3/uL (0.00-0.03); Imm Gran Pct Auto 1.3 % (0.0-0.4); Lymphocytes Absolute Auto 1.1 X10*3/uL (1.2-4.9); Lymphocytes Percent Auto 15.5 % (20-40); Mean Corpuscular HGB Conc 33.8 g/dl (31.0-36.0); Mean Corpuscular Hemoglobin 28.1 pg (27.0-33.0); Mean Corpuscular Volume 83.2 fL (80.0-98.0); Mean Platelet Volume 9.5 fL (9.4-12.4); Monocytes Absolute Auto 0.7 X10*3/uL (0.1-1.2); Monocytes Percent Auto 9.7 % (2-11); Neutrophils Absolute Auto 4.7 x10*3/uL (2.0-8.3); Neutrophils Percent Auto 68.5 % (45-73); Platelet Count 175 X10*3/uL (160-400); Red Blood Count 5.37 X10*6/uL (4.60-5.80); Red Cell Distribution Width 13.2 % (11.0-16.0); White Blood Count 6.8 X10*3/uL (4.8-10.8)
[2021-09-18 09:59] LABS: Troponin-I High Sensitivity 7.1 ng/L (<3.5-35.0)
[2021-09-18 10:00] LABS: Anion Gap 11 (12-20); Blood Urea Nitrogen 18 mg/dL (9-16); Calcium 8.6 mg/dL (8.4-10.2); Carbon Dioxide 27 mmol/L (22-29); Chloride 104 mmol/L (96-108); Creatinine Clr Calc Pharmacy 129.5; Estimated Glomerular Filt Rate > 60; Glucose Random 95 mg/dL (60-115); Lipase 41 U/L (8-78); Sodium 138 mmol/L (135-145)
[2021-09-18 12:10] LABS: Alanine Aminotransferase 357 U/L (0-40); Albumin Level 4.3 g/dL (3.5-5.0); Alkaline Phosphatase 156 U/L (39-117); Aspartate Amino Transferase 323 U/L (5-37); Bilirubin Direct 2.6 mg/dL (0.0-0.5); Bilirubin Total 3.9 mg/dL (0.0-1.0); Total Protein 7.1 g/dL (6.5-8.0)
[2021-09-18 12:58] LABS: D Dimer High Sensitivity 625 NG/ML
[2021-09-18 13:09] LABS: Troponin-I High Sensitivity 7.3 ng/L (<3.5-35.0)
[2021-09-18 14:12] LABS: COVID-19 Test Negative (Negative); IDNOW Serial# 9DD0AD1C
--- NOTE | 2021-09-18 15:21 | PHA.MEDREC ---
Pharmacy Consult ? Medication Reconciliation Pharmacy has completed the medication reconciliation.
[2021-09-18] MEDS: oxyCODONE HCl Immed Release 5 MG TABLET PO (15:54)
[2021-09-18] MEDS: iohexoL 350 MG/ML 100 ML INFUS..BTL IV (16:25)
[2021-09-18] MEDS: HYDROmorphone HCl 0.5 MG/0.5 ML SYRINGE IVPUSH (18:00)
[2021-09-18 18:23] LABS: Hematocrit 45.7 % (42.0-52.0); Hemoglobin 15.8 g/dl (14.0-18.0); Mean Corpuscular HGB Conc 34.6 g/dl (31.0-36.0); Mean Corpuscular Hemoglobin 28.7 pg (27.0-33.0); Mean Corpuscular Volume 82.9 fL (80.0-98.0); Platelet Count 175 X10*3/uL (160-400); Red Blood Count 5.51 X10*6/uL (4.60-5.80); Red Cell Distribution Width 12.9 % (11.0-16.0); White Blood Count 8.7 X10*3/uL (4.8-10.8)
[2021-09-18 18:27] LABS: INTERNATIONAL NORM RATIO 1.1 (0.9-1.1); Prothrombin Time 12.1 SEC (10.0-13.1)
[2021-09-18] MEDS: Heparin Sodium,Porcine/1/2NS 25,000 UNIT/250 ML IV.SOLN 15.39 UNIT IVCONT (18:51)
--- NOTE | 2021-09-18 18:53 | PC.NURSE ---
No intial IV bolus of heparin ordered. Contact made to hospitalist team regarding need due to pending admission status. MD stated that patient is still covered by ed providers. clarification sought by ed team. Per Dr. Stanford, no need for initial IV bolus of Heparin.
--- NOTE | 2021-09-18 18:53 | PC.NURSE ---
okay to start heparin drip with no bolus per md alvarenga.
--- NOTE | 2021-09-18 19:39 | P.HPHOSP_ITS ---
History of Present Illness Date of Service: 09/18/21 Chief Complaint: chest pressure This is a 51-year-old male with past medical history of HTN, hypothyroid,history of rectal cancer and UC s/p? total colectomy, radiation therapy and chemotherapy 7 years prior, cholecystectomy 02/06/2021, and radiation cystitis? presents to the hospital with complaints of chest pressure. Patient reports that his symptoms started of at 5 days ago, the pain is constant but wanes in severity. Pain is retrosternal, 10/10 at its worse, nonradiating, not changed by inspiration or expiration or movement. Patient is also complaining of epigastric as well as right upper quadrant pain for the same amount of time. Patient denies any recent travel or prolonged immobilization. Patient underwent an ERCP on August 11 for removal of a CBD stent and clearance . Patient otherwise denies any fever or chills, has nausea with no vomiting, no diarrhea constipation, no urinary symptoms and no lower extremity edema. He does report change in his stool color in the ileostomy bag On arrival to the ED patient hemodynamically stable with no significant abnormal vitals No labs reviewed show unremarkable findings except for an elevated bilirubin of 3.9, 1.3 on 08/19, AST of 323, ALT of 357 both elevated from previous, and alk- phos of [address] angiogram which showed positive acute pulmonary emboli in the right lower lobe subsegmental branches No right ventricular strain, no reflux of contrast into the liver, no airspace consolidation. Abdominal ultrasound showed status post cholecystectomy, bile duct is within expected limits and no intrahepatic biliary ductal dilatation. Patient started on heparin drip She was also by GI and will undergo ERCP in the morning Review of Systems Review of Systems: Yes all other systems are reviewed and are negative [facility] Medical History Hypertension Hypothyroid Rectal adenocarcinoma Rectal adenoma Family History (Updated 09/19/21 @ 05:21 by Ekta Tsai MD) Other No family history of coronary artery disease Surgical History History of creation of ostomy History of laparoscopic cholecystectomy (~2020) History of surgery Social History Household Members: Spouse and Children Housing: House Unable to assess alcohol history related to: Unknown Alcohol intake: never Patient Tobacco Use Status: Never used Tobacco Smoked in Last 30 Days: No Use of substances other than those prescribed or required for medical reasons: No Advance Directives: Yes Advance Directives on File: Yes Advance Directives Date on File: 01/27/21 service: No Current occupational status: employed Meds Allergies Allergy/AdvReac Type Severity Reaction Status Date / Time No Known Allergies Allergy Verified 08/11/21 07:06 Active Medications: Current Medications Acetaminophen (Acetaminophen 325 Mg Tablet) 650 mg PO Q6H PRN PRN Reason: Pain, Mild (Pain Scale 1-3) Docusate Sodium (Docusate Sodium 100 Mg Capsule) 100 mg PO DAILY PRN PRN Reason: Constipation Heparin Sodium (Porcine) (Heparin Sodium,Porcine 5,000 Unit/Ml Vial) 4,400 unit 40 unit/kg (4400 unit) IVPUSH PROTOCOL BOLUS PRN; Protocol PRN Reason: 40 unit/kg - Heparin Protocol Heparin Sodium (Porcine) (Heparin Sodium,Porcine 5,000 Unit/Ml Vial) 8,800 unit 80 unit/kg (8800 unit) IVPUSH PROTOCOL BOLUS PRN; Protocol PRN Reason: 80 unit/kg - Heparin Protocol Heparin Sodium/Sodium Chloride () 25,000 unit in 250 mls @ 0 mls/hr IVCONT .[facility]M [facility]; Protocol Last Admin: 09/18/21 18:51 Dose: 14 units/kg/hr, 15.39 mls/hr Ondansetron HCl (Ondansetron Hcl 4 Mg/2 Ml Vial) 4 mg IVPUSH Q8H PRN PRN Reason: Nausea and Vomiting Oxycodone HCl (Oxycodone Hcl Immed Release 5 Mg Tablet) 5 mg PO Q6H PRN PRN Reason: Pain, Severe (Pain Scale 7-10) Pharmacy Consult (Consult Rx Perform Med Rec) 1 each MISCELLANE ONCE PRN PRN Reason: Consult order Sodium Chloride (0.9 % Sodium Chloride Flush 3 Ml Syringe) [facility] Medications Medication Instructions Recorded Confirmed Last Taken Type levothyroxine 175 mcg tablet 1 tab PO DAILY@0600 06/27/20 09/18/21 09/18/21 History spironolactone 25 mg tablet 1 tab PO DAILY 06/27/20 09/18/21 09/18/21 History verapamil 180 mg 24 hr 1 cap PO DAILY 06/27/20 09/18/21 09/18/21 History capsule,extended release Physical Exam Vital Signs and Narrative: Vital Signs: Last Vital Signs Temp 98.6 F 09/18/21 13:51 Pulse 66 09/18/21 18:47 Resp 18 09/18/21 18:47 BP 172/87 H 09/18/21 18:47 Pulse Ox 98 09/18/21 18:47 O2 Del Method 09/18/21 18:47 BMI result Body Mass Index 33.7 Const: General: cooperative and no acute distress Orientation/consciousness: patient oriented x3 Eyes: General: appearance normal, both eyes and all related structures Resp: Effort & Inspection: normal respiratory effort Auscultation: clear to auscultation bilaterally Cardio: Rate: regular rate Rhythm: regular rhythm GI: Other: No abdominal tenderness, rebound or guarding Palpation (GI): Soft to palpation Auscultation: normal bowel sounds Skin: General skin exam: no rashes or lesions noted Neuro: General: patient oriented x3 Cognition (Neuro): normal cognition Extrem: General: Yes normal to inspection and Yes no pedal edema Results Labs CBC and Chem 7: 09/18/21 18:16 09/18/21 09:34 Labs: Laboratory Results - last 24 hr 09/18/21 09/18/21 09/18/21 09:34 09:34 09:34 MCV 83.2 MCH 28.1 MCHC 33.8 RDW 13.2 Plt Count 175 D MPV 9.5 Immature Gran % (Auto) 1.3 H Neut % (Auto) 68.5 Lymph % (Auto) 15.5 L [place] % (Auto) 9.7 Eos % (Auto) 4.7 H Baso % (Auto) 0.3 Lymph # (Auto) 1.1 L Pre[place] # (Auto) 0.7 Eos # (Auto) 0.3 Baso # (Auto) 0.0 Abs Immat Gran (auto) 0.09 H Absolute Neuts (auto) 4.7 Absolute Nucleated RBC 0.000 Nucleated RBC % (auto) 0.0 PT INR APTT D-Dimer High Sensitivty Anion Gap 11 L Estim Creat Clear Calc 129.5 Estimated GFR > 60 Random Glucose 95 Calcium 8.6 D Total Bilirubin 3.9 H Direct Bilirubin 2.6 H AST 323 H ALT 357 H Alkaline Phosphatase 156 H D Troponin I High Sens 7.1 Total Protein 7.1 Albumin 4.3 Lipase 41 COVID-19 ([facility]) COVID-19 Clin Com 09/18/21 09/18/21 09/18/21 12:39 12:39 13:46 MCV MCH MCHC RDW Plt Count MPV Immature Gran % (Auto) Neut % (Auto) Lymph % (Auto) Pre[place] % (Auto) Eos % (Auto) Baso % (Auto) Lymph # (Auto) Preble # (Auto) Eos # (Auto) Baso # (Auto) Abs Immat Gran (auto) Absolute Neuts (auto) Absolute Nucleated RBC Nucleated RBC % (auto) PT INR APTT D-Dimer High Sensitivty 625 Anion Gap Estim Creat Clear Calc Estimated GFR Random Glucose Calcium Total Bilirubin Direct Bilirubin AST ALT Alkaline Phosphatase Troponin I High Sens 7.3 Total Protein Albumin Lipase COVID-19 ([facility]) Negative COVID-19 Clin Com See Note 09/18/21 09/18/21 18:10 18:16 MCV 82.9 MCH 28.7 MCHC 34.6 RDW 12.9 Plt Count 175 MPV 10.0 Immature Gran % (Auto) Neut % (Auto) Lymph % (Auto) Pre[place] % (Auto) Eos % (Auto) Baso % (Auto) Lymph # (Auto) Preble # (Auto) Eos # (Auto) Baso # (Auto) Abs Immat Gran (auto) Absolute Neuts (auto) Absolute Nucleated RBC 0.000 Nucleated RBC % (auto) 0.0 PT 12.1 INR 1.1 APTT 30.0 D-Dimer High Sensitivty Anion Gap Estim Creat Clear Calc Estimated GFR Random Glucose Calcium Total Bilirubin Direct Bilirubin AST ALT Alkaline Phosphatase Troponin I High Sens Total Protein Albumin Lipase COVID-19 ([facility]) COVID-19 Clin Com Imaging Radiologist's Impressions: Impressions Abdomen Ultrasound 09/18/21 13:24 IMPRESSION: Status post cholecystectomy. Common bile duct measures 8 mm in diameter which is within expected limits for the postcholecystectomy state with no intrahepatic biliary duct dilatation. Previously seen common bile and cystic duct stones are not appreciated sonographically. Chest CTA 09/18/21 16:25 IMPRESSION: -Positive for acute pulmonary embolism right lower lobe subsegmental branches. -No right ventricular strain. No reflux of contrast into the liver. -No pneumothorax, airspace consolidation or effusion. -Mild enlargement ascending aorta, 4.5 cm stable from prior CT 07/29/2021. VTE: positive Assessment and Plan (1) Elevated liver enzymes: Status: Acute (2) Pulmonary emboli: Status: Acute Plan 51-year-old male with past medical history of rectal cancer status post total colectomy and ileostomy presents to the hospital with chest pressure found to have PE # acute PE - in the setting of history of cancer - reports no recent immobilization or surgery except for ERCP in August - will start him on heparin - follow H&H # elevated LFTs - status post cholecystectomy and ERCP in August - patient has no evidence of choledocholithiasis or CBD dilatation - ERCP in a.m. - follow GI recommendation # hypertension - elevated BP - will resume his home medications # hypothyroid - continue levothyroxine DVT prophylaxis heparin GGT Quality Stroke Does the patient have a stroke diagnosis?: No VTE Prior VTE?: No VTE Risk Level:: Medical - moderate - high VTE Device Contraindication: Treatment Not Indicated VTE Drug Contraindication: N/A - Med Ordered
--- NOTE | 2021-09-18 19:45 | PC.NURSE ---
while PT was being transferred to overflow unit, IV heparin tubing became disconnected leaking approx 150 cc of heparin. Primary nurse who was accepting pt was notified, and made aware he did not receive that entire volume at this time.
[2021-09-18 20:05] LABS: B Type Natriuretic Peptide 79 pg/mL (<100)
--- NOTE | 2021-09-18 23:20 | P.CNGI_ITS ---
History of Present Illness Data of Consult Service Date: 09/18/21 Requesting physician: Ekta Tsai Primary Care Provider: SOHA Bañuelos HPI Reason for consult: elevated LFT 51-year-old male w/ history of rectal cancer and UC s/p? total colectomy, radiation therapy and chemotherapy 7 years prior, cholecystectomy 02/06/2021, and radiation cystitis who I am asked to see for assessment for abdominal pain. Patient had been seen by myself for an ERCP 4 weeks ago for removal of a CBD stent and clearance of biliary ducts with spyglass. Now: presents with few days history of severe crampy on and off epigastric and lower sternal pain, 9/10 in severity, no precipitating or exacerbating factors and no radiation. No nausea or vomiting, Denies fevers, chills, diarrhea or constipation. No SoB or sputum. HE had been well since his last ERCP and eating normally without pain, [place]. He did notice paler appearing stool output from the stoma. He had ECG which was normal, but then had CTA with newly noted PTE, doppler neg for DVT< US without any stones, and CBD 0.8 cm LABS: LFT show total bilirubin of 3.9, direct bili 2.6, AST 323, ALT 327, alk-phos is 156. CBC normal ? Review of Systems Review of Systems: Constitutional: No Fever, No Chills ENT/Mouth: No sore throat, No Rhinorrhea, No Swallowing Difficulty Eyes: No Eye Pain, No Swelling, No Redness Cardiovascular: , No SOB, No Orthopnea, No Edema Respiratory: No Cough, No Sputum, No Wheezing, No dyspnea Gastrointestinal: No Nausea, No Vomiting, No Diarrhea, No Hematochezia, No Melena Genitourinary: No Dysuria, No Urinary Frequency, No Hematuria Musculoskeletal: No joint pain, No Myalgias Skin: No Skin Lesions, No rash Neuro: No Weakness, No Numbness, No Dizziness, No Headache Psych: + Anxiety/Panic, No Depression Heme/Lymph: No Bruising, No Lymphadenopathy Endocrine: No Polyuria, No Polydipsia PMFSH Past Medical History Medical History Hypertension Hypothyroid Rectal adenocarcinoma Rectal adenoma Family History Pertinent family history: mother had gallbladder removed Surgical History Surgical History History of creation of ostomy History of laparoscopic cholecystectomy (~2020) History of surgery Social History Social History Household Members: Spouse and Children Housing: House Unable to assess alcohol history related to: Unknown Alcohol intake: never Patient Tobacco Use Status: Never used Tobacco Smoked in Last 30 Days: No Use of substances other than those prescribed or required for medical reasons: No Advance Directives: Yes Advance Directives on File: Yes Advance Directives Date on File: 01/27/21 service: No Current occupational status: employed Meds Allergies Allergy/AdvReac Type Severity Reaction Status Date / Time No Known Allergies Allergy Verified 08/11/21 07:06 Active Medications: Current Medications Acetaminophen (Acetaminophen 325 Mg Tablet) 650 mg PO Q6H PRN PRN Reason: Pain, Mild (Pain Scale 1-3) Docusate Sodium (Docusate Sodium 100 Mg Capsule) 100 mg PO DAILY PRN PRN Reason: Constipation Heparin Sodium (Porcine) (Heparin Sodium,Porcine 5,000 Unit/Ml Vial) 4,400 unit 40 unit/kg (4400 unit) IVPUSH PROTOCOL BOLUS PRN; Protocol PRN Reason: 40 unit/kg - Heparin Protocol Heparin Sodium (Porcine) (Heparin Sodium,Porcine 5,000 Unit/Ml Vial) 8,800 unit 80 unit/kg (8800 unit) IVPUSH PROTOCOL BOLUS PRN; Protocol PRN Reason: 80 unit/kg - Heparin Protocol Heparin Sodium/Sodium Chloride () 25,000 unit in 250 mls @ 0 mls/hr IVCONT .Q0M [facility]; Protocol Last Admin: 09/18/21 18:51 Dose: 14 units/kg/hr, 15.39 mls/hr Ondansetron HCl (Ondansetron Hcl 4 Mg/2 Ml Vial) 4 mg IVPUSH Q8H PRN PRN Reason: Nausea and Vomiting Oxycodone HCl (Oxycodone Hcl Immed Release 5 Mg Tablet) 5 mg PO Q6H PRN PRN Reason: Pain, Severe (Pain Scale 7-10) Pharmacy Consult (Consult Rx Perform Med Rec) 1 each MISCELLANE ONCE PRN PRN Reason: Consult order Sodium Chloride (0.9 % Sodium Chloride Flush 3 Ml Syringe) 3 ml IVFLUSH QSHIFT [facility] Home Medications Medication Instructions Recorded Confirmed Last Taken Type levothyroxine 175 mcg tablet 1 tab PO DAILY@0600 06/27/20 09/18/21 09/18/21 History spironolactone 25 mg tablet 1 tab PO DAILY 06/27/20 09/18/21 09/18/21 History verapamil 180 mg 24 hr 1 cap PO DAILY 06/27/20 09/18/21 09/18/21 History capsule,extended release Physical Exam Vital Signs: Vital Signs: Last Vital Signs Temp 98.6 F 09/18/21 13:51 Pulse 70 09/18/21 21:18 Resp 18 09/18/21 21:18 BP 162/83 H 09/18/21 21:18 Pulse Ox 98 09/18/21 21:18 O2 Del Method 09/18/21 21:18 BMI result Body Mass Index 33.7 EXAM: GENERAL: The patient is well developed and nontoxic. VITAL SIGNS:see workflow HEENT: Nonicteric sclerae, PERRLA, EOMI. Oropharynx clear. Moist mucous membranes. Conjunctivae appear well perfused. No thyroid mass. CHEST: Chest wall is nontender. HEART: Regular rate and rhythm without murmurs. LUNGS: Clear to auscultation bilaterally. ABDOMEN: Soft, positive bowel sounds, nontender, no organomegaly.no flank tenderness, stoma bag noted. SKIN: No rash, no excessive bruising, petechiae, or purpura. NEUROLOGIC: Cranial nerves II-XII intact without motor/sensory deficit. psych- nml affect Skin: General skin exam: no rashes or lesions noted Results Labs CBC & Chem 7: 09/18/21 18:16 09/18/21 09:34 Labs: Short CBC 09/18/21 09/18/21 Range/Units 09:34 18:16 WBC 6.8 8.7 (4.8-10.8) X10*3/uL Hgb 15.1 15.8 (14.0-18.0) g/dl Hct 44.7 45.7 (42.0-52.0) % Plt Count 175 D 175 (160-400) X10*3/uL BMP 09/18/21 09:34 Sodium 138 Potassium 4.0 Chloride 104 Carbon Dioxide 27 BUN 18 H Creatinine 0.82 Calcium 8.6 D Liver Function 09/18/21 Range/Units 09:34 Total Bilirubin 3.9 H (0.0-1.0) mg/dL Direct Bilirubin 2.6 H (0.0-0.5) mg/dL AST 323 H (5-37) U/L ALT 357 H (0-40) U/L Alkaline Phosphatase 156 H D (39-117) U/L Albumin 4.3 (3.5-5.0) g/dL ECG Attestation: I personally reviewed and interpreted this ECG as follows: (normal SR) ECG interpretation date: 09/18/21 Prior ECG tracings: available for review Assessment and Plan (1) Pulmonary emboli: Status: Acute (2) Elevated liver enzymes: Status: Acute (3) Biliary disease with obstruction: Status: Acute Plan 1/ Abnormal LFT< concern for recurrent biliary obstruction, possibly sludge, stone material not seen last time or new stone material, vs stricture, less likely neoplasia as spyglass and direct visualization was normal last time 2/ Newly dx PTE probably related to immobility, ddx; related to thromboembolic state, occult neoplasia given prior histories PLAN: 1/ Ok to use heparin, stop tomorrow morning around 6-8 AM for ERCP around 1 pm, might consider brushings and samples for FISH studies if no stone debris or sludge noted 2/ commence antibiotics if any fever, chills, rising WCC 3/ IV fluid replacement with LR Procedures Date of Service Date of Service: 09/18/21
[2021-09-19] VITALS (15 sets, daily range): BP systolic 127–164; BP diastolic 69–91; PULSE 60–80; RESP 15–20; TEMP 36.4–37.7; O2SAT 94–100
[2021-09-19] MEDS: oxyCODONE HCl Immed Release 5 MG TABLET PO ×2 (00:05→05:46)
[2021-09-19 01:20] LABS: PTT Heparin Drip 64.7 SEC (53-77.9)
--- NOTE | 2021-09-19 01:25 | PC.NURSE ---
Pt aPTT 64.7 = no rate change.
[2021-09-19] MEDS: ondansetron HCL 4 MG/2 ML VIAL IVPUSH (05:48)
[2021-09-19 06:46] LABS: MANUAL DIFF FLAG NO
[2021-09-19 06:51] LABS: Basophils Percent Auto 0.1 % (0-2); Eosinophils Absolute Auto 0.2 X10*3/uL (0.0-0.4); Eosinophils Percent Auto 1.7 % (0-4); Hematocrit 45.6 % (42.0-52.0); Hemoglobin 15.5 g/dl (14.0-18.0); Imm Gran Abs Auto 0.07 X10*3/uL (0.00-0.03); Imm Gran Pct Auto 0.7 % (0.0-0.4); Lymphocytes Absolute Auto 0.7 X10*3/uL (1.2-4.9); Lymphocytes Percent Auto 7.8 % (20-40); Mean Corpuscular Hemoglobin 28.1 pg (27.0-33.0); Mean Corpuscular Volume 82.8 fL (80.0-98.0); Mean Platelet Volume 9.6 fL (9.4-12.4); Monocytes Absolute Auto 1.1 X10*3/uL (0.1-1.2); Monocytes Percent Auto 11.7 % (2-11); Neutrophils Absolute Auto 7.3 x10*3/uL (2.0-8.3); Platelet Count 170 X10*3/uL (160-400); Red Blood Count 5.51 X10*6/uL (4.60-5.80); Red Cell Distribution Width 13.1 % (11.0-16.0); White Blood Count 9.4 X10*3/uL (4.8-10.8)
[2021-09-19 07:04] LABS: INTERNATIONAL NORM RATIO 1.2 (0.9-1.1); Prothrombin Time 13.6 SEC (10.0-13.1)
[2021-09-19 07:28] LABS: Anion Gap 12 (12-20); Blood Urea Nitrogen 15 mg/dL (9-16); Calcium 8.5 mg/dL (8.4-10.2); Carbon Dioxide 24 mmol/L (22-29); Chloride 105 mmol/L (96-108); Creatinine Clr Calc Pharmacy 147.2; Estimated Glomerular Filt Rate > 60; Glucose Random 112 mg/dL (60-115); Potassium 3.4 mmol/L (3.3-5.1); Sodium 138 mmol/L (135-145)
[2021-09-19 08:41] LABS: PTT Heparin Drip 75.8 SEC (53-77.9)
[2021-09-19 09:03] LABS: Alanine Aminotransferase 365 U/L (0-40); Albumin Level 4.1 g/dL (3.5-5.0); Alkaline Phosphatase 219 U/L (39-117); Aspartate Amino Transferase 190 U/L (5-37); Bilirubin Total 8.5 mg/dL (0.0-1.0); Total Protein 6.9 g/dL (6.5-8.0)
[2021-09-19] MEDS: 0.9 % Sodium Chloride Flush 3 ML SYRINGE IVFLUSH ×2 (10:12→18:36)
[2021-09-19] MEDS: VerapamiL HCL SR 180 MG TABLET.ER PO (10:12)
[2021-09-19] MEDS: Spironolactone 25 MG TABLET PO (10:12)
--- NOTE | 2021-09-19 11:24 | MHC.SHP ---
Pre-Procedural Eval Section A Date of Service: 09/19/21 The patient is an INPATIENT: Yes The History & Physical has been completed within 30 days and I have reviewed it.: Yes Section B Chief Complaint: PE,Need for ERCP Allergies: Allergies Allergy/AdvReac Type Severity Reaction Status Date / Time No Known Allergies Allergy Verified 08/11/21 07:06 Plan Diagnosis/Plan: Unchanged I have reviewed the history and physical and performed a pertinent physical examination on my patient. No changes have occurred unless specified.
--- NOTE | 2021-09-19 11:30 | PC.NURSE ---
Pt is A&Ox4, ambulatory with no assistance. Heparin drip ran dry by previous RN, MD Hernandez states to leave drip off at this time for pending ERCP at 1300. Pt NPO since midnight. NSR on monitor in the 60's. No complaints of pain at this time. Call arteaga within reach. Will continue to monitor.
--- NOTE | 2021-09-19 11:58 | PC.NURSE ---
Pt to SSS at this time.
--- NOTE | 2021-09-19 14:11 | HO.PM.IMPN ---
Subjective Subjective Date of Service: 09/19/21 Interval History: the patient was seen and evaluated this morning Laying in bed, feels comfortable pain in RUQ improved Denies any fever, chills or shortness of breath No reported other overnight events. Systemic review: No fever, chills or weakness No chest pain, palpitation No shortness of breath or coughing improved RUQ pain, no nausea or vomiting No urinary symptoms No any rash or wounds Physical Exam Vital Signs: Vital Signs: Last Vital Signs Temp 98.7 F 09/19/21 12:12 Pulse 73 09/19/21 12:12 Resp 16 09/19/21 12:12 BP 157/80 H 09/19/21 12:12 Pulse Ox 97 09/19/21 12:12 O2 Del Method 09/19/21 12:12 BMI result Body Mass Index 33.7 Const: Other: Constitutional : Alert, oriented, not in distress Neck : Normal inspection, Supple Cardiovascular : RRR, no JVP, no lower extremity edema Respiratory : fair bilateral air entry, no crackles, wheezes or rhonchi Gastrointestinal: soft, lax, Normal bowel sounds, Non tender Skin : Warm, Dry Neurological : Alert & oriented x3, No focal deficit , CN 2-12 within normal Objective Data Active Medications Acetaminophen (Acetaminophen 325 Mg Tablet) 650 mg PO Q6H PRN PRN Reason: Pain, Mild (Pain Scale 1-3) Docusate Sodium (Docusate Sodium 100 Mg Capsule) 100 mg PO DAILY PRN PRN Reason: Constipation Heparin Sodium (Porcine) (Heparin Sodium,Porcine 5,000 Unit/Ml Vial) 4,400 unit 40 unit/kg (4400 unit) IVPUSH PROTOCOL BOLUS PRN; Protocol PRN Reason: 40 unit/kg - Heparin Protocol Heparin Sodium (Porcine) (Heparin Sodium,Porcine 5,000 Unit/Ml Vial) 8,800 unit 80 unit/kg (8800 unit) IVPUSH PROTOCOL BOLUS PRN; Protocol PRN Reason: 80 unit/kg - Heparin Protocol Heparin Sodium/Sodium Chloride () 25,000 unit in 250 mls @ 0 mls/hr IVCONT .Q0M [facility]; Protocol Levothyroxine Sodium (Levothyroxine Sodium 175 Mcg Tablet) 175 mcg PO DAILY@0600 [facility] Last Admin: 09/19/21 05:46 Dose: Not Given Documented By: CARMINE Non-Admin Reason: Med Not Available Ondansetron HCl (Ondansetron Hcl 4 Mg/2 Ml Vial) 4 mg IVPUSH Q8H PRN PRN Reason: Nausea and Vomiting Last Admin: 09/19/21 05:48 Dose: 4 mg Documented By: CARMINE Oxycodone HCl (Oxycodone Hcl Immed Release 5 Mg Tablet) 5 mg PO Q6H PRN PRN Reason: Pain, Severe (Pain Scale 7-10) Last Admin: 09/19/21 05:46 Dose: 5 mg Documented By: CARMINE Pharmacy Consult (Consult Rx Perform Med Rec) 1 each MISCELLANE ONCE PRN PRN Reason: Consult order Sodium Chloride (0.9 % Sodium Chloride Flush 3 Ml Syringe) 3 ml IVFLUSH QSHIFT [facility] Last Admin: 09/19/21 10:12 Dose: 3 ml Documented By: SAMARA Spironolactone (Spironolactone 25 Mg Tablet) 25 mg PO DAILY [facility]; Protocol Last Admin: 09/19/21 10:12 Dose: 25 mg Documented By: SAMARA Verapamil HCl (Verapamil Hcl Sr 180 Mg Tablet.Er) 180 mg PO DAILY [facility]; Protocol Last Admin: 09/19/21 10:12 Dose: 180 mg Documented By: SAMARA Labs CBC & Chem 7: 09/19/21 06:38 09/19/21 06:38 Labs: Laboratory Results - last 24 hr 09/18/21 09/18/21 09/18/21 13:46 18:10 18:16 MCV 82.9 MCH 28.7 MCHC 34.6 RDW 12.9 Plt Count 175 MPV 10.0 Immature Gran % (Auto) Neut % (Auto) Lymph % (Auto) [place] % (Auto) Eos % (Auto) Baso % (Auto) Lymph # (Auto) [place] # (Auto) Eos # (Auto) Baso # (Auto) Abs Immat Gran (auto) Absolute Neuts (auto) Absolute Nucleated RBC 0.000 Nucleated RBC % (auto) 0.0 PT 12.1 INR 1.1 APTT 30.0 aPTT Heparin Protocol Anion Gap Estim Creat Clear Calc Estimated GFR Random Glucose Calcium Total Bilirubin Direct Bilirubin AST ALT Alkaline Phosphatase B-Natriuretic Peptide Total Protein Albumin COVID-19 ([facility]) Negative COVID-19 Clin Com See Note 09/18/21 09/19/21 09/19/21 18:16 01:00 06:38 MCV 82.8 MCH 28.1 MCHC 34.0 RDW 13.1 Plt Count 170 MPV 9.6 Immature Gran % (Auto) 0.7 H Neut % (Auto) 78.0 H Lymph % (Auto) 7.8 L [place] % (Auto) 11.7 H Eos % (Auto) 1.7 Baso % (Auto) 0.1 Lymph # (Auto) 0.7 L [place] # (Auto) 1.1 Eos # (Auto) 0.2 Baso # (Auto) 0.0 Abs Immat Gran (auto) 0.07 H Absolute Neuts (auto) 7.3 Absolute Nucleated RBC 0.000 Nucleated RBC % (auto) 0.0 PT INR APTT aPTT Heparin Protocol 64.7 Anion Gap Estim Creat Clear Calc Estimated GFR Random Glucose Calcium Total Bilirubin Direct Bilirubin AST ALT Alkaline Phosphatase B-Natriuretic Peptide 79 Total Protein Albumin COVID-19 ([facility]) COVID-The [employer] Com 09/19/21 09/19/21 09/19/21 06:38 06:38 06:38 MCV MCH MCHC RDW Plt Count MPV Immature Gran % (Auto) Neut % (Auto) Lymph % (Auto) [place] % (Auto) Eos % (Auto) Baso % (Auto) Lymph # (Auto) [place] # (Auto) Eos # (Auto) Baso # (Auto) Abs Immat Gran (auto) Absolute Neuts (auto) Absolute Nucleated RBC Nucleated RBC % (auto) PT 13.6 H INR 1.2 H APTT aPTT Heparin Protocol 75.8 Anion Gap 12 Estim Creat Clear Calc 147.2 Estimated GFR > 60 Random Glucose 112 Calcium 8.5 Total Bilirubin 8.5 H Direct Bilirubin 6.0 H AST 190 H ALT 365 H Alkaline Phosphatase 219 H D B-Natriuretic Peptide Total Protein 6.9 Albumin 4.1 COVID-19 ([facility]) COVID-19 [employer] Com Assessment and Plan (1) Elevated liver enzymes: Status: Acute (2) Pulmonary emboli: Status: Acute Plan 51-year-old male with past medical history of rectal cancer status post total colectomy and ileostomy presents to the hospital with chest pressure found to have PE # acute PE in the setting of history of cancer on heparin ip, to hold for procedure then restart to be discharged on full dose eliquis undefinitly follow H&H # elevated LFTs status post cholecystectomy and ERCP in August worsened Bilirubin, could be 2/2 stone, stricture no evidence of choledocholithiasis or CBD dilatation Pending ERCP Gi consult # hypertension elevated BP resume his home medications # hypothyroid continue levothyroxine DVT prophylaxis heparin GGT The patient will need overnight hospital stay continue management of acute PE and to monitor liver function to prevent possible to compensation and respiratory or liver failure. Quality Stroke Does the patient have a stroke diagnosis?: No VTE Prior VTE?: No VTE Risk Level:: Medical - moderate - high VTE Device Contraindication: Treatment Not Indicated VTE Drug Contraindication: N/A - Med Ordered
--- NOTE | 2021-09-19 14:17 | P.CONAN_ITS ---
HPI - Anesthesia Eval Consult details Narrative: 51 yo male patient for ERCP [facility] Active Problems Active Problems: All Active Problems (Updated 09/18/21 @ 17:[address]) Elevated liver enzymes (Acute) Poorly-controlled hypertension (Acute) Pulmonary emboli (Acute)- diagnosed yesterday 09/18/21. Started on heparin infusinn which was d/raven at 7am this am. Spoke with hospitalist-OK to proceed with ERCP. Emboli were small, patient not in distress, Sats 97%in room air. 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 (Acute) Amputation finger (Acute) S/P cholecystectomy (Acute) Radiation cystitis (Acute) Urethral stricture (Acute) Acute urinary retention (Acute) Past Medical History Medical History Hypertension Hypothyroid Rectal adenocarcinoma Rectal adenoma Family History Family History (Updated 09/19/21 @ 05:21 by Ekta Tsai MD) Other No family history of coronary artery disease Family history of problems with anesthesia: No Surgical History Surgical History History of creation of ostomy History of laparoscopic cholecystectomy (~2020) History of surgery History of Problems with Anesthesia: No Social History Social History Household Members: Spouse and Children Housing: House Unable to assess alcohol history related to: Unknown Alcohol intake: never Patient Tobacco Use Status: Never used Tobacco Smoked in Last 30 Days: No Use of substances other than those prescribed or required for medical reasons: No Are you DNR?: No Advance Directives: Yes Advance Directives on File: Yes Advance Directives Date on File: 01/27/21 Recently lost weight without trying: No How much weight loss: 34pounds or more Nutrition Risks: No Nutritional Risk service: No Current occupational status: employed Meds Allergies Allergy/AdvReac Type Severity Reaction Status Date / Time No Known Allergies Allergy Verified 08/11/21 07:06 Active Medications: Current Medications Acetaminophen (Acetaminophen 325 Mg Tablet) 650 mg PO Q6H PRN PRN Reason: Pain, Mild (Pain Scale 1-3) Docusate Sodium (Docusate Sodium 100 Mg Capsule) 100 mg PO DAILY PRN PRN Reason: Constipation Heparin Sodium (Porcine) (Heparin Sodium,Porcine 5,000 Unit/Ml Vial) 4,400 unit 40 unit/kg (4400 unit) IVPUSH PROTOCOL BOLUS PRN; Protocol PRN Reason: 40 unit/kg - Heparin Protocol Heparin Sodium (Porcine) (Heparin Sodium,Porcine 5,000 Unit/Ml Vial) 8,800 unit 80 unit/kg (8800 unit) IVPUSH PROTOCOL BOLUS PRN; Protocol PRN Reason: 80 unit/kg - Heparin Protocol Heparin Sodium/Sodium Chloride () 25,000 unit in 250 mls @ 0 mls/hr IVCONT .Q0M [facility]; Protocol Levothyroxine Sodium (Levothyroxine Sodium 175 Mcg Tablet) 175 mcg PO DAILY@0600 [facility] Last Admin: 09/19/21 05:46 Dose: Not Given Ondansetron HCl (Ondansetron Hcl 4 Mg/2 Ml Vial) 4 mg IVPUSH Q8H PRN PRN Reason: Nausea and Vomiting Last Admin: 09/19/21 05:48 Dose: 4 mg Oxycodone HCl (Oxycodone Hcl Immed Release 5 Mg Tablet) 5 mg PO Q6H PRN PRN Reason: Pain, Severe (Pain Scale 7-10) Last Admin: 09/19/21 05:46 Dose: 5 mg Pharmacy Consult (Consult Rx Perform Med Rec) 1 each MISCELLANE ONCE PRN PRN Reason: Consult order Sodium Chloride (0.9 % Sodium Chloride Flush 3 Ml Syringe) [facility] Last Admin: 09/19/21 10:12 Dose: 3 ml Spironolactone (Spironolactone 25 Mg Tablet) 25 mg PO DAILY [facility]; Protocol Last Admin: 09/19/21 10:12 Dose: 25 mg Ursodiol (Ursodiol 300 Mg Capsule) 300 mg PO BID [facility] Verapamil HCl (Verapamil Hcl Sr 180 Mg Tablet.Er) 180 mg PO DAILY [facility]; Protocol Last Admin: 09/19/21 10:12 Dose: 180 mg Home Medications Medication Instructions Recorded Confirmed Last Taken Type levothyroxine 175 mcg tablet 1 tab PO DAILY@0600 06/27/20 09/18/21 09/18/21 History spironolactone 25 mg tablet 1 tab PO DAILY 06/27/20 09/18/21 09/18/21 History verapamil 180 mg 24 hr 1 cap PO DAILY 06/27/20 09/18/21 09/18/21 History capsule,extended release Exam Exam Date and Time: September 19, 2021 1417 Height,Weight and Vital Signs: Height 5 ft 11 in Weight 109.9 kg Last Vital Signs Temp 98.7 F 09/19/21 12:12 Pulse 73 09/19/21 12:12 Resp 16 09/19/21 12:12 BP 157/80 H 09/19/21 12:12 Pulse Ox 97 09/19/21 12:12 O2 Del Method 09/19/21 12:12 Pertinent Lab Results Pertinent Lab Results: Laboratory Tests 09/18/21 09/18/21 09/18/21 09:34 09:34 09:34 WBC 6.8 RBC 5.37 Hgb 15.1 Hct 44.7 MCV 83.2 MCH 28.1 MCHC 33.8 RDW 13.2 Plt Count 175 D MPV 9.5 Immature Gran % (Auto) 1.3 H Neut % (Auto) 68.5 Lymph % (Auto) 15.5 L [place] % (Auto) 9.7 Eos % (Auto) 4.7 H Baso % (Auto) 0.3 Lymph # (Auto) 1.1 L [place] # (Auto) 0.7 Eos # (Auto) 0.3 Baso # (Auto) 0.0 Abs Immat Gran (auto) 0.09 H Absolute Neuts (auto) 4.7 Absolute Nucleated RBC 0.000 Nucleated RBC % (auto) 0.0 PT INR APTT aPTT Heparin Protocol D-Dimer High Sensitivty Sodium 138 Potassium 4.0 Chloride 104 Carbon Dioxide 27 Anion Gap 11 L BUN 18 H Creatinine 0.82 Estim Creat Clear Calc 129.5 Estimated GFR > 60 Random Glucose 95 Calcium 8.6 D Total Bilirubin 3.9 H Direct Bilirubin 2.6 H AST 323 H ALT 357 H Alkaline Phosphatase 156 H D Troponin I High Sens 7.1 B-Natriuretic Peptide Total Protein 7.1 Albumin 4.3 Lipase 41 COVID-19 ([facility]) COVID-19 Clin Com 09/18/21 09/18/21 09/18/21 12:39 12:39 13:46 WBC RBC Hgb Hct MCV MCH MCHC RDW Plt Count MPV Immature Gran % (Auto) Neut % (Auto) Lymph % (Auto) [place] % (Auto) Eos % (Auto) Baso % (Auto) Lymph # (Auto) [place] # (Auto) Eos # (Auto) Baso # (Auto) Abs Immat Gran (auto) Absolute Neuts (auto) Absolute Nucleated RBC Nucleated RBC % (auto) PT INR APTT aPTT Heparin Protocol D-Dimer High Sensitivty 625 Sodium Potassium Chloride Carbon Dioxide Anion Gap BUN Creatinine Estim Creat Clear Calc Estimated GFR Random Glucose Calcium Total Bilirubin Direct Bilirubin AST ALT Alkaline Phosphatase Troponin I High Sens 7.3 B-Natriuretic Peptide Total Protein Albumin Lipase COVID-19 ([facility]) Negative COVID-19 Clin Com See Note 09/18/21 09/18/21 09/18/21 18:10 18:16 18:16 WBC 8.7 RBC 5.51 Hgb 15.8 Hct 45.7 MCV 82.9 MCH 28.7 MCHC 34.6 RDW 12.9 Plt Count 175 MPV 10.0 Immature Gran % (Auto) Neut % (Auto) Lymph % (Auto) [place] % (Auto) Eos % (Auto) Baso % (Auto) Lymph # (Auto) [place] # (Auto) Eos # (Auto) Baso # (Auto) Abs Immat Gran (auto) Absolute Neuts (auto) Absolute Nucleated RBC 0.000 Nucleated RBC % (auto) 0.0 PT 12.1 INR 1.1 APTT 30.0 aPTT Heparin Protocol D-Dimer High Sensitivty Sodium Potassium Chloride Carbon Dioxide Anion Gap BUN Creatinine Estim Creat Clear Calc Estimated GFR Random Glucose Calcium Total Bilirubin Direct Bilirubin AST ALT Alkaline Phosphatase Troponin I High Sens B-Natriuretic Peptide 79 Total Protein Albumin Lipase COVID-19 ([facility]) COVID-19 Clin Com 09/19/21 09/19/21 09/19/21 01:00 06:38 06:38 WBC 9.4 RBC 5.51 Hgb 15.5 Hct 45.6 MCV 82.8 MCH 28.1 MCHC 34.0 RDW 13.1 Plt Count 170 MPV 9.6 Immature Gran % (Auto) 0.7 H Neut % (Auto) 78.0 H Lymph % (Auto) 7.8 L [place] % (Auto) 11.7 H Eos % (Auto) 1.7 Baso % (Auto) 0.1 Lymph # (Auto) 0.7 L [place] # (Auto) 1.1 Eos # (Auto) 0.2 Baso # (Auto) 0.0 Abs Immat Gran (auto) 0.07 H Absolute Neuts (auto) 7.3 Absolute Nucleated RBC 0.000 Nucleated RBC % (auto) 0.0 PT 13.6 H INR 1.2 H APTT aPTT Heparin Protocol 64.7 D-Dimer High Sensitivty Sodium Potassium Chloride Carbon Dioxide Anion Gap BUN Creatinine Estim Creat Clear Calc Estimated GFR Random Glucose Calcium Total Bilirubin Direct Bilirubin AST ALT Alkaline Phosphatase Troponin I High Sens B-Natriuretic Peptide Total Protein Albumin Lipase COVID-19 ([facility]) COVID-19 [employer] 09/19/21 09/19/21 06:38 06:38 WBC RBC Hgb Hct MCV MCH MCHC RDW Plt Count MPV Immature Gran % (Auto) Neut % (Auto) Lymph % (Auto) [place] % (Auto) Eos % (Auto) Baso % (Auto) Lymph # (Auto) [place] # (Auto) Eos # (Auto) Baso # (Auto) Abs Immat Gran (auto) Absolute Neuts (auto) Absolute Nucleated RBC Nucleated RBC % (auto) PT INR APTT aPTT Heparin Protocol 75.8 D-Dimer High Sensitivty Sodium 138 Potassium 3.4 Chloride 105 Carbon Dioxide 24 Anion Gap 12 BUN 15 Creatinine 0.74 Estim Creat Clear Calc 147.2 Estimated GFR > 60 Random Glucose 112 Calcium 8.5 Total Bilirubin 8.5 H Direct Bilirubin 6.0 H AST 190 H ALT 365 H Alkaline Phosphatase 219 H D Troponin I High Sens B-Natriuretic Peptide Total Protein 6.9 Albumin 4.1 Lipase COVID-19 ([facility]) COVID-19 [employer] Airway Mallampati Class: III TM Dist: >3cm Neck ROM: Full Loose/Missing/Broken Teeth: No (Per patient) Heart: RRR Lungs: CTAB Assessment and Plan Assessment Anesthesia Assessment: Anesthesia Plan Discussed and Chart Reviewed Final Anesthetic Review Family History of Problems with Anesthesia: No History of Problems with Anesthesia: No ASA Class: IV and Emergency Final Preanesthetic Review: No Changes in Pt Med Stat, Meds/Allgs Chart Reviewed, Consent Obtained/Reviewed and Anes Risks/Benef Reviewed Patient Risk: High Procedure Risk: Intermediate Assessment/Block/Sedation in SS: Assess/Block/Sedation-SS Anesthetic Plan Anesthetic Plan: GA Disposition: Standard PACU and Inp. Admit - Standard Bed
--- NOTE | 2021-09-19 15:15 | MHC.CM.PN ---
Pt lives with spouse/children, Is independent at home/community, No home services or dme utilized, HCP on file and verified, PCP: Shanique Franco'tony x4 ([facility]), Spouse will transport home. D/C Plan: Home (self-care) vs Home with New [facility] service.
--- NOTE | 2021-09-19 16:03 | PC.NURSE ---
Assumed care of patient from Lolis SUÁREZ patient is not on the unit having ERCP.
--- NOTE | 2021-09-19 16:24 | P.OP_ITS ---
Operative Note Operative Note Date of Service: 09/19/21 Narrative: Description: Endoscopic retrograde cholangiopancreatography (ERCP) with sphincteroplasty and spyglass., fluoroscopy and cholangiogram PROCEDURE: Endoscopic retrograde cholangiopancreatography INDICATION FOR THE PROCEDURE: Patient with a history of abn LFT and concern for choledocholithiasis MEDICATIONS: General anesthesia, cefotetan 1 g IV The risks of the procedure were made aware to the patient and consisted of medication reaction, bleeding, perforation, aspiration, and post ERCP pancreatitis. DESCRIPTION OF PROCEDURE: After informed consent and appropriate sedation, the duodenoscope was inserted into the oropharynx, down the esophagus, and into the stomach. The scope was then advanced through the pylorus to the ampulla. The ampulla was noted, and was easily accessed with the tome thanks to prior sph incterotomy. A cholangiogram was performed with a filling defect noted in the distal 3rd CBD consistent with a gallstone. Over the exchange a 3 cm basket was sweeped up and down the duct with only minor debris noted. The basket was withdrawn and a 15 mm balloon was sweeped , with resistance noted in the distal 3rd CBD. A Hurricaine dilation was then used to dilate the distal CBD and the sphincter. The 15 mm balloon was again sweeped and an irregular shaped semi oval gritty gallstone about 13-14 mm was removed. Spyglass was then attached and the duct thoroughly reviewed without any further stones seen There was some minor oozing which had ceased by the end of the procedure. The stomach was then decompressed and the endoscope was withdrawn. FINDINGS: 1. Choledocholithiasis RECOMMENDATIONS: 1. NPO except ice chips for next 4-6 hrs then clears as tolerated, can advance diet tomorrow if feels well 2. Can commence ursodiol 500 gm BID to prevent further stones in future 3. Can restart heparin in 4-6 hours time
[2021-09-19] MEDS: Lactated Ringers 1,000 ML 100 ML IVCONT (18:36)
[2021-09-19 19:55] LABS: Hematocrit 47.5 % (42.0-52.0); Hemoglobin 16.1 g/dl (14.0-18.0); Mean Corpuscular HGB Conc 33.9 g/dl (31.0-36.0); Mean Corpuscular Hemoglobin 28.8 pg (27.0-33.0); Mean Corpuscular Volume 84.8 fL (80.0-98.0); Mean Platelet Volume 9.8 fL (9.4-12.4); Platelet Count 173 X10*3/uL (160-400); Red Cell Distribution Width 13.2 % (11.0-16.0); White Blood Count 8.2 X10*3/uL (4.8-10.8)
[2021-09-19 20:01] LABS: INTERNATIONAL NORM RATIO 1.1 (0.9-1.1); Prothrombin Time 13.2 SEC (10.0-13.1)
[2021-09-19] MEDS: UrsodioL 300 MG CAPSULE PO (20:04)
[2021-09-19] MEDS: Heparin Sodium,Porcine/1/2NS 25,000 UNIT/250 ML IV.SOLN 15.39 UNIT IVCONT (20:08)
[2021-09-20] VITALS (9 sets, daily range): BP systolic 129–162; BP diastolic 82–97; PULSE 53–82; RESP 18–19; TEMP 36.1–36.6; O2SAT 96–98; BMI 28.8
--- NOTE | 2021-09-20 | ECG_ITS ---
Test Reason : cp Blood Pressure : / mmHG Vent. Rate : 065 BPM Atrial Rate : 065 BPM P-R Int : 182 ms QRS Dur : 088 ms QT Int : 442 ms P-R-T Axes : 059 -10 031 degrees QTc Int : 459 ms Normal sinus rhythm Normal ECG When compared with ECG of 18-SEP-2021 08:59, No significant change was found Referred By: Sanjay Aldrich Electronically Signed By:LARISA MCKINLEY MD
[2021-09-20 02:17] LABS: PTT Heparin Drip 70.3 SEC (53-77.9)
[2021-09-20] MEDS: Lactated Ringers 1,000 ML 100 ML IVCONT ×2 (04:01→18:51)
[2021-09-20] MEDS: Levothyroxine Sodium 175 MCG TABLET PO (06:09)
[2021-09-20 08:32] LABS: Hematocrit 43.9 % (42.0-52.0); Hemoglobin 14.9 g/dl (14.0-18.0); Mean Corpuscular HGB Conc 33.9 g/dl (31.0-36.0); Mean Corpuscular Hemoglobin 28.6 pg (27.0-33.0); Mean Corpuscular Volume 84.3 fL (80.0-98.0); Mean Platelet Volume 9.8 fL (9.4-12.4); Platelet Count 156 X10*3/uL (160-400); Red Blood Count 5.21 X10*6/uL (4.60-5.80); Red Cell Distribution Width 13.2 % (11.0-16.0); White Blood Count 8.7 X10*3/uL (4.8-10.8)
[2021-09-20] MEDS: UrsodioL 300 MG CAPSULE PO ×2 (08:34→20:49)
[2021-09-20] MEDS: Spironolactone 25 MG TABLET PO (08:35)
[2021-09-20] MEDS: VerapamiL HCL SR 180 MG TABLET.ER PO (08:35)
[2021-09-20 08:41] LABS: PTT Heparin Drip 76.6 SEC (53-77.9)
[2021-09-20 09:22] LABS: Anion Gap 12 (12-20); Blood Urea Nitrogen 24 mg/dL (9-16); Calcium 8.3 mg/dL (8.4-10.2); Carbon Dioxide 24 mmol/L (22-29); Chloride 105 mmol/L (96-108); Creatinine Clr Calc Pharmacy 137.9; Estimated Glomerular Filt Rate > 60; Glucose Random 114 mg/dL (60-115); Sodium 137 mmol/L (135-145)
[2021-09-20 09:31] LABS: Alanine Aminotransferase 226 U/L (0-40); Albumin Level 3.7 g/dL (3.5-5.0); Alkaline Phosphatase 196 U/L (39-117); Aspartate Amino Transferase 76 U/L (5-37); Bilirubin Direct 2.1 mg/dL (0.0-0.5); Total Protein 6.4 g/dL (6.5-8.0)
--- NOTE | 2021-09-20 11:03 | HO.POSTANES ---
Post Anesthesia Evaluation Post Anesthesia Evaluation Vital Signs: Vital Signs Temp Pulse Resp BP Pulse Ox O2 Del Method 09/20/21 08:00 97.6 F 57 18 160/92 H 98 Room Air 09/20/21 03:57 97 F 53 18 129/82 97 Room Air 09/19/21 23:41 97.5 F 61 18 162/87 H 97 Room Air Anesthesia: Monitored Mental Status: Awake Pain Control: Satisfactory Nausea/Vomiting: None Hydration: Adequate Anesthesia-Related Issues: No Anes. Related Issues
--- NOTE | 2021-09-20 11:36 | P.DS_ITS ---
DS: Providers Provider Date of Service: 09/20/21 Date of admission: 09/18/21 19:34 Primary care physician: SOHA Bañuelos Consults: 09/18/21 14:29 Consult to Gastroenterology Stat Consulting Provider: Bahman Baker Reason for consultation: elevated LFTs, ?retained stone Has provider been notified: Yes DS: Diagnosis Discharge Diagnosis (1) Elevated liver enzymes: Status: Acute (2) Pulmonary emboli: Status: Acute (3) Biliary disease with obstruction: Status: Acute DS: Summary Hospital Course Hospital Course: Admission note HPI This is a 51-year-old male with past medical history of HTN, hypothyroid,history of rectal cancer and UC s/p? total colectomy, radiation therapy and chemotherapy 7 years prior, cholecystectomy 02/06/2021, and radiation cystitis? presents to the hospital with complaints of chest pressure.? Patient reports that his symptoms started of at 5 days ago, the pain is constant but wanes in severity.? Pain is retrosternal, 10/10 at its worse, nonradiating, not changed by inspiration or expiration or movement.? Patient is also complaining of epigastric as well as right upper quadrant pain for the same amount of time.? Patient denies any recent travel or prolonged immobilization.? Patient underwent an ERCP on August 11 for removal of a CBD stent and clearance . Patient otherwise denies any fever or chills, has nausea with no vomiting, no diarrhea constipation, no urinary symptoms and no lower extremity edema.? He does report change in his stool color in the ileostomy bag On arrival to the ED patient hemodynamically stable with no significant abnormal vitals No labs reviewed show unremarkable findings except for an elevated bilirubin of 3.9, 1.3 on 08/19, AST of 323, ALT of 357 both elevated from previous, and alk- phos of [address] angiogram which showed positive acute pulmonary emboli in the right lower lobe subsegmental branches No right ventricular strain, no reflux of contrast into the liver, no airspace consolidation.? Abdominal ultrasound showed status post cholecystectomy, bile duct is within expected limits and no intrahepatic biliary ductal dilatation.? Patient started on heparin drip She was also by GI and will undergo ERCP in the morning Hospital course The patient was admitted to the hospital for evaluation of abdominal pain. Found to have elevated liver enzymes. CT scan was negative for any acute findings at that point. Evaluated by pants presser automatic who recommended an ERCP which was done showing an evidence of a small stone in the CBD that was extracted with significant improvement of the pain and improving transaminitis. GI recommended to use Ursodiol twice daily at discharge. CTA was consistent with right-sided lower lobe segmental pulmonary embolism. Treated with heparin drip with good response as no shortness of breath or oxygen requirement during the hospital stay. To be discharged on full dose of Eliquis with a plan to follow-up with his oncology team to determine the duration of treatment given his history of cancer. Continue Ursodiol twice Daily Start Eliquis 10 mg twice daily for 7 days then continue with maintenance dose of 5 mg twice daily. Monitor blood pressure at home and report 1 week readings to PCP for further adjustments of the medications. Time Spent with Patient Time attestation: Total time spent providing and/or coordinating discharge services: Discharge coordination time: Greater than 30 minutes Quality: Safe Use of Opioids Does Pt have an Active Cancer Diagnosis on the Problem List?: No Quality: Stroke Does the patient have a stroke diagnosis?: No Physical Exam Vital Signs: Vital Signs: Last Vital Signs Temp 97.6 F 09/20/21 08:00 Pulse 57 09/20/21 08:00 Resp 18 09/20/21 08:00 BP 160/92 H 09/20/21 08:00 Pulse Ox 98 09/20/21 08:00 O2 Del Method 09/20/21 08:00 O2 Flow Rate 4 09/19/21 16:37 BMI result Body Mass Index 33.7 Const: Other: Constitutional : Alert, oriented, not in distress Neck : Normal inspection, Supple Cardiovascular : RRR, no JVP, no lower extremity edema Respiratory : fair bilateral air entry, no crackles, wheezes or rhonchi Gastrointestinal: soft, lax, Normal bowel sounds, Non tender Skin : Warm, Dry Neurological : Alert & oriented x3, No focal deficit , CN 2-12 within normal DS: Data Data Completed and Pending Completed studies during hospitalization [Text1]: Procedures Inspection of Gallbladder, Percutaneous Endoscopic Approach (01/23/21) Inspection of Hepatobiliary Duct, Via Natural or Artificial Opening Endoscopic (07/29/21) Resection of Gallbladder, Open Approach (01/23/21) Labs on day of discharge: Laboratory Results - last 24 hr 09/19/21 09/19/21 09/20/21 19:46 19:46 01:59 WBC 8.2 RBC 5.60 Hgb 16.1 Hct 47.5 MCV 84.8 MCH 28.8 MCHC 33.9 RDW 13.2 Plt Count 173 MPV 9.8 Absolute Nucleated RBC 0.000 Nucleated RBC % (auto) 0.0 PT 13.2 H INR 1.1 aPTT Heparin Protocol 32.0 L D 70.3 D Sodium Potassium Chloride Carbon Dioxide Anion Gap BUN Creatinine Estim Creat Clear Calc Estimated GFR Random Glucose Calcium Total Bilirubin Direct Bilirubin AST ALT Alkaline Phosphatase Total Protein Albumin 09/20/21 09/20/21 09/20/21 08:09 08:09 08:09 WBC 8.7 RBC 5.21 Hgb 14.9 Hct 43.9 MCV 84.3 MCH 28.6 MCHC 33.9 RDW 13.2 Plt Count 156 L MPV 9.8 Absolute Nucleated RBC 0.000 Nucleated RBC % (auto) 0.0 PT 12.0 INR 1.0 aPTT Heparin Protocol Sodium 137 Potassium 4.0 Chloride 105 Carbon Dioxide 24 Anion Gap 12 BUN 24 H D Creatinine 0.79 Estim Creat Clear Calc 137.9 Estimated GFR > 60 Random Glucose 114 Calcium 8.3 L Total Bilirubin Direct Bilirubin AST ALT Alkaline Phosphatase Total Protein Albumin 09/20/21 09/20/21 08:09 08:09 WBC RBC Hgb Hct MCV MCH MCHC RDW Plt Count MPV Absolute Nucleated RBC Nucleated RBC % (auto) PT INR aPTT Heparin Protocol 76.6 Sodium Potassium Chloride Carbon Dioxide Anion Gap BUN Creatinine Estim Creat Clear Calc Estimated GFR Random Glucose Calcium Total Bilirubin 3.0 H Direct Bilirubin 2.1 H AST 76 H ALT 226 H Alkaline Phosphatase 196 H Total Protein 6.4 L Albumin [address] scan - abdomen: Radiologist's impression: ITS Impressions Abdomen Ultrasound 09/18/21 13:24 IMPRESSION: Status post cholecystectomy. Common bile duct measures 8 mm in diameter which is within expected limits for the postcholecystectomy state with no intrahepatic biliary duct dilatation. Previously seen common bile and cystic duct stones are not appreciated sonographically. Chest CTA 09/18/21 16:25 IMPRESSION: -Positive for acute pulmonary embolism right lower lobe subsegmental branches. -No right ventricular strain. No reflux of contrast into the liver. -No pneumothorax, airspace consolidation or effusion. -Mild enlargement ascending aorta, 4.5 cm stable from prior CT 07/29/2021. VTE: positive Venous Duplex 09/18/21 19:35 IMPRESSION: No DVT demonstrated in the bilateral lower extremity. Guidance Fluoroscopy 09/19/21 16:30 IMPRESSION: Imaging guidance for a procedure. For further detail regarding procedure and findings please refer to the procedure report. Discharge Plan Discharge Patient Disposition: Home, Self-Care Discharge Diagnosis: Biliary disease with obstructive stone Elevated liver enzymes Pulmonary embolism Referrals: Ander Irby PA [Primary Care Provider] - 1 Week Discharge Medications: New Eliquis 5 mg Tablet 10 mg PO BID Qty: 26 0RF ursodiol 300 mg Capsule 300 mg PO BID 30 Days Qty: 60 0RF Eliquis 5 mg tablet 5 mg PO BID Qty: 60 0RF Continued levothyroxine 175 mcg tablet 1 tab PO DAILY@0600 spironolactone 25 mg tablet 1 tab PO DAILY verapamil 180 mg capsule,ext rel. pellets 24 hr 1 cap PO DAILY Discharge Orders: Discharge Order (Routine); Ordered 09/20/21 Ordered By: Sanjay Aldrich Activity on Discharge: As tolerated Stand Alone Forms: Patient Portal Discharge page Care Plan Goals: Read below Health Concerns: Read below Plan of Treatment: Read below Assessment: You were admitted to the hospital for evaluation of abdominal pain. Evaluated by pants presser automatic who did an ERCP that was consistent with a small stone in your common bile duct that was extracted with significant improvement of pain and your liver enzyme. images of your chest was consistent with a clot to your lung. Treated with IV heparin drip. To be discharged on full-dose Eliquis and to be followed by your Oncology team to decide on the length of the treatment. Continue Ursodiol twice Daily Start Eliquis 10 mg twice daily for 7 days then continue with maintenance dose of 5 mg twice daily. Monitor your blood pressure at home and report 1 week readings to your PCP for further adjustments of the medications.
[2021-09-20] MEDS: Apixaban 5 MG TABLET 10 MG PO ×2 (12:00→20:49)
--- NOTE | 2021-09-20 12:03 | MHC.CM.PN ---
PT WILL DC HOME TODAY WITH NO SERVICES PT TO ARRANGE TRANSPORT
[2021-09-20] MEDS: oxyCODONE HCl Immed Release 5 MG TABLET PO ×2 (12:26→18:36)
[2021-09-20] MEDS: Acetaminophen 325 MG TABLET 650 MG PO ×2 (12:27→18:35)
--- NOTE | 2021-09-20 12:39 | HO.PM.IMPN ---
Subjective Subjective Date of Service: 09/20/21 Interval History: the patient was seen and evaluated this morning Laying in bed,Has epigastric pain that developed around noontime Denies any fever, chills or shortness of breath No reported other overnight events. Systemic review: No fever, chills or weakness No chest pain, palpitation No shortness of breath or coughing Epigastric pain with no nausea or vomiting No urinary symptoms No any rash or wounds Physical Exam Vital Signs: Vital Signs: Last Vital Signs Temp 97.9 F 09/20/21 12:00 Pulse 64 09/20/21 12:00 Resp 18 09/20/21 12:00 BP 162/90 H 09/20/21 12:00 Pulse Ox 97 09/20/21 12:00 O2 Del Method 09/20/21 12:00 O2 Flow Rate 4 09/19/21 16:37 BMI result Body Mass Index 33.7 Const: Other: Constitutional : Alert, oriented, not in distress Neck : Normal inspection, Supple Cardiovascular : RRR, no JVP, no lower extremity edema Respiratory : fair bilateral air entry, no crackles, wheezes or rhonchi Gastrointestinal: soft, lax, Normal bowel sounds, Mild epigastric tenderness with no surgical signs, ostomy in place with no drainage Skin : Warm, Dry Neurological : Alert & oriented x3, No focal deficit , CN 2-12 within normal Objective Data Active Medications Acetaminophen (Acetaminophen 325 Mg Tablet) 650 mg PO Q6H PRN PRN Reason: Pain, Mild (Pain Scale 1-3) Last Admin: 09/20/21 12:27 Dose: 650 mg Documented By: MARTY Apixaban (Apixaban 5 Mg Tablet) 10 mg PO BID [facility] Stop: 09/26/21 21:01 Last Admin: 09/20/21 12:00 Dose: 10 mg Documented By: MARTY Docusate Sodium (Docusate Sodium 100 Mg Capsule) 100 mg PO DAILY PRN PRN Reason: Constipation Fentanyl (Fentanyl Citrate/Pf 100 Mcg/2 Ml Vial) 25 mcg IVPUSH Q5M PRN; Protocol PRN Reason: Pain, Moderate (Pain Scale 4-6 Levothyroxine Sodium (Levothyroxine Sodium 175 Mcg Tablet) 175 mcg PO DAILY@0600 [facility] Last Admin: 09/20/21 06:09 Dose: 175 mcg Documented By: JUAN RAMON Ondansetron HCl (Ondansetron Hcl 4 Mg/2 Ml Vial) 4 mg IVPUSH Q8H PRN PRN Reason: Nausea and Vomiting Last Admin: 09/19/21 05:48 Dose: 4 mg Documented By: CARMINE Ondansetron HCl (Ondansetron Hcl 4 Mg/2 Ml Vial) 4 mg IVPUSH ONCE PRN PRN Reason: Nausea and Vomiting Oxycodone HCl (Oxycodone Hcl Immed Release 5 Mg Tablet) 5 mg PO Q6H PRN PRN Reason: Pain, Severe (Pain Scale 7-10) Last Admin: 09/20/21 12:26 Dose: 5 mg Documented By: MARTY Pharmacy Consult (Consult Rx Perform Med Rec) 1 each MISCELLANE ONCE PRN PRN Reason: Consult order Sodium Chloride (0.9 % Sodium Chloride Flush 3 Ml Syringe) 3 ml IVFLUSH QSHIFT [facility] Last Admin: 09/20/21 07:57 Dose: Not Given Documented By: MARTY Non-Admin Reason: IV Running Spironolactone (Spironolactone 25 Mg Tablet) 25 mg PO DAILY [facility]; Protocol Last Admin: 09/20/21 08:35 Dose: 25 mg Documented By: MARTY Ursodiol (Ursodiol 300 Mg Capsule) 300 mg PO BID [facility] Last Admin: 09/20/21 08:34 Dose: 300 mg Documented By: MARTY Verapamil HCl (Verapamil Hcl Sr 180 Mg Tablet.Er) 180 mg PO DAILY [facility]; Protocol Last Admin: 09/20/21 08:35 Dose: 180 mg Documented By: MARTY Labs CBC & Chem 7: 09/20/21 08:09 09/20/21 08:09 Labs: Laboratory Results - last 24 hr 09/19/21 09/19/21 09/20/21 19:46 19:46 01:59 MCV 84.8 MCH 28.8 MCHC 33.9 RDW 13.2 Plt Count 173 MPV 9.8 Absolute Nucleated RBC 0.000 Nucleated RBC % (auto) 0.0 PT 13.2 H INR 1.1 aPTT Heparin Protocol 32.0 L D 70.3 D Anion Gap Estim Creat Clear Calc Estimated GFR Random Glucose Calcium Total Bilirubin Direct Bilirubin AST ALT Alkaline Phosphatase Total Protein Albumin 0709/20/21 09/20/21 08:09 08:09 08:09 MCV 84.3 MCH 28.6 MCHC 33.9 RDW 13.2 Plt Count 156 L MPV 9.8 Absolute Nucleated RBC 0.000 Nucleated RBC % (auto) 0.0 PT 12.0 INR 1.0 aPTT Heparin Protocol Anion Gap 12 Estim Creat Clear Calc 137.9 Estimated GFR > 60 Random Glucose 114 Calcium 8.3 L Total Bilirubin Direct Bilirubin AST ALT Alkaline Phosphatase Total Protein Albumin 09/20/21 09/20/21 08:09 08:09 MCV MCH MCHC RDW Plt Count MPV Absolute Nucleated RBC Nucleated RBC % (auto) PT INR aPTT Heparin Protocol 76.6 Anion Gap Estim Creat Clear Calc Estimated GFR Random Glucose Calcium Total Bilirubin 3.0 H Direct Bilirubin 2.1 H AST 76 H ALT 226 H Alkaline Phosphatase 196 H Total Protein 6.4 L Albumin 3.7 Assessment and Plan (1) Elevated liver enzymes: Status: Acute (2) Pulmonary emboli: Status: Acute Plan 51-year-old male with past medical history of rectal cancer status post total colectomy and ileostomy presents to the hospital with chest pressure found to have PE # acute PE in the setting of history of cancer discontinue heparin Start full-dose Eliquis 10 mg b.i.d. for 1 week follow H&H # transaminitis 2/2 CBD obstructing stone status post ERCP and 1.1 cm stone removal improved Bilirubin recurrence of pain around noontime pain medication GI to follow # hypertension elevated BP resume his home medications # hypothyroid continue levothyroxine DVT prophylaxis Eliquis The patient will need overnight hospital stay continue management of acute PE and pain management in GI reeval to prevent worsening transaminitis Quality Stroke Does the patient have a stroke diagnosis?: No VTE Prior VTE?: No VTE Risk Level:: Medical - moderate - high VTE Device Contraindication: Treatment Not Indicated VTE Drug Contraindication: N/A - Med Ordered
[2021-09-20 15:07] LABS: Lipase 38 U/L (8-78)
[2021-09-20] MEDS: Morphine Sulfate 2 MG/ML CARTRIDGE IVPUSH (16:56)
[2021-09-20] MEDS: ondansetron HCL 4 MG/2 ML VIAL IVPUSH (17:09)
--- NOTE | 2021-09-20 18:20 | PM.GIPN ---
Subjective Subjective Date of Service: 09/20/21 Interval History: patient was doing well, had breakfast then few hours later he had intense epigastric pain like he had before, now has resolved LFT coming down, lipase was neg MRCP limited by motion artifact but no dilated duct or obvious lesions seen Critical Care Time (minutes): 0 Physical Exam Vital Signs: Vital Signs: Last Vital Signs Temp 97.9 F 09/20/21 12:00 Pulse 64 09/20/21 12:00 Resp 19 09/20/21 16:56 BP 162/90 H 09/20/21 12:00 Pulse Ox 97 09/20/21 14:17 O2 Del Method 09/20/21 14:17 O2 Flow Rate 4 09/19/21 16:37 BMI result Body Mass Index 33.7 EXAM: GENERAL: The patient is well developed and nontoxic. VITAL SIGNS:see workflow HEENT: Nonicteric sclerae, PERRLA, EOMI. Oropharynx clear. Moist mucous membranes. Conjunctivae appear well perfused. No thyroid mass. CHEST: Chest wall is nontender. HEART: Regular rate and rhythm without murmurs. LUNGS: Clear to auscultation bilaterally. ABDOMEN: Soft, positive bowel sounds, nontender, no organomegaly.no flank tenderness SKIN: No rash, no excessive bruising, petechiae, or purpura. NEUROLOGIC: Cranial nerves II-XII intact without motor/sensory deficit. Objective Data Labs CBC & Chem 7: 09/20/21 08:09 09/20/21 08:09 Labs: Laboratory Results - last 24 hr 09/19/21 09/19/21 09/20/21 19:46 19:46 01:59 WBC 8.2 RBC 5.60 Hgb 16.1 Hct 47.5 MCV 84.8 MCH 28.8 MCHC 33.9 RDW 13.2 Plt Count 173 MPV 9.8 Absolute Nucleated RBC 0.000 Nucleated RBC % (auto) 0.0 PT 13.2 H INR 1.1 aPTT Heparin Protocol 32.0 L D 70.3 D Sodium Potassium Chloride Carbon Dioxide Anion Gap BUN Creatinine Estim Creat Clear Calc Estimated GFR Random Glucose Calcium Total Bilirubin Direct Bilirubin AST ALT Alkaline Phosphatase Total Protein Albumin Lipase 09/20/21 09/20/21 09/20/21 08:09 08:09 08:09 WBC 8.7 RBC 5.21 Hgb 14.9 Hct 43.9 MCV 84.3 MCH 28.6 MCHC 33.9 RDW 13.2 Plt Count 156 L MPV 9.8 Absolute Nucleated RBC 0.000 Nucleated RBC % (auto) 0.0 PT 12.0 INR 1.0 aPTT Heparin Protocol Sodium 137 Potassium 4.0 Chloride 105 Carbon Dioxide 24 Anion Gap 12 BUN 24 H D Creatinine 0.79 Estim Creat Clear Calc 137.9 Estimated GFR > 60 Random Glucose 114 Calcium 8.3 L Total Bilirubin Direct Bilirubin AST ALT Alkaline Phosphatase Total Protein Albumin Lipase 09/20/21 09/20/21 09/20/21 08:09 08:09 14:27 WBC RBC Hgb Hct MCV MCH MCHC RDW Plt Count MPV Absolute Nucleated RBC Nucleated RBC % (auto) PT INR aPTT Heparin Protocol 76.6 Sodium Potassium Chloride Carbon Dioxide Anion Gap BUN Creatinine Estim Creat Clear Calc Estimated GFR Random Glucose Calcium Total Bilirubin 3.0 H Direct Bilirubin 2.1 H AST 76 H ALT 226 H Alkaline Phosphatase 196 H Total Protein 6.4 L Albumin 3.7 Lipase 38 Imaging MRI - abdomen: Attestation: I personally reviewed and interpreted this imaging study as follows: (CBd not well seen, no obvious defects, pancreatitis) Procedures Date of Service Date of Service: 09/20/21 Progress Note: A&P Assessment and plan (1) Choledocholithiasis: Status: Acute (2) Biliary disease with obstruction: Status: Acute Plan 1/ Downtrending LFT< neg MRCP, uncertain as to what caused his pain which has improved PLAN: 1/ allow PO diet as tolerated 2/ cont to trend LFT as long as going down and he is managing PO can go home tomorrow, if numbers start climbing may need another Ercp for assessment 3/ d/c home on ursodiol Time Spent With Patient Time: Total time spent is greater than 50% in coordination of care (as documented) at patient's floor/unit and/or counseling patient: Quality Stroke Does the patient have a stroke diagnosis?: No VTE Prior VTE?: No VTE Risk Level:: Medical - moderate - high VTE Device Contraindication: Treatment Not Indicated VTE Drug Contraindication: N/A - Med Ordered
--- NOTE | 2021-09-20 18:46 | PM.EVENT ---
Event Note Date of Service: 09/20/21 Event Note: worsening pain again 12/15 in RUQ that feels like his pain pre-ERCP lipase normal MRCP:Limited evaluation of the common bile duct for choledocholithiasis but it is normal in caliber and there is no intrahepatic biliary ductal dilatation.? will make NPO, check LFTs in AM, give IV hydromorphone, and contact GI to see if he needs repeat ERCP
[2021-09-20] MEDS: HYDROmorphone HCl 0.5 MG/0.5 ML SYRINGE IVPUSH ×2 (18:51→23:30)
[2021-09-20 19:57] LABS: Alanine Aminotransferase 220 U/L (0-40); Albumin Level 3.9 g/dL (3.5-5.0); Alkaline Phosphatase 204 U/L (39-117); Aspartate Amino Transferase 77 U/L (5-37); Bilirubin Direct 3.4 mg/dL (0.0-0.5); Bilirubin Total 4.6 mg/dL (0.0-1.0); Total Protein 6.7 g/dL (6.5-8.0)
[2021-09-20 21:49] LABS: INTERNATIONAL NORM RATIO 1.2 (0.9-1.1)
[2021-09-20] MEDS: Diatrizoate Meglumine, Sodium 30 ML SOLUTION PO (21:49)
[2021-09-20] MEDS: iohexoL 350 MG/ML 100 ML INFUS..BTL IV (21:49)
[2021-09-20 21:52] LABS: PTT Heparin Drip 32.2 SEC (53-77.9)
[2021-09-21] VITALS (11 sets, daily range): BP systolic 131–168; BP diastolic 67–98; PULSE 56–76; RESP 16–19; TEMP 36.6–37.1; O2SAT 94–98
--- NOTE | 2021-09-21 02:09 | PC.NURSE ---
Addendum entered by Emmy Laurent RN 09/21/21 02:12: Heparin drip to resume at 8am tomorrow as per pharmacy. Original Note: Pt maintained on NPO with no exception, noted with minimal epig pain and tolerated, ABD CT with contrast done, Dr. Tsai was updated, MD said okay to give Eloquis po and Actigall po, pt tolerated, for possible ERCP in the morning.
[2021-09-21] MEDS: HYDROmorphone HCl 0.5 MG/0.5 ML SYRINGE IVPUSH ×4 (02:48→10:25)
[2021-09-21] MEDS: Lactated Ringers 1,000 ML 100 ML IVCONT ×2 (04:49→17:53)
[2021-09-21] MEDS: Levothyroxine Sodium 175 MCG TABLET PO (06:04)
[2021-09-21] MEDS: ondansetron HCL 4 MG/2 ML VIAL IVPUSH (06:08)
[2021-09-21] MEDS: oxyCODONE HCl Immed Release 5 MG TABLET PO (07:44)
[2021-09-21] MEDS: UrsodioL 300 MG CAPSULE PO ×2 (07:45→21:48)
[2021-09-21] MEDS: Spironolactone 25 MG TABLET PO (07:45)
[2021-09-21] MEDS: VerapamiL HCL SR 180 MG TABLET.ER PO (07:45)
[2021-09-21] MEDS: Acetaminophen 325 MG TABLET 650 MG PO (07:45)
[2021-09-21 08:00] LABS: Hematocrit 44.6 % (42.0-52.0); Hemoglobin 14.9 g/dl (14.0-18.0); Mean Corpuscular HGB Conc 33.4 g/dl (31.0-36.0); Mean Corpuscular Hemoglobin 28.5 pg (27.0-33.0); Mean Corpuscular Volume 85.4 fL (80.0-98.0); Platelet Count 171 X10*3/uL (160-400); Red Blood Count 5.22 X10*6/uL (4.60-5.80); Red Cell Distribution Width 13.4 % (11.0-16.0); White Blood Count 8.7 X10*3/uL (4.8-10.8)
[2021-09-21 08:13] LABS: INTERNATIONAL NORM RATIO 1.2 (0.9-1.1); Prothrombin Time 14.2 SEC (10.0-13.1)
[2021-09-21 08:14] LABS: Anion Gap 13 (12-20); Blood Urea Nitrogen 19 mg/dL (9-16); Calcium 8.4 mg/dL (8.4-10.2); Carbon Dioxide 24 mmol/L (22-29); Chloride 103 mmol/L (96-108); Creatinine Clr Calc Pharmacy 144.4; Estimated Glomerular Filt Rate > 60; Glucose Random 103 mg/dL (60-115); Potassium 3.9 mmol/L (3.3-5.1); Sodium 136 mmol/L (135-145)
[2021-09-21 08:16] LABS: PTT Heparin Drip 31.8 SEC (53-77.9)
[2021-09-21 08:20] LABS: Alanine Aminotransferase 186 U/L (0-40); Albumin Level 3.9 g/dL (3.5-5.0); Alkaline Phosphatase 197 U/L (39-117); Aspartate Amino Transferase 66 U/L (5-37); Bilirubin Direct 6.3 mg/dL (0.0-0.5); Bilirubin Total 7.9 mg/dL (0.0-1.0); Total Protein 6.5 g/dL (6.5-8.0)
[2021-09-21] MEDS: Heparin Sodium,Porcine/1/2NS 25,000 UNIT/250 ML IV.SOLN 13.15 UNIT IVCONT (08:21)
--- NOTE | 2021-09-21 09:21 | MHC.SHP ---
Pre-Procedural Eval Section A Date of Service: 09/21/21 The patient is an INPATIENT: Yes The History & Physical has been completed within 30 days and I have reviewed it.: Yes Section B Chief Complaint: PE,Need for ERCP Allergies: Allergies Allergy/AdvReac Type Severity Reaction Status Date / Time No Known Allergies Allergy Verified 08/11/21 07:06 Plan I have reviewed the history and physical and performed a pertinent physical examination on my patient. No changes have occurred unless specified.
--- NOTE | 2021-09-21 09:55 | HO.PM.IMPN ---
Subjective Subjective Date of Service: 09/21/21 Interval History: Has mild pain this morning and LFTs trending down, no plan for ERCP at this time Review of Systems no n/v mild abd pain Physical Exam Vital Signs: Vital Signs: Last Vital Signs Temp 98.8 F 09/21/21 07:40 Pulse 76 09/21/21 07:40 Resp 19 09/21/21 08:09 BP 168/98 H 09/21/21 07:40 Pulse Ox 95 09/21/21 07:40 O2 Del Method 09/21/21 07:40 O2 Flow Rate 4 09/19/21 16:37 BMI result Body Mass Index 28.8 Const: Other: Constitutional : Alert, oriented, not in distress Neck : Normal inspection, Supple Cardiovascular : RRR, no JVP, no lower extremity edema Respiratory : fair bilateral air entry, no crackles, wheezes or rhonchi Gastrointestinal: soft, lax, Normal bowel sounds, Mild epigastric tenderness with no surgical signs, ostomy in place with no drainage Skin : Warm, Dry Neurological : Alert & oriented x3, No focal deficit , CN 2-12 within normal Objective Data Active Medications Acetaminophen (Acetaminophen 325 Mg Tablet) 650 mg PO Q6H PRN PRN Reason: Pain, Mild (Pain Scale 1-3) Last Admin: 09/21/21 07:45 Dose: 650 mg Documented By: JJ.COTEMA Docusate Sodium (Docusate Sodium 100 Mg Capsule) 100 mg PO DAILY PRN PRN Reason: Constipation Fentanyl (Fentanyl Citrate/Pf 100 Mcg/2 Ml Vial) 25 mcg IVPUSH Q5M PRN; Protocol PRN Reason: Pain, Moderate (Pain Scale 4-6 Heparin Sodium (Porcine) (Heparin Sodium,Porcine 5,000 Unit/Ml Vial) 3,800 unit 40 unit/kg (3800 unit) IVPUSH PROTOCOL BOLUS PRN; Protocol PRN Reason: 40 unit/kg - Heparin Protocol Heparin Sodium (Porcine) (Heparin Sodium,Porcine 5,000 Unit/Ml Vial) 7,500 unit 80 unit/kg (7500 unit) IVPUSH PROTOCOL BOLUS PRN; Protocol PRN Reason: 80 unit/kg - Heparin Protocol Hydromorphone HCl (Hydromorphone Hcl 0.5 Mg/0.5 Ml Syringe) 0.5 mg IVPUSH Q2H PRN; Protocol PRN Reason: severe pain Last Admin: 09/21/21 08:09 Dose: 0.5 mg Documented By: MARTY Lactated Ringer's (Lr) 1,000 mls @ 100 mls/hr IVCONT .Q10H [facility] Last Admin: 09/21/21 04:49 Dose: 100 mls/hr Documented By: MOON Heparin Sodium/Sodium Chloride () 25,000 unit in 250 mls @ 0 mls/hr IVCONT .Q0M [facility]; Protocol Last Admin: 09/21/21 08:21 Dose: 14 units/kg/hr, 13.15 mls/hr Documented By: MARTY Co-signed By: SOLO Levothyroxine Sodium (Levothyroxine Sodium 175 Mcg Tablet) 175 mcg PO DAILY@0600 [facility] Last Admin: 09/21/21 06:04 Dose: 175 mcg Documented By: MOON Ondansetron HCl (Ondansetron Hcl 4 Mg/2 Ml Vial) 4 mg IVPUSH Q8H PRN PRN Reason: Nausea and Vomiting Last Admin: 09/21/21 06:08 Dose: 4 mg Documented By: MOON Ondansetron HCl (Ondansetron Hcl 4 Mg/2 Ml Vial) 4 mg IVPUSH ONCE PRN PRN Reason: Nausea and Vomiting Oxycodone HCl (Oxycodone Hcl Immed Release 5 Mg Tablet) 5 mg PO Q6H PRN PRN Reason: Pain, Severe (Pain Scale 7-10) Last Admin: 09/21/21 07:44 Dose: 5 mg Documented By: MARTY Pharmacy Consult (Consult Rx Perform Med Rec) 1 each MISCELLANE ONCE PRN PRN Reason: Consult order Sodium Chloride (0.9 % Sodium Chloride Flush 3 Ml Syringe) 3 ml IVFLUSH QSHIFT [facility] Last Admin: 09/21/21 06:58 Dose: Not Given Documented By: MARTY Non-Admin Reason: IV Running Spironolactone (Spironolactone 25 Mg Tablet) 25 mg PO DAILY [facility]; Protocol Last Admin: 09/21/21 07:45 Dose: 25 mg Documented By: MARTY Ursodiol (Ursodiol 300 Mg Capsule) 300 mg PO BID [facility] Last Admin: 09/21/21 07:45 Dose: 300 mg Documented By: MARTY Verapamil HCl (Verapamil Hcl Sr 180 Mg Tablet.Er) 180 mg PO DAILY [facility]; Protocol Last Admin: 09/21/21 07:45 Dose: 180 mg Documented By: MARTY Labs CBC & Chem 7: 09/21/21 07:45 09/21/21 07:45 Labs: Laboratory Results - last 24 hr 09/20/21 09/20/21 09/21/21 14:27 21:08 07:45 MCV MCH MCHC RDW Plt Count MPV Absolute Nucleated RBC Nucleated RBC % (auto) PT 14.0 H INR 1.2 H aPTT Heparin Protocol 32.2 L D 31.8 L Anion Gap Estim Creat Clear Calc Estimated GFR Random Glucose Calcium Total Bilirubin 4.6 H Direct Bilirubin 3.4 H AST 77 H ALT 220 H Alkaline Phosphatase 204 H Total Protein 6.7 Albumin 3.9 Lipase 38 09/21/21 09/21/21 09/21/21 07:45 07:45 07:45 MCV 85.4 MCH 28.5 MCHC 33.4 RDW 13.4 Plt Count 171 MPV 10.0 Absolute Nucleated RBC 0.000 Nucleated RBC % (auto) 0.0 PT INR aPTT Heparin Protocol Anion Gap 13 Estim Creat Clear Calc 144.4 Estimated GFR > 60 Random Glucose 103 Calcium 8.4 Total Bilirubin 7.9 H Direct Bilirubin 6.3 H AST 66 H ALT 186 H Alkaline Phosphatase 197 H Total Protein 6.5 Albumin 3.9 Lipase 09/21/21 07:45 MCV MCH MCHC RDW Plt Count MPV Absolute Nucleated RBC Nucleated RBC % (auto) PT 14.2 H INR 1.2 H aPTT Heparin Protocol Anion Gap Estim Creat Clear Calc Estimated GFR Random Glucose Calcium Total Bilirubin Direct Bilirubin AST ALT Alkaline Phosphatase Total Protein Albumin Lipase Assessment and Plan (1) Elevated liver enzymes: Status: Acute (2) Pulmonary emboli: Status: Acute Plan 51-year-old male with past medical history of rectal cancer status post total colectomy and ileostomy presents to the hospital with chest pressure found to have PE # acute PE in the setting of history of cancer discontinue heparin Will transition to Eliquis at discharge # transaminitis 2/2 CBD obstructing stone status post ERCP and 1.1 cm stone removal improved Bilirubin recurrence of pain around with meal, LFTs are trendind [place] Advance diet # hypertension Verapamil # hypothyroid continue levothyroxine DVT prophylaxis Eliquis Need for inpatient: On IV heparin for PE as might need surgical intervention Quality Stroke Does the patient have a stroke diagnosis?: No VTE Prior VTE?: No VTE Risk Level:: Medical - moderate - high VTE Device Contraindication: Treatment Not Indicated VTE Drug Contraindication: N/A - Med Ordered
--- NOTE | 2021-09-21 10:30 | P.PNGI_ITS ---
Subjective Subjective Date of Service: 09/21/21 Interval History: further abdominal pain overnight he had nausea, no vomiting urine is orange again, MRI was degraded by movement, but within limits no dilation noted CT was then done with ?sludge or blood in distal CBD Critical Care Time (minutes): 0 Physical Exam Vital Signs: Vital Signs: Last Vital Signs Temp 98.8 F 09/21/21 07:40 Pulse 76 09/21/21 07:40 Resp 19 09/21/21 10:25 BP 168/98 H 09/21/21 07:40 Pulse Ox 95 09/21/21 07:40 O2 Del Method 09/21/21 07:40 O2 Flow Rate 4 09/19/21 16:37 BMI result Body Mass Index 28.8 EXAM: GENERAL: The patient is jaundiced VITAL SIGNS:see workflow HEENT: Nonicteric sclerae, PERRLA, EOMI. Oropharynx clear. Moist mucous membranes. Conjunctivae appear well perfused. No thyroid mass. CHEST: Chest wall is nontender. HEART: Regular rate and rhythm without murmurs. LUNGS: Clear to auscultation bilaterally. ABDOMEN: Soft, positive bowel sounds, mild tender RUQ, no organomegaly.no flank tenderness SKIN: No rash, no excessive bruising, petechiae, or purpura. NEUROLOGIC: Cranial nerves II-XII intact without motor/sensory deficit. Objective Data Labs CBC & Chem 7: 09/21/21 07:45 09/21/21 07:45 Labs: Laboratory Results - last 24 hr 09/20/21 09/20/21 09/21/21 14:27 21:08 07:45 WBC RBC Hgb Hct MCV MCH MCHC RDW Plt Count MPV Absolute Nucleated RBC Nucleated RBC % (auto) PT 14.0 H INR 1.2 H aPTT Heparin Protocol 32.2 L D 31.8 L Sodium Potassium Chloride Carbon Dioxide Anion Gap BUN Creatinine Estim Creat Clear Calc Estimated GFR Random Glucose Calcium Total Bilirubin 4.6 H Direct Bilirubin 3.4 H AST 77 H ALT 220 H Alkaline Phosphatase 204 H Total Protein 6.7 Albumin 3.9 Lipase 38 09/21/21 09/21/21 09/21/21 07:45 07:45 07:45 WBC 8.7 RBC 5.22 Hgb 14.9 Hct 44.6 MCV 85.4 MCH 28.5 MCHC 33.4 RDW 13.4 Plt Count 171 MPV 10.0 Absolute Nucleated RBC 0.000 Nucleated RBC % (auto) 0.0 PT INR aPTT Heparin Protocol Sodium 136 Potassium 3.9 Chloride 103 Carbon Dioxide 24 Anion Gap 13 BUN 19 H Creatinine 0.70 Estim Creat Clear Calc 144.4 Estimated GFR > 60 Random Glucose 103 Calcium 8.4 Total Bilirubin 7.9 H Direct Bilirubin 6.3 H AST 66 H ALT 186 H Alkaline Phosphatase 197 H Total Protein 6.5 Albumin 3.9 Lipase 09/21/21 07:45 WBC RBC Hgb Hct MCV MCH MCHC RDW Plt Count MPV Absolute Nucleated RBC Nucleated RBC % (auto) PT 14.2 H INR 1.2 H aPTT Heparin Protocol Sodium Potassium Chloride Carbon Dioxide Anion Gap BUN Creatinine Estim Creat Clear Calc Estimated GFR Random Glucose Calcium Total Bilirubin Direct Bilirubin AST ALT Alkaline Phosphatase Total Protein Albumin Lipase Imaging CT scan - abdomen: Attestation: I personally reviewed and interpreted this imaging study as follows: My impression: some stranding around cystic duct stump and thickening of CBD, some increased density material in distal CBD Procedures Date of Service Date of Service: 09/21/21 Progress Note: A&P Assessment and plan (1) Elevated liver enzymes: Status: Acute (2) Choledocholithiasis: Status: Acute Plan 1/ Had been well s/p ERCP but now with pain and worsening LFT, concern would be obstruction from stone or sludge not seen on last ERCP or from a clot in the duct. PLAN: 1/ Stop heparin gtt 2/ ERCP today for further ductal clearance, might need to place stent --will assess at time of test. I did patient option of transfer to [facility] as this is now his 4 th ERCP with me, even with a good sphincterotomy and removal of debris, stone with spyglass he is still having issues. he may need EUS assessment combined with ERCP which we can't do here, but he wishes to proceed with ERCP today here at [facility] [place]. informed of plan Time Spent With Patient Time: Total time spent is greater than 50% in coordination of care (as documented) at patient's floor/unit and/or counseling patient: Quality Stroke Does the patient have a stroke diagnosis?: No VTE Prior VTE?: No VTE Risk Level:: Medical - moderate - high VTE Device Contraindication: Treatment Not Indicated VTE Drug Contraindication: N/A - Med Ordered
--- NOTE | 2021-09-21 10:36 | P.CONAN_ITS ---
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) Amputation finger (Acute) S/P cholecystectomy (Acute) Radiation cystitis (Acute) Urethral stricture (Acute) Acute urinary retention (Acute) Past Medical History Medical History Hypertension Hypothyroid Rectal adenocarcinoma Rectal adenoma Family History Family History (Updated 09/19/21 @ 05:21 by Ekta Tsai MD) Other No family history of coronary artery disease Family history of problems with anesthesia: No Surgical History Surgical History History of creation of ostomy History of laparoscopic cholecystectomy (~2020) History of surgery History of Problems with Anesthesia: No Social History Social History Household Members: Spouse and Children Housing: House Do you presently have visiting nurse or other home services: No Unable to assess alcohol history related to: Unknown Alcohol intake: never Patient Tobacco Use Status: Never used Tobacco Advance Directives Date on File: 01/27/21 service: No Current occupational status: employed Meds Allergies Allergy/AdvReac Type Severity Reaction Status Date / Time No Known Allergies Allergy Verified 08/11/21 07:06 Active Medications: Current Medications Acetaminophen (Acetaminophen 325 Mg Tablet) 650 mg PO Q6H PRN PRN Reason: Pain, Mild (Pain Scale 1-3) Last Admin: 09/21/21 07:45 Dose: 650 mg Docusate Sodium (Docusate Sodium 100 Mg Capsule) 100 mg PO DAILY PRN PRN Reason: Constipation Fentanyl (Fentanyl Citrate/Pf 100 Mcg/2 Ml Vial) 25 mcg IVPUSH Q5M PRN; Protocol PRN Reason: Pain, Moderate (Pain Scale 4-6 Heparin Sodium (Porcine) (Heparin Sodium,Porcine 5,000 Unit/Ml Vial) 3,800 unit 40 unit/kg (3800 unit) IVPUSH PROTOCOL BOLUS PRN; Protocol PRN Reason: 40 unit/kg - Heparin Protocol Heparin Sodium (Porcine) (Heparin Sodium,Porcine 5,000 Unit/Ml Vial) 7,500 unit 80 unit/kg (7500 unit) IVPUSH PROTOCOL BOLUS PRN; Protocol PRN Reason: 80 unit/kg - Heparin Protocol Hydromorphone HCl (Hydromorphone Hcl 0.5 Mg/0.5 Ml Syringe) 0.5 mg IVPUSH Q2H PRN; Protocol PRN Reason: severe pain Last Admin: 09/21/21 10:25 Dose: 0.5 mg Lactated Ringer's (Lr) 1,000 mls @ 100 mls/hr IVCONT .Q10H [facility] Last Admin: 09/21/21 04:49 Dose: 100 mls/hr Heparin Sodium/Sodium Chloride () 25,000 unit in 250 mls @ 0 mls/hr IVCONT .Q0M [facility]; Protocol Last Titration: 09/21/21 10:18 Dose: 0 units/kg/hr, 0 mls/hr Levothyroxine Sodium (Levothyroxine Sodium 175 Mcg Tablet) 175 mcg PO DAILY@0600 [facility] Last Admin: 09/21/21 06:04 Dose: 175 mcg Ondansetron HCl (Ondansetron Hcl 4 Mg/2 Ml Vial) 4 mg IVPUSH Q8H PRN PRN Reason: Nausea and Vomiting Last Admin: 09/21/21 06:08 Dose: 4 mg Ondansetron HCl (Ondansetron Hcl 4 Mg/2 Ml Vial) 4 mg IVPUSH ONCE PRN PRN Reason: Nausea and Vomiting Oxycodone HCl (Oxycodone Hcl Immed Release 5 Mg Tablet) 5 mg PO Q6H PRN PRN Reason: Pain, Severe (Pain Scale 7-10) Last Admin: 09/21/21 07:44 Dose: 5 mg Pharmacy Consult (Consult Rx Perform Med Rec) 1 each MISCELLANE ONCE PRN PRN Reason: Consult order Sodium Chloride (0.9 % Sodium Chloride Flush 3 Ml Syringe) 3 ml IVFLUSH QSHIFT [facility] Last Admin: 09/21/21 06:58 Dose: Not Given Spironolactone (Spironolactone 25 Mg Tablet) 25 mg PO DAILY [facility]; Protocol Last Admin: 09/21/21 07:45 Dose: 25 mg Ursodiol (Ursodiol 300 Mg Capsule) 300 mg PO BID [facility] Last Admin: 09/21/21 07:45 Dose: 300 mg Verapamil HCl (Verapamil Hcl Sr 180 Mg Tablet.Er) 180 mg PO DAILY [facility]; Protocol Last Admin: 09/21/21 07:45 Dose: 180 mg Home Medications Medication Instructions Recorded Confirmed Last Taken Type levothyroxine 175 mcg tablet 1 tab PO DAILY@0600 06/27/20 09/18/21 09/18/21 History spironolactone 25 mg tablet 1 tab PO DAILY 06/27/20 09/18/21 09/18/21 History verapamil 180 mg 24 hr 1 cap PO DAILY 06/27/20 09/18/21 09/18/21 History capsule,extended release Exam Exam Date and Time: September 21, 2021 1036 Height,Weight and Vital Signs: Height 5 ft 11 in Weight 93.9 kg Last Vital Signs Temp 98.8 F 09/21/21 07:40 Pulse 76 09/21/21 07:40 Resp 19 09/21/21 10:25 BP 168/98 H 09/21/21 07:40 Pulse Ox 95 09/21/21 07:40 O2 Del Method 09/21/21 07:40 O2 Flow Rate 4 09/19/21 16:37 Pertinent Lab Results Pertinent Lab Results: Laboratory Tests 09/18/21 09/18/21 09/18/21 09:34 09:34 09:34 WBC 6.8 RBC 5.37 Hgb 15.1 Hct 44.7 MCV 83.2 MCH 28.1 MCHC 33.8 RDW 13.2 Plt Count 175 D MPV 9.5 Immature Gran % (Auto) 1.3 H Neut % (Auto) 68.5 Lymph % (Auto) 15.5 L Wood[place] % (Auto) 9.7 Eos % (Auto) 4.7 H Baso % (Auto) 0.3 Lymph # (Auto) 1.1 L Woodson # (Auto) 0.7 Eos # (Auto) 0.3 Baso # (Auto) 0.0 Abs Immat Gran (auto) 0.09 H Absolute Neuts (auto) 4.7 Absolute Nucleated RBC 0.000 Nucleated RBC % (auto) 0.0 PT INR APTT aPTT Heparin Protocol D-Dimer High Sensitivty Sodium 138 Potassium 4.0 Chloride 104 Carbon Dioxide 27 Anion Gap 11 L BUN 18 H Creatinine 0.82 Estim Creat Clear Calc 129.5 Estimated GFR > 60 Random Glucose 95 Calcium 8.6 D Total Bilirubin 3.9 H Direct Bilirubin 2.6 H AST 323 H ALT 357 H Alkaline Phosphatase 156 H D Troponin I High Sens 7.1 B-Natriuretic Peptide Total Protein 7.1 Albumin 4.3 Lipase 41 COVID-19 ([facility]) COVID-19 Clin Com 09/18/21 09/18/21 09/18/21 12:39 12:39 13:46 WBC RBC Hgb Hct MCV MCH MCHC RDW Plt Count MPV Immature Gran % (Auto) Neut % (Auto) Lymph % (Auto) Woodson % (Auto) Eos % (Auto) Baso % (Auto) Lymph # (Auto) Woodson # (Auto) Eos # (Auto) Baso # (Auto) Abs Immat Gran (auto) Absolute Neuts (auto) Absolute Nucleated RBC Nucleated RBC % (auto) PT INR APTT aPTT Heparin Protocol D-Dimer High Sensitivty 625 Sodium Potassium Chloride Carbon Dioxide Anion Gap BUN Creatinine Estim Creat Clear Calc Estimated GFR Random Glucose Calcium Total Bilirubin Direct Bilirubin AST ALT Alkaline Phosphatase Troponin I High Sens 7.3 B-Natriuretic Peptide Total Protein Albumin Lipase COVID-19 ([facility]) Negative COVID-[employer] Com See Note 09/18/21 09/18/21 09/18/21 18:10 18:16 18:16 WBC 8.7 RBC 5.51 Hgb 15.8 Hct 45.7 MCV 82.9 MCH 28.7 MCHC 34.6 RDW 12.9 Plt Count 175 MPV 10.0 Immature Gran % (Auto) Neut % (Auto) Lymph % (Auto) Woodson % (Auto) Eos % (Auto) Baso % (Auto) Lymph # (Auto) Woodson # (Auto) Eos # (Auto) Baso # (Auto) Abs Immat Gran (auto) Absolute Neuts (auto) Absolute Nucleated RBC 0.000 Nucleated RBC % (auto) 0.0 PT 12.1 INR 1.1 APTT 30.0 aPTT Heparin Protocol D-Dimer High Sensitivty Sodium Potassium Chloride Carbon Dioxide Anion Gap BUN Creatinine Estim Creat Clear Calc Estimated GFR Random Glucose Calcium Total Bilirubin Direct Bilirubin AST ALT Alkaline Phosphatase Troponin I High Sens B-Natriuretic Peptide 79 Total Protein Albumin Lipase COVID-19 ([facility]) COVID-19 Clin Com 09/19/21 09/19/21 09/19/21 01:00 06:38 06:38 WBC 9.4 RBC 5.51 Hgb 15.5 Hct 45.6 MCV 82.8 MCH 28.1 MCHC 34.0 RDW 13.1 Plt Count 170 MPV 9.6 Immature Gran % (Auto) 0.7 H Neut % (Auto) 78.0 H Lymph % (Auto) 7.8 L Woodson % (Auto) 11.7 H Eos % (Auto) 1.7 Baso % (Auto) 0.1 Lymph # (Auto) 0.7 L Woodson # (Auto) 1.1 Eos # (Auto) 0.2 Baso # (Auto) 0.0 Abs Immat Gran (auto) 0.07 H Absolute Neuts (auto) 7.3 Absolute Nucleated RBC 0.000 Nucleated RBC % (auto) 0.0 PT 13.6 H INR 1.2 H APTT aPTT Heparin Protocol 64.7 D-Dimer High Sensitivty Sodium Potassium Chloride Carbon Dioxide Anion Gap BUN Creatinine Estim Creat Clear Calc Estimated GFR Random Glucose Calcium Total Bilirubin Direct Bilirubin AST ALT Alkaline Phosphatase Troponin I High Sens B-Natriuretic Peptide Total Protein Albumin Lipase COVID-19 ([facility]) COVID-19 [employer] 09/19/21 09/19/21 09/19/21 06:38 06:38 19:46 WBC 8.2 RBC 5.60 Hgb 16.1 Hct 47.5 MCV 84.8 MCH 28.8 MCHC 33.9 RDW 13.2 Plt Count 173 MPV 9.8 Immature Gran % (Auto) Neut % (Auto) Lymph % (Auto) Woodson % (Auto) Eos % (Auto) Baso % (Auto) Lymph # (Auto) Woodson # (Auto) Eos # (Auto) Baso # (Auto) Abs Immat Gran (auto) Absolute Neuts (auto) Absolute Nucleated RBC 0.000 Nucleated RBC % (auto) 0.0 PT INR APTT aPTT Heparin Protocol 75.8 D-Dimer High Sensitivty Sodium 138 Potassium 3.4 Chloride 105 Carbon Dioxide 24 Anion Gap 12 BUN 15 Creatinine 0.74 Estim Creat Clear Calc 147.2 Estimated GFR > 60 Random Glucose 112 Calcium 8.5 Total Bilirubin 8.5 H Direct Bilirubin 6.0 H AST 190 H ALT 365 H Alkaline Phosphatase 219 H D Troponin I High Sens B-Natriuretic Peptide Total Protein 6.9 Albumin 4.1 Lipase COVID-19 ([facility]) COVID-19 [employer] 09/19/21 09/20/21 09/20/21 19:46 01:59 08:09 WBC 8.7 RBC 5.21 Hgb 14.9 Hct 43.9 MCV 84.3 MCH 28.6 MCHC 33.9 RDW 13.2 Plt Count 156 L MPV 9.8 Immature Gran % (Auto) Neut % (Auto) Lymph % (Auto) Woodson % (Auto) Eos % (Auto) Baso % (Auto) Lymph # (Auto) Woodson # (Auto) Eos # (Auto) Baso # (Auto) Abs Immat Gran (auto) Absolute Neuts (auto) Absolute Nucleated RBC 0.000 Nucleated RBC % (auto) 0.0 PT 13.2 H INR 1.1 APTT aPTT Heparin Protocol 32.0 L D 70.3 D D-Dimer High Sensitivty Sodium Potassium Chloride Carbon Dioxide Anion Gap BUN Creatinine Estim Creat Clear Calc Estimated GFR Random Glucose Calcium Total Bilirubin Direct Bilirubin AST ALT Alkaline Phosphatase Troponin I High Sens B-Natriuretic Peptide Total Protein Albumin Lipase COVID-19 ([facility]) COVID-19 [employer] 09/20/21 09/20/21 09/20/21 08:09 08:09 08:09 WBC RBC Hgb Hct MCV MCH MCHC RDW Plt Count MPV Immature Gran % (Auto) Neut % (Auto) Lymph % (Auto) Woodson % (Auto) Eos % (Auto) Baso % (Auto) Lymph # (Auto) Woodson # (Auto) Eos # (Auto) Baso # (Auto) Abs Immat Gran (auto) Absolute Neuts (auto) Absolute Nucleated RBC Nucleated RBC % (auto) PT 12.0 INR 1.0 APTT aPTT Heparin Protocol D-Dimer High Sensitivty Sodium 137 Potassium 4.0 Chloride 105 Carbon Dioxide 24 Anion Gap 12 BUN 24 H D Creatinine 0.79 Estim Creat Clear Calc 137.9 Estimated GFR > 60 Random Glucose 114 Calcium 8.3 L Total Bilirubin 3.0 H Direct Bilirubin 2.1 H AST 76 H ALT 226 H Alkaline Phosphatase 196 H Troponin I High Sens B-Natriuretic Peptide Total Protein 6.4 L Albumin 3.7 Lipase COVID-19 ([facility]) COVID-19 [employer] 09/20/21 09/20/21 09/20/21 08:09 14:27 21:08 WBC RBC Hgb Hct MCV MCH MCHC RDW Plt Count MPV Immature Gran % (Auto) Neut % (Auto) Lymph % (Auto) Woodson % (Auto) Eos % (Auto) Baso % (Auto) Lymph # (Auto) Woodson # (Auto) Eos # (Auto) Baso # (Auto) Abs Immat Gran (auto) Absolute Neuts (auto) Absolute Nucleated RBC Nucleated RBC % (auto) PT 14.0 H INR 1.2 H APTT aPTT Heparin Protocol 76.6 32.2 L D D-Dimer High Sensitivty Sodium Potassium Chloride Carbon Dioxide Anion Gap BUN Creatinine Estim Creat Clear Calc Estimated GFR Random Glucose Calcium Total Bilirubin 4.6 H Direct Bilirubin 3.4 H AST 77 H ALT 220 H Alkaline Phosphatase 204 H Troponin I High Sens B-Natriuretic Peptide Total Protein 6.7 Albumin 3.9 Lipase 38 COVID-19 ([facility]) COVID-[employer] 09/21/21 09/21/21 09/21/21 07:45 07:45 07:45 WBC RBC Hgb Hct MCV MCH MCHC RDW Plt Count MPV Immature Gran % (Auto) Neut % (Auto) Lymph % (Auto) Woodson % (Auto) Eos % (Auto) Baso % (Auto) Lymph # (Auto) Woodson # (Auto) Eos # (Auto) Baso # (Auto) Abs Immat Gran (auto) Absolute Neuts (auto) Absolute Nucleated RBC Nucleated RBC % (auto) PT INR APTT aPTT Heparin Protocol 31.8 L D-Dimer High Sensitivty Sodium 136 Potassium 3.9 Chloride 103 Carbon Dioxide 24 Anion Gap 13 BUN 19 H Creatinine 0.70 Estim Creat Clear Calc 144.4 Estimated GFR > 60 Random Glucose 103 Calcium 8.4 Total Bilirubin 7.9 H Direct Bilirubin 6.3 H AST 66 H ALT 186 H Alkaline Phosphatase 197 H Troponin I High Sens B-Natriuretic Peptide Total Protein 6.5 Albumin 3.9 Lipase COVID-19 ([facility]) COVID-19 [employer] Com 09/21/21 09/21/21 07:45 07:45 WBC 8.7 RBC 5.22 Hgb 14.9 Hct 44.6 MCV 85.4 MCH 28.5 MCHC 33.4 RDW 13.4 Plt Count 171 MPV 10.0 Immature Gran % (Auto) Neut % (Auto) Lymph % (Auto) Woodson % (Auto) Eos % (Auto) Baso % (Auto) Lymph # (Auto) Woodson # (Auto) Eos # (Auto) Baso # (Auto) Abs Immat Gran (auto) Absolute Neuts (auto) Absolute Nucleated RBC 0.000 Nucleated RBC % (auto) 0.0 PT 14.2 H INR 1.2 H APTT aPTT Heparin Protocol D-Dimer High Sensitivty Sodium Potassium Chloride Carbon Dioxide Anion Gap BUN Creatinine Estim Creat Clear Calc Estimated GFR Random Glucose Calcium Total Bilirubin Direct Bilirubin AST ALT Alkaline Phosphatase Troponin I High Sens B-Natriuretic Peptide Total Protein Albumin Lipase COVID-19 ([facility]) COVID-19 Clin Com Airway Mallampati Class: II TM Dist: >3cm Neck ROM: Full Assessment and Plan Assessment Anesthesia Assessment: Anesthesia Plan Discussed and Chart Reviewed Final Anesthetic Review Family History of Problems with Anesthesia: No History of Problems with Anesthesia: No NPO: Yes ASA Class: III and Emergency Final Preanesthetic Review: Meds/Allgs Chart Reviewed, Consent Obtained/Reviewed and Anes Risks/Benef Reviewed Patient Risk: Intermediate Procedure Risk: Intermediate Anesthetic Plan Anesthetic Plan: GA Disposition: Standard PACU and Inp. Admit - Standard Bed
--- NOTE | 2021-09-21 12:35 | P.OP_ITS ---
Operative Note Operative Note Date of Service: 09/21/21 Narrative: Description: Endoscopic retrograde cholangiopancreatography (ERCP) with cholangiogram, clot debridement PROCEDURE: Endoscopic retrograde cholangiopancreatography INDICATION FOR THE PROCEDURE: Patient with a history of recent ERCP with gallstone extraction, now with worsening LFt and pain. MEDICATIONS: General anesthesia, cefotetan 1 g IV The risks of the procedure were made aware to the patient and consisted of m edication reaction, bleeding, perforation, aspiration, and post ERCP pancreatitis. DESCRIPTION OF PROCEDURE: After informed consent and appropriate sedation, the duodenoscope was inserted into the oropharynx, down the esophagus, and into the stomach. The scope was then advanced through the pylorus to the ampulla. The ampulla had a clot overlying it which was obstructing the biliary orifice. The clot was pushed aside and the orifice then visualized. An extraction balloon was then directed into the CBD and saline flushed thru with further clot material coming out of the duct. A basket was used to dredge the duct to make sure no further clots which was negative. A cholangiogram was obtained which was negative for filling defects. The contrast drained very easily. Several cc of Epinephrine was flushed into the CBD. There was some minor oozing which had ceased by the end of the procedure. The stomach was then decompressed and the endoscope was withdrawn. FINDINGS: 1. CBD obstruction from distal CBD and ampullary clot. RECOMMENDATIONS: 1. Can allow clears and advance diet as tolerated 2. Keep on heparin drip for next 24-48hrs which can be restarted in 4-6 hours time and hold eliquis for 48 hrs 3. Trend LFT.
--- NOTE | 2021-09-21 13:29 | PC.NURSE ---
pt went down for ercp this morning. Verbal order from Dr. Baker to pause heparin drip. Patient returned from ercp around 1300. Telephone order to restart heparin drip in 4-6hrs. Will restart between 0262-0018.
[2021-09-21 17:50] LABS: PTT Heparin Drip 34.2 SEC (53-77.9)
[2021-09-22 00:29] LABS: PTT Heparin Drip 53.5 SEC (53-77.9)
[2021-09-22] MEDS: Lactated Ringers 1,000 ML 100 ML IVCONT (01:43)
[2021-09-22 03:51] VITALS: BP 150/98; PULSE 63; RESP 18; TEMP 36.4; O2SAT 98
[2021-09-22] MEDS: Levothyroxine Sodium 175 MCG TABLET PO (05:56)
[2021-09-22 06:16] LABS: Hematocrit 46.2 % (42.0-52.0); Hemoglobin 15.3 g/dl (14.0-18.0); Mean Corpuscular HGB Conc 33.1 g/dl (31.0-36.0); Mean Corpuscular Hemoglobin 28.2 pg (27.0-33.0); Mean Corpuscular Volume 85.1 fL (80.0-98.0); Platelet Count 213 X10*3/uL (160-400); Red Blood Count 5.43 X10*6/uL (4.60-5.80); Red Cell Distribution Width 13.2 % (11.0-16.0); White Blood Count 7.6 X10*3/uL (4.8-10.8)
[2021-09-22 06:17] LABS: PTT Heparin Drip 60.5 SEC (53-77.9)
[2021-09-22 06:48] LABS: Alanine Aminotransferase 191 U/L (0-40); Albumin Level 4.1 g/dL (3.5-5.0); Alkaline Phosphatase 206 U/L (39-117); Anion Gap 15 (12-20); Aspartate Amino Transferase 83 U/L (5-37); Bilirubin Total 4.1 mg/dL (0.0-1.0); Blood Urea Nitrogen 17 mg/dL (9-16); Calcium 8.8 mg/dL (8.4-10.2); Carbon Dioxide 25 mmol/L (22-29); Chloride 101 mmol/L (96-108); Creatinine Clr Calc Pharmacy 134.8; Estimated Glomerular Filt Rate > 60; Glucose Random 104 mg/dL (60-115); Sodium 137 mmol/L (135-145); Total Protein 7.2 g/dL (6.5-8.0)
[2021-09-22 07:50] VITALS: BP 136/78; PULSE 60; RESP 18; TEMP 36.3
[2021-09-22] MEDS: Heparin Sodium,Porcine/1/2NS 25,000 UNIT/250 ML IV.SOLN 13.15 UNIT IVCONT (08:41)
--- NOTE | 2021-09-22 08:43 | HO.POSTANES ---
Post Anesthesia Evaluation Post Anesthesia Evaluation Vital Signs: Vital Signs Temp Pulse Resp BP Pulse Ox O2 Del Method 09/22/21 07:50 97.4 F 60 18 136/78 09/22/21 03:51 97.5 F 63 18 150/98 H 98 Room Air 09/21/21 23:47 98.3 F 57 18 138/94 H 97 Room Air Anesthesia: General Endotracheal-GETA Mental Status: Awake Pain Control: Satisfactory Nausea/Vomiting: None Hydration: Adequate Anesthesia-Related Issues: No Anes. Related Issues
[2021-09-22] MEDS: 0.9 % Sodium Chloride Flush 3 ML SYRINGE IVFLUSH (08:46)
[2021-09-22] MEDS: Spironolactone 25 MG TABLET PO (08:49)
[2021-09-22] MEDS: UrsodioL 300 MG CAPSULE PO ×2 (08:49→20:35)
[2021-09-22] MEDS: VerapamiL HCL SR 180 MG TABLET.ER PO (08:49)
[2021-09-22 11:32] VITALS: BP 136/81; PULSE 64; RESP 17; TEMP 36.4; O2SAT 97
[2021-09-22 12:31] LABS: PTT Heparin Drip 48.1 SEC (53-77.9)
[2021-09-22] MEDS: Heparin Sodium,Porcine 5,000 UNIT/ML VIAL 3800 UNIT IVPUSH (12:43)
--- NOTE | 2021-09-22 13:24 | P.PNIM_ITS ---
Subjective Subjective Date of Service: 09/22/21 Interval History: the patient was seen and evaluated this morning Laying in bed, pain resolved Denies any fever, chills or shortness of breath No reported other overnight events. Systemic review: No fever, chills or weakness No chest pain, palpitation No shortness of breath or coughing No more pain, no nausea or vomiting No urinary symptoms No any rash or wounds Physical Exam Vital Signs: Vital Signs: Last Vital Signs Temp 97.6 F 09/22/21 11:32 Pulse 64 09/22/21 11:32 Resp 17 09/22/21 11:32 BP 136/81 09/22/21 11:32 Pulse Ox 97 09/22/21 11:32 O2 Del Method 09/22/21 11:32 O2 Flow Rate 4 09/21/21 12:29 BMI result Body Mass Index 28.8 Const: Other: Constitutional : Alert, oriented, not in distress Neck : Normal inspection, Supple Cardiovascular : RRR, no JVP, no lower extremity edema Respiratory : fair bilateral air entry, no crackles, wheezes or rhonchi Gastrointestinal: soft, lax, Normal bowel sounds, no tenderness, ostomy in place Skin : Warm, Dry Neurological : Alert & oriented x3, No focal deficit , CN 2-12 within normal Objective Data Active Medications Acetaminophen (Acetaminophen 325 Mg Tablet) 650 mg PO Q6H PRN PRN Reason: Pain, Mild (Pain Scale 1-3) Last Admin: 09/21/21 07:45 Dose: 650 mg Documented By: COTEMA Docusate Sodium (Docusate Sodium 100 Mg Capsule) 100 mg PO DAILY PRN PRN Reason: Constipation Fentanyl (Fentanyl Citrate/Pf 100 Mcg/2 Ml Vial) 25 mcg IVPUSH Q5M PRN; Pro tocol PRN Reason: Pain, Moderate (Pain Scale 4-6 Fentanyl (Fentanyl Citrate/Pf 100 Mcg/2 Ml Vial) 50 mcg IVPUSH Q5M PRN; Protocol PRN Reason: Pain, Severe (Pain Scale 7-10) Heparin Sodium (Porcine) (Heparin Sodium,Porcine 5,000 Unit/Ml Vial) 3,800 unit 40 unit/kg (3800 unit) IVPUSH PROTOCOL BOLUS PRN; Protocol PRN Reason: 40 unit/kg - Heparin Protocol Last Admin: 09/22/21 12:43 Dose: 3,800 unit Documented By: KATTY Heparin Sodium (Porcine) (Heparin Sodium,Porcine 5,000 Unit/Ml Vial) 7,500 unit 80 unit/kg (7500 unit) IVPUSH PROTOCOL BOLUS PRN; Protocol PRN Reason: 80 unit/kg - Heparin Protocol Hydromorphone HCl (Hydromorphone Hcl 0.5 Mg/0.5 Ml Syringe) 0.5 mg IVPUSH Q2H PRN; Protocol PRN Reason: severe pain Last Admin: 09/21/21 10:25 Dose: 0.5 mg Documented By: MARTY Heparin Sodium/Sodium Chloride () 25,000 unit in 250 mls @ 0 mls/hr IVCONT .Q0M [facility]; Protocol Last Titration: 09/22/21 12:37 Dose: 16 units/kg/hr, 15.02 mls/hr Documented By: KATTY Co-signed By: MYLA Levothyroxine Sodium (Levothyroxine Sodium 175 Mcg Tablet) 175 mcg PO DAILY@0600 [facility] Last Admin: 09/22/21 05:56 Dose: 175 mcg Documented By: JUAN RAMON Ondansetron HCl (Ondansetron Hcl 4 Mg/2 Ml Vial) 4 mg IVPUSH Q8H PRN PRN Reason: Nausea and Vomiting Last Admin: 09/21/21 06:08 Dose: 4 mg Documented By: MOON Ondansetron HCl (Ondansetron Hcl 4 Mg/2 Ml Vial) 4 mg IVPUSH ONCE PRN PRN Reason: Nausea and Vomiting Ondansetron HCl (Ondansetron Hcl 4 Mg/2 Ml Vial) 4 mg IVPUSH ONCE PRN PRN Reason: Nausea and Vomiting Oxycodone HCl (Oxycodone Hcl Immed Release 5 Mg Tablet) 5 mg PO Q6H PRN PRN Reason: Pain, Severe (Pain Scale 7-10) Last Admin: 09/21/21 07:44 Dose: 5 mg Documented By: MARTY Pharmacy Consult (Consult Rx Perform Med Rec) 1 each MISCELLANE ONCE PRN PRN Reason: Consult order Sodium Chloride (0.9 % Sodium Chloride Flush 3 Ml Syringe) 3 ml IVFLUSH [facility] Last Admin: 09/22/21 08:46 Dose: 3 ml Documented By: KATTY Spironolactone (Spironolactone 25 Mg Tablet) 25 mg PO DAILY [facility]; Protocol Last Admin: 09/22/21 08:49 Dose: 25 mg Documented By: KATTY Ursodiol (Ursodiol 300 Mg Capsule) 300 mg PO BID LEANDRO Last Admin: 09/22/21 08:49 Dose: 300 mg Documented By: KATTY Verapamil HCl (Verapamil Hcl Sr 180 Mg Tablet.Er) 180 mg PO DAILY [facility]; Protocol Last Admin: 09/22/21 08:49 Dose: 180 mg Documented By: KATTY Labs CBC & Chem 7: 09/22/21 05:53 09/22/21 05:53 Labs: Laboratory Results - last 24 hr 09/21/21 09/22/21 09/22/21 17:34 00:15 05:53 MCV 85.1 MCH 28.2 MCHC 33.1 RDW 13.2 Plt Count 213 MPV 10.0 Absolute Nucleated RBC 0.000 Nucleated RBC % (auto) 0.0 aPTT Heparin Protocol 34.2 L 53.5 D Anion Gap Estim Creat Clear Calc Estimated GFR Random Glucose Calcium Total Bilirubin AST ALT Alkaline Phosphatase Total Protein Albumin 09/22/21 09/22/21 09/22/21 05:53 05:53 11:50 MCV MCH MCHC RDW Plt Count MPV Absolute Nucleated RBC Nucleated RBC % (auto) aPTT Heparin Protocol 60.5 48.1 L Anion Gap 15 Estim Creat Clear Calc 134.8 Estimated GFR > 60 Random Glucose 104 Calcium 8.8 Total Bilirubin 4.1 H AST 83 H ALT 191 H Alkaline Phosphatase 206 H Total Protein 7.2 Albumin 4.1 Assessment and Plan (1) Pulmonary emboli: Status: Acute (2) Biliary disease with obstruction: Status: Acute Plan 51-year-old male with past medical history of rectal cancer status post total colectomy and ileostomy presents to the hospital with chest pressure found to have PE # acute PE in the setting of history of cancer Continue heparin for today Will transition to Eliquis at discharge # transaminitis 2/2 CBD obstructing stone status post ERCP and 1.1 cm stone removal, 2nd ERCP done with removal of clot Improving Bilirubin LFTs are trending down Advance diet # hypertension Verapamil # hypothyroid continue levothyroxine DVT prophylaxis Eliquis Need for inpatient overnight for IV heparin for PE for monitoring of rebleeding. Quality Stroke Does the patient have a stroke diagnosis?: No VTE Prior VTE?: No VTE Risk Level:: Medical - moderate - high VTE Device Contraindication: Treatment Not Indicated VTE Drug Contraindication: N/A - Med Ordered
[2021-09-22 16:00] VITALS: BP 143/82; PULSE 58; RESP 18; TEMP 36.6; O2SAT 97
[2021-09-22 18:15] LABS: PTT Heparin Drip 62.4 SEC (53-77.9)
[2021-09-22 19:58] VITALS: BP 146/80; PULSE 62; RESP 18; TEMP 36.8; O2SAT 98
[2021-09-22 23:55] VITALS: BP 148/92; PULSE 54; RESP 18; TEMP 36.6; O2SAT 97
[2021-09-23 00:18] LABS: PTT Heparin Drip 52.5 SEC (53-77.9)
[2021-09-23] MEDS: Heparin Sodium,Porcine 5,000 UNIT/ML VIAL 3800 UNIT IVPUSH (01:05)
[2021-09-23] MEDS: Heparin Sodium,Porcine/1/2NS 25,000 UNIT/250 ML IV.SOLN 16.9 UNIT IVCONT (02:50)
--- NOTE | 2021-09-23 02:57 | PC.NURSE ---
PATENTS PTT-HD RESULTS AT 0000 WERE 52.5, THEREFORE PER PROTOCOL BBOLUS GIVE (SEE MAR), AND HEPARIN DRIP INCREASED TO 18 UNITS/KG/HR, WITH NEW RATE AT 16.09. SECOND RN WITNESSED, PT WITH NO S/SX ACTIVE BLEEDING OR BRUISING. NEXT LAB DRAW PTT-HD ENTERED FOR 0700. NEW INFUSION BAG NEEDED NEAR EMPTY AND HUNG AT 0255 WITH RN WITNESS. NO ADJUSTMENTS AT THIS TIME NEXT LAB DRAW 0700 INDICATED.
[2021-09-23 03:35] VITALS: BP 140/90; PULSE 53; RESP 18; TEMP 36.4; O2SAT 97
[2021-09-23] MEDS: Levothyroxine Sodium 175 MCG TABLET PO (06:21)
[2021-09-23 07:20] LABS: Hematocrit 43.4 % (42.0-52.0); Hemoglobin 14.6 g/dl (14.0-18.0); Mean Corpuscular HGB Conc 33.6 g/dl (31.0-36.0); Mean Corpuscular Hemoglobin 28.6 pg (27.0-33.0); Mean Corpuscular Volume 85.1 fL (80.0-98.0); Platelet Count 190 X10*3/uL (160-400); Red Cell Distribution Width 13.2 % (11.0-16.0)
[2021-09-23 07:32] VITALS: BP 140/92; PULSE 55; RESP 18; TEMP 36.2; O2SAT 96
[2021-09-23 07:44] LABS: Alanine Aminotransferase 231 U/L (0-40); Albumin Level 3.7 g/dL (3.5-5.0); Alkaline Phosphatase 168 U/L (39-117); Aspartate Amino Transferase 122 U/L (5-37); Bilirubin Direct 1.5 mg/dL (0.0-0.5); Bilirubin Total 2.2 mg/dL (0.0-1.0); Total Protein 6.5 g/dL (6.5-8.0)
[2021-09-23 07:49] LABS: PTT Heparin Drip 125.3 SEC (53-77.9)
[2021-09-23] MEDS: Spironolactone 25 MG TABLET PO (08:24)
[2021-09-23] MEDS: UrsodioL 300 MG CAPSULE PO (08:24)
[2021-09-23] MEDS: VerapamiL HCL SR 180 MG TABLET.ER PO (08:24)
[2021-09-23] MEDS: 0.9 % Sodium Chloride Flush 3 ML SYRINGE IVFLUSH (08:25)
--- NOTE | 2021-09-23 10:16 | P.DS_ITS ---
DS: Providers Provider Date of Service: 09/23/21 Date of admission: 09/18/21 19:34 Primary care physician: SOHA Bañuelos Consults: 09/18/21 14:29 Consult to Gastroenterology Stat Consulting Provider: Bahman Baker Reason for consultation: elevated LFTs, ?retained stone Has provider been notified: Yes DS: Diagnosis Discharge Diagnosis (1) Pulmonary emboli: Status: Acute (2) Biliary disease with obstruction: Status: Acute (3) Elevated liver enzymes: Status: Acute (4) Choledocholithiasis: Status: Acute (5) Common bile duct calculus: Status: Acute DS: Summary Hospital Course Hospital Course: Admission note HPI This is a 51-year-old male with past medical history of HTN, hypothyroid,history of rectal cancer and UC s/p? total colectomy, radiation therapy and chemotherapy 7 years prior, cholecystectomy 02/06/2021, and radiation cystitis? presents to the hospital with complaints of chest pressure.? Patient reports that his symptoms started of at 5 days ago, the pain is constant but wanes in severity.? Pain is retrosternal, 10/10 at its worse, nonradiating, not changed by inspiration or expiration or movement.? Patient is also complaining of epigastric as well as right upper quadrant pain for the same amount of time.? Patient denies any recent travel or prolonged immobilization.? Patient underwent an ERCP on August 11 for removal of a CBD stent and clearance . Patient otherwise denies any fever or chills, has nausea with no vomiting, no diarrhea constipation, no urinary symptoms and no lower extremity edema.? He does report change in his stool color in the ileostomy bag On arrival to the ED patient hemodynamically stable with no significant abnormal vitals No labs reviewed show unremarkable findings except for an elevated bilirubin of 3.9, 1.3 on 08/19, AST of 323, ALT of 357 both elevated from previous, and alk- phos of [address] angiogram which showed positive acute pulmonary emboli in the right lower lobe subsegmental branches No right ventricular strain, no reflux of contrast into the liver, no airspace consolidation.? Abdominal ultrasound showed status post cholecystectomy, bile duct is within expected limits and no intrahepatic biliary ductal dilatation.? Patient started on heparin drip She was also by GI and will undergo ERCP in the morning Hospital course The patient was admitted to the hospital for evaluation of abdominal pain. Found to have elevated liver enzymes. CT scan was negative for any acute findings at that point. Evaluated by tank systems maintainer who recommended an ERCP which was done showing an evidence of a small stone in the CBD that was ext racted with significant improvement of the pain and improving transaminitis. he started to complain of pain again on September 20 as discharge was planned already at that point. He was re-evaluated by MRCP which did not show any clear abnormality. His liver enzymes start to trend up again. GI went in for a 2nd ERCP and found a clot blocking CBD which was removed. No further bleeding was noticed. He was started on heparin drip for 48 hours after the procedure with no reported pain. Liver enzymes trended down during that period of time. Diet advanced and he tolerated this well. GI recommended to use Ursodiol twice daily at discharge. CTA was consistent with right-sided lower lobe segmental pulmonary embolism. Treated with heparin drip with good response as no shortness of breath or oxygen requirement during the hospital stay. To be discharged on full dose of Eliquis with a plan to follow-up with his oncology team to determine the duration of treatment given his history of cancer. Continue Ursodiol twice Daily Start Eliquis 10 mg twice daily for 7 days then continue with maintenance dose of 5 mg twice daily. Monitor blood pressure at home and report 1 week readings to PCP for further adjustments of the medications. Time Spent with Patient Time attestation: Total time spent providing and/or coordinating discharge services: Discharge coordination time: Greater than 30 minutes Quality: Safe Use of Opioids Does Pt have an Active Cancer Diagnosis on the Problem List?: No Quality: Stroke Does the patient have a stroke diagnosis?: No Physical Exam Vital Signs: Vital Signs: Last Vital Signs Temp 97.2 F 09/23/21 07:32 Pulse 55 09/23/21 07:32 Resp 18 09/23/21 07:32 BP 140/92 H 09/23/21 07:32 Pulse Ox 96 09/23/21 07:32 O2 Del Method 09/23/21 07:32 O2 Flow Rate 4 09/21/21 12:29 BMI result Body Mass Index 28.8 Const: Other: Constitutional : Alert, oriented, not in distress Neck : Normal inspection, Supple Cardiovascular : RRR, no JVP, no lower extremity edema Respiratory : fair bilateral air entry, no crackles, wheezes or rhonchi Gastrointestinal: soft, lax, Normal bowel sounds, no tenderness, ostomy in place Skin : Warm, Dry Neurological : Alert & oriented x3, No focal deficit , CN 2-12 within normal DS: Data Data Completed and Pending Completed studies during hospitalization [Text1]: Procedures Inspection of Gallbladder, Percutaneous Endoscopic Approach (01/23/21) Inspection of Hepatobiliary Duct, Via Natural or Artificial Opening Endoscopic (07/29/21) Resection of Gallbladder, Open Approach (01/23/21) Labs on day of discharge: Laboratory Results - last 24 hr 09/22/21 09/22/21 09/22/21 11:50 17:53 23:53 WBC RBC Hgb Hct MCV MCH MCHC RDW Plt Count MPV Absolute Nucleated RBC Nucleated RBC % (auto) aPTT Heparin Protocol 48.1 L 62.4 D 52.5 L Total Bilirubin Direct Bilirubin AST ALT Alkaline Phosphatase Total Protein Albumin 09/23/21 09/23/21 09/23/21 06:53 06:53 06:53 WBC 7.0 RBC 5.10 Hgb 14.6 Hct 43.4 MCV 85.1 MCH 28.6 MCHC 33.6 RDW 13.2 Plt Count 190 MPV 10.0 Absolute Nucleated RBC 0.000 Nucleated RBC % (auto) 0.0 aPTT Heparin Protocol 125.3 H* D Total Bilirubin 2.2 H Direct Bilirubin 1.5 H AST 122 H ALT 231 H Alkaline Phosphatase 168 H Total Protein 6.5 Albumin 3.7 Imaging MRI - abdomen: Radiologist's impression: ITS Impressions Abdomen Ultrasound 09/18/21 13:24 IMPRESSION: Status post cholecystectomy. Common bile duct measures 8 mm in diameter which is within expected limits for the postcholecystectomy state with no intrahepatic biliary duct dilatation. Previously seen common bile and cystic duct stones are not appreciated sonographically. Chest CTA 09/18/21 16:25 IMPRESSION: -Positive for acute pulmonary embolism right lower lobe subsegmental branches. -No right ventricular strain. No reflux of contrast into the liver. -No pneumothorax, airspace consolidation or effusion. -Mild enlargement ascending aorta, 4.5 cm stable from prior CT 07/29/2021. VTE: positive Venous Duplex 09/18/21 19:35 IMPRESSION: No DVT demonstrated in the bilateral lower extremity. Guidance Fluoroscopy 09/19/21 16:30 IMPRESSION: Imaging guidance for a procedure. For further detail regarding procedure and findings please refer to the procedure report. Cholangiopancreatography MRI 09/20/21 16:30 IMPRESSION: No biliary ductal dilatation. Limited evaluation of the common bile duct for choledocholithiasis but it is normal in caliber and there is no intrahepatic biliary ductal dilatation. Abdomen/Pelvis CT 09/20/21 21:54 IMPRESSION: 1. Status post cholecystectomy. No calcified CBD stones are identified. There is some high density material within the common hepatic duct and distal common bile duct, which is nonspecific and could represent hemorrhage, sludge, or dilute contrast from a recent ERCP procedure. Correlate with procedural timing. There is enhancement of the prominent caliber cystic duct wall and mild periportal fat stranding. Correlate clinically with signs or symptoms of ascending cholangitis. 2. Small volume pneumobilia and mild prominence of intrahepatic bile ducts. The extrahepatic bile duct is borderline to mildly dilated measuring up to 1.2 cm. 3. No other acute intra-abdominal process identified. 4. Status post colectomy with right lower quadrant ostomy. 5. Additional unchanged ancillary findings, as above. Guidance Fluoroscopy 09/21/21 12:26 IMPRESSION: Fluoroscopy guidance for ERCP. Discharge Plan Discharge Patient Disposition: Home, Self-Care Discharge Diagnosis: Biliary disease with obstructive stone Elevated liver enzymes Pulmonary embolism Referrals: Ander Irby PA [Primary Care Provider] - 1 Week Discharge Medications: New Eliquis 5 mg Tablet 10 mg PO BID Qty: 26 0RF ursodiol 300 mg Capsule 300 mg PO BID 30 Days Qty: 60 0RF Eliquis 5 mg tablet 5 mg PO BID Qty: 60 0RF Continued levothyroxine 175 mcg tablet 1 tab PO DAILY@0600 spironolactone 25 mg tablet 1 tab PO DAILY verapamil 180 mg capsule,ext rel. pellets 24 hr 1 cap PO DAILY Discharge Orders: Discharge Order (Routine); Ordered 09/23/21 Ordered By: Sanjay Aldrich Activity on Discharge: As tolerated Stand Alone Forms: Patient Portal Discharge page, Work/School Release Care Plan Goals: Read below Health Concerns: Read below Plan of Treatment: Read below Assessment: You were admitted to the hospital for evaluation of abdominal pain. Evaluated by tank systems maintainer who did an ERCP that was consistent with a small stone in your common bile duct that was extracted with significant improvement of pain and your liver enzyme. developed a clot with obstruction in the CBD requiring a second ERCP procedure to remove it. Liver function improved. images of your chest was consistent with a clot to your lung. Treated with IV heparin drip. To be discharged on full-dose Eliquis and to be followed by your Oncology team to decide on the length of the treatment. Continue Ursodiol twice Daily Continue Eliquis 10 mg twice daily for 7 days then continue with maintenance dose of 5 mg twice daily for at least 6 months. follow with oncology team to decide on the length of treatment. Monitor your blood pressure at home and report 1 week readings to your PCP for further adjustments of the medications.
[2021-09-23 11:26] VITALS: BP 136/86; PULSE 67; RESP 18; TEMP 36.4; O2SAT 99
[2021-09-23] MEDS: Apixaban 5 MG TABLET 10 MG PO (11:33)
--- NOTE | 2021-09-23 11:45 | MHC.CM.PN ---
HOME TODAY - SELF CARE
--- NOTE | 2021-09-23 12:27 | PC.NURSE ---
Alert and oriented. Denies pain or discomfort. VSS, afebrile, no acute resp. distress noted. PTT came back critically high at 123.5. MD updated. Heparin gtt discontinued per MD. New order to start Eliquis 10mg BID and to d/c patient home. Resource nurse discharge patient home with all appropriate paper work. Patient ambulated to the [facility] accompanied by hospital staff, left via car.
== END 2021-09-23 12:00 | disposition home or self-care (01) ==
LOC: HO.ED 17:42 → HO.EDOVER 19:46 → HO.S3 09-19 16:53
PROVIDERS: Emergency Medicine; Internal Medicine; Internal Medicine Gastroenterology; Physician Assistant; Admitting Provider Internal Medicine; Emergency Provider Emergency Medicine; PCP Physician Assistant Medical; Visit Provider Student in an Organized Health Care Education/Training Program
PROC: 0FC98ZZ Extirpation of Matter from Common Bile Duct, Via Natural or Artificial Opening Endoscopic (ICD-10-PCS; CPT 43260; principal; 2021-09-19 13:00)
PROC: (CPT 43260; principal; 2021-09-21 11:00)
DX: K80.51 Calculus of bile duct without cholangitis or cholecystitis with obstruction (principal); I26.94 Multiple subsegmental thrombotic pulmonary emboli without acute cor pulmonale; E03.9 Hypothyroidism, unspecified; I10 Essential (primary) hypertension; Z92.3 Personal history of irradiation; Z92.21 Personal history of antineoplastic chemotherapy; Z90.49 Acquired absence of other specified parts of digestive tract; Z85.048 Personal history of other malignant neoplasm of rectum, rectosigmoid junction, and anus; Z93.3 Colostomy status; Z20.822 Contact with and (suspected) exposure to COVID-19; Z79.890 Hormone replacement therapy; Z79.899 Other long term (current) drug therapy
CPT/HCPCS: 36415; 71275; 74177; 74181; 76705; 80048; 80053; 80076; 83690; 83880; 84484; 85025; 85027; 85379; 85610; 85730; 87635; 93005; 93970; 99285; C1769; C1887; J0690; J1100; J1170; J1610; J2250; J2270; J2405; J3010; Q9967

== ENCOUNTER 2023-03-13 13:13 | Emergency (ER) | payer OTHER, SELFPAY ==
[2023-03-13 13:55] VITALS: BP 149/76; PULSE 72; RESP 18; TEMP 37.1; O2SAT 97; BMI 35.3
--- NOTE | 2023-03-13 13:59 | ED.LOWEXIN ---
HPI - Extremity Injury (Lower) General Chief Complaint: Extremity Injury, Lower Stated Complaint: r leg pain quest dvt Time Seen by Provider: 03/13/23 15:48 Source: patient Mode of arrival: ambulatory Limitations: no limitations History of Present Illness HPI Narrative: This 53-year-old male with a history of DVT who is not currently on anticoagulation who presents the ER with complaints of 2 days of right inner thigh redness and swelling with some discomfort. Patient denies any fevers, chills, injury or trauma. No associated numbness or tingling of the extremity. No shortness of breath or chest pain. Related Data Home Medications Medication Instructions Recorded Confirmed levothyroxine 175 mcg tablet 1 tab PO DAILY@0600 06/27/20 09/18/21 spironolactone 25 mg tablet 1 tab PO DAILY 06/27/20 09/18/21 verapamil 180 mg 24 hr 1 cap PO DAILY 06/27/20 09/18/21 capsule,extended release Previous Rx's Medication Instructions Recorded apixaban 5 mg tablet (Eliquis) 5 mg PO BID #60 tabs 09/20/21 apixaban 5 mg tablet (Eliquis) 10 mg (2 x 5 mg) PO BID #26 tabs 09/20/21 ursodiol 300 mg capsule 300 mg PO BID 30 days #60 caps 09/20/21 Allergies Allergy/AdvReac Type Severity Reaction Status Date / Time No Known Allergies Allergy Verified 03/13/23 13:55 [facility] Past Medical History Onset Date is defined in the Problem List Problems that require an onset date and time if occurred within 24 hrs of arrival to the ED Aortic Dissection and Rupture; Neurologic impairment; Cardiopulmonary Arrest; Endotracheal Intubation; Insertion or Replacement of Mechanical Circulatory Assist Device Medical History Hypertension Hypothyroid Rectal adenocarcinoma Rectal adenoma Surgical History History of creation of ostomy History of laparoscopic cholecystectomy (~2020) History of surgery Family History Family History (Updated 09/19/21 @ 05:21 by Ekta Tsai MD) Other No family history of coronary artery disease Social History Social History Household Members: Spouse and Children Housing: House Do you presently have visiting nurse or other home services: No Unable to assess alcohol history related to: Unknown Alcohol intake: never Patient Tobacco Use Status: Never used Tobacco Advance Directives: Yes Advance Directives on File: Yes Advance Directives Date on File: 01/27/21 service: No Current occupational status: employed Physical Exam Vital Signs: Vital Signs: Last Vital Signs Temp 98.8 F 03/13/23 13:55 Pulse 72 03/13/23 13:55 Resp 18 03/13/23 13:55 BP 149/76 H 03/13/23 13:55 Pulse Ox 97 03/13/23 13:55 O2 Del Method Room Air 03/13/23 13:55 BMI result Body Mass Index 35.3 Course Course Course Narrative: This is a rapid medical exam. Deferred additional HPI, ROS, PE to primary provider. 53 yo male with history of DVT (off eliquis >6 months) here with right leg swelling/pain x 2 days. No fevers, chills. Will order US. VSS Reevaluation(s) Reevaluation #1: See discussion with specialist. Reviewed findings with the patient. He will follow up outpatient with vascular surgeon. Reviewed worrisome signs and symptoms of when to return to the emergency room. Comfortable plan for discharge home Medical Decision Making Medical Decision Making MDM Narrative: This 53-year-old male with a history of DVT who is not currently on anticoagulation who presents the ER with complaints of 2 days of right inner thigh redness and swelling with some discomfort. Patient denies any fevers, chills, injury or trauma. No associated numbness or tingling of the extremity. No shortness of breath or chest pain. On exam the patient has some mild redness to the right inner thigh as well as a palpable vessel. There is slight swelling. The compartments are soft and compressible. There are normal DP and PT pulses. Normal sensation distally. Will check ultrasound Differential Diagnosis Differential Diagnoses: The differential diagnosis associated with the presentation includes DVT, phlebitis Exam not consistent with cellulitis Admission/Observation Consideration of admission/observation: Escalation of care including admission/observation considered Occlusive thrombus in a superficial vein. Recommendations from vascular treat like phlebitis and follow up outpatient. No evidence of deep vein thrombosis, circumferential cellulitis requiring admission for further management Consult Healthcare Provider Management of the patient was discussed with: [employer] Spoke to Dr. Garcia from vascular surgery-recommend treating as phlebitis. Recommended not giving anticoagulation. Recommended treating with warm compresses and NSAIDs Independent Interpretation I performed an independent interpretation of an: Ultrasound Interpretation: I independently reviewed the ultrasound agree with the radiology report Radiology Impression Discussion of test interpretation with radiology: I have reviewed the radiologist's reading. Radiologist Impression: [address] [address] Ultrasound Report Signed Patient: Carlos Daniel MR#: [id number] : 1970 Acct:[id number] Age/Sex: 53 / M ADM Date: 03/13/23 Loc: .ED Attending Dr: Ordering Physician: Ruth Nagel NP Date of Service: 03/13/23 Procedure(s): US venous duplex LE RT Accession Number(s): [id number] cc: Ander Irby; Ruth Nagel NP~ EXAMINATION: US VENOUS ULTRASOUND WITH DOPPLER LOWER EXTREMITY, RIGHT CLINICAL INFORMATION: Swelling and pain right lower extremity. COMPARISON: None available. TECHNIQUE: Ultrasound of the deep veins is performed from the hip to the calf with compression sonography and color and pulse Doppler assessment. Spectral analysis with color-flow imaging is performed. FINDINGS: There is normal venous compression and respiratory variation and augmented flow. The visualized common femoral vein, superficial femoral vein, profunda femoral vein, popliteal vein, and the trifurcation region shows no evidence of deep venous thrombosis. There is occlusive thrombus right greater saphenous vein from the proximal to distal thigh. There are varicosities in the right medial and distal thigh which are thrombosed as well. Physical finding of a enlarged right inguinal lymph node measuring 4.2 x 1.2 x 2.3 cm it has a normal echogenic medulla and likely normal. If the patient's symptoms persist, followup ultrasound in 5 days 7 days might be of value to exclude proximal propagation from a non-visualized calf vein. US/US venous duplex LE RT IMPRESSION: No DVT demonstrated in the right lower extremity. Positive thrombus in the right greater saphenous vein from proximal to distal thigh. There is thrombus within the superficial varicose veins of medial thigh as well. Prescription Management Anticoagulation Discharge Plan Discharge Clinical Impression: Phlebitis of superficial vein Patient Disposition: Home, Self-Care Instructions: Phlebitis (ED) Additional Instructions: There is a blood clot in the superficial saphenous vein. We did discuss this with the vascular surgeon on-call. They do not recommend anticoagulation. They do recommend warm compresses 3 times daily and ibuprofen as needed for pain. You should call their office Wednesday morning to schedule follow-up appointment. Please return for any worsening symptoms Prescriptions: No Action levothyroxine 175 mcg tablet 1 tab PO DAILY@0600 spironolactone 25 mg tablet 1 tab PO DAILY verapamil 180 mg capsule,ext rel. pellets 24 hr 1 cap PO DAILY Eliquis 5 mg Tablet 10 mg PO BID Qty: 26 0RF ursodiol 300 mg Capsule 300 mg PO BID 30 Days Qty: 60 0RF Eliquis 5 mg tablet 5 mg PO BID Qty: 60 0RF Referrals: Jackson Garcia MD [Physician] - 5 days
== END 2023-03-13 16:02 | disposition home or self-care (01) ==
PROVIDERS: Emergency Provider Student in an Organized Health Care Education/Training Program; PCP Physician Assistant Medical
DX: I80.01 Phlebitis and thrombophlebitis of superficial vessels of right lower extremity (principal); M79.604 Pain in right leg; I10 Essential (primary) hypertension; Z86.718 Personal history of other venous thrombosis and embolism
CPT/HCPCS: 93971; 99282; 99284

== ENCOUNTER 2023-07-14 16:18 | Emergency (ER) | payer OTHER, SELFPAY ==
--- NOTE | ~2023-07-14 | XR_ITS ---
EXAMINATION: XR WRIST, LEFT CLINICAL INFORMATION: Laceration dorsal wrist COMPARISON: None available. TECHNIQUE: PA, lateral, and oblique views of the left wrist. FINDINGS: The bones and soft tissues are normal. No fracture. Alignment is anatomic with normal joint spaces. No erosions or abnormal soft tissue calcifications. XR/XR wrist LT min 3V IMPRESSION: Normal left wrist.
[2023-07-14 16:23] VITALS: BP 150/109; PULSE 74; RESP 18; TEMP 37; O2SAT 96; BMI 35.6
--- NOTE | 2023-07-14 16:26 | ED_ITS ---
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 Patient states that he was using a scraper at work when it caught his left wrist. Patient denies any dizziness, lightheadedness, abdominal pain, nausea, vomiting, fever, chills, blurry vision, double vision, loss of vision, chest pain, difficulty breathing, shortness of breath, back pain, night sweats, pain with urination, increased urinary frequency, increased urinary urgency, blood in his urine or stool, syncope or a near syncopal episode, bowel incontinence, bladder incontinence, bowel retention, bladder retention, or any other complaints at this time. MD complaint: laceration Onset (ago): minute(s) Tetanus up to date: yes Location: LUE Severity: mild Severity scale (1-10): 3 Relieving factors: none Exacerbating factors: none Context: none Associated symptoms: denies other symptoms Treatments prior to arrival: bandages Related Data Home Medications ?Medication ?Instructions ?Recorded ?Confirmed levothyroxine 175 mcg tablet 1 tab PO DAILY@0600 06/27/20 09/18/21 spironolactone 25 mg tablet 1 tab PO DAILY 06/27/20 09/18/21 verapamil 180 mg 24 hr 1 cap PO DAILY 06/27/20 09/18/21 capsule,extended release Previous Rx's ?Medication ?Instructions ?Recorded apixaban 5 mg tablet (Eliquis) 5 mg PO BID #60 tabs 09/20/21 apixaban 5 mg tablet (Eliquis) 10 mg (2 x 5 mg) PO BID #26 tabs 09/20/21 ursodiol 300 mg capsule 300 mg PO BID 30 days #60 caps 09/20/21 cephalexin 500 mg capsule 500 mg PO Q6H 7 days #28 caps 07/14/23 Allergies Allergy/AdvReac Type Severity Reaction Status Date / Time No Known Allergies Allergy Verified 07/14/23 16:24 Review of Systems 2 Constitutional: Constitutional: Reports no additional constitutional complaints, Denies chills, Denies fever(s) and Denies night sweats Eyes: Eyes: Reports no additional eye complaints, Denies blurry vision, Denies change in vision, Denies diplopia, Denies eye discharge, Denies loss of vision and Denies eye pain ENT: Denies dizziness Cardiovascular: Cardiovascular: Reports no additional cardiovascular complaints, Denies chest pain, Denies lightheadedness, Denies Loss of Consciousness and Denies dyspnea Respiratory: Respiratory: Reports no additional respiratory complaints and Denies dyspnea Gastrointestinal: Gastrointestinal: Reports no additional gastrointestinal complaints, Denies abdominal pain, Denies melena, Denies hematochezia, Denies change in bowel habits and Denies change in stool character Genitourinary: Genitourinary: Reports no additional male genitourinary complaints, Denies hematuria, Denies oliguria, Denies difficulty urinating, Denies dysuria, Denies urinary frequency, Denies urinary hesitancy, Denies urinary incontinence and Denies urinary urgency Musculoskeletal: Musculoskeletal: Reports no additional musculoskeletal complaints, Denies numbness and Denies tingling Comments: left wrist laceration Neurologic: Denies dizziness, Denies loss of vision, Denies numbness and Denies tingling Psychiatric: Psychiatric: Reports no additional psychiatric complaints Endocrine: Endocrine: Reports no additional endocrine complaints Hematologic/Lymphatic: Hematologic/Lymphatic: Reports no additional hematologic/lymphatic complaints Allergic/Immunologic: Allergic/Immunologic: Reports no additional allergic/immunologic complaints [facility] Past Medical History Attestation statement: The following information was validated with the patient. Source: old records reviewed and nursing notes reviewed Medical History Poorly-controlled hypertension Choledocholithiasis Hypothyroid Rectal adenocarcinoma Rectal adenoma Hypertension Surgical History History of laparoscopic cholecystectomy (~2020) History of surgery History of creation of ostomy Family History Family History Other No family history of coronary artery disease Social History Social History Household Members: Spouse and Children Housing: House Do you presently have visiting nurse or other home services: No Unable to assess alcohol history related to: Unknown Alcohol intake: never Patient Tobacco Use Status: Never used Tobacco Advance Directives: Yes Advance Directives on File: Yes Advance Directives Date on File: 01/27/21 Do you have a plan to hurt others: No Plan service: No Current occupational status: employed Physical Exam 2 Vital Signs: Vital Signs: Last Vital Signs Temp 98.6 F 07/14/23 18:59 Pulse 78 07/14/23 18:59 Resp 18 07/14/23 18:59 BP 150/109 H 07/14/23 18:59 Pulse Ox 96 07/14/23 18:59 O2 Del Method Room Air 07/14/23 18:59 BMI result Body Mass Index 35.6 Const: General: cooperative, no acute distress, alert and awake Nutritional Appearance: well nourished Orientation/consciousness: patient oriented x3 Limitations: no limitations HEENT: Head: Yes normal to inspection and Yes atraumatic Ears: hearing grossly normal bilaterally and external ears normal General nose exam: Normal external nose present, no nasal discharge noted and no epistaxis Face and sinus: Yes normal facial exam, No abrasion and No laceration Mouth: Normal oral and palatal mucosa present, no drooling and no muffled voice Eyes: General: appearance normal, both eyes and all related structures P eriorbital: periorbital findings normal Eyelids: Yes eyelids normal C onjunctivae: conjunctivae normal Pupils: Equal, round and reactive pupils present EOM: EOMs intact bilaterally Neck: Neck: Yes normal visual inspection, Yes full ROM and Yes no lymphadenopathy Chest: Chest palpation & inspection: normal inspection of the chest Resp: Effort & Inspection: normal respiratory effort and able to speak in complete sentences GI: Inspection: Yes normal to inspection Neuro: General: patient oriented x3 and moves all extremities Cranial nerves: Yes Equal, round and reactive pupils present Cognition (Neuro): n ormal cognition Motor exam (neuro): 5/5 motor strength present throughout Sensory Exam: Normal double simultaneous stimulation for sensation C oordination: [id number] test normal Extrem: General: Yes full ROM and Yes capillary refill normal Hand/finger images: 1. 1cm laceration with no active bleeding Psych: Appearance: grossly normal Mental Status: mental status grossly normal Affect: normal affect Attitude: cooperative Thought process: N ormal thought process present Thought content: Normal thought content present Insight: Good insight present (Psych) Course Course Course Narrative: This is a Rapid Medical Examination (RME) performed by Yina Cary PA-C in triage. Full HPI, ROS, assessment and treatment plan per primary provider in the Main ED. 53 yo male here for eval of left wrist lac sustained while using a sharp window scraper at work 20 minutes prior to arrival. unable to control bleeding. tetanus updated one year ago. 1 cm lac noted to dorsal left wrist. active bleeding with pulsation. dressed in triage. 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 Patient's physical exam showed a 1cm laceration to the volar left wrist with no active bleeding. Patient's left wrist x-ray showed no acute process. I consulted with Dr. Castano on this case and he examined in the patient's left forearm with bedside ultrasound - confirming the integrity of the left radial artery. I explained my physical exam findings as well as all test results to the patient. I answered all questions asked by the patient. Patient's left wrist laceration was repaired, without incident. Patient's PMS was intact prior to and after laceration repair. I stressed the importance of the patient taking his medication as prescribed. I stressed the importance of the patient following up with his primary care provider. I stressed the importance of the patient having his sutures removed in 7-10 days. I stressed the importance of the patient performing daily wound checks and dressing changes. I stressed the importance of the patient NOT soaking the affected area. I stressed the importance of the patient returning to the emergency department immediately if his symptoms were to worsen or if he were to develop any dizziness, shortness of breath, difficulty breathing, chest pain, blurry vision, loss of vision, nausea, vomiting, abdominal pain, fever, chills, back pain, or any other complaints. Patient verbalized agreement and understanding with this treatment plan and discharge. Differential Diagnosis Differential Diagnoses: The differential diagnosis associated with the presentation includes Laceration Wrist laceration Wrist injury Admission/Observation Consideration of admission/observation: Escalation of care including admission/observation considered Patient would have been admitted to the hospital had his work up had any findings where hospital admission was appropriate and his clinical presentation warranted hospital admission. Independent Interpretation I performed an independent interpretation of an: Plain X-Ray Interpretation: My interpretation is in agreement with the radiologist's impression of this imaging study. - EXAMINATION: XR WRIST, LEFT CLINICAL INFORMATION: Laceration dorsal wrist COMPARISON: None available. TECHNIQUE: PA, lateral, and oblique views of the left wrist. FINDINGS: The bones and soft tissues are normal. No fracture. Alignment is anatomic with normal joint spaces. No erosions or abnormal soft tissue calcifications. XR/XR wrist LT min 3V IMPRESSION: Normal left wrist. Dictated By: Omar Liriano MD Signed By: Electronically signed by Omar Liriano MD 07/14/23 7327 Radiology Impression Discussion of test interpretation with radiology: I have reviewed the radiologist's reading. Prescription Management I considered prescription management with: Antibiotic (given the mechanism of injury, patient will be treated with a prophylactic antibiotic) Procedures Laceration Laceration 1: Site: other (wrist) Side (If applicable): left Size (cm): 1 Description: flap Depth: simple, single layer Local Anesthetic: lidocaine 1% Amount of anesthesia used (mL): 10 Pre-repair: wound explored, irrigated extensively and deep structures intact Skin layer closed with: other (prolene) Size (cm): 6-0 Number of sutures: 2 Technique: simple, interrupted Critical Care Time Critical Care Time Critical Care Time: Yes Total Critical Care Time: 48 Attestation: I spent 48 minutes of Critical Care Time with this patient. This does not include time spent on separately reported billable procedures. Discharge Plan Discharge Clinical Impression: Laceration Patient Disposition: Home, Self-Care Instructions: Care For Your Stitches (DC), Laceration (DC) Additional Instructions: Have your sutures removed in 7-10 days (2 total). Do NOT soak the affected area. Perform daily wound checks and dressing changes. Take your antibiotic as prescribed. Follow up with your primary care provider and given this was a work place injury, work connection. Return to the emergency department immediately if your symptoms worsen or if you develop any dizziness, shortness of breath, difficulty breathing, chest pain, blurry vision, loss of vision, nausea, vomiting, abdominal pain, fever, chills, back pain, or any other complaints. Prescriptions: New cephalexin 500 mg capsule 500 mg PO Q6H 7 Days Qty: 28 0RF No Action levothyroxine 175 mcg tablet 1 tab PO DAILY@0600 spironolactone 25 mg tablet 1 tab PO DAILY verapamil 180 mg capsule,ext rel. pellets 24 hr 1 cap PO DAILY Eliquis 5 mg Tablet 10 mg PO BID Qty: 26 0RF ursodiol 300 mg Capsule 300 mg PO BID 30 Days Qty: 60 0RF Eliquis 5 mg tablet 5 mg PO BID Qty: 60 0RF Referrals: [facility] Family Medicine [Provider Group] (Call to establish and follow up with a primary care provider. If you already have a primary care provider, please follow up with them.) [facility] Primary Care[facility]ra [Provider Group] [facility] Primary Care[facility] [Provider Group] [facility] [Provider Group] (Given this was a work place injury, call to establish and follow up with work connection.) Stand Alone Forms: Work/School Release Interventions: ED Discharge Assessment Last Done: 07/14/23 18:59 Discharge Date/Time: 07/14/23 19:00 Print Language: Tamazight
[2023-07-14] MEDS: Lidocaine HCl 1 % MPF 5 ML VIAL SUBCUT (18:45)
[2023-07-14 18:59] VITALS: BP 150/109; PULSE 78; RESP 18; TEMP 37; O2SAT 96
== END 2023-07-14 19:00 | disposition home or self-care (01) ==
PROVIDERS: Emergency Provider Student in an Organized Health Care Education/Training Program
DX: S61.512A Laceration without foreign body of left wrist, initial encounter (principal); W27.8XXA Contact with other nonpowered hand tool, initial encounter; Y93.9 Activity, unspecified; Y92.9 Unspecified place or not applicable; Y99.0 Civilian activity done for income or pay
CPT/HCPCS: 12041; 73110; 99284